=== PATIENT | female | born 1950 | race Caucasian/White ===

== ENCOUNTER 2016-08-31 09:00 | Outpatient (CLI) | payer MEDICARE, OTHER | END 2016-08-31 09:35 | disposition home or self-care (01) | LOC: SLEEP 09:00 | PROVIDERS: ATTEND Internal Medicine Critical Care Medicine | DX: G47.10 Hypersomnia, unspecified (principal); I10 Essential (primary) hypertension; J68.4 Chronic respiratory conditions due to chemicals, gases, fumes and vapors; J30.2 Other seasonal allergic rhinitis; J32.9 Chronic sinusitis, unspecified; K21.9 Gastro-esophageal reflux disease without esophagitis; R05 Cough ==

== ENCOUNTER 2016-12-21 20:06 | Outpatient (CLI) | payer MEDICARE, OTHER | END 2016-12-22 06:05 | disposition home or self-care (01) | DX: G47.50 Parasomnia, unspecified (principal); J68.4 Chronic respiratory conditions due to chemicals, gases, fumes and vapors; G47.10 Hypersomnia, unspecified; G47.34 Idiopathic sleep related nonobstructive alveolar hypoventilation ==

== ENCOUNTER → 2017-07-27 | Outpatient (CLI) | payer MEDICARE, OTHER ==
--- NOTE | 2017-07-27 15:38 | Diagnostic Imaging Report ---
INDICATION: Neck mass. Patient had lipoma removal in June, now with a recurrent mass in the same area. FINDINGS: Interrogation of the lump was performed. There is mixed echogenicity but primarily hyperechoic mass measuring 2.6 x 1.1 x 3.3 cm, indeterminate. No definite internal vascularity is present. The right lobe of the thyroid measures 5.2 x 1.8 x 1.8 cm and the left lobe measures 4.2 x 2.5 x 2.0 cm. There is a hyperechoic mass in the upper pole of left lobe measuring 1.8 x 1.4 x 1.5 cm. There is a hypoechoic nodule in the inferior right lobe measuring approximately 0.8 x 0.8 x 1.4 cm. IMPRESSION: 1. Bilateral thyroid masses, largest upper pole left lobe. Followup in 6 months could be performed to confirm stability. 2. Nonspecific mass midline of the neck at the area of palpable abnormality. Dictated by: Dictated on workstation # [id number]
== END ==
LOC: RAD 14:25
PROVIDERS: ATTEND Surgery
DX: R22.1 Localized swelling, mass and lump, neck (principal); Z86.018 Personal history of other benign neoplasm
CPT/HCPCS: 76536

== ENCOUNTER → 2017-08-09 | Outpatient (CLI) | payer MEDICARE, OTHER ==
--- NOTE | 2017-08-09 13:27 | Diagnostic Imaging Report ---
DATE OF STUDY: 08/09/2017 1:13 PM STUDY PERFORMED: Dual energy radiographic absorptiometry (DXA) INDICATION: 66 years-old Female in need of bone mineral density screening. PREVIOUS STUDIES: None. PROCEDURE: Bone mineral analysis was performed by dual energy radiographic absorptiometry of the lumbar spine and bilateral hips. FINDINGS: Examination of transmission images of the lumbar spine and hips demonstrates degenerative changes. REGION L2-L4 PA total: Bone mineral density g/cm2 1.261 SD from young normal (T) 0.5 SD from age-matched control (Z) 1.4 Right femoral neck: Bone mineral density g/cm2 0.849 SD from young normal (T) -1.4 SD from age-matched control (Z) -0.3 Right hip total: Bone mineral density g/cm2 0.889 SD from young normal (T) -0.9 SD from age-matched control (Z) -0.1 Left femoral neck: Bone mineral density g/cm2 0.837 SD from young normal (T) -1.4 SD from age-matched control (Z) -0.4 Left hip total: Bone mineral density g/cm2 0.970 SD from young normal (T) -0.3 SD from age-matched control (Z) 0.5 (Please use "T" values from the results) According to the FRAX WHO fracture risk assessment tool, for an untreated patient, there is a 8.5 percent 10-year risk of major osteoporotic fracture and a 0.9 percent 10-year risk of hip fracture. However, not all demographic information is available. IMPRESSION: 1. Osteopenia, based on a T score of -1.4 in the right femoral neck. Reductions in bone density to 2.5 or more standard deviations below those of young normal subjects is considered to represent osteoporosis in the absence of other causes of bone loss. Reduction in bone density to 1-2.5 standard deviations below those of young normal subjects fulfills the definition of osteopenia. (WHO Tech Rep Ser 1994; No. 843.6; J Bone Stokes Res 1994; 9:1137). Dictated by: Dictated on workstation # [id number]
== END ==
LOC: RAD 08:19
PROVIDERS: ATTEND Nurse Practitioner Family
DX: Z13.820 Encounter for screening for osteoporosis (principal); M85.88 Other specified disorders of bone density and structure, other site; M81.0 Age-related osteoporosis without current pathological fracture
CPT/HCPCS: 77080

== ENCOUNTER 2017-08-15 05:37 | Outpatient (CLI) | payer MEDICARE, OTHER ==
[~2017-08-15] VITALS: Ht 157.5 cm; Wt 83.0 kg
[2017-08-15] MEDS ORDERED: METR45CR TP (15:39)
[2017-08-15] MEDS ORDERED: VITA-189 PO (16:07)
[2017-08-15] MEDS ORDERED: FLUT16SP22 NSEACH (16:07)
[2017-08-15] MEDS ORDERED: MULT-77 PO (16:07)
[2017-08-15] MEDS ORDERED: ATEN25TA PO (16:07)
[2017-08-15] MEDS ORDERED: MONT10TA24 PO (16:07)
[2017-08-15] MEDS ORDERED: RT-ALBUINH IH (16:07)
[2017-08-15] MEDS ORDERED: OMEP20TA7 PO (16:07)
[2017-08-15] MEDS ORDERED: SOY1TABL2 PO (16:07)
[2017-08-15] MEDS ORDERED: CALC-823 PO (16:07)
[2017-08-15] MEDS ORDERED: LORA10TA7 PO (16:07)
[2017-08-15] MEDS ORDERED: FLUT200B IH (16:07)
[2017-08-15] MEDS ORDERED: MINO100T10 PO (16:07)
[2017-08-15] MEDS ORDERED: BRIMON0.2 OU (16:07)
== END 2017-08-15 16:12 ==
LOC: PREOP 05:37
PROVIDERS: ATTEND Surgery
DX: Z01.818 Encounter for other preprocedural examination (principal); R22.2 Localized swelling, mass and lump, trunk

== ENCOUNTER 2017-08-23 06:01 | Day surgery (SDC) | payer MEDICARE, OTHER ==
[~2017-08-23] VITALS: Ht 157.5 cm; Wt 83.0 kg
[~2017-08-23 06:01] MED LIST: ATEN25TA PO; BRIMON0.2 OU; CALC-823 PO; FLUT16SP22 NSEACH; FLUT200B IH; LORA10TA7 PO; METR45CR TP; MINO100T10 PO; MONT10TA24 PO; MULT-77 PO; OMEP20TA7 PO; RT-ALBUINH IH; SOY1TABL2 PO; VITA-189 PO
--- OUTSIDE RECORDS SUMMARY | 2017-08-23 06:03 | XMS REPORT | CCD ---
Author Author JS PRITCHETT Organization Unknown Address [address] [facility] [address] [place], [place] [id number] Care Team Providers Care Lead Furnace Operator Name Role Phone [facility] ER, RIAN DIAZ Attphys [facility] ER, ALPHONSO OLIVA Prisurg Vital Signs Unknown or Not Available. Allergies Allergy Code Allergy Type Reaction Status CIPRO 975325 Drug allergy Active SULFONAMIDE 0 Drug allergy Active BACTRIM 221531 Drug allergy Active Procedures Procedure Code Procedure Type Date BAN AERO ECLIPSE TREATMENT 94364890 SNOMED CT 02/13/2015 CBC W/ AUTO DIFF (RFLX MAN DIFF IF IND) 5367733 SNOMED CT 02/13/2015 COMPREHENSIVE METABOLIC PANEL 359931461 SNOMED CT 2014 TROPONIN-I ADV 478806575 SNOMED CT 02/13/[address] 02/13/2015 ^CBC W/AUTO DIFF 1412300 SNOMED CT 02/13/2015 CX CHEST [address] 02/13/2015 History of Immunizations Unknown or Not Available. Problems Unknown or Not Available. Results COMPREHENSIVE METABOLIC PANEL - Collect Date/Time: 02/13/2015 19:55 Test Name Code Test Result Test Units Test Ref Range GLUCOSE 2345-7 103 MG/DL L=70 H=100 SODIUM 2951-2 143 MEQ/L L=135 H=148 POTASSIUM 2823-3 3.8 MEQ/L L=3.5 H=5.3 CHLORIDE 2075-0 108 MEQ/L L=96 H=110 CO2 2028-9 24 MEQ/L L=22 H=29 BUN 3094-0 20 MG/DL L=8 H=22 CREATININE 2160-0 0.8 MG/DL L=0.6 H=1.6 SGOT/AST 1920-8 22 IU/L L=10 H=40 SGPT/ALT 1742-6 22 IU/L L=8 H=54 ALK PHOS 6768-6 66 IU/L L=35 H=115 TOTAL PROTEIN 2885-2 6.8 G/DL L=5.5 H=8.5 ALBUMIN 1751-7 4.0 G/DL L=3.1 H=5.4 TOTAL BILI 1975-2 0.3 MG/DL L=0.0 H=1.5 CALCIUM 88198-2 9.4 MG/DL L=8.2 H=10.6 AGE 64 yrs GFR NonAA 72 GFR AA 87 eGFR >60 N/A eGFR AA* >60 N/A CBC W/ AUTO DIFF (RFLX MAN DIFF IF IND) - Collect Date/Time: 02/13/2015 19:55 Test Name Code Test Result Test Units Test Ref Range WBC 74239-2 6.4 TH/CMM L=4.5 H=10.8 RBC 789-8 4.57 ML/CMM L=4.20 H=5.40 HGB 718-7 13.9 G/DL L=12.0 H=16.0 HCT 4544-3 42.2 % L=37.0 H=47.0 MCV 92 FL L=81 H=99 MCH 30.4 PG L=27.0 H=33.0 MCHC 32.9 G/DL L=31.0 H=36.0 RDW SD 44 FL L=36 H=50 RDW CV 13.0 % L=0.0 H=14.8 MPV 9.4 FL L=9.3 H=12.5 PLT 777-3 256 TH/CMM L=130 H=440 NRBC# 0.00 TH/CMM L=0.00 H=0.00 NRBC% 0.0 /100WBC L=0.0 H=2.0 %NEUT 56.9 % %LYMP 31.5 % %MONO 7.8 % %EOS 3.3 % %BASO 0.5 % #NEUT 3.66 TH/CMM L=2.10 H=8.20 #LYMP 2.02 TH/CMM L=0.90 H=5.20 #MONO 0.50 TH/CMM L=0.16 H=1.00 #EOS 0.21 TH/CMM L=0.00 H=0.80 #BASO 0.03 TH/CMM L=0.00 H=0.20 MANUAL DIFF NOT IND N/A BNP - Collect Date/Time: 02/13/2015 19:55 Test Name Code Test Result Test Units Test Ref Range BNP 25020-2 45 PG/ML L=0 H=100 TROPONIN-I ADV - Collect Date/Time: 02/13/2015 19:55 Test Name Code Test Result Test Units [place] [address]-2 <0.04 ng/mL L=0.04 H= 0.40 Active Medications Unknown or Not Available. Medications Administered During Visit Unknown or Not Available. Encounters Encounter Diagnosis Diagnosis Code Start Date ACUTE BRONCHITIS 4660 02/13/2015 Social History Smoking Status Code Start Date End Date Never smoker 957867122 Patient Decision Aids Unknown or Not Available. Discharge Instructions You were admitted to [facility] on 02/13/2015 with a principal diagnosis of ACUTE BRONCHITIS. You were discharged from [facility] on 02/13/2015. Should you have any questions prior to discharge, please contact a member of your healthcare team. If you have left the hospital and have any questions, please contact your primary care physician. Chief Complaint and Reason For Visit Chief Complaint Date of Onset DIFFICULTY BREATHING Function Status Unknown or Not Available. Plan of Care Unknown or Not Available. Referral/Transition of Care Unknown or Not Available.
--- OUTSIDE RECORDS SUMMARY | 2017-08-23 06:04 | XMS REPORT | Continuity of Care Document ---
Author Author [facility] Address Unknown Phone Unavailable Allergies Active Description Code Type Severity Reaction Onset Reported/Identified Relationship to Patient Clinical Status Yes Sulfa (Sulfonamide Antibiotics) 491 Drug Allergy N/A N/A Confirmed or Verified Yes Cipro Drug Allergy N/A Hives 07/29/2013 Yes Sulfa Drug Allergy N/A Hives 07/29/2013 Medications There is no data. 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 08/27/2015 ERIC MCKAY MD Ot Z12.31 08/30/2015 ERIC MCKAY MD Ot Z12.31 09/21/2015 DAVID SUAREZ DO Ot I10 09/21/2015 DAVID SUAREZ DO, Ot J32.9 09/21/2015 DAVID SUAREZ DO Ot K21.9 09/21/2015 DAVID SUAREZ DO Ot R05 09/23/2015 DAVID SUAREZ DO Ot I10 09/23/2015 DAVID SUAREZ DO, Ot J32.9 09/23/2015 DAVID SUAREZ DO, Ot K21.9 09/23/2015 DAVID SUAREZ DO Ot R05 09/29/2015 DAVID SUAREZ DO Ot I10 09/29/2015 DANIELA OLIVA DAVID Davila Ot J32.9 09/29/2015 DANIELA OLIVA DAVID Davila Ot K21.9 09/29/2015 DAVID SUAREZ DO Ot R05 10/12/2015 DAVID SUAREZ DO Ot I10 10/12/2015 DANIELA OLIVA DAVID Davila Ot J32.9 10/12/2015 DANIELA OLIVA DAVID Davila Ot K21.9 10/12/2015 DANIELA OLIVA DAVID Davila Ot R05 10/20/2015 DANIELA OLIVA DAVID Davila Ot I10 ESSENTIAL (PRIMARY) HYPERTENSION 10/20/2015 DANIELA OLIVA DAVID M Ot J32.9 CHRONIC SINUSITIS, UNSPECIFIED 10/20/2015 DANIELA DAVID Lola Ot K21.9 GASTRO-ESOPHAGEAL REFLUX DISEASE WITHOUT 10/20/2015 DANIELA OLIVA DAVID M Ot R05 COUGH 02/11/2016 BLANCA BURNETT POLICE RESERVES COMMANDER Ot M25.532 PAIN IN LEFT WRIST 02/11/2016 BLANCA BURNETT POLICE RESERVES COMMANDER Ot M25.532 PAIN IN LEFT WRIST 03/03/2016 BLANCA BURNETT POLICE RESERVES COMMANDER Ot M25.532 PAIN IN LEFT WRIST 03/09/2016 BLANCA BURNETT POLICE RESERVES COMMANDER Ot M25.532 PAIN IN LEFT WRIST 03/13/2016 CORINNA LOGAN APRN Ot S52.612D DISP FX OF L ULNA STYLOID PRO, SUBS FOR 03/13/2016 CORINNA LOGAN APRN Ot S59.202D UNSP PHYSL FX LOW END RAD, L ARM, SUBS F 03/13/2016 CORINNA LOGAN APRN Ot W17.89XD OTHER FALL FROM ONE LEVEL TO ANOTHER, ELI 03/13/2016 CORINNA LOGAN APRN Ot S52.612D DISP FX OF L ULNA STYLOID PRO, SUBS FOR 03/13/2016 CORINNA LOGAN APRN Ot S59.202D UNSP PHYSL FX LOW END RAD, L ARM, SUBS F 03/13/2016 CORINNA LOGAN APRN Ot W17.89XD OTHER FALL FROM ONE LEVEL TO ANOTHER, ELI 04/03/2016 CORINNA LOGAN APRN Ot S52.612D DISP FX OF L ULNA STYLOID PRO, SUBS FOR 04/03/2016 CORINNA LOGAN APRN Ot S59.202D UNSP PHYSL FX LOW END RAD, L ARM, SUBS F 04/03/2016 CORINNA LOGAN APRN Ot W17.89XD OTHER FALL FROM ONE LEVEL TO ANOTHER, ELI 04/03/2016 WOODY DIAZ, ERIC Ramesh Ot Z12.31 ENCNTR SCREEN MAMMOGRAM FOR MALIGNANT NE 04/03/2016 DAVID SUAREZ DO Ot I10 ESSENTIAL (PRIMARY) HYPERTENSION 04/03/2016 DAVID SUAREZ DO Ot J32.9 CHRONIC SINUSITIS, UNSPECIFIED 04/03/2016 DAVID SUAREZ DO Ot K21.9 GASTRO-ESOPHAGEAL REFLUX DISEASE WITHOUT 04/03/2016 DAVID SUAREZ DO Ot R05 COUGH 04/03/2016 DAVID SUAREZ DO Ot I10 ESSENTIAL (PRIMARY) HYPERTENSION 04/03/2016 DAVID SUAREZ DO Ot J32.9 CHRONIC SINUSITIS, UNSPECIFIED 04/03/2016 DAVID SUAREZ DO Ot K21.9 GASTRO-ESOPHAGEAL REFLUX DISEASE WITHOUT 04/03/2016 DAVID SUAREZ DO Ot R05 COUGH 04/03/2016 BLANCA BURNETT Ot M25.532 PAIN IN LEFT WRIST 04/03/2016 CORINNA LOGAN APRN Ot S52.612D DISP FX OF L ULNA STYLOID PRO, SUBS FOR 04/03/2016 CORINNA LOGAN APRN Ot S59.202D UNSP PHYSL FX LOW END RAD, L ARM, SUBS F 04/03/2016 CORINNA LOGAN APRN Ot W17.89XD OTHER FALL FROM ONE LEVEL TO ANOTHER, ELI 04/05/2016 CORINNA LOGAN APRN Ot S52.612D DISP FX OF L ULNA STYLOID PRO, SUBS FOR 04/05/2016 CORINNA LOGAN APRN Ot S59.202D UNSP PHYSL FX LOW END RAD, L ARM, SUBS F 04/05/2016 CORINNA LOGAN APRN Ot W17.89XD OTHER FALL FROM ONE LEVEL TO ANOTHER, ELI 08/31/2016 WOODY DIAZ, ERIC Ramesh Ot Z12.31 ENCNTR SCREEN MAMMOGRAM FOR MALIGNANT NE 08/31/2016 DAVID SUAREZ DO Ot I10 ESSENTIAL (PRIMARY) HYPERTENSION 08/31/2016 DAVID SUAREZ DO Ot J32.9 CHRONIC SINUSITIS, UNSPECIFIED 08/31/2016 DAVID SUAREZ DO Ot K21.9 GASTRO-ESOPHAGEAL REFLUX DISEASE WITHOUT 08/31/2016 DAVID SUAREZ DO Ot R05 COUGH 08/31/2016 DAVID SUAREZ DO Ot I10 ESSENTIAL (PRIMARY) HYPERTENSION 08/31/2016 DAVID SUAREZ DO, Ot J32.9 CHRONIC SINUSITIS, UNSPECIFIED 08/31/2016 DAVID SUAREZ DO Ot K21.9 GASTRO-ESOPHAGEAL REFLUX DISEASE WITHOUT 08/31/2016 DAVID SUAREZ DO Ot R05 COUGH 08/31/2016 BLANCA BURNETT Ot M25.532 PAIN IN LEFT WRIST 08/31/2016 CORINNA LOGAN APRN Ot S52.612D DISP FX OF L ULNA STYLOID PRO, SUBS FOR 08/31/2016 CORINNA LOGAN APRN Ot S59.202D UNSP PHYSL FX LOW END RAD, L ARM, SUBS F 08/31/2016 CORINNA LOGAN APRN Ot W17.89XD OTHER FALL FROM ONE LEVEL TO ANOTHER, ELI 08/31/2016 DAVID SUAREZ DO Ot I10 ESSENTIAL (PRIMARY) HYPERTENSION 08/31/2016 DAVID SUAREZ DO Ot G47.10 HYPERSOMNIA, UNSPECIFIED 08/31/2016 DAVID SUAREZ DO Ot I10 ESSENTIAL (PRIMARY) HYPERTENSION 08/31/2016 DAVID SUAREZ DO Ot J30.2 OTHER SEASONAL ALLERGIC RHINITIS 08/31/2016 DAVID SUAREZ DO Ot J32.9 CHRONIC SINUSITIS, UNSPECIFIED 08/31/2016 DAVID SUAREZ DO Ot 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, GASE 08/31/2016 DAVID SUAREZ DO Ot K21.9 GASTRO-ESOPHAGEAL REFLUX DISEASE WITHOUT 08/31/2016 DAVID SUAREZ DO Ot R05 COUGH 09/09/2016 DAVID SUAREZ DO Ot I10 ESSENTIAL (PRIMARY) HYPERTENSION 09/09/2016 DAVID SUAREZ DO Ot J30.2 OTHER SEASONAL ALLERGIC RHINITIS 09/09/2016 DAVID SUAREZ DO Ot J32.9 CHRONIC SINUSITIS, UNSPECIFIED 09/09/2016 DAVID SUAREZ DO Ot 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, GASE 09/09/2016 DAVID SUAREZ DO Ot K21.9 GASTRO-ESOPHAGEAL REFLUX DISEASE WITHOUT 09/09/2016 DAVID SUAREZ DO Ot R05 COUGH 10/16/2016 DAVID SUAREZ DO Ot G47.10 HYPERSOMNIA, UNSPECIFIED 10/16/2016 DAVID SUAREZ DO Ot I10 ESSENTIAL (PRIMARY) HYPERTENSION 10/16/2016 DAVID SUAREZ DO Ot J30.2 OTHER SEASONAL ALLERGIC RHINITIS 10/16/2016 DAVID SUAREZ DO Ot J32.9 CHRONIC SINUSITIS, UNSPECIFIED 10/16/2016 DAVID SUAREZ DO Ot 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, GASE 10/16/2016 DAVID SUAREZ DO Ot K21.9 GASTRO-ESOPHAGEAL REFLUX DISEASE WITHOUT 10/16/2016 DAVID SUAREZ DO Ot R05 COUGH 12/22/2016 DAVID SUAREZ DO Ot G47.10 HYPERSOMNIA, UNSPECIFIED 12/22/2016 DAVID SUAREZ DO Ot G47.34 IDIO SLEEP RELATED NONOBSTRUCTIVE ALVEOL 12/22/2016 DAVID SUAREZ DO Ot G47.50 PARASOMNIA, UNSPECIFIED 12/22/2016 DAVID SUAREZ DO Ot 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, GASE 12/22/2016 DAVID SUAREZ DO Ot G47.10 HYPERSOMNIA, UNSPECIFIED 12/22/2016 DAVID SUAREZ DO Ot G47.34 IDIO SLEEP RELATED NONOBSTRUCTIVE ALVEOL 12/22/2016 DAVID SUAREZ DO Ot G47.50 PARASOMNIA, UNSPECIFIED 12/22/2016 DAVID SUAREZ DO Ot 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, GASE 12/28/2016 DAVID SUAREZ DO Ot G47.10 HYPERSOMNIA, UNSPECIFIED 12/28/2016 DAVID SUAREZ DO Ot G47.34 IDIO SLEEP RELATED NONOBSTRUCTIVE ALVEOL 12/28/2016 DAVID SUAREZ DO Ot G47.50 PARASOMNIA, UNSPECIFIED 12/28/2016 DAVID SUAREZ DO Ot 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, GASE 07/26/2017 WOODY DIAZ, ERIC Ramesh Ot Z12.31 ENCNTR SCREEN MAMMOGRAM FOR MALIGNANT NE 07/26/2017 DAVID SUAREZ DO Ot I10 ESSENTIAL (PRIMARY) HYPERTENSION 07/26/2017 DAVID SUAREZ DO Ot J32.9 CHRONIC SINUSITIS, UNSPECIFIED 07/26/2017 DAVID SUAREZ DO Ot K21.9 GASTRO-ESOPHAGEAL REFLUX DISEASE WITHOUT 07/26/2017 DAVID SUAREZ DO Ot R05 COUGH 07/26/2017 DAVID SUAREZ DO Ot I10 ESSENTIAL (PRIMARY) HYPERTENSION 07/26/2017 DAVID SUAREZ DO Ot J32.9 CHRONIC SINUSITIS, UNSPECIFIED 07/26/2017 DAVID SUAREZ DO Ot K21.9 GASTRO-ESOPHAGEAL REFLUX DISEASE WITHOUT 07/26/2017 DAVID SUAREZ DO Ot R05 COUGH 07/26/2017 BLANCA BURNETT Ot M25.532 PAIN IN LEFT WRIST 07/26/2017 CORINNA LOGAN APRN Ot S52.612D DISP FX OF L ULNA STYLOID PRO, SUBS FOR 07/26/2017 CORINNA LOGAN APRN Ot S59.202D UNSP PHYSL FX LOW END RAD, L ARM, SUBS F 07/26/2017 CORINNA LOGAN APRN Ot W17.89XD OTHER FALL FROM ONE LEVEL TO ANOTHER, ELI 07/31/2017 ROWAN MARTINEZ DO Ot R22.1 LOCALIZED SWELLING, MASS AND LUMP, NECK 07/31/2017 ROWAN MARTINEZ DO Ot Z86.018 PERSONAL HISTORY OF OTHER BENIGN NEOPLAS 08/08/2017 CORINNA LOGAN APRN Ot M81.0 AGE-RELATED OSTEOPOROSIS W/O CURRENT PAT 08/09/2017 CORINNA LOGAN APRN Ot M81.0 AGE-RELATED OSTEOPOROSIS W/O CURRENT PAT 08/10/2017 CORINNA LOGAN APRN Ot M81.0 AGE-RELATED OSTEOPOROSIS W/O CURRENT PAT 08/10/2017 CORINNA LOGAN APRN Ot M85.88 OT DISRD OF BONE DENSITY AND STRUCTURE, 08/10/2017 CORINNA LOGAN APRN Ot Z13.820 ENCOUNTER FOR SCREENING FOR OSTEOPOROSIS Procedures Code [place] [address] ROUTINE VENIPUNCTURE ROCK DIAZ, DALILA Diego 07/27/2013 66298 CHEST X-RAY ROCK DIAZ, DALILA Diego 07/27/2013 09794 COMPREHEN METABOLIC PANEL ROCK DIAZ, [facility] 07/27/2013 51636 COMPLETE CBC W/AUTO DIFF WBC ROCK DIAZ, DALILA B 07/27/2013 98460 MYCOPLASMA ANTIBODY ROCK DIAZ, DALILA B 07/27/2013 57919 INFLUENZA ASSAY W/OPTIC ROCK DIAZ, [facility] 07/27/2013 52487 THER/PROPH/DIAG INJ, SC/IM [place]OCK DIAZ, DALILA B 07/27/2013 95595 EMERGENCY DEPT VISIT ROCK DIAZ, DALILA B 07/27/2013 J0696 CEFTRIAXONE SODIUM INJECTION ROCK DIAZ, [facility] 07/27/2013 05656 EMERGENCY DEPT VISIT ROCK DIAZ, DALILA B 07/27/2013 48938 EMERGENCY DEPT VISIT ADRI DIAZ, ISSAC Patterson 07/28/2013 Results Test Result Range COMPLETE BLOOD COUNT - 07/27/13 08:05 Platelet 277 10^3u 142-424 MPV 8.8 FL 9.4-12.4 [place] # 0.63 10^3u 0.0-1.0 RBC 4.66 10^6u 4.04-6.13 [place] % 10.7 % 0-12 RDW 12.5 % 11.6-14.8 Neut # 3.62 10^3u 2.0-6.9 Neut % 61.3 % 37-80 WBC 5.90 10^3u 4.60-10.20 MCV 89.1 FL 80.0-97.0 Baso # 0.04 10^3u 0.0-0.1 Baso % 0.7 % 0-2 Eos # 0.35 10^3u 0-0.7 Eos % 5.9 % 0-7 Lymph % 21.4 % 10-50 MCHC 34.2 G/DL 31.8-35.4 MCH 30.5 PG 27.0-31.2 Lymph # 1.26 10^3u 0.6-3.4 HGB 14.2 G/DL 12.2-18.1 HCT 41.5 % 37.7-53.7 CMP - 07/27/13 08:05 Osmo Calculated 276 MOSM 261-280 Sodium 143 MMOLL 137-145 T. Protein 8.0 G/DL 6.3-8.2 Potassium 4.0 MMOLL 3.6-5.0 T Bili 0.5 MG/DL 0.2-1.3 Calcium 9.3 MG/DL 8.4-10.2 BUN 12 MG/DL 7-21 Chloride 103 MMOLL 98-107 AST 33 U/L 15-46 ALT 37 U/L 7-56 Albumin 4.4 G/DL 3.5-5.0 A/G Ratio 1.2 RATIO 1.2-2.2 Bun/Creat 16.5 RATIO 7-25 Alk Phos 104 U/L 38-126 CO2 28 MMOLL 22-30 Glucose 106 MG/DL 65-110 Globulin 3.6 2.4-3.5 Creatinine 0.7 MG/DL 0.7-1.5 Mycoplasma Antibody - 07/27/13 08:05 Mycoplasma Antibody NEG Negative Influenza A B - 07/27/13 08:05 Influenza A NEG Negative Influenza B NEG Negative COMPLETE BLOOD COUNT - 07/29/13 13:30 Platelet 326 10^3u 142-424 MPV 9.0 FL 9.4-12.4 [place] # 0.52 10^3u 0.0-1.0 [place] 9.0 RBC 4.61 10^6u 4.04-6.13 [place] % 7.1 % 0-12 RDW 12.5 % 11.6-14.8 Seg 60.0 Neut # 4.52 10^3u 2.0-6.9 Neut % 61.4 % 37-80 WBC 7.36 10^3u 4.60-10.20 Bands 1.0 MCV 89.2 FL 80.0-97.0 Lymph Atypical 1.0 Baso # 0.03 10^3u 0.0-0.1 Baso % 0.4 % 0-2 Eos 3.0 Eos # 0.34 10^3u 0-0.7 Eos % 4.6 % 0-7 Lymph % 26.5 % 10-50 MCHC 34.3 G/DL 31.8-35.4 MCH 30.6 PG 27.0-31.2 Lymph # 1.95 10^3u 0.6-3.4 Lymph 26.0 HGB 14.1 G/DL 12.2-18.1 HCT 41.1 % 37.7-53.7 Mycoplasma Antibody - 07/29/13 13:40 Mycoplasma Antibody NEG Negative [facility] - 07/29/13 13:40 Osmo Calculated 274 MOSM 261-280 Sodium 142 MMOLL 137-145 T. Protein 8.1 G/DL 6.3-8.2 Potassium 4.2 MMOLL 3.6-5.0 T Bili 0.5 MG/DL 0.2-1.3 Calcium 9.4 MG/DL 8.4-10.2 BUN 14 MG/DL 7- Chloride 103 MMOLL 98-107 AST 36 U/L 15-46 ALT 31 U/L Albumin 4.4 G/DL 3.5-5.0 A/G Ratio 1.2 RATIO 1.2-2.2 Bun/Creat 19.1 RATIO 7 Alk Phos 104 U/L 38-126 CO2 27 MMOLL 22-30 Glucose 84 MG/DL 65-110 Globulin 3.7 2.4-3.5 Creatinine 0.7 MG/DL 0.7-1.5 Arterial Blood Gas - 07/29/13 14:00 O2/L ROOMAIR L pCO2 38 mmHg 35-45 HCO3 25 MMOLL 22-26 pH 7.42 Units 7.35-7.45 Total CO2 26 MMOLL 23-27 pO2 78 mmHg 75-90 Base Excess 1 MMOLL -2-+2 O2 Sat 96 % 96-97 [facility] - 07/30/13 05:45 Osmo Calculated 274 MOSM 261-280 Sodium 142 MMOLL 137-145 T. Protein 7.0 G/DL 6.3-8.2 Potassium 3.9 MMOLL 3.6-5.0 T Bili 0.3 MG/DL 0.2-1.3 Calcium 8.9 MG/DL 8.4-10.2 BUN 14 MG/DL 7- Chloride 105 MMOLL 98-107 AST 28 U/L 15-46 ALT 34 U/L Albumin 3.8 G/DL 3.5-5.0 A/G Ratio 1.2 RATIO 1.2-2.2 Bun/Creat 18.1 RATIO 7 Alk Phos 86 U/L 38-126 CO2 28 MMOLL 22-30 Glucose 99 MG/DL 65-110 Globulin 3.3 2.4-3.5 Creatinine 0.8 MG/DL 0.7-1.5 COMPLETE BLOOD COUNT - 07/30/13 05:45 Platelet 283 10^3u 142-424 MPV 9.0 FL 9.4-12.4 [place] 10.0 RBC 4.28 10^6u 4.04-6.13 RDW 12.3 % 11.6-14.8 Seg 56.0 WBC 6.16 10^3u 4.60-10.20 Bands 1.0 MCV 89.5 FL 80.0-97.0 Eos 6.0 MCHC 33.4 G/DL 31.8-35.4 MCH 29.9 PG 27.0-31.2 Lymph 27.0 HGB 12.8 G/DL 12.2-18.1 HCT 38.3 % 37.7-53.7 COMPLETE BLOOD COUNT - 07/31/13 06:10 Platelet 233 10^3u 142-424 MPV 8.7 FL 9.4-12.4 [place] # 0.61 10^3u 0.0-1.0 RBC 4.40 10^6u 4.04-6.13 [place] % 10.0 % 0-12 RDW 12.4 % 11.6-14.8 Neut # 3.25 10^3u 2.0-6.9 Neut % 53.3 % 37-80 WBC 6.09 10^3u 4.60-10.20 MCV 90.0 FL 80.0-97.0 Baso # 0.03 10^3u 0.0-0.1 Baso % 0.5 % 0-2 Eos # 0.40 10^3u 0-0.7 Eos % 6.6 % 0-7 Lymph % 29.6 % 10-50 MCHC 33.6 G/DL 31.8-35.4 MCH 30.2 PG 27.0-31.2 Lymph # 1.80 10^3u 0.6-3.4 HGB 13.3 G/DL 12.2-18.1 HCT 39.6 % 37.7-53.7 CMP - 07/31/13 06:10 Osmo Calculated 273 MOSM 261-280 Sodium 142 MMOLL 137-145 T. Protein 7.0 G/DL 6.3-8.2 Potassium 4.5 MMOLL 3.6-5.0 T Bili 0.3 MG/DL 0.2-1.3 Calcium 8.5 MG/DL 8.4-10.2 BUN 11 MG/DL 7-21 Chloride 107 MMOLL 98-107 AST 32 U/L 15-46 ALT 29 U/L 7-56 Albumin 3.7 G/DL 3.5-5.0 A/G Ratio 1.1 RATIO 1.2-2.2 Bun/Creat 16.0 RATIO 7-25 Alk Phos 81 U/L 38-126 CO2 25 MMOLL 22-30 Glucose 97 MG/DL 65-110 Globulin 3.3 2.4-3.5 Creatinine 0.7 MG/DL 0.7-1.5 Encounters ACCT No. Visit Date/Time Discharge Status Pt. Type Provider Facility Loc./Unit Complaint [id number] 07/29/2013 12:45:00 07/31/2013 13:15:00 DIS Inpatient ROCK DIAZ, [facility] NS1 [id number] 07/28/2013 22:30:00 07/28/2013 23:15:00 DIS Emergency ADRI DIAZ, [facility] ER [id number] 07/28/2013 22:40:00 07/28/2013 22:40:00 DIS Outpatient ADRI DIAZ, [facility] OTHER [id number] 07/27/2013 07:50:00 07/27/2013 09:20:00 DIS Emergency ROCK DIAZ, [facility] ER [id number] 07/27/2013 08:35:00 07/27/2013 08:35:00 DIS Outpatient ROCK DIAZ, [facility] OTHER [id number] 07/02/2014 17:23:00 07/02/2014 19:02:00 DIS Emergency SUNSHINE KINGSTON [facility] EMR [id number] 07/02/2014 17:25:00 07/02/2014 17:25:00 DIS Outpatient SUNSHINE KINGSTON [facility] EMR [id number] 08/09/2017 08:19:00 08/09/2017 23:59:59 CLS Outpatient CORINNA LOGAN APRN [facility] RAD SCREENING [id number] 07/27/2017 14:34:00 07/27/2017 23:59:59 CLS Preadmit CORINNA LOGAN APRN [facility] RAD SCREENING [id number] 07/27/2017 14:25:00 07/27/2017 23:59:59 CLS Outpatient ROWAN MARTINEZ DO [facility] RAD R22.1 NECK MASS [id number] 02/01/2017 12:10:00 02/01/2017 23:59:59 CLS Preadmit ERIC MCKAY MD [facility] RAD SCREENING [id number] 02/01/2017 12:10:00 02/01/2017 23:59:59 CLS Preadmit ERIC MKCAY MD [facility] RAD OSTEOPOROSIS [id number] 12/21/2016 20:06:00 12/22/2016 06:05:00 DIS Outpatient DAVID SUAREZ DO [facility] SLEEP J68.4 COPD [id number] 08/31/2016 09:00:00 08/31/2016 09:35:00 DIS Outpatient DAVID SUAREZ DO [facility] SLEEP EDS, SNORING, SLEEP DISTURBANCE [id number] 03/10/2016 10:42:00 03/10/2016 23:59:59 CLS Outpatient CORINNA LOGAN APRN [facility] RAD L WRIST FRACTURE FOLLOW UP [id number] 02/10/2016 14:09:00 02/10/2016 23:59:59 CLS Outpatient BLANCA BURNETT [facility] RAD L WRIST PAIN [id number] 09/22/2015 16:26:00 09/22/2015 23:59:59 CLS Outpatient DAVID SUAREZ DO [facility] RT COUGH, ESPHOGEAL REFLUX, HTN [id number] 08/30/2015 13:36:00 08/30/2015 23:59:59 CLS Outpatient DAVID SUAREZ DO [facility] RAD COUGH, ESPHOGEAL REFLUX, HTN [id number] 08/03/2015 10:20:00 08/03/2015 23:59:59 CLS Outpatient WOODY DIAZ, ERIC Ramesh [facility] RAD SCREENING [id number] 08/23/2017 08:00:00 PEN Preadmit ROWAN MARTINEZ DO [facility] SDC CHEST MASS
[2017-08-23 06:20] VITALS: BP 174/99
[2017-08-23] MEDS: LACTATED RINGERS 1,000 ML IV PRN ×2 (06:20→08:35)
[2017-08-23] MEDS ORDERED: CATHETER FLUSH 10 ML SYR IV PRN (06:30)
[2017-08-23] MEDS ORDERED: ceFAZolin 2 GM/50 ML PRE-MIX IVPB IV ONE (06:30)
[2017-08-23] MEDS ORDERED: proPOfol 200 MG/20 ML (DIPRIVAN) VIAL IV ONE (06:42)
[2017-08-23] MEDS ORDERED: LIDOCAINE PF 2% 5 ML (XYLOCAINE) VIAL ONE (06:42)
[2017-08-23] MEDS ORDERED: ONDANSETRON 4 MG/2 ML (SDV) Z0FRAN ONE (06:42)
[2017-08-23] MEDS ORDERED: DEXAMETHASONE 10 MG/ML (DECADRON) 1 ML VIAL ONE (06:42)
[2017-08-23] MEDS ORDERED: SEVOFLURANE (ULTANE) 15 ML INHAL SOLN ONE ×3 (06:42→06:47)
[2017-08-23] MEDS ORDERED: MIDAZOLAM 2 MG/2 ML (VERSED) VIAL ONE (06:43)
[2017-08-23] MEDS ORDERED: fentaNYL INJECTION 100 MCG/2 ML AMP ONE (06:43)
[2017-08-23] MEDS ORDERED: ceFAZolin 2 GM IV Premixed 50 ML IV ONE (07:00)
[2017-08-23] MEDS ORDERED: BUPIVACAINE 0.5% 30 ML (SENSORCAINE) VIAL ONE (07:16)
[2017-08-23] MEDS ORDERED: LIDOCAINE 1% INJ 20 ML (XYLOCAINE) VIAL ONE (07:16)
--- NOTE | 2017-08-23 08:00 | Progress Note-Pre Operative ---
Pre-Operative Progress Note H&P Reviewed The H&P was reviewed, patient examined and no changes noted. Date Seen by Provider: Aug 23, 2017 Time Seen by Provider: 07:50 Date H&P Reviewed: Aug 23, 2017 Time H&P Reviewed: 07:50 Pre-Operative Diagnosis: chest wall mass ROWAN MARTINEZ DO Aug 23, 2017 08:00
--- NOTE | 2017-08-23 08:57 | Anesthesia-General Post-Op ---
General Patient Condition Mental Status/LOC: Same as Preop Cardiovascular: Satisfactory Nausea/Vomiting: Absent Respiratory: Satisfactory Pain: Controlled Complications: Absent Post Op Complications Complications None Follow Up Care/Instructions Patient Instructions None needed. Anesthesia/Patient Condition Patient Condition Patient is doing well, no complaints, stable vital signs, no apparent adverse anesthesia problems. No complications reported per nursing. [place] [facility] [place] No GALINA THORPE CRNA Aug 23, 2017 08:57
--- NOTE | 2017-08-23 08:57 | Progress Note-Post Operative ---
Post-Operative Progess Note Surgeon (s)/Floating Derrick Operator (s) Surgeon ROWAN MARTINEZ DO Floating Derrick Operator: na Pre-Operative Diagnosis chest wall mass Post-Operative Diagnosis same Procedure & Operative Findings Date of Procedure 08/23/17 Procedure Performed/Findings excision of recurrent chest wall mass 2.5 x 1 cm Anesthesia Type gen Estimated Blood Loss Estimated blood loss (mL): min Specimens/Packing Specimens Removed mass ROWAN MARTINEZ DO Aug 23, 2017 08:57
[2017-08-23] MEDS ORDERED: ONDANSETRON 4 MG/2 ML (SDV) Z0FRAN IVP PRN (09:00)
--- NOTE | 2017-08-23 09:00 | Discharge Inst-Simple/Standard ---
Discharge Inst-Standard Discharge Medications New, Converted or Re-Newed RX: RX on Chart Patient Instructions/Follow Up Plan of Care/Instructions/FU: 2 weeks Berrios Activity as Tolerated: No Discharge Diet: Regular Diet Other Inst to Patient Follow up Appt: Make appointment for 2 week. Instructions: No lifting greater than 10 pounds. No strenuous activity. May shower in 24 hours, no tub bath or soaking. Use incentive spirometer at home as directed. No Smoking Skin/Wound Care: You have special glue over incisions it will fall off on its own. Symptoms to Report: Appetite Changes, Extremity Discoloration, Numbness/Tingling, Swelling Increased , Bleeding Excessive, Eyesight Changes, Pain Increased, Urine Color Change, Constipation(Persistent), Fever over 101 degree F, Pain/Pressure in chest, Urinating Difficulty, Cough Up/Vomit Blood, Heart Beat Irreg/Pounding, Pain/ Pressure in jaw, Vaginal Bleeding Increase, Cramps in feet or legs, Lightheadedness, Pain/Pressure in shoulder, Diarrhea(Persistent), Memory Changes Suddenly, Questions/Concerns, Weight gain consecutive days, Dizziness/ Fainting, Nausea/Vomiting, Shortness of Breath, Weight gain over 2 pounds If questions or concerns contact your physician Or seek help at emergency department. ROWAN BERRIOS DO Aug 23, 2017 09:00
[2017-08-23] MEDS ORDERED: ACHD5005 PO (09:01)
[2017-08-23] MEDS: morphine INJ 10 MG/ML 1ML (SYR OR VIAL) IVP PRN ×2 (09:15→09:20)
[2017-08-23 09:40] VITALS: BP 150/89
[2017-08-23 10:10] VITALS: BP 150/84
--- NOTE | 2017-08-23 11:57 | OPERATIVE REPORT ---
DATE OF SERVICE: 08/23/2017 PREOPERATIVE DIAGNOSIS: Recurrent chest wall mass. POSTOPERATIVE DIAGNOSIS: Recurrent chest wall mass. PROCEDURE: Excision of recurrent chest wall mass 2.5 x 1 cm. SURGEON: Rowan Berrios DO. ANESTHESIA: General. ESTIMATED BLOOD LOSS: Minimal. COMPLICATIONS: None. INDICATIONS: The patient is a 66-year-old female who had a chest wall mass previously removed. recurred almost a week or so later. She was explained risks and benefits of procedure and wished to proceed with procedure. Consent was signed on the chart. PROCEDURE: The patient was taken to the operating suite. She was prepped and draped in sterile fashion. Surgical pause was performed. An incision was made around the previous scar and on the inferior aspect of the mass. Cautery was used to get dual plane of no scar tissue. The massively palpated and both cautery and blunt dissection was used to excise the mass. The area was then closed with 4-0 Vicryl in a running subcuticular fashion. A total of 10 mL of 0.5% Marcaine and 1% lidocaine 50:50 ratio was used to anesthetize the area. Skin Affix was placed over the incision right after. The patient tolerated procedure well without any complications. She was taken to recovery room in stable condition. Job ID: [id number] DocumentID: [id number] Dictated Date: 08/23/2017 09:04:58 Blocker Polishing Date: 08/23/2017 11:56:29 Dictated By: ROWAN BERRIOS DO
--- NOTE | 2017-08-23 14:32 | Anesthesia-General Post-Op ---
General Patient Condition Mental Status/LOC: Same as Preop Cardiovascular: Satisfactory Nausea/Vomiting: Absent Respiratory: Satisfactory Pain: Controlled Complications: Absent Post Op Complications Complications None Follow Up Care/Instructions Patient Instructions None needed. Anesthesia/Patient Condition Patient Condition Patient is doing well, no complaints, stable vital signs, no apparent adverse anesthesia problems. No complications reported per nursing. [place] [facility] [place]: YANA Danielle CRNA Aug 23, 2017 14:32
== END 2017-08-23 10:30 | disposition home or self-care (01) ==
LOC: SDC 06:01
PROVIDERS: ATTEND Surgery
DX: L90.5 Scar conditions and fibrosis of skin (principal); J44.9 Chronic obstructive pulmonary disease, unspecified; J45.909 Unspecified asthma, uncomplicated; I10 Essential (primary) hypertension; E66.9 Obesity, unspecified; Z68.33 Body mass index [BMI] 33.0-33.9, adult; Z79.899 Other long term (current) drug therapy
CPT/HCPCS: 82962; 87081

== ENCOUNTER 2017-10-03 09:35 | Outpatient (CLI) | payer MEDICARE, OTHER ==
[~2017-10-03] VITALS: Ht 157.5 cm; Wt 86.2 kg
[~2017-10-03 09:35] MED LIST changes: +ACHD5005 PO
== END 2017-10-03 09:45 ==
LOC: PREOP 09:35
PROVIDERS: ATTEND Surgery
DX: Z01.818 Encounter for other preprocedural examination (principal); Z12.11 Encounter for screening for malignant neoplasm of colon

== ENCOUNTER → 2018-09-05 | Outpatient (CLI) | payer MEDICARE, OTHER ==
--- NOTE | 2018-09-05 16:47 | Diagnostic Imaging Report ---
INDICATION: Right hip pain. Hip has given out twice in the past month. TECHNIQUE: Two views of the right hip. CORRELATION STUDY: None. FINDINGS: Femoral head and acetabular relationship is maintained. There is slight joint space narrowing. Mildly prominent osteophytes about the superolateral aspect of the acetabular head and superolateral femoral neck. The underlying bony trabecular pattern is maintained. Mild enthesopathy about the iliac crest. Visualized right SI joint unremarkable. IMPRESSION: 1. Negative for acute bony abnormality of the right hip. Moderately advanced degenerative changes are present. Dictated by: Dictated on workstation # [id number]
--- NOTE | 2018-09-05 20:07 | Diagnostic Imaging Report ---
INDICATION: Routine screening. Comparison is made with prior mammograms from 08/09/2017 and 08/03/2015. 2-D and 3-D bilateral screening mammography was performed with Computer Aided Detection (CAD) system. FINDINGS: Scattered fibroglandular densities are identified bilaterally. There are benign parenchymal and vascular calcifications bilaterally. Nodular densities in the right breast appear stable and likely benign. No new mass or malignant-appearing microcalcifications are seen. The axillae are unremarkable. IMPRESSION: No mammographic features suspicious for malignancy are identified. ACR BI-RADS Category 2: Benign findings. Result letter will be mailed to the patient. Note: At least 10% of breast cancer is not imaged by mammography. Dictated by: Dictated on workstation # [id number]
== END ==
LOC: RAD 10:24
PROVIDERS: ATTEND Family Medicine
DX: Z12.31 Encounter for screening mammogram for malignant neoplasm of breast (principal); M16.11 Unilateral primary osteoarthritis, right hip
CPT/HCPCS: 73502; 77067

== ENCOUNTER → 2019-02-25 | Outpatient (CLI) | payer MEDICARE, OTHER ==
--- NOTE | 2019-02-25 16:01 | Diagnostic Imaging Report ---
PROCEDURE: US left lower extremity venous. TECHNIQUE: Multiple real-time grayscale images were obtained over the left lower extremity in various projections. Additional duplex Doppler and color Doppler images were also obtained. INDICATION: Leg and foot swelling. FINDINGS: Femoropopliteal deep venous system is widely patent. No deep or superficial thrombus. No mass or fluid collection documented. IMPRESSION: Normal negative unilateral left lower extremity venous Doppler and ultrasound exam. Dictated by: Dictated on workstation # [id number]
== END ==
LOC: RAD 15:20
PROVIDERS: ATTEND Nurse Practitioner Family
DX: M79.89 Other specified soft tissue disorders (principal)

== ENCOUNTER → 2019-03-06 | Outpatient (CLI) | payer MEDICARE, OTHER ==
--- NOTE | 2019-03-06 10:48 | Diagnostic Imaging Report ---
INDICATION: Left foot swelling. AP, oblique, and lateral views of left foot are obtained. FINDINGS: No fracture or acute bony abnormality is seen. There is mild calcaneal spurring. There is mild degenerative change of first MTP joint. There is no erosive bony lesion. IMPRESSION: Degenerative findings with no acute abnormality. Dictated by: Dictated on workstation # [id number]
== END ==
LOC: RAD 10:11
PROVIDERS: ATTEND Nurse Practitioner Family
DX: M25.475 Effusion, left foot (principal); M19.072 Primary osteoarthritis, left ankle and foot
CPT/HCPCS: 73630

== ENCOUNTER 2019-07-03 13:01 | Emergency (ER) | payer MEDICARE, OTHER ==
[~2019-07-03] VITALS: Ht 157.4 cm; Wt 91.8 kg
[2019-07-03] MEDS ORDERED: ASPIRIN E.C. 325 MG (ECOTRIN) TABLET PO ONE (13:30)
--- NOTE | 2019-07-03 13:52 | ED Lower Extremity ---
General Chief Complaint: Lower Extremity Stated Complaint: L LEG PAIN Nursing Triage Note: TO ED REPORTS HAD A L NACHO FX ON JUN 16 HAS HAD INCREASED PAIN IN L LEG. CONCER OF BLOOD CLOT Nursing Sepsis Screen: No Definite Risk History of Present Illness Date Seen by Provider: Jul 03, 2019 Time Seen by Provider: 13:10 Initial Comments 68-year-old female seen for swelling and pain in her left lower extremity. She has a proximal left fibula fracture that was diagnosed on June 16. She is on partial weightbearing, ambulating with crutches. She is being followed by Dr. Sky. She is on no anticoagulants or aspirin. No history of DVTs or PEs. She reports over the last week she has been more active and having more swelling in her left lower extremity. Over the last 2 days she's been trying to keep it elevated. She began having increasing anterior tibia pain on the left and was referred here for an ultrasound for possible blood clot. She reports only minimal pain in the left calf. Her last pain medicine was tramadol prior to bedtime last night. Pain/Injury Location: left leg (Ant tibia), left foot, left ankle Allergies and Home Medications Allergies Coded Allergies: Sulfa (Sulfonamide Antibiotics) (Verified Allergy, Unknown, HIVES, 10/03/17) ciprofloxacin (Verified Allergy, Unknown, HIVES, 10/03/17) latex (Verified Allergy, Unknown, HIVES, 10/03/17) sulfamethoxazole (Verified Allergy, Unknown, HIVES, 10/03/17) trimethoprim (Verified Allergy, Unknown, HIVES, 10/03/17) Home Medications Albuterol Sulfate 1 Puff Puff, 2 PUFF IH QID PRN for WHEEZING, (Reported) 1 PUFF = 90 MCG Atenolol 25 Mg Tablet, 25 MG PO BID, (Reported) Brimonidine Tartrate 5 Ml Btl, 1 DROP OU BID, (Reported) Calcium Carbonate 500 Mg Tablet, 500 MG PO BID, (Reported) Fluticasone Furoate 200 Mcg Blst.w.dev, 200 MCG IH DAILY, (Reported) Fluticasone Propionate 16 Gm Dittmer.susp, 2 SPRAY NSEACH DAILY, (Reported) Loratadine 10 Mg Tablet, 10 MG PO DAILY, (Reported) Metronidazole 45 Gm Cream..g., 3 GM TP DAILY, (Reported) Montelukast Sodium 10 Mg Tablet, 10 MG PO HS, (Reported) Multivitamin W/Iron, Minerals 1 Each Tablet, 1 TAB PO DAILY, (Reported) Omeprazole 20 Mg Tablet.dr, 20 MG PO PRN, (Reported) Soy Isofl/Blk Coh/Gr Tea/Yerba 1 Each Tablet, 1 TAB PO DAILY, (Reported) Vitamin B Complex 1 Each Tablet, 1 TAB PO DAILY, (Reported) Patient Home Medication List Home Medication List Reviewed: Yes Review of Systems Constitutional: no symptoms reported, see HPI Respiratory: see HPI; No dyspnea on exertion Cardiovascular: no symptoms reported; No chest pain Musculoskeletal: see HPI, joint swelling (left ankle and foot), muscle pain (left lower extremity) Past Bwjgtzy-Wvzjva-Kxrtmn Hx Past Med/Social Hx: Reviewed Nursing Past Med/Soc Hx Patient Social History Alcohol Use: Denies Use Recreational Drug Use: No Smoking Status: Never a Smoker Recent Foreign Travel: No Contact w/Someone Who Travel: No Recent Infectious Disease Expo: No Recent Hopitalizations: No Immunizations Up To Date Date of Pneumonia Vaccine: Aug 15, 2015 Date of Influenza Vaccine: Jul 25, 2017 Seasonal Allergies Seasonal Allergies: Yes Past Medical History Surgeries: Yes (THROAT SKIN LESION) Appendectomy, Hysterectomy, Tonsillectomy 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) Asthma, COPD Cardiac: Yes Hypertension Neurological: No 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 0.0oz. 86.765281vs; 37.00 BMI Method: General Appearance: WD/WN, no apparent distress Cardiovascular: normal peripheral pulses (pedal pulses 2+ and symmetric), regular rate, rhythm, no murmur Respiratory: chest non-tender, lungs clear, normal breath sounds, no respiratory distress Gastrointestinal: normal bowel sounds, non tender, soft Legs: left leg bone tenderness (proximal left fibula, anterior tibia), left leg ecchymosis (anterior tibia), left leg soft tissue tenderness; bilateral leg other (negative Homans sign bilaterally) Ankles: left ankle limited range of motion (secondary to pain), left ankle soft tissue tenderness, left ankle swelling (trace) Feet: left foot normal range of motion, left foot bone tenderness (generalized), left foot soft tissue tenderness, left foot swelling; bilateral foot other (and brisk capillary refill) Neurologic/Tendon: normal sensation, normal motor functions, normal tendon functions Neurologic/Psychiatric: no motor/sensory deficits, alert, normal mood/affect, oriented x 3 Progress/Results/Core Measures Results/Orders My Orders Orders - JAVIER NINA Tramadol Tablet (Ultram Tablet) (07/03/19 13:30) Aspirin Enteric Coated Tablet (Ecotrin T (07/03/19 13:30) Us Venous Lower Ext Lt (07/03/19 13:30) Medications Given in ED Current Medications Medications Dose Ordered Sig/Lizet Route Start Time Stop Time Status Last Admin Dose Admin Aspirin 325 mg ONCE ONCE PO 07/03/19 13:30 07/03/19 13:32 DC 07/03/19 14:19 325 MG Tramadol HCl 50 mg ONCE ONCE PO 07/03/19 13:30 07/03/19 13:32 DC 07/03/19 13:47 50 MG Vital Signs/I&O 07/03/19 07/03/19 13:06 14:25 Temp 36.6 Pulse 77 74 Resp 18 18 B/P (MAP) 173/103 (126) 165/92 (126) Pulse Ox 98 98 O2 Delivery Room Air Room Air Blood Pressure Mean: 126 Progress Progress Note : Time: 13:10 Progress Note Patient seen and evaluated, recommended aspirin 325 mg now and tramadol 50 mg. Discussed with patient that her risk of a DVT are slim, based on her exam and history. Will obtain ultrasound of the left lower extremity. 1400 ultrasound negative for DVT. 1415 results of ultrasound reviewed with the patient. Discharge instructions and return precautions reviewed with the patient and her . All questions answered. Diagnostic Imaging Diagonstic Imaging: Ultrasound Plain Films/CT/US/NM/MRI: leg Comments NAME: [facility] REC#: [id number] PT STATUS: DEP ER : 1950 PHYSICIAN: JAVIER NINA ADMIT DATE: 07/03/19/ER Signed Date of Exam:07/03/19 US VENOUS LOWER EXT LT PROCEDURE: US left lower extremity venous. TECHNIQUE: Multiple real-time grayscale images were obtained over the left lower extremity in various projections. Additional duplex Doppler and color Doppler images were also obtained. INDICATION: Left calf pain and swelling. FINDINGS: There is no evidence of a left lower extremity DVT. Left lower extremity deep venous system shows normal compressibility with normal response to augmentation and Valsalva. No fluid collection or mass is detected. IMPRESSION: No evidence of left lower extremity DVT. Dictated by: Dictated on workstation # [id number] Dict: 07/03/19 1455 Trans: 07/03/19 1542 [id number] Interpreted by: JEAN PIERRE DALAL MD Electronically signed by: JEAN PIERRE ADLAL MD 07/03/19 1542 Reviewed: Reviewed/Discussed Departure Impression Primary Impression: Closed left fibular fracture Qualified Codes: S82.832D - Other fracture of upper and lower end of left fibula, subsequent encounter for closed fracture with routine healing Disposition: 01 HOME, SELF-CARE Condition: Improved Departure-Patient Inst. Decision time for Depature: 14:15 Referrals: ERIC MCKAY MD (PCP/Family) Primary Care Physician Patient Instructions: Fibula Fracture (DC) Add. Discharge Instructions: Continue to use tramadol every 6-8 hours as needed for pain. You may take Tylenol 650 mg every 6-8 hours as needed for additional pain relief. Ice and elevate left lower extremity to prevent swelling, make sure to move your ankle and toes frequently. Continue crutches are show weightbearing as tolerated on the left lower extremity. Follow-up with Dr. Sky, keep your scheduled appointment and see him sooner if symptoms are not improving or worsen. Take aspirin, 325 mg tablet 1 daily. Wear the Knee High Support hose that you have, to assist with swelling and pain. Return to the emergency department for new, urgent health care needs. All discharge instructions reviewed with patient and/or family. Voiced understanding. Copy Copies To 1: CHRISTIAN SKY MD, AMY ARNP Jul 03, 2019 13:51
[2019-07-03 14:25] VITALS: BP 165/92
--- NOTE | 2019-07-03 14:58 | Diagnostic Imaging Report ---
PROCEDURE: US left lower extremity venous. TECHNIQUE: Multiple real-time grayscale images were obtained over the left lower extremity in various projections. Additional duplex Doppler and color Doppler images were also obtained. INDICATION: Left calf pain and swelling. FINDINGS: There is no evidence of a left lower extremity DVT. Left lower extremity deep venous system shows normal compressibility with normal response to augmentation and Valsalva. No fluid collection or mass is detected. IMPRESSION: No evidence of left lower extremity DVT. Dictated by: Dictated on workstation # [id number]
== END 2019-07-03 14:26 | disposition home or self-care (01) ==
LOC: EDUNIT# 13:01 → ER 13:02
DX: S82.832D Other fracture of upper and lower end of left fibula, subsequent encounter for closed fracture with routine healing (principal); J44.9 Chronic obstructive pulmonary disease, unspecified; I10 Essential (primary) hypertension; K21.9 Gastro-esophageal reflux disease without esophagitis; Z88.2 Allergy status to sulfonamides; Z88.1 Allergy status to other antibiotic agents; Z91.040 Latex allergy status; Z79.51 Long term (current) use of inhaled steroids; Z90.49 Acquired absence of other specified parts of digestive tract; Z90.710 Acquired absence of both cervix and uterus; Z90.89 Acquired absence of other organs; X58.XXXD Exposure to other specified factors, subsequent encounter

== ENCOUNTER 2019-11-22 22:06 | Emergency (ER) | payer MEDICARE, OTHER ==
[~2019-11-22] VITALS: Ht 157.4 cm; Wt 92.0 kg
[~2019-11-22 22:06] MED LIST changes: -MONT10TA24 PO; +MONT10TA26 PO
--- OUTSIDE RECORDS SUMMARY | 2019-11-22 22:12 | XMS REPORT | Encounter Summary ---
Demographics Preferred Language Unknown Marital Status Uatsdin Affiliation Unknown Race Unknown Ethnic Group Unknown Author Author [facility] Organization 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 documented as of this encounter Plan of Treatment Not on filedocumented as of this encounter Visit Diagnoses Not on filedocumented in this encounter
--- OUTSIDE RECORDS SUMMARY | 2019-11-22 22:12 | XMS REPORT | Clinical Summary ---
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 Last Filed Vital Signs Not on file Plan of Treatment Not on file Results Not on filefrom Last 3 Months
--- OUTSIDE RECORDS SUMMARY | 2019-11-22 22:15 | XMS REPORT ---
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 Address [address] [address] Care Team Providers Care Service Girl Name Role Phone ERIC TAVAREZ Unavailable RIAN TOURE MD Unavailable ALPHONOS CORBIN DO Unavailable ERIC TAVAREZ Unavailable DAVID SUAREZ DO Unavailable Unavailable ERIC TAVAREZ MD Unavailable Unavailable LASHAWN BURNETT Unavailable Unavailable CORINNA LOGAN APRN Unavailable Unavailable Ander Hall Unavailable Eric Tavarez MD, [facility] PP Unavailable Eric Tavarez MD, [facility] CCM Unavailable Unavailable Unavailable LASHAWN BURNETT Unavailable Unavailable DAVID SUAREZ DO Unavailable Unavailable ROWAN MARTINEZ DO Unavailable Unavailable CORINNA LOGAN APRN Unavailable Unavailable ERIC TAVAREZ MD Unavailable Unavailable MAICO DONNELL, JAVIER L Unavailable Unavailable MARANDA DIAZ, MING Chavez Unavailable Unavailable THAIS, CHRISTIAN T Unavailable Unavailable THAIS, CHRISTIAN T Unavailable Unavailable THAIS, CHRISTIAN T Unavailable Unavailable Unavailable Unavailable Unavailable Unavailable Unavailable Unavailable Unavailable Unavailable Unavailable Unavailable Unavailable Unavailable Unavailable Unavailable Unavailable Unavailable Unavailable Unavailable Allergies The data below is from unstructured sourcesNo allergy information available.No allergy information available.No allergy information available. Medications The data below is from unstructured sourcesNo medication information available.Unknown or Not Available.No medication information available.No medication information available.Not available.Not available .Unknown or Not Available. Problems Active Problems Problem Normalized Date Last Normalized Normalized Provider Fa cility Classification Problem(s) Recorded Problem Problem Sta tus Duration Residual Acquired Episodic Active JAVIER MAICO , [facility] Via codes; absence of [facility] [place] unclassified both cervix Hospital - (3 sources.) and uterus [place] ([address]41) Residual Acquired Episodic Active JAVIER MAICO , [facility] Via codes; absence of [facility] [place] unclassified other organs Hospital - (3 sources.) [place] (44962) Residual Acquired Episodic Active JAVIER MAICO , [facility] Via codes; absence of [facility] [place] unclassified other Hospital - (3 sources.) specified [place] parts of (03089) digestive tract Other and Benign Episodic Active ROWAN MARTINEZ , Not Avai lable unspecified neoplasm of DO (82972) benign cecum neoplasm (6 sources.) Unclassified Body mass Chronic Active DAVID SUAREZ , Not Available (11 sources.) index (BMI) DO (48224) 33.0-33.9, adult Translations: [ PARASOMNIA, UNSPECIFIED, HYPERSOMNIA, UNSPECIFIED, IDIO SLEEP RELATED NONOBSTRUCTIVE ALVEOL] Chronic Chronic Chronic Active ROWAN MARTINEZ , [facility] Via obstructive obstructive DO [facility] pulmonary pulmonary [facility] - disease and disease, [place] bronchiectasis unspecified (47592) (14 sources.) Lung disease Chronic Chronic Active DAVID SUAREZ , Not A vailable due to respiratory DO (00511) external conditions due agents (19 to chemicals, sources.) gases, fumes and vapors Other upper Chronic Chronic Active DAVID SUAREZ , Not Av ailable respiratory sinusitis, DO (83968) infections (14 unspecified sources.) Essential Essential 11-10-2019 - Chronic Active DAVID SUAREZ , Not Available hypertension (primary) DO (67384) (23 sources.) hypertension Translations: [ Essential hypertension; unspecified, Essential (primary) hypertension, Essential (primary) hypertension, Essential (primary) hypertension, Essential (primary) hypertension, ESSENTIAL HYPERTENSION, ESSENTIAL HYPERTENSION, Hypertension, Essential (primary) hypertension] External cause Exposure to Episodic Active JAVIER MAICO , [facility] Via codes: other [facility] [place] Natural/enviro specified Hospital - nment (3 factors, [place] sources.) subsequent (03168) encounter Headache; Headache Episodic Active Ander chan including [facility] migraine (1 Group (89403) source.) ( ) Residual Idiopathic Chronic Active DAVID SUAREZ , Not Av ailable codes; 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 (46253) unclassified nonobstructive (7 sources.) alveolar hypoventilatio n Residual Localized Episodic Active Eric farmer codes; edema 20387 , [facility] unclassified Translations: (76414) (Work (18 sources.) [ Localized Phone: edema, Localized ) edema, Localized edema, Localized edema] Other skin Localized Episodic Active ROWANALEENA MARTINEZ , [facility] Vi a disorders (5 swelling, mass DO [place] sources.) and lump, neck [facility] (18042) Other skin Localized Episodic Active ROWANALEENA MARTINEZ , [facility] Vi a disorders (4 swelling, mass DO [place] sources.) and lump, Hospital - trunk [place] (08792) 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 JAVIER NINA [facility] Via aftercare (3 (current) use [facility] [place] sources.) of inhaled Hospital - steroids [place] (26017) Other Obesity, Chronic Active ROWAN MARTINEZ , [facility] Via nutritional; unspecified DO [place] endocrine; and Hospital - metabolic [place] disorders (4 (45512) sources.) Other upper Other allergic Chronic Active Eric Tavarez respiratory rhinitis 31196 GILLIAN DIAZ disease (20 Translations: (39518) (Work sources.) [ Other Phone: allergic rhinitis, ) Other allergic rhinitis, Other allergic rhinitis] Other upper Other disease Episodic Active Ander RAREFORM [facility] respiratory of nasal [facility] disease (1 cavity and Group (07801) source.) sinuses ( ) Fracture of Other fracture Episodic Active JAVIER NINA [facility] Via lower limb (3 of upper and [facility] [place] sources.) lower end of Hospital - left fibula, [place] subsequent (88940) encounter for closed fracture with routine healing Anxiety Other general Episodic Active Ander [facility] disorders (1 symptoms [facility] source.) Group (38346) ( ) Other Other long Episodic Active ROWANALEENA MARTINEZ , [facility] Vi a aftercare (11 term (current) DO [place] sources.) drug therapy [facility] (54337) Other upper Other seasonal Chronic Active DAVID SUAREZ , Not Available respiratory allergic DO (36142) disease (8 rhinitis sources.) Other bone Other Episodic Active CORINNA LOGAN [facility] Via disease and specified [place] musculoskeleta disorders of Hospital - l deformities bone density [place] (5 sources.) and structure, (58179) other site Other Pain in left Episodic Active LASHAWN [facility] Via connective leg HORTENCIA [facility] tissue disease Hospital - (4 sources.) [place] (72742) Other Pain in left Episodic Active Eric Pérez connective lower leg 23194 GILLIAN DIAZ tissue disease Translations: (39722) (Work (18 sources.) [ Pain in left Phone: lower leg, Pain in left ) lower leg, Pain in left lower leg] Other Pain in left Episodic Active LASHAWN Not Avail able non-traumatic wrist [place] (84518) joint disorders (3 sources.) Other Pain in right Episodic Active Eric Tavarez non-traumatic hip 51853 GILLIAN DIAZ joint Translations: (10457) (Work disorders (9 [ Pain in Phone: sources.) right hip, Pain in right ) hip, Pain in right hip] Residual Parasomnia, Chronic Active DAVID SUAREZ , Not A vailable codes; unspecified DO (51506) unclassified (4 sources.) Cancer; other Personal Episodic Active ROWAN MARTINEZ , [facility] Via and history of DO [facility] unspecified other benign Hospital - primary (5 neoplasm [place] sources.) (50000) Osteoarthritis Unilateral Chronic Active ERIC TAVAREZ [facility] Via (6 sources.) primary , [facility] osteoarthritis [facility] - , right hip [place] Translations: (11295) [ PRIMARY OSTEOARTHRITIS , LEFT ANKLE AND F] Glaucoma (1 Unspecified Chronic Active [facility] source.) glaucoma [facility] (06517) ( ) Other nervous Unsteadiness Episodic Active Eric Tavarez system on feet 98151 GILLIAN DIAZ disorders (9 Translations: (84790) (Work sources.) [ Unsteadiness Phone: on feet, Unsteadiness ) on feet, Unsteadiness on feet] Past or Other Problems Problem Normalized Date Last Normalized Normalized Provider Fa cility Classification Problem(s) Recorded Problem Problem Sta tus Duration Other Effusion, left Episodic Completed LASHAWN [facility] Via non-traumatic foot BURNETT [facility] joint Translations: Hospital - disorders (11 [ Effusion, [place] sources.) left foot, (19445) Effusion, left foot, Effusion, left foot, Effusion, left foot, EFFUSION, LEFT FOOT] Unclassified Encounter for Episodic Completed ERIC TAVAREZ Not Available (20 sources.) screening for , (25421) malignant neoplasm of colon Translations: [ ENCNTR SCREEN MAMMOGRAM FOR MALIGNANT NE, ENCOUNTER FOR SCREENING FOR OSTEOPOROSIS, Encounter for screening mammogram for malignant neoplasm of breast, Encounter for screening mammogram for malignant neoplasm of breast, Encounter for screening mammogram for malignant neoplasm of breast] Unclassified Hypersomnia, no information no information DAVID PADILLA , Not Available (13 sources.) unspecified DO (38804) External Other fall no information no information CORINNA LOGAN Not Available Injury - Fall from one level (99541) (3 sources.) to another, subsequent encounter Other Other Episodic Completed LASHAWN [facility] Via connective specified soft BURNETT [facility] tissue disease [facility] - (5 sources.) disorders [place] (66282) Other and Polyp of colon Episodic Completed no name no info rmation unspecified benign neoplasm (1 source.) Other skin Scar Episodic Completed ROWAN MARTINEZ [facility] Via disorders (4 conditions and DO [facility] sources.) fibrosis of Hospital - skin [place] (97238) Procedures Procedure Normalized Procedure Procedure Result Performer Facility Date 06-01-2018 Iaad ia influenza a/b no information no name [facility] each [facility] ([id number]) ( ) 06-01-2018 Methylprednisolone no information no name [facility] injection [facility] (34909) ( ) 06-02-2018 Therapeutic no information no name [facility] prophylactic/dx [facility] injection subq/im (07533) ( ) Immunizations The data below is from unstructured sourcesNo immunization records.No immunizations recorded for this patient visitNo immunizations recorded for this patient visitNo immunizations recorded for this patient visitNo immunizations recorded for this patient visitNo immunizations recorded for this patient visitNo immunizations recorded for this patient visitNo immun izations recorded for this patient visitNo immunizations recorded for this patie nt visitUnknown or Not Available.Not available.Not available.No Immunization kenroy aNo Immunization dataNo Immunization dataNo Immunization dataNo Immunization kenroy aNo Immunization dataNo Immunization dataNo Immunization dataNo Immunization kenroy aNo Immunization dataNo Immunization dataNo Immunization dataNo Immunization kenroy aNo Immunization dataNo Immunization dataNo Immunization data Results Test Name Value Interpretation Reference Range Date Time Fa cility (Normalized) (Normalized) (Medline Reference) tsh on 2019-02-26 TSH Qn 3.28 uIU/mL (N) 02-26-2019 Eric Tavarez 02:00-0400 GILLIAN DIAZ (02882) (Work Phone: ) d-dimer assay on 2019-02-26 D-DIMER 0.60 ug/mLFEU (N) 02-26-2019 Eric Corbin on 02: GILLIAN DIAZ (72873) (Work Phone: ) comp metabolic on 2019-02-25 Albumin 3.9 g/dL (N) 3.4 - 5.4 g/dL 02-25-2019 Eric farmer [Mass/Vol] 02: GILLIAN DIAZ (23149) (Work Phone: ) Albumin/Globulin 1.7 {ratio} (N) 1 - 2.5 {ratio} 9 Eric Tavarez [Mass ratio] 02:00 GILLIAN DIAZ (89051) (Work Phone: ) ALK PHOS 65 U/L (N) 02-25-2019 Eric Tavarez 02:00 GILLIAN DIAZ (00291) (Work Phone: ) ALT [Catalytic 24 U/L (N) 4 - 40 U/L 02-25-2019 Eric Tavarez activity/Vol] 02:00 GILLIAN DIAZ (94468) (Work Phone: ) Anion gap 10 mmol/L (N) 3 - 11 mmol/L 02-25-2019 Eric hicks [Moles/Vol] 02:00 GILLIAN DIAZ (48853) (Work Phone: ) AST [Catalytic 20 U/L (N) 10 - 34 U/L 02-25-2019 Eric Tavarez activity/Vol] 02:00 GILLIAN DIAZ (63465) (Work Phone: ) B/C Ratio 16.3 Ratio (N) 02-25-2019 Eric Tavarez 02:00-0400 GILLIAN DIAZ (69755) (Work Phone: ) BILI T 0.4 mg/dL (N) 02-25-2019 Eric Tavarez 02:00-0400 GILLIAN DIAZ (06184) (Work Phone: ) Calcium 9.6 mg/dL (N) 8.5 - 10.2 mg/dL 02-25-2019 Eric Tavarez [Mass/Vol] 02:00-0400 GILLIAN DIAZ (64071) (Work Phone: ) Chloride 103 mmol/L (N) 95 - 106 mmol/L 02-25-2019 Eric Tavarez [Moles/Vol] 02:000 GILLIAN DIAZ (68373) (Work Phone: ) CO2 [Moles/Vol] 31.0 mmol/L (N) 23 - 29 mmol/L 02-25-2019 Eric Tavarez 02:00-0400 GILLIAN DIAZ (91480) (Work Phone: ) Creatinine 0.9 mg/dL (N) 02-25-2019 Eric Tavarez [Mass/Vol] 02:00-0400 GILLIAN DIAZ (35775) (Work Phone: ) GFR/1.73 sq M 70 (N) 90 - 120 02-25-2019 Eric hicks predicted among mL/min/{1.73_m2} mL/min/{1.73_m2} 02:00 GILLIAN DIAZ (65473) non-blacks MDRD (Work Phone: (S/P/Bld) [Vol ) rate/Area] Globulin (S) 2.4 g/dL (N) 2 - 3.5 g/dL 02-25-2019 Eric Tavarez [Mass/Vol] 02:000 GILLIAN DIAZ (73053) (Work Phone: ) Glucose 88 mg/dL (N) 60 - 125 mg/dL 02-25-2019 Eric farmer [Mass/Vol] 02:00-399 GILLIAN DIAZ (59144) (Work Phone: ) Osmolality 279 mOsmo (N) 02-25-2019 Eric Tavarez [Osmolality] 02:00 GILLIAN DIAZ (50483) (Work Phone: ) Potassium 4.1 mmol/L (N) 3.7 - 5.2 mmol/L 02-25-2019 Tea Tavarez [Moles/Vol] 02:00 GILLIAN DIAZ (69280) (Work Phone: ) Sodium 140 mmol/L (N) 135 - 145 mmol/L 02-25-2019 Tea Tavarez [Moles/Vol] 02:00 GILLIAN DIAZ (11495) (Work Phone: ) TPRO 6.3 g/dL (N) 02-25-2019 Eric Tavarez 02:00 GILLIAN DIAZ (87179) (Work Phone: ) Urea nitrogen 14 mg/dL (N) 7 - 20 mg/dL 02-25-2019 Eric Tavarez [Mass/Vol] 02:00 GILLIAN DIAZ (06972) (Work Phone: ) cbc with differential on 2019-02-25 Baso ABS# 0.0 K/ul (N) 02-25-2019 Eric Tavarez 02:00 GILLIAN DIAZ (06673) (Work Phone: ) Basophils/100 0.3 % (N) 0.5 - 1 % 02-25-2019 Eric hicks WBC (Bld) 02:00 GILLIAN DIAZ (43930) (Work Phone: ) Eos ABS# 0.2 K/ul (N) 02-25-2019 Eric Tavarez 02:00 GILLIAN DIAZ (10928) (Work Phone: ) Eosinophils/100 2.7 % (N) 1 - 4 % 02-25-2019 Eric Tavarez WBC (Bld) 02:00 GILLIAN DIAZ (47002) (Work Phone: ) Erythrocyte 13.2 % (N) 11.6 - 14.6 % 02-25-2019 Eric Tavarez distribution 02:00 GILLIAN DIAZ (40256) width (RBC) (Work Phone: [Ratio] ) Hematocrit (Bld) 42.0 % (N) 36.1 - 50.3 % 02-25-2019 H carroll Corby [Volume 02:00 GILLIAN DIAZ (00972) fraction] (Work Phone: ) Hemoglobin (Bld) 13.6 g/dL (N) 12.1 - 17.2 g/dL 02-25-2019 Eric Tavarez [Mass/Vol] 02:00-399 GILLIAN DIAZ (11289) (Work Phone: ) Lymphocytes 1.92 10*3/uL (N) 0.9 - 2.9 02-25-2019 Eric farmer (Bld) [#/Vol] 10*3/uL 02:00-399 GILLIAN DIAZ (31874 ) (Work Phone: ) Lymphocytes/100 25.9 % (N) 20 - 40 % 02-25-2019 Eric Tavarez WBC (Bld) 02:00 GILLIAN DIAZ (55175) (Work Phone: ) MCH (RBC) 30.8 pg (N) 27 - 31 pg 02-25-2019 Eric miller [Entitic mass] 02:00-399 GILLIAN DIAZ (01335) (Work Phone: ) MCHC 32.4 pg (N) 02-25-2019 Eric Tavarez 02:00-399 GILLIAN DIAZ (54843) (Work Phone: ) MCV (RBC) 95.2 fL (N) 80 - 100 fL 02-25-2019 Eric terrazas [Entitic vol] 02:00 GILLIAN DIAZ (06463) (Work Phone: ) [place] ABS# 0.6 K/ul (N) 08-27-2019 Eric Tavarez 02:00-0400 GILLIAN DIAZ (46222) (Work Phone: ) Monocytes/100 7.5 % (N) 2 - 8 % 02-25-2019 Eric hicks WBC (Bld) 02:00 GILLIAN DIAZ (19769) (Work Phone: ) Neut ABS# 4.72 K/ul (N) 02-25-2019 Eric Tavarez 02:00-399 GILLIAN DIAZ (92964) (Work Phone: ) Neutrophils/100 63.6 % (N) 40 - 60 % 02-25-2019 Eric Tavarez WBC (Bld) 02:00 GILLIAN DIAZ (43990) (Work Phone: ) Platelets (Bld) 346 10*3/uL (N) 150 - 450 02-25-2019 Tea Tavarez [#/Vol] 10*3/uL 02:00-399 GILLIAN DIAZ (37276) (Work Phone: ) RBC (Bld) 4.41 10*6/uL (N) 4.2 - 6.1 02-25-2019 Eric saenz [#/Vol] 10*6/uL 02:00-399 GILLIAN DIAZ (15111) (Work Phone: ) WBC (Bld) 7.42 10*3/uL (N) 3.5 - 10.5 02-25-2019 Eric hicks [#/Vol] 10*3/uL 02:00-399 GILLIAN DIAZ (44032) (Work Phone: ) other on 2018-06-01 FLUAV RNA Negative (no code) 06-01-2018 [facility] FRANK+probe Ql 14:53-0500 [facility] (Unsp spec) (30794) ( ) FLUBV RNA Negative (no code) 06-01-2018 [place] [facility] FRANK+probe Ql 14:53-0500 [facility] (Unsp spec) (10811) ( ) lipid on 2015-03-11 C/HDL 3.9 Ratio (N) 03-11-2015 Eric Tavarez 02:00-0400 GILLIAN DIAZ (13020) (Work Phone: ) comp metabolic on 2015-03-11 TPRO 6.5 g/dL (N) 03-11-2015 Eric Tavarez 02:00-0400 GILLIAN DIAZ (64472) (Work Phone: ) cbc with differential on 2015-03-11 Lymphocytes/100 29.6 % (N) 20 - 40 % 03-11-2015 Eric Tavarez WBC (Bld) 02:00-0400 GILLIAN DIAZ (10545) (Work Phone: ) Vital Signs Vital Sign Value Interpretation Reference Date Time Care [facility] Facility (Normalized) (Normalized) Range BMI (Body Mass 38 kg/m2 (no code) 15 - 25 kg/m2 03-06-2019 Eric Tavarez Index) 02:00-0400 [id number] Lara MD ([id number]) (Work Phone: ) BMI (Body Mass 38.2 kg/m2 (no code) 15 - 25 kg/m2 02-25-2019 Kike Tavarez Index) 02:00-0400 GILLIAN Bernardo MD (62531) (Work Phone: ) BMI (Body Mass 34.8 kg/m2 (no code) 15 - 25 kg/m2 09-06-2018 Kike Tavarez Index) 13:00-0500 GILLIAN Bernardo MD (11768) (Work Phone: ) BMI (Body Mass 38.04 kg/m2 (no code) 15 - 25 kg/m2 06-01-2018 Danielle Hall [facility] Index) 14:49-0500 [facility] ([id number]) ( ) Body 98.9 [degF] (no code) 97.8 - 99.0 06-01-2018 Ander Solitario in [facility] Temperature [degF] 14:49-0500 [facility] (11311) ( ) Body weight 94 kg (N) kg 03-06-2019 Eric Tavarez 02:00Ervin [facility] (41938) (Work Phone: ) Body weight 95 kg (N) kg 02-25-2019 Eric Tavarez 02:00040 [facility] (17126) (Work Phone: ) Body weight 86 kg (N) kg 09-06-2018 Eric Tavarez 13:00050 [facility] (17168) (Work Phone: ) Blood Pressure 116/ (N,N) Systolic: 90 - 03-06-2019 Eric Tavarez 74mm[Hg] 120 mm[Hg] 02:00 [facility] (92239) (Work Diastolic: 60 Phone: - 80 mm[Hg] ) Blood Pressure 144/ (N,N) Systolic: 90 - 02-25-2019 Eric Tavarez 82mm[Hg] 120 mm[Hg] 02:00040 [facility] (30803) (Work Diastolic: 60 Phone: - 80 mm[Hg] ) Blood Pressure 128/ (N,N) Systolic: 90 - 09-06-2018 Eric Tavarez 70mm[Hg] 120 mm[Hg] 13:00050 [facility] (29678) (Work Diastolic: 60 Phone: - 80 mm[Hg] ) Blood Pressure 163/ (no code) Systolic: 90 - 06-01-2018 Olimpia Hall [facility] 80mm[Hg] 120 mm[Hg] 14:49-0500 [facility] ([id number]) Diastolic: 60 (Work Phone: - 80 mm[Hg] ) BSA (Body 2.03 m2 (no code) m2 06-01-2018 Ander [facility] Area) 14:490500 [facility] (96565) ( ) Height 157 cm (N) cm 03-06-2019 Eric Tavarez 02:00-04085602 GILLIAN DIAZ (81997) (Work Phone: ) Height 157 cm (N) cm 02-25-2019 Eric Tavarez 02:00-0400 27904 GILLIAN DIAZ (76809) (Work Phone: ) Height 157 cm (N) cm 09-06-2018 Eric Tavarez 13:00-05084370 GILLIAN DIAZ (69201) (Work Phone: ) Height 157.48 cm (no code) cm 06-01-2018 [facility] 14:490500 [facility] (05906) ( ) Pulse (Heart 81 /min (N) 60 - 100 /min 03-06-2019 Eric Tavarez Rate) 02:00-0400 95291 GILLIAN DIAZ (75666) (Work Phone: ) Pulse (Heart 72 /min (N) 60 - 100 /min 02-25-2019 Eric Tavarez Rate) 02:00-0400 55133 GILLIAN DIAZ (77261) (Work Phone: ) Pulse (Heart 82 /min (N) 60 - 100 /min 09-06-2018 Eric Tavarez Rate) 13:00-0500 63327 GILLIAN DIAZ (04395) (Work Phone: ) Pulse (Heart 89 /min (no code) 60 - 100 /min 06-01-2018 [facility] Rate) 14:490500 [facility] (12284) ( ) Pulse Oximetry 93 % (N) 95 - 100 % 03-06-2019 Eric Tavarez 02:00-0400 63585GILLIAN Lara MD ([id number]) (Work Phone: ) Pulse Oximetry 97 % (N) 95 - 100 % 02-25-2019 Eric Tavarez 02:00-0400 GILLIAN Bernardo MD (36070) (Work Phone: ) Pulse Oximetry 96 % (N) 95 - 100 % 09-06-2018 Eric Tavarez 13:00-0500 Az DIAZ [facility] (61852) (Work Phone: ) Pulse Oximetry 96 % (no code) 95 - 100 % [facility]-01-[facility] 14:49-0500 [facility] (46052) ( ) Respiratory 17 /min (no code) 12 - 20 /min 06-01-2018 Ander [facility] Rate 14:49-0500 [facility] (84007) ( ) Weight 94.35 kg (no code) kg 06-01-2018 [facility] 14:49-0500 [facility] (50229) ( ) Interventions No Information Plan of Treatment Normalized Care Care Detail Care Activity Date Care Provider F acility Activity C WOUN RTS Goal: C WOUN RTS no information Eric Tavarez 6676 2 Eric Tavarez MD, Notes: from left [facility] (95256) (Work foot Phone: ) D-Dimer Goal: D-Dimer Notes: no information Eric Tavarez 31044 Eric Tavarez MD, [facility] (01877) (Work Phone: ) Development of care URI - Pt advised to 09-06-2018 Eric miller 89253 Eric Tavarez MD, plan increase fluids, [facility] (35643) (Work vitamin C. Discussed Phone: natural and expected ) course of this diagnosis and need to alert me if symptoms do not follow expected course, or if any worse. RX sent to patient's pharmacy.Allergies - chronic - recommended pt to use allergy medication as prescribed. Pt has been counseled as to the appropriate use of the medication. Pt to call if allergy symptoms are not controlled with the medication.If using nasal spray, instructions as follows: Nasal spray- use twice daily, one spray per nostril twice daily, after 30 minutes, rinse out nose with saline spray.. Use opposite hand per nostril to spray in the nasal steroid allergy spray. Development of care Edema - pt has been 02-25-2019 [place] [address] Eric Tavarez MD, plan advised to elevate LLC (35681) (Work legs to prevent Phone: dependent edema, ) compression has been recommended to help to naturally decrease peripheral edema. Diuretic use has been discussed and pt has been instructed in appropriate use of such medication as necessary to further attempt to reduce peripheral edema.Left calf pain -swelling -venous doppler to r/o DVT Development of care Left foot swelling 03-06-2019 [place] [address] Eric Tavarez MD, plan -xray left foot to [facility] ([id number]) (Work r/o stress fracture- Phone: continue with ) compression, anti inflammatories and elevate foot. OA right hip -gait instability -refer for PT to evaluate and treat Rash -left foot -culture for bacteria Goals No Information Social History Normalized Code Original Code Date Value no information no information Former smoker Functional Status The data below is from unstructured sources Functional Status Finding Observation Time Abdomen Appearance round 20-05-224369:40 Abdomen soft 07-02-2014 17:40 Urination normal 90712:40 Quality sym/unlabored 17:40 Breath Sounds RUL clear 62-06-290898:40 Breath Sounds RML clear 04-66-960317:40 Breath Sounds RLL clear 63-61-791514:40 Breath Sounds TIM clear 62-55-230407:40 Breath Sounds LLL clear 06-73-533895:40 Oxygen no 23-80-635081: 00 Temp >100.4 no 517:40 Temp <96.8 no 07-02-2014 17:40 Chills with rigors no 17:40 HR > 90bpm no 07-02-2014 17:40 Respirations > 20 no 17:40 Systolic <90 no 07-02-19 1517:40 headache stiff neck no 0 07-02-201417:40 Rapid Resp no 07-02-2014 17:40 Nursing Note Vs obtained. Pt stable to ambulate off solomon with her family. [id number]:00 No Functional Status data Mental Status No Information Encounters Encounter Normalized Encounter Encounter Diagnosis Care Provi rock Organization Date Type 07-03-2019 Emergency department no information JAVIER DUNNP (no [facility] [place] - patient visit phone) [facility] 07-03-2019 (no phone) 06-01-2018 Office outpatient new no information Andre Li [facility] [place] [facility] (no phone) 02-25-2019 Office outpatient Localized edema Lashawn Burnett (no [facility] visit 15 minutes phone) (no phone) 09-06-2018 Office outpatient Acute Corinna Bry (no Mattie [facility] visit 15 minutes laryngopharyngitis phone) (no phone ) 03-06-2019 Office outpatient Effusion, left foot Lashawn mendoza (no [facility] visit 25 minutes phone) (no phone) 10-09-2017 Patient encounter no information no name no or ganization name - 10-09-2017 10-02-2017 Patient encounter no information no name no or ganization name 08-23-2017 Patient encounter no information no name no or ganization name - 08-23-2017 03-10-2016 Patient encounter no information no name no or ganization name 02-10-2016 Patient encounter no information no name no or ganization name 09-22-2015 Patient encounter no information no name no or ganization name 08-30-2015 Patient encounter no information no name no or ganization name 08-03-2015 Patient encounter no information no name no or ganization name 11-20-2019 Patient encounter no information [facility] (no [facility] phone) [place] (no phone) 07-03-2019 Patient encounter no information no name no or ganization name procedure 06-17-2019 Patient encounter no information no name no or ganization name procedure 03-06-2019 Patient encounter no information no name no or ganization name procedure 03-06-2019 Patient encounter no information no name no or ganization name procedure 02-25-2019 Patient encounter no information no name no or ganization name procedure 09-09-2018 Patient encounter no information no name no or ganization name procedure 09-05-2018 Patient encounter no information no name no or ganization name procedure 09-05-2018 Patient encounter no information no name no or ganization name procedure 10-03-2017 Patient encounter no information no name no or ganization name - procedure 10-03-2017 08-23-2017 Patient encounter no information no name no or ganization name - procedure 08-23-2017 08-15-2017 Patient encounter no information no name no or ganization name - procedure 08-15-2017 08-09-2017 Patient encounter no information no name no or ganization name procedure 07-27-2017 Patient encounter no information no name no or ganization name procedure Patient encounter no information (no phone) [facility] procedure (no phone) no information Encounter for other no name no organiz ation name preprocedural examination Medical Equipment No Information Payers Normalized Payer Value [facility] [id number] Medicare [id number] ([id number]) Discharge Instructions Dismissal Condition good Disposition on DC home DC Inst/Educ Give yes Med/Side Effects Rev yes You were admitted to [facility] on 02/13/2015 with a principal diagnosis of ACUTE BRONCHITIS. You were discharged from [facility] on 02/13/2015. Should you have any questions prior to discharge, please contact a member of your healthcare team. If you have left the hospital and have any questions, please contact your primary care physician. Summary Purpose TRANSITION OF CARE AUTO GENERATIONTRANSITION OF CARE AUTO GENERATIONTRANSITION OF CARE AUTO GENERATIONTRANSITION OF CARE AUTO GENERATIONInterface ExchangeInterface ExchangeInterface ExchangeInterface ExchangeInterface ExchangeInterface ExchangeInterface ExchangeInterface Exchange Advance Directives No Advance Directive data Directive Response Recor ded Date/Time Advance Directives No 3:39pm Resuscitation Status Full Code 08/15/17 3:39pm Directive Response Recor ded Date/Time Advance Directives No 6:20am Resuscitation Status Full Code 08/23/17 6:20am Directive Response Recor ded Date/Time Advance Directives No 9:35am Health Care Power of Museum Director No 10/03/17 9:35am Resuscitation Status Full Code 10/03/17 9:35am Family History Family History data not foundFamily History data not foundFamily History data not foundFamily History data not foundFamily History data not foundFamily History data not foundFamily History data not foundFamily History data not found Assessments Condition Codes Effectiv e Dates Encounter for screening mammogram for ma lignant neoplasm of breast ICD-10: Z12.31 ICD-9: V76.12 09/06/2018 Essential (primary) hypertension ICD -10: I10 ICD-9: 401.1 08/23/2017 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, left thigh ICD-10: M85.852 ICD-9: 733.90 08/23/2017 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, right thigh ICD-10: M85.851 ICD-9: 733.90 08/23/2017 Rash and other nonspecific skin eruption ICD-10: R21 ICD-9: 782.1 02/09/2017 Moderate persistent asthma, uncomplicated ICD-10: J45.40 ICD-9: 493.90 02/01/2017 Age-related osteoporosis without current pathological fracture ICD-10: M81.0 ICD-9: 733.00 02/01/2017 Encounter for general adult medical exam ination without abnormal findings ICD-10: Z00.00 ICD-9: V70.0 08/03/2016 Other acute sinusitis ICD-10: J01.80 ICD-9: 461.8 04/24/2016 Acute bronchitis due to other specified organisms ICD-10: J20.8 ICD-9: 466.0 03/28/2016 Nondisplaced fracture of left radial sty loid process, subsequent encounter for closed fracture with delayed healing ICD-10: S52.515G ICD-9: V54.12 03/10/2016 Nondisplaced fracture of left radial sty loid process, initial encounter for closed fracture ICD-10: S52.515A ICD-9: 813.42 02/10/2016 Gastro-esophageal reflux disease without esophagitis ICD-10: K21.9 ICD-9: 530.81 01/11/2016 Other specified dermatitis ICD-10: L 30.8 ICD-9: 692.9 01/11/2016 Sacroiliitis, not elsewhere classified ICD-10: M46.1 ICD-9: 720.2 12/16/2015 Low back pain ICD-10: M54.5 ICD-9: 724.2 12/16/2015 Other acute nonsuppurative otitis media, left ear ICD-10: H65.192 ICD-9: 381.00 09/30/2015 Acute recurrent maxillary sinusitis ICD-10: J01.01 ICD-9: 461.0 09/30/2015 Body mass index (BMI) 34.0-34.9, adult ICD-10: Z68.34 ICD-9: V85.34 09/30/2015 Cough ICD-10: R05 ICD-9: 786.2 08/05/2015 Essential (primary) hypertension ICD -10: I10 ICD-9: 401.9 07/13/2015 Nasal congestion ICD-10: R09.81 ICD-9: 478.19 06/10/2015 ESOPHAGEAL REFLUX ICD-9: 530.81 03/10/2015 ESSENTIAL HYPERTENSION ICD-9: 401.9 03/10/2015 Condition Codes Effectiv e Dates Encounter for screening mammogram for ma lignant neoplasm of breast ICD-10: Z12.31 ICD-9: V76.12 09/06/2018 Acute laryngopharyngitis ICD-10: J06 .0 ICD-9: 465.0 09/06/2018 Other allergic rhinitis ICD-10: J30. 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, left thigh ICD-10: M85.852 ICD-9: 733.90 08/23/2017 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, right thigh ICD-10: M85.851 ICD-9: 733.90 08/23/2017 Rash and other nonspecific skin eruption ICD-10: R21 ICD-9: 782.1 02/09/2017 Moderate persistent asthma, uncomplicated ICD-10: J45.40 ICD-9: 493.90 02/01/2017 Age-related osteoporosis without current pathological fracture ICD-10: M81.0 ICD-9: 733.00 02/01/2017 Encounter for general adult medical exam ination without abnormal findings ICD-10: Z00.00 ICD-9: V70.0 08/03/2016 Other acute sinusitis ICD-10: J01.80 ICD-9: 461.8 04/24/2016 Acute bronchitis due to other specified organisms ICD-10: J20.8 ICD-9: 466.0 03/28/2016 Nondisplaced fracture of left radial sty loid process, subsequent encounter for closed fracture with delayed healing ICD-10: S52.515G ICD-9: V54.12 03/10/2016 Nondisplaced fracture of left radial sty loid process, initial encounter for closed fracture ICD-10: S52.515A ICD-9: 813.42 02/10/2016 Gastro-esophageal reflux disease without esophagitis ICD-10: K21.9 ICD-9: 530.81 01/11/2016 Other specified dermatitis ICD-10: L 30.8 ICD-9: 692.9 01/11/2016 Sacroiliitis, not elsewhere classified ICD-10: M46.1 ICD-9: 720.2 12/16/2015 Low back pain ICD-10: M54.5 ICD-9: 724.2 12/16/2015 Other acute nonsuppurative otitis media, left ear ICD-10: H65.192 ICD-9: 381.00 09/30/2015 Acute recurrent maxillary sinusitis ICD-10: J01.01 ICD-9: 461.0 09/30/2015 Body mass index (BMI) 34.0-34.9, adult ICD-10: Z68.34 ICD-9: V85.34 09/30/2015 Essential (primary) hypertension ICD -10: I10 ICD-9: 401.9 07/13/2015 Nasal congestion ICD-10: R09.81 ICD-9: 478.19 06/10/2015 ESOPHAGEAL REFLUX ICD-9: 530.81 03/10/2015 ESSENTIAL HYPERTENSION ICD-9: 401.9 03/10/2015 Condition Codes Effectiv e Dates Pain in left lower leg ICD-10: M79.6 62 ICD-9: 729.5 02/25/2019 Localized edema ICD-10: R60.0 ICD-9: 782.3 02/25/2019 Encounter for screening mammogram for ma lignant neoplasm of breast ICD-10: Z12.31 ICD-9: V76.12 09/06/2018 Acute laryngopharyngitis ICD-10: J06 .0 ICD-9: 465.0 09/06/2018 Other allergic rhinitis ICD-10: J30. 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, left thigh ICD-10: M85.852 ICD-9: 733.90 08/23/2017 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, right thigh ICD-10: M85.851 ICD-9: 733.90 08/23/2017 Rash and other nonspecific skin eruption ICD-10: R21 ICD-9: 782.1 02/09/2017 Moderate persistent asthma, uncomplicated ICD-10: J45.40 ICD-9: 493.90 02/01/2017 Age-related osteoporosis without current pathological fracture ICD-10: M81.0 ICD-9: 733.00 02/01/2017 Encounter for general adult medical exam ination without abnormal findings ICD-10: Z00.00 ICD-9: V70.0 08/03/2016 Other acute sinusitis ICD-10: J01.80 ICD-9: 461.8 04/24/2016 Acute bronchitis due to other specified organisms ICD-10: J20.8 ICD-9: 466.0 03/28/2016 Nondisplaced fracture of left radial sty loid process, subsequent encounter for closed fracture with delayed healing ICD-10: S52.515G ICD-9: V54.12 03/10/2016 Nondisplaced fracture of left radial sty loid process, initial encounter for closed fracture ICD-10: S52.515A ICD-9: 813.42 02/10/2016 Gastro-esophageal reflux disease without esophagitis ICD-10: K21.9 ICD-9: 530.81 01/11/2016 Other specified dermatitis ICD-10: L 30.8 ICD-9: 692.9 01/11/2016 Sacroiliitis, not elsewhere classified ICD-10: M46.1 ICD-9: 720.2 12/16/2015 Low back pain ICD-10: M54.5 ICD-9: 724.2 12/16/2015 Other acute nonsuppurative otitis media, left ear ICD-10: H65.192 ICD-9: 381.00 09/30/2015 Acute recurrent maxillary sinusitis ICD-10: J01.01 ICD-9: 461.0 09/30/2015 Body mass index (BMI) 34.0-34.9, adult ICD-10: Z68.34 ICD-9: V85.34 09/30/2015 Essential (primary) hypertension ICD -10: I10 ICD-9: 401.9 07/13/2015 Nasal congestion ICD-10: R09.81 ICD-9: 478.19 06/10/2015 ESOPHAGEAL REFLUX ICD-9: 530.81 03/10/2015 ESSENTIAL HYPERTENSION ICD-9: 401.9 03/10/2015 Condition Codes Effectiv e Dates Essential (primary) hypertension ICD -10: I10 ICD-9: 401.9 02/26/2019 Pain in left lower leg ICD-10: M79.6 62 ICD-9: 729.5 02/25/2019 Localized edema ICD-10: R60.0 ICD-9: 782.3 02/25/2019 Encounter for screening mammogram for ma lignant neoplasm of breast ICD-10: Z12.31 ICD-9: V76.12 09/06/2018 Acute laryngopharyngitis ICD-10: J06 .0 ICD-9: 465.0 09/06/2018 Other allergic rhinitis ICD-10: J30. 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, left thigh ICD-10: M85.852 ICD-9: 733.90 08/23/2017 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, right thigh ICD-10: M85.851 ICD-9: 733.90 08/23/2017 Rash and other nonspecific skin eruption ICD-10: R21 ICD-9: 782.1 02/09/2017 Moderate persistent asthma, uncomplicated ICD-10: J45.40 ICD-9: 493.90 02/01/2017 Age-related osteoporosis without current pathological fracture ICD-10: M81.0 ICD-9: 733.00 02/01/2017 Encounter for general adult medical exam ination without abnormal findings ICD-10: Z00.00 ICD-9: V70.0 08/03/2016 Other acute sinusitis ICD-10: J01.80 ICD-9: 461.8 04/24/2016 Acute bronchitis due to other specified organisms ICD-10: J20.8 ICD-9: 466.0 03/28/2016 Nondisplaced fracture of left radial sty loid process, subsequent encounter for closed fracture with delayed healing ICD-10: S52.515G ICD-9: V54.12 03/10/2016 Nondisplaced fracture of left radial sty loid process, initial encounter for closed fracture ICD-10: S52.515A ICD-9: 813.42 02/10/2016 Gastro-esophageal reflux disease without esophagitis ICD-10: K21.9 ICD-9: 530.81 01/11/2016 Other specified dermatitis ICD-10: L 30.8 ICD-9: 692.9 01/11/2016 Sacroiliitis, not elsewhere classified ICD-10: M46.1 ICD-9: 720.2 12/16/2015 Low back pain ICD-10: M54.5 ICD-9: 724.2 12/16/2015 Other acute nonsuppurative otitis media, left ear ICD-10: H65.192 ICD-9: 381.00 09/30/2015 Acute recurrent maxillary sinusitis ICD-10: J01.01 ICD-9: 461.0 09/30/2015 Body mass index (BMI) 34.0-34.9, adult ICD-10: Z68.34 ICD-9: V85.34 09/30/2015 Nasal congestion ICD-10: R09.81 ICD-9: 478.19 06/10/2015 ESOPHAGEAL REFLUX ICD-9: 530.81 03/10/2015 ESSENTIAL HYPERTENSION ICD-9: 401.9 03/10/2015 Condition Codes Effectiv e Dates Effusion, left foot ICD-10: M25.475 ICD-9: 719.07 03/06/2019 Rash and other nonspecific skin eruption ICD-10: R21 ICD-9: 782.1 03/06/2019 Unsteadiness on feet ICD-10: R26.81 ICD-9: 781.2 03/06/2019 Pain in right hip ICD-10: M25.551 ICD-9: 719.45 03/06/2019 Essential (primary) hypertension ICD -10: I10 ICD-9: 401.9 02/26/2019 Pain in left lower leg ICD-10: M79.6 62 ICD-9: 729.5 02/25/2019 Localized edema ICD-10: R60.0 ICD-9: 782.3 02/25/2019 Encounter for screening mammogram for ma lignant neoplasm of breast ICD-10: Z12.31 ICD-9: V76.12 09/06/2018 Acute laryngopharyngitis ICD-10: J06 .0 ICD-9: 465.0 09/06/2018 Other allergic rhinitis ICD-10: J30. 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, left thigh ICD-10: M85.852 ICD-9: 733.90 08/23/2017 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, right thigh ICD-10: M85.851 ICD-9: 733.90 08/23/2017 Moderate persistent asthma, uncomplicated ICD-10: J45.40 ICD-9: 493.90 02/01/2017 Age-related osteoporosis without current pathological fracture ICD-10: M81.0 ICD-9: 733.00 02/01/2017 Encounter for general adult medical exam ination without abnormal findings ICD-10: Z00.00 ICD-9: V70.0 08/03/2016 Other acute sinusitis ICD-10: J01.80 ICD-9: 461.8 04/24/2016 Acute bronchitis due to other specified organisms ICD-10: J20.8 ICD-9: 466.0 03/28/2016 Nondisplaced fracture of left radial sty loid process, subsequent encounter for closed fracture with delayed healing ICD-10: S52.515G ICD-9: V54.12 03/10/2016 Nondisplaced fracture of left radial sty loid process, initial encounter for closed fracture ICD-10: S52.515A ICD-9: 813.42 02/10/2016 Gastro-esophageal reflux disease without esophagitis ICD-10: K21.9 ICD-9: 530.81 01/11/2016 Other specified dermatitis ICD-10: L 30.8 ICD-9: 692.9 01/11/2016 Sacroiliitis, not elsewhere classified ICD-10: M46.1 ICD-9: 720.2 12/16/2015 Low back pain ICD-10: M54.5 ICD-9: 724.2 12/16/2015 Other acute nonsuppurative otitis media, left ear ICD-10: H65.192 ICD-9: 381.00 09/30/2015 Acute recurrent maxillary sinusitis ICD-10: J01.01 ICD-9: 461.0 09/30/2015 Body mass index (BMI) 34.0-34.9, adult ICD-10: Z68.34 ICD-9: V85.34 09/30/2015 Nasal congestion ICD-10: R09.81 ICD-9: 478.19 06/10/2015 ESOPHAGEAL REFLUX ICD-9: 530.81 03/10/2015 ESSENTIAL HYPERTENSION ICD-9: 401.9 03/10/2015 Chief Complaint Reason For Visit Effective Dates Notes hypertension 08/23/2017 rash 02/09/2017 hypertension 02/01/2017 well woman exam (65+ years) 08/03/2016 cough 04/24/2016 cough 03/28/2016 bone fracture 03/10/2016 bone fracture 02/10/2016 rash 01/11/2016 back pain 12/16/2015 cough 09/30/2015 nasal discharge 08/05/2015 Annual Medicare Wellness Exam 08/03/2015 cough 07/13/2015 well woman exam (65+ years) 06/10/2015 cough 03/10/2015 Reason For Visit Effective Dates Notes cough 09/06/2018 hypertension 08/23/2017 rash 02/09/2017 hypertension 02/01/2017 well woman exam (65+ years) 08/03/2016 cough 04/24/2016 cough 03/28/2016 bone fracture 03/10/2016 bone fracture 02/10/2016 rash 01/11/2016 back pain 12/16/2015 cough 09/30/2015 nasal discharge 08/05/2015 Annual Medicare Wellness Exam 08/03/2015 cough 07/13/2015 well woman exam (65+ years) 06/10/2015 cough 03/10/2015 Reason For Visit Effective Dates Notes edema 02/25/2019 cough 09/06/2018 hypertension 08/23/2017 rash 02/09/2017 hypertension 02/01/2017 well woman exam (65+ years) 08/03/2016 cough 04/24/2016 cough 03/28/2016 bone fracture 03/10/2016 bone fracture 02/10/2016 rash 01/11/2016 back pain 12/16/2015 cough 09/30/2015 nasal discharge 08/05/2015 Annual Medicare Wellness Exam 08/03/2015 cough 07/13/2015 well woman exam (65+ years) 06/10/2015 cough 03/10/2015 Reason For Visit Effective Dates Notes edema 03/06/2019 edema 02/25/2019 cough 09/06/2018 hypertension 08/23/2017 rash 02/09/2017 hypertension 02/01/2017 well woman exam (65+ years) 08/03/2016 cough 04/24/2016 cough 03/28/2016 bone fracture 03/10/2016 bone fracture 02/10/2016 rash 01/11/2016 back pain 12/16/2015 cough 09/30/2015 nasal discharge 08/05/2015 Annual Medicare Wellness Exam 08/03/2015 cough 07/13/2015 well woman exam (65+ years) 06/10/2015 cough 03/10/2015 Review of System System Result Effective Dates Constitutional No recent illness 08/23/2017 Constitutional No chills 08/23/2017 Constitutional No fatigue 08/23/2017 Constitutional No fever 08/23/2017 Constitutional No insomnia 08/23/2017 Constitutional No malaise 08/23/2017 Eyes No blindness 2017 Eyes No vision change Ears/Nose/Throat/Neck No dental pain 08/23/2017 Ears/Nose/Throat/Neck No dizziness 08/23/2017 Ears/Nose/Throat/Neck No dysphagia 08/23/2017 Ears/Nose/Throat/Neck No headache 08/23/2017 Ears/Nose/Throat/Neck No hearing loss 08/23/2017 Ears/Nose/Throat/Neck nasal allergies 08/23/2017 Ears/Nose/Throat/Neck No sore throat 08/23/2017 Ears/Nose/Throat/Neck No postnasal drip 08/23/2017 Ears/Nose/Throat/Neck sinus congestion 08/23/2017 Cardiovascular No chest pain/pressure 08/23/2017 Cardiovascular No dyspnea 08/23/2017 Cardiovascular No edema 08/23/2017 Cardiovascular No exercise intolerance 08/23/2017 Cardiovascular No fatigue 08/23/2017 Cardiovascular No near-syncope/dizziness 08/23/2017 Respiratory No chest tightness 08/23/2017 Respiratory No cough Respiratory No dyspnea 0 08/23/2017 Respiratory No pedal edema 08/23/2017 Gastrointestinal No abdominal pain 08/23/2017 Gastrointestinal No constipation 08/23/2017 Gastrointestinal No diarrhea 08/23/2017 Gastrointestinal No gastroesophageal reflu x 08/23/2017 Gastrointestinal No nausea 08/23/2017 Gastrointestinal No vomiting 08/23/2017 Genitourinary/Nephrology No dysuria 08/23/2017 Genitourinary/Nephrology No nocturia 08/23/2017 Genitourinary/Nephrology No urinary incontinence 08/23/2017 Musculoskeletal No stiffness 08/23/2017 Musculoskeletal No swelling 08/23/2017 Musculoskeletal No muscle weakness 08/23/2017 Musculoskeletal No myalgias 08/23/2017 Dermatologic No rash Dermatologic No sores Dermatologic No scar Neurologic No dizziness 08/23/2017 Neurologic No headache 0 08/23/2017 Neurologic No neck pain 08/23/2017 Neurologic No syncope Psychiatric No anxiety 0 08/23/2017 Psychiatric No depression 08/23/2017 Constitutional No recent illness 02/09/2017 Constitutional No chills 02/09/2017 Constitutional No diaphoresis 02/09/2017 Constitutional No fever 02/09/2017 Eyes No eye erythema 05/2017 Ears/Nose/Throat/Neck No nasal allergies 02/09/2017 Ears/Nose/Throat/Neck No nasal discharge 02/09/2017 Cardiovascular No chest pain/pressure 02/09/2017 Cardiovascular No dyspnea 02/09/2017 Respiratory No cough 05/2017 Respiratory No dyspnea 0 02/09/2017 Dermatologic rash 2016 Neurologic No alteration of consciousness 02/09/2017 Neurologic No mental status change 02/09/2017 Constitutional No recent illness 02/01/2017 Constitutional No chills 02/01/2017 Constitutional No fatigue 02/01/2017 Constitutional No fever 02/01/2017 Constitutional No insomnia 02/01/2017 Constitutional No malaise 02/01/2017 Eyes No blindness 2016 Eyes No vision change Ears/Nose/Throat/Neck No dental pain 02/01/2017 Ears/Nose/Throat/Neck No dizziness 02/01/2017 Ears/Nose/Throat/Neck No dysphagia 02/01/2017 Ears/Nose/Throat/Neck No headache 02/01/2017 Ears/Nose/Throat/Neck No hearing loss 02/01/2017 Ears/Nose/Throat/Neck nasal allergies 02/01/2017 Ears/Nose/Throat/Neck No sore throat 02/01/2017 Ears/Nose/Throat/Neck No postnasal drip 02/01/2017 Ears/Nose/Throat/Neck sinus congestion 02/01/2017 Cardiovascular No chest pain/pressure 02/01/2017 Cardiovascular No dyspnea 02/01/2017 Cardiovascular No edema 02/01/2017 Cardiovascular No exercise intolerance 02/01/2017 Cardiovascular No fatigue 02/01/2017 Cardiovascular No near-syncope/dizziness 02/01/2017 Respiratory No chest tightness 02/01/2017 Respiratory No cough 08/2016 Respiratory No dyspnea 0 02/01/2017 Respiratory No pedal edema 02/01/2017 Gastrointestinal No abdominal pain 02/01/2017 Gastrointestinal No constipation 02/01/2017 Gastrointestinal No diarrhea 02/01/2017 Gastrointestinal No gastroesophageal reflu x 02/01/2017 Gastrointestinal No nausea 02/01/2017 Gastrointestinal No vomiting 02/01/2017 Genitourinary/Nephrology No dysuria 02/01/2017 Genitourinary/Nephrology No nocturia 02/01/2017 Genitourinary/Nephrology No urinary incontinence 02/01/2017 Musculoskeletal No stiffness 02/01/2017 Musculoskeletal No swelling 02/01/2017 Musculoskeletal No muscle weakness 02/01/2017 Musculoskeletal No myalgias 02/01/2017 Dermatologic No rash 08/2016 Dermatologic No sores Dermatologic No scar 08/2016 Neurologic No dizziness 02/01/2017 Neurologic No headache 0 02/01/2017 Neurologic No neck pain 02/01/2017 Neurologic No syncope Psychiatric No anxiety 0 02/01/2017 Psychiatric No depression 02/01/2017 Constitutional No recent illness 08/03/2016 Constitutional No chills 08/03/2016 Constitutional No fatigue 08/03/2016 Constitutional No fever 08/03/2016 Constitutional No insomnia 08/03/2016 Constitutional No malaise 08/03/2016 Eyes No blindness 2016 Eyes No vision change Ears/Nose/Throat/Neck No dental pain 08/03/2016 Ears/Nose/Throat/Neck No dizziness 08/03/2016 Ears/Nose/Throat/Neck No dysphagia 08/03/2016 Ears/Nose/Throat/Neck No headache 08/03/2016 Ears/Nose/Throat/Neck No hearing loss 08/03/2016 Ears/Nose/Throat/Neck nasal allergies 08/03/2016 Ears/Nose/Throat/Neck No sore throat 08/03/2016 Ears/Nose/Throat/Neck No postnasal drip 08/03/2016 Ears/Nose/Throat/Neck sinus congestion 08/03/2016 Cardiovascular No chest pain/pressure 08/03/2016 Cardiovascular No dyspnea 08/03/2016 Cardiovascular No edema 08/03/2016 Cardiovascular No exercise intolerance 08/03/2016 Cardiovascular No fatigue 08/03/2016 Cardiovascular No near-syncope/dizziness 08/03/2016 Respiratory No chest tightness 08/03/2016 Respiratory No cough 08/2016 Respiratory No dyspnea 0 08/03/2016 Respiratory No pedal edema 08/03/2016 Gastrointestinal No abdominal pain 08/03/2016 Gastrointestinal No constipation 08/03/2016 Gastrointestinal No diarrhea 08/03/2016 Gastrointestinal No gastroesophageal reflu x 08/03/2016 Gastrointestinal No nausea 08/03/2016 Gastrointestinal No vomiting 08/03/2016 Genitourinary/Nephrology No dysuria 08/03/2016 Genitourinary/Nephrology No nocturia 08/03/2016 Genitourinary/Nephrology No urinary incontinence 08/03/2016 Musculoskeletal No stiffness 08/03/2016 Musculoskeletal No swelling 08/03/2016 Musculoskeletal No muscle weakness 08/03/2016 Musculoskeletal No myalgias 08/03/2016 Dermatologic No rash 08/2016 Dermatologic No sores Dermatologic No scar 08/2016 Neurologic No dizziness 08/03/2016 Neurologic No headache 0 08/03/2016 Neurologic No neck pain 08/03/2016 Neurologic No syncope Psychiatric No anxiety 0 08/03/2016 Psychiatric No depression 08/03/2016 Constitutional recent illness 04/24/2016 Eyes No eye erythema Ears/Nose/Throat/Neck nasal allergies 04/24/2016 Ears/Nose/Throat/Neck nasal discharge 04/24/2016 Ears/Nose/Throat/Neck postnasal drip 04/24/2016 Ears/Nose/Throat/Neck sinus congestion 04/24/2016 Cardiovascular No chest pain/pressure 04/24/2016 Cardiovascular No dyspnea 04/24/2016 Respiratory cough 2015 Respiratory No dyspnea 1 Gastrointestinal No nausea 04/24/2016 Gastrointestinal No vomiting 04/24/2016 Musculoskeletal No joint complaint 04/24/2016 Dermatologic No rash Neurologic No alteration of consciousness 04/24/2016 Neurologic No mental status change 04/24/2016 Respiratory No chest congestion 04/24/2016 Ears/Nose/Throat/Neck nasal allergies 03/28/2016 Ears/Nose/Throat/Neck nasal discharge 03/28/2016 Ears/Nose/Throat/Neck postnasal drip 03/28/2016 Ears/Nose/Throat/Neck sinus congestion 03/28/2016 Cardiovascular No chest pain/pressure 03/28/2016 Respiratory cough 2015 Respiratory dyspnea on exertion 03/28/2016 Respiratory No dyspnea 0 03/28/2016 Gastrointestinal No nausea 03/28/2016 Gastrointestinal No vomiting 03/28/2016 Musculoskeletal No joint complaint 03/28/2016 Dermatologic No rash Neurologic No alteration of consciousness 03/28/2016 Constitutional recent illness 03/28/2016 Eyes No eye erythema Cardiovascular No dyspnea 03/28/2016 Neurologic No mental status change 03/28/2016 Constitutional No recent illness 03/10/2016 Constitutional No fever 03/10/2016 Eyes No eye erythema 03/2016 Eyes No vision change Cardiovascular No chest pain/pressure 03/10/2016 Cardiovascular No dyspnea 03/10/2016 Respiratory No dyspnea 0 03/10/2016 Musculoskeletal joint complaint 03/10/2016 Dermatologic No rash 03/2016 Dermatologic No scar 03/2016 Neurologic No alteration of consciousness 03/10/2016 Neurologic No mental status change 03/10/2016 Gastrointestinal No abdominal pain 03/10/2016 Constitutional No recent illness 02/10/2016 Constitutional No fever 02/10/2016 Eyes No eye erythema 05/2016 Eyes No vision change Cardiovascular No chest pain/pressure 02/10/2016 Cardiovascular No dyspnea 02/10/2016 Respiratory No dyspnea 0 02/10/2016 Dermatologic No scar 05/2016 Musculoskeletal joint complaint 02/10/2016 Dermatologic No rash 05/2016 Neurologic No alteration of consciousness 02/10/2016 Neurologic No mental status change 02/10/2016 Constitutional No recent illness 01/11/2016 Constitutional No chills 01/11/2016 Constitutional No fatigue 01/11/2016 Constitutional No fever 01/11/2016 Constitutional No insomnia 01/11/2016 Constitutional No malaise 01/11/2016 Eyes No blindness 2015 Eyes No vision change Ears/Nose/Throat/Neck No dental pain 01/11/2016 Ears/Nose/Throat/Neck No dizziness 01/11/2016 Ears/Nose/Throat/Neck No dysphagia 01/11/2016 Ears/Nose/Throat/Neck No headache 01/11/2016 Ears/Nose/Throat/Neck No hearing loss 01/11/2016 Ears/Nose/Throat/Neck nasal allergies 01/11/2016 Ears/Nose/Throat/Neck No sore throat 01/11/2016 Ears/Nose/Throat/Neck No postnasal drip 01/11/2016 Ears/Nose/Throat/Neck sinus congestion 01/11/2016 Cardiovascular No chest pain/pressure 01/11/2016 Cardiovascular No dyspnea 01/11/2016 Cardiovascular No edema 01/11/2016 Cardiovascular No exercise intolerance 01/11/2016 Cardiovascular No fatigue 01/11/2016 Cardiovascular No near-syncope/dizziness 01/11/2016 Respiratory No chest tightness 01/11/2016 Respiratory No cough 06/2016 Respiratory No dyspnea 0 01/11/2016 Respiratory No pedal edema 01/11/2016 Gastrointestinal No abdominal pain 01/11/2016 Gastrointestinal No constipation 01/11/2016 Gastrointestinal No diarrhea 01/11/2016 Gastrointestinal No gastroesophageal reflu x 01/11/2016 Gastrointestinal No nausea 01/11/2016 Gastrointestinal No vomiting 01/11/2016 Genitourinary/Nephrology No dysuria 01/11/2016 Genitourinary/Nephrology No nocturia 01/11/2016 Genitourinary/Nephrology No urinary incontinence 01/11/2016 Musculoskeletal No stiffness 01/11/2016 Musculoskeletal No swelling 01/11/2016 Musculoskeletal No muscle weakness 01/11/2016 Musculoskeletal No myalgias 01/11/2016 Dermatologic rash 2015 Dermatologic No sores Dermatologic No scar 06/2016 Neurologic No dizziness 01/11/2016 Neurologic No headache 0 01/11/2016 Neurologic No neck pain 01/11/2016 Neurologic No syncope Psychiatric No anxiety 0 01/11/2016 Psychiatric No depression 01/11/2016 Constitutional No fever 12/16/2015 Eyes No vision change Cardiovascular No chest pain/pressure 12/16/2015 Respiratory No dyspnea 0 12/16/2015 Dermatologic No rash Dermatologic No sores Neurologic No alteration of consciousness 12/16/2015 Psychiatric No anxiety 0 12/16/2015 Psychiatric No depression 12/16/2015 Constitutional No recent illness 12/16/2015 Eyes No eye erythema Ears/Nose/Throat/Neck No nasal discharge 12/16/2015 Ears/Nose/Throat/Neck No nasal allergies 12/16/2015 Cardiovascular No dyspnea 12/16/2015 Respiratory No cough Gastrointestinal No abdominal pain 12/16/2015 Musculoskeletal back pain 12/16/2015 Neurologic No mental status change 12/16/2015 Constitutional No chills 09/30/2015 Constitutional No diaphoresis 09/30/2015 Constitutional No fatigue 09/30/2015 Constitutional No fever 09/30/2015 Constitutional No insomnia 09/30/2015 Constitutional No malaise 09/30/2015 Eyes No vision change Ears/Nose/Throat/Neck nasal allergies 09/30/2015 Ears/Nose/Throat/Neck nasal discharge 09/30/2015 Ears/Nose/Throat/Neck otalgia 09/30/2015 Ears/Nose/Throat/Neck postnasal drip 09/30/2015 Ears/Nose/Throat/Neck sinus congestion 09/30/2015 Ears/Nose/Throat/Neck sore throat 09/30/2015 Cardiovascular No chest pain/pressure 09/30/2015 Respiratory productive sputum 09/30/2015 Respiratory chest congestion 09/30/2015 Respiratory cough 2015 Respiratory dyspnea on exertion 09/30/2015 Gastrointestinal No abdominal pain 09/30/2015 Gastrointestinal No constipation 09/30/2015 Gastrointestinal No diarrhea 09/30/2015 Gastrointestinal No nausea 09/30/2015 Genitourinary/Nephrology No dysuria 09/30/2015 Musculoskeletal No joint complaint 09/30/2015 Dermatologic No rash Dermatologic No sores Psychiatric No anxiety 0 09/30/2015 Psychiatric No depression 09/30/2015 Ears/Nose/Throat/Neck otitis media 09/30/2015 Respiratory No dyspnea 0 09/30/2015 Gastrointestinal No vomiting 09/30/2015 Neurologic No alteration of consciousness 09/30/2015 Constitutional No recent illness 08/05/2015 Constitutional No anorexia 08/05/2015 Constitutional No night sweats 08/05/2015 Constitutional No chills 08/05/2015 Constitutional No diaphoresis 08/05/2015 Constitutional No fatigue 08/05/2015 Constitutional No fever 08/05/2015 Constitutional No insomnia 08/05/2015 Constitutional No malaise 08/05/2015 Constitutional No weight loss 08/05/2015 Constitutional No weight gain 08/05/2015 Constitutional No obesity 08/05/2015 Respiratory cough 2015 Respiratory nocturnal cough 08/05/2015 Respiratory dyspnea 02/0 10/2015 Respiratory No dyspnea on exertion 08/05/2015 Respiratory No cigarette smoking 08/05/2015 Respiratory No chest tightness 08/05/2015 Respiratory chest congestion 08/05/2015 Respiratory productive sputum 08/05/2015 Gastrointestinal No nausea 08/05/2015 Gastrointestinal No abdominal pain 08/05/2015 Gastrointestinal vomiting 08/05/2015 Gastrointestinal No diarrhea 08/05/2015 Gastrointestinal No constipation 08/05/2015 Ears/Nose/Throat/Neck nasal discharge 08/05/2015 Ears/Nose/Throat/Neck nasal allergies 08/05/2015 Ears/Nose/Throat/Neck otitis media 08/05/2015 Ears/Nose/Throat/Neck No otalgia 08/05/2015 Ears/Nose/Throat/Neck postnasal drip 08/05/2015 Ears/Nose/Throat/Neck sinus congestion 08/05/2015 Ears/Nose/Throat/Neck No sore throat 08/05/2015 Ears/Nose/Throat/Neck No headache 08/05/2015 Cardiovascular No chest pain/pressure 08/05/2015 Eyes No vision change Dermatologic No sores Dermatologic No rash 10/2015 Genitourinary/Nephrology No dysuria 08/05/2015 Musculoskeletal myalgias 08/05/2015 Musculoskeletal No muscle weakness 08/05/2015 Musculoskeletal No joint complaint 08/05/2015 Psychiatric No anxiety 0 08/05/2015 Psychiatric No depression 08/05/2015 Constitutional No recent illness 08/03/2015 Constitutional No anorexia 08/03/2015 Constitutional No night sweats 08/03/2015 Constitutional No chills 08/03/2015 Constitutional No diaphoresis 08/03/2015 Constitutional No fatigue 08/03/2015 Constitutional No insomnia 08/03/2015 Constitutional No fever 08/03/2015 Constitutional No malaise 08/03/2015 Constitutional weight loss 08/03/2015 Constitutional No weight gain 08/03/2015 Eyes No eye discharge Eyes No eye erythema 08/2015 Eyes No vision change Eyes glaucoma 08/03/2015 Ears/Nose/Throat/Neck No dizziness 08/03/2015 Ears/Nose/Throat/Neck No dysphagia 08/03/2015 Ears/Nose/Throat/Neck No facial pain 08/03/2015 Ears/Nose/Throat/Neck No headache 08/03/2015 Ears/Nose/Throat/Neck No hearing loss 08/03/2015 Ears/Nose/Throat/Neck No hoarseness 08/03/2015 Ears/Nose/Throat/Neck No nasal allergies 08/03/2015 Ears/Nose/Throat/Neck No nasal discharge 08/03/2015 Ears/Nose/Throat/Neck No oral pain 08/03/2015 Ears/Nose/Throat/Neck No otalgia 08/03/2015 Ears/Nose/Throat/Neck No otitis media 08/03/2015 Ears/Nose/Throat/Neck postnasal drip 08/03/2015 Ears/Nose/Throat/Neck No sinus congestion 08/03/2015 Ears/Nose/Throat/Neck snoring 08/03/2015 Ears/Nose/Throat/Neck No sore throat 08/03/2015 Ears/Nose/Throat/Neck No taste change 08/03/2015 Cardiovascular No chest pain/pressure 08/03/2015 Cardiovascular No dyspnea 08/03/2015 Cardiovascular No claudication 08/03/2015 Cardiovascular No arrhythmia 08/03/2015 Cardiovascular No edema 08/03/2015 Cardiovascular No exercise intolerance 08/03/2015 Cardiovascular No fatigue 08/03/2015 Cardiovascular No near-syncope/dizziness 08/03/2015 Cardiovascular No palpitations 08/03/2015 Respiratory No cough 08/2015 Respiratory No chest congestion 08/03/2015 Respiratory productive sputum 08/03/2015 Respiratory asthma 08/03 Respiratory No dyspnea on exertion 08/03/2015 Respiratory No cigarette smoking 08/03/2015 Respiratory snoring 08/2015 Respiratory No wheezing 08/03/2015 Respiratory dyspnea 08/2015 Gastrointestinal No abdominal pain 08/03/2015 Gastrointestinal No constipation 08/03/2015 Gastrointestinal No diarrhea 08/03/2015 Gastrointestinal No anorexia 08/03/2015 Gastrointestinal No dyspepsia 08/03/2015 Gastrointestinal No dysphagia 08/03/2015 Gastrointestinal No gastroesophageal reflu x 08/03/2015 Gastrointestinal No gas and bloating 08/03/2015 Gastrointestinal No melena 08/03/2015 Gastrointestinal No nausea 08/03/2015 Gastrointestinal No vomiting 08/03/2015 Genitourinary/Nephrology No dysuria 08/03/2015 Genitourinary/Nephrology No flank pain 08/03/2015 Genitourinary/Nephrology No hematuria 08/03/2015 Genitourinary/Nephrology No nocturia 08/03/2015 Genitourinary/Nephrology No pelvic pain 08/03/2015 Genitourinary/Nephrology No urinary frequency 08/03/2015 Genitourinary/Nephrology No urinary urgenc y 08/03/2015 Genitourinary/Nephrology No urinary incontinence 08/03/2015 Musculoskeletal No stiffness 08/03/2015 Musculoskeletal No swelling 08/03/2015 Musculoskeletal arthralgia(s) 08/03/2015 Musculoskeletal No back pain 08/03/2015 Musculoskeletal No carpal tunnel syndrome 08/03/2015 Musculoskeletal No muscle weakness 08/03/2015 Musculoskeletal No joint complaint 08/03/2015 Musculoskeletal No myalgias 08/03/2015 Musculoskeletal No osteoporosis 08/03/2015 Musculoskeletal No sciatica 08/03/2015 Musculoskeletal No shoulder pain 08/03/2015 Dermatologic No rash 08/2015 Dermatologic No sores Neurologic No hearing loss 08/03/2015 Neurologic No memory loss 08/03/2015 Neurologic No headache 0 08/03/2015 Neurologic No gait abnormality 08/03/2015 Neurologic No dyskinesia or tremor 08/03/2015 Neurologic No dizziness 08/03/2015 Neurologic No aphasia Neurologic No alteration of consciousness 08/03/2015 Neurologic No mental status change 08/03/2015 Neurologic No paresthesia 08/03/2015 Neurologic No seizure Neurologic No syncope Neurologic No tinnitus 0 08/03/2015 Neurologic No vertigo Neurologic No weakness 0 08/03/2015 Psychiatric No anxiety 0 08/03/2015 Psychiatric No depression 08/03/2015 Endocrine No cold sensitivity 08/03/2015 Endocrine No dry or coarse skin 08/03/2015 Endocrine No hair loss 0 08/03/2015 Endocrine No diabetes mellitus type 1 08/03/2015 Endocrine No diabetes mellitus type 2 08/03/2015 Hematologic/Lymphatic No abnormal bl eeding and bruising 08/03/2015 Constitutional No recent illness 07/13/2015 Constitutional No chills 07/13/2015 Constitutional No fatigue 07/13/2015 Constitutional No fever 07/13/2015 Constitutional No insomnia 07/13/2015 Constitutional No malaise 07/13/2015 Eyes No blindness 2015 Eyes No vision change Ears/Nose/Throat/Neck No dental pain 07/13/2015 Ears/Nose/Throat/Neck No dizziness 07/13/2015 Ears/Nose/Throat/Neck No dysphagia 07/13/2015 Ears/Nose/Throat/Neck No headache 07/13/2015 Ears/Nose/Throat/Neck No hearing loss 07/13/2015 Ears/Nose/Throat/Neck nasal allergies 07/13/2015 Ears/Nose/Throat/Neck No sore throat 07/13/2015 Ears/Nose/Throat/Neck No postnasal drip 07/13/2015 Ears/Nose/Throat/Neck sinus congestion 07/13/2015 Cardiovascular No chest pain/pressure 07/13/2015 Cardiovascular No dyspnea 07/13/2015 Cardiovascular No edema 07/13/2015 Cardiovascular No exercise intolerance 07/13/2015 Cardiovascular No fatigue 07/13/2015 Cardiovascular No near-syncope/dizziness 07/13/2015 Respiratory No chest tightness 07/13/2015 Respiratory No cough 06/2016 Respiratory No dyspnea 0 07/13/2015 Respiratory No pedal edema 07/13/2015 Gastrointestinal No abdominal pain 07/13/2015 Gastrointestinal No constipation 07/13/2015 Gastrointestinal No diarrhea 07/13/2015 Gastrointestinal No gastroesophageal reflu x 07/13/2015 Gastrointestinal No nausea 07/13/2015 Gastrointestinal No vomiting 07/13/2015 Genitourinary/Nephrology No dysuria 07/13/2015 Genitourinary/Nephrology No nocturia 07/13/2015 Genitourinary/Nephrology No urinary incontinence 07/13/2015 Musculoskeletal No stiffness 07/13/2015 Musculoskeletal No swelling 07/13/2015 Musculoskeletal No muscle weakness 07/13/2015 Musculoskeletal No myalgias 07/13/2015 Dermatologic rash 2015 Dermatologic No sores Dermatologic No scar 06/2016 Neurologic No dizziness 07/13/2015 Neurologic No headache 0 07/13/2015 Neurologic No neck pain 07/13/2015 Neurologic No syncope Psychiatric No anxiety 0 07/13/2015 Psychiatric No depression 07/13/2015 Constitutional No recent illness 06/10/2015 Constitutional No chills 06/10/2015 Constitutional No fatigue 06/10/2015 Constitutional No fever 06/10/2015 Constitutional No insomnia 06/10/2015 Constitutional No malaise 06/10/2015 Eyes No blindness 2014 Eyes No vision change Ears/Nose/Throat/Neck No dental pain 06/10/2015 Ears/Nose/Throat/Neck No dizziness 06/10/2015 Ears/Nose/Throat/Neck No dysphagia 06/10/2015 Ears/Nose/Throat/Neck No headache 06/10/2015 Ears/Nose/Throat/Neck No hearing loss 06/10/2015 Ears/Nose/Throat/Neck nasal allergies 06/10/2015 Ears/Nose/Throat/Neck No sore throat 06/10/2015 Ears/Nose/Throat/Neck No postnasal drip 06/10/2015 Ears/Nose/Throat/Neck sinus congestion 06/10/2015 Cardiovascular No chest pain/pressure 06/10/2015 Cardiovascular No dyspnea 06/10/2015 Cardiovascular No edema 06/10/2015 Cardiovascular No exercise intolerance 06/10/2015 Cardiovascular No fatigue 06/10/2015 Cardiovascular No near-syncope/dizziness 06/10/2015 Respiratory No chest tightness 06/10/2015 Respiratory No cough 04/2015 Respiratory No dyspnea 1 08/11/2014 Respiratory No pedal edema 06/10/2015 Gastrointestinal No abdominal pain 06/10/2015 Gastrointestinal No constipation 06/10/2015 Gastrointestinal No diarrhea 06/10/2015 Gastrointestinal No gastroesophageal reflu x 06/10/2015 Gastrointestinal No nausea 06/10/2015 Gastrointestinal No vomiting 06/10/2015 Genitourinary/Nephrology No dysuria 06/10/2015 Genitourinary/Nephrology No nocturia 06/10/2015 Genitourinary/Nephrology No urinary incontinence 06/10/2015 Musculoskeletal No stiffness 06/10/2015 Musculoskeletal No swelling 06/10/2015 Musculoskeletal No muscle weakness 06/10/2015 Musculoskeletal No myalgias 06/10/2015 Dermatologic No rash 04/2015 Dermatologic No sores Dermatologic No scar 04/2015 Neurologic No dizziness 06/10/2015 Neurologic No headache 1 08/11/2014 Neurologic No neck pain 06/10/2015 Neurologic No syncope Psychiatric No anxiety 1 08/11/2014 Psychiatric No depression 06/10/2015 Constitutional No recent illness 03/10/2015 Constitutional No chills 03/10/2015 Constitutional No fatigue 03/10/2015 Constitutional No fever 03/10/2015 Constitutional No insomnia 03/10/2015 Constitutional No malaise 03/10/2015 Eyes No blindness 2014 Eyes No vision change Ears/Nose/Throat/Neck No dental pain 03/10/2015 Ears/Nose/Throat/Neck No dizziness 03/10/2015 Ears/Nose/Throat/Neck No dysphagia 03/10/2015 Ears/Nose/Throat/Neck No headache 03/10/2015 Ears/Nose/Throat/Neck No hearing loss 03/10/2015 Ears/Nose/Throat/Neck nasal allergies 03/10/2015 Ears/Nose/Throat/Neck No sore throat 03/10/2015 Ears/Nose/Throat/Neck No postnasal drip 03/10/2015 Ears/Nose/Throat/Neck sinus congestion 03/10/2015 Cardiovascular No chest pain/pressure 03/10/2015 Cardiovascular No dyspnea 03/10/2015 Cardiovascular No edema 03/10/2015 Cardiovascular No exercise intolerance 03/10/2015 Cardiovascular No fatigue 03/10/2015 Cardiovascular No near-syncope/dizziness 03/10/2015 Respiratory No chest tightness 03/10/2015 Respiratory No cough 03/2015 Respiratory No dyspnea 0 03/10/2015 Respiratory No pedal edema 03/10/2015 Gastrointestinal No abdominal pain 03/10/2015 Gastrointestinal No constipation 03/10/2015 Gastrointestinal No diarrhea 03/10/2015 Gastrointestinal No gastroesophageal reflu x 03/10/2015 Gastrointestinal No nausea 03/10/2015 Gastrointestinal No vomiting 03/10/2015 Genitourinary/Nephrology No dysuria 03/10/2015 Genitourinary/Nephrology No nocturia 03/10/2015 Genitourinary/Nephrology No urinary incontinence 03/10/2015 Musculoskeletal No stiffness 03/10/2015 Musculoskeletal No swelling 03/10/2015 Musculoskeletal No muscle weakness 03/10/2015 Musculoskeletal No myalgias 03/10/2015 Dermatologic No rash 03/2015 Dermatologic No sores Dermatologic No scar 03/2015 Neurologic No dizziness 03/10/2015 Neurologic No headache 0 03/10/2015 Neurologic No neck pain 03/10/2015 Neurologic No syncope Psychiatric No anxiety 0 03/10/2015 Psychiatric No depression 03/10/2015 System Result Effective Dates Constitutional recent illness 09/06/2018 Constitutional chills Constitutional No diaphoresis 09/06/2018 Constitutional fever 01/2019 Eyes No eye erythema 01/2019 Ears/Nose/Throat/Neck nasal allergies 09/06/2018 Ears/Nose/Throat/Neck nasal discharge 09/06/2018 Ears/Nose/Throat/Neck postnasal drip 09/06/2018 Ears/Nose/Throat/Neck sinus congestion 09/06/2018 Ears/Nose/Throat/Neck sore throat 09/06/2018 Cardiovascular No chest pain/pressure 09/06/2018 Cardiovascular No dyspnea 09/06/2018 Respiratory No chest congestion 09/06/2018 Respiratory cough 2018 Respiratory No dyspnea 0 09/06/2018 Gastrointestinal No constipation 09/06/2018 Gastrointestinal No diarrhea 09/06/2018 Gastrointestinal No nausea 09/06/2018 Gastrointestinal No vomiting 09/06/2018 Dermatologic No rash 01/2019 Neurologic No alteration of consciousness 09/06/2018 Neurologic No mental status change 09/06/2018 Constitutional No recent illness 08/23/2017 Constitutional No chills 08/23/2017 Constitutional No fatigue 08/23/2017 Constitutional No fever 08/23/2017 Constitutional No insomnia 08/23/2017 Constitutional No malaise 08/23/2017 Eyes No blindness 2017 Eyes No vision change Ears/Nose/Throat/Neck No dental pain 08/23/2017 Ears/Nose/Throat/Neck No dizziness 08/23/2017 Ears/Nose/Throat/Neck No dysphagia 08/23/2017 Ears/Nose/Throat/Neck No headache 08/23/2017 Ears/Nose/Throat/Neck No hearing loss 08/23/2017 Ears/Nose/Throat/Neck nasal allergies 08/23/2017 Ears/Nose/Throat/Neck No sore throat 08/23/2017 Ears/Nose/Throat/Neck No postnasal drip 08/23/2017 Ears/Nose/Throat/Neck sinus congestion 08/23/2017 Cardiovascular No chest pain/pressure 08/23/2017 Cardiovascular No dyspnea 08/23/2017 Cardiovascular No edema 08/23/2017 Cardiovascular No exercise intolerance 08/23/2017 Cardiovascular No fatigue 08/23/2017 Cardiovascular No near-syncope/dizziness 08/23/2017 Respiratory No chest tightness 08/23/2017 Respiratory No cough Respiratory No dyspnea 0 08/23/2017 Respiratory No pedal edema 08/23/2017 Gastrointestinal No abdominal pain 08/23/2017 Gastrointestinal No constipation 08/23/2017 Gastrointestinal No diarrhea 08/23/2017 Gastrointestinal No gastroesophageal reflu x 08/23/2017 Gastrointestinal No nausea 08/23/2017 Gastrointestinal No vomiting 08/23/2017 Genitourinary/Nephrology No dysuria 08/23/2017 Genitourinary/Nephrology No nocturia 08/23/2017 Genitourinary/Nephrology No urinary incontinence 08/23/2017 Musculoskeletal No stiffness 08/23/2017 Musculoskeletal No swelling 08/23/2017 Musculoskeletal No muscle weakness 08/23/2017 Musculoskeletal No myalgias 08/23/2017 Dermatologic No rash Dermatologic No sores Dermatologic No scar Neurologic No dizziness 08/23/2017 Neurologic No headache 0 08/23/2017 Neurologic No neck pain 08/23/2017 Neurologic No syncope Psychiatric No anxiety 0 08/23/2017 Psychiatric No depression 08/23/2017 Constitutional No recent illness 02/09/2017 Constitutional No chills 02/09/2017 Constitutional No diaphoresis 02/09/2017 Constitutional No fever 02/09/2017 Eyes No eye erythema 05/2017 Ears/Nose/Throat/Neck No nasal allergies 02/09/2017 Ears/Nose/Throat/Neck No nasal discharge 02/09/2017 Cardiovascular No chest pain/pressure 02/09/2017 Cardiovascular No dyspnea 02/09/2017 Respiratory No cough 05/2017 Respiratory No dyspnea 0 02/09/2017 Dermatologic rash 2016 Neurologic No alteration of consciousness 02/09/2017 Neurologic No mental status change 02/09/2017 Constitutional No recent illness 02/01/2017 Constitutional No chills 02/01/2017 Constitutional No fatigue 02/01/2017 Constitutional No fever 02/01/2017 Constitutional No insomnia 02/01/2017 Constitutional No malaise 02/01/2017 Eyes No blindness 2016 Eyes No vision change Ears/Nose/Throat/Neck No dental pain 02/01/2017 Ears/Nose/Throat/Neck No dizziness 02/01/2017 Ears/Nose/Throat/Neck No dysphagia 02/01/2017 Ears/Nose/Throat/Neck No headache 02/01/2017 Ears/Nose/Throat/Neck No hearing loss 02/01/2017 Ears/Nose/Throat/Neck nasal allergies 02/01/2017 Ears/Nose/Throat/Neck No sore throat 02/01/2017 Ears/Nose/Throat/Neck No postnasal drip 02/01/2017 Ears/Nose/Throat/Neck sinus congestion 02/01/2017 Cardiovascular No chest pain/pressure 02/01/2017 Cardiovascular No dyspnea 02/01/2017 Cardiovascular No edema 02/01/2017 Cardiovascular No exercise intolerance 02/01/2017 Cardiovascular No fatigue 02/01/2017 Cardiovascular No near-syncope/dizziness 02/01/2017 Respiratory No chest tightness 02/01/2017 Respiratory No cough 08/2016 Respiratory No dyspnea 0 02/01/2017 Respiratory No pedal edema 02/01/2017 Gastrointestinal No abdominal pain 02/01/2017 Gastrointestinal No constipation 02/01/2017 Gastrointestinal No diarrhea 02/01/2017 Gastrointestinal No gastroesophageal reflu x 02/01/2017 Gastrointestinal No nausea 02/01/2017 Gastrointestinal No vomiting 02/01/2017 Genitourinary/Nephrology No dysuria 02/01/2017 Genitourinary/Nephrology No nocturia 02/01/2017 Genitourinary/Nephrology No urinary incontinence 02/01/2017 Musculoskeletal No stiffness 02/01/2017 Musculoskeletal No swelling 02/01/2017 Musculoskeletal No muscle weakness 02/01/2017 Musculoskeletal No myalgias 02/01/2017 Dermatologic No rash 08/2016 Dermatologic No sores Dermatologic No scar 08/2016 Neurologic No dizziness 02/01/2017 Neurologic No headache 0 02/01/2017 Neurologic No neck pain 02/01/2017 Neurologic No syncope Psychiatric No anxiety 0 02/01/2017 Psychiatric No depression 02/01/2017 Constitutional No recent illness 08/03/2016 Constitutional No chills 08/03/2016 Constitutional No fatigue 08/03/2016 Constitutional No fever 08/03/2016 Constitutional No insomnia 08/03/2016 Constitutional No malaise 08/03/2016 Eyes No blindness 2016 Eyes No vision change Ears/Nose/Throat/Neck No dental pain 08/03/2016 Ears/Nose/Throat/Neck No dizziness 08/03/2016 Ears/Nose/Throat/Neck No dysphagia 08/03/2016 Ears/Nose/Throat/Neck No headache 08/03/2016 Ears/Nose/Throat/Neck No hearing loss 08/03/2016 Ears/Nose/Throat/Neck nasal allergies 08/03/2016 Ears/Nose/Throat/Neck No sore throat 08/03/2016 Ears/Nose/Throat/Neck No postnasal drip 08/03/2016 Ears/Nose/Throat/Neck sinus congestion 08/03/2016 Cardiovascular No chest pain/pressure 08/03/2016 Cardiovascular No dyspnea 08/03/2016 Cardiovascular No edema 08/03/2016 Cardiovascular No exercise intolerance 08/03/2016 Cardiovascular No fatigue 08/03/2016 Cardiovascular No near-syncope/dizziness 08/03/2016 Respiratory No chest tightness 08/03/2016 Respiratory No cough 08/2016 Respiratory No dyspnea 0 08/03/2016 Respiratory No pedal edema 08/03/2016 Gastrointestinal No abdominal pain 08/03/2016 Gastrointestinal No constipation 08/03/2016 Gastrointestinal No diarrhea 08/03/2016 Gastrointestinal No gastroesophageal reflu x 08/03/2016 Gastrointestinal No nausea 08/03/2016 Gastrointestinal No vomiting 08/03/2016 Genitourinary/Nephrology No dysuria 08/03/2016 Genitourinary/Nephrology No nocturia 08/03/2016 Genitourinary/Nephrology No urinary incontinence 08/03/2016 Musculoskeletal No stiffness 08/03/2016 Musculoskeletal No swelling 08/03/2016 Musculoskeletal No muscle weakness 08/03/2016 Musculoskeletal No myalgias 08/03/2016 Dermatologic No rash 08/2016 Dermatologic No sores Dermatologic No scar 08/2016 Neurologic No dizziness 08/03/2016 Neurologic No headache 0 08/03/2016 Neurologic No neck pain 08/03/2016 Neurologic No syncope Psychiatric No anxiety 0 08/03/2016 Psychiatric No depression 08/03/2016 Constitutional recent illness 04/24/2016 Eyes No eye erythema Ears/Nose/Throat/Neck nasal allergies 04/24/2016 Ears/Nose/Throat/Neck nasal discharge 04/24/2016 Ears/Nose/Throat/Neck postnasal drip 04/24/2016 Ears/Nose/Throat/Neck sinus congestion 04/24/2016 Cardiovascular No chest pain/pressure 04/24/2016 Cardiovascular No dyspnea 04/24/2016 Respiratory cough 2015 Respiratory No dyspnea 1 Gastrointestinal No nausea 04/24/2016 Gastrointestinal No vomiting 04/24/2016 Musculoskeletal No joint complaint 04/24/2016 Dermatologic No rash Neurologic No alteration of consciousness 04/24/2016 Neurologic No mental status change 04/24/2016 Respiratory No chest congestion 04/24/2016 Ears/Nose/Throat/Neck nasal allergies 03/28/2016 Ears/Nose/Throat/Neck nasal discharge 03/28/2016 Ears/Nose/Throat/Neck postnasal drip 03/28/2016 Ears/Nose/Throat/Neck sinus congestion 03/28/2016 Cardiovascular No chest pain/pressure 03/28/2016 Respiratory cough 2015 Respiratory dyspnea on exertion 03/28/2016 Respiratory No dyspnea 0 03/28/2016 Gastrointestinal No nausea 03/28/2016 Gastrointestinal No vomiting 03/28/2016 Musculoskeletal No joint complaint 03/28/2016 Dermatologic No rash Neurologic No alteration of consciousness 03/28/2016 Constitutional recent illness 03/28/2016 Eyes No eye erythema Cardiovascular No dyspnea 03/28/2016 Neurologic No mental status change 03/28/2016 Constitutional No recent illness 03/10/2016 Constitutional No fever 03/10/2016 Eyes No eye erythema 03/2016 Eyes No vision change Cardiovascular No chest pain/pressure 03/10/2016 Cardiovascular No dyspnea 03/10/2016 Respiratory No dyspnea 0 03/10/2016 Musculoskeletal joint complaint 03/10/2016 Dermatologic No rash 03/2016 Dermatologic No scar 03/2016 Neurologic No alteration of consciousness 03/10/2016 Neurologic No mental status change 03/10/2016 Gastrointestinal No abdominal pain 03/10/2016 Constitutional No recent illness 02/10/2016 Constitutional No fever 02/10/2016 Eyes No eye erythema 05/2016 Eyes No vision change Cardiovascular No chest pain/pressure 02/10/2016 Cardiovascular No dyspnea 02/10/2016 Respiratory No dyspnea 0 02/10/2016 Dermatologic No scar 05/2016 Musculoskeletal joint complaint 02/10/2016 Dermatologic No rash 05/2016 Neurologic No alteration of consciousness 02/10/2016 Neurologic No mental status change 02/10/2016 Constitutional No recent illness 01/11/2016 Constitutional No chills 01/11/2016 Constitutional No fatigue 01/11/2016 Constitutional No fever 01/11/2016 Constitutional No insomnia 01/11/2016 Constitutional No malaise 01/11/2016 Eyes No blindness 2015 Eyes No vision change Ears/Nose/Throat/Neck No dental pain 01/11/2016 Ears/Nose/Throat/Neck No dizziness 01/11/2016 Ears/Nose/Throat/Neck No dysphagia 01/11/2016 Ears/Nose/Throat/Neck No headache 01/11/2016 Ears/Nose/Throat/Neck No hearing loss 01/11/2016 Ears/Nose/Throat/Neck nasal allergies 01/11/2016 Ears/Nose/Throat/Neck No sore throat 01/11/2016 Ears/Nose/Throat/Neck No postnasal drip 01/11/2016 Ears/Nose/Throat/Neck sinus congestion 01/11/2016 Cardiovascular No chest pain/pressure 01/11/2016 Cardiovascular No dyspnea 01/11/2016 Cardiovascular No edema 01/11/2016 Cardiovascular No exercise intolerance 01/11/2016 Cardiovascular No fatigue 01/11/2016 Cardiovascular No near-syncope/dizziness 01/11/2016 Respiratory No chest tightness 01/11/2016 Respiratory No cough 06/2016 Respiratory No dyspnea 0 01/11/2016 Respiratory No pedal edema 01/11/2016 Gastrointestinal No abdominal pain 01/11/2016 Gastrointestinal No constipation 01/11/2016 Gastrointestinal No diarrhea 01/11/2016 Gastrointestinal No gastroesophageal reflu x 01/11/2016 Gastrointestinal No nausea 01/11/2016 Gastrointestinal No vomiting 01/11/2016 Genitourinary/Nephrology No dysuria 01/11/2016 Genitourinary/Nephrology No nocturia 01/11/2016 Genitourinary/Nephrology No urinary incontinence 01/11/2016 Musculoskeletal No stiffness 01/11/2016 Musculoskeletal No swelling 01/11/2016 Musculoskeletal No muscle weakness 01/11/2016 Musculoskeletal No myalgias 01/11/2016 Dermatologic rash 2015 Dermatologic No sores Dermatologic No scar 06/2016 Neurologic No dizziness 01/11/2016 Neurologic No headache 0 01/11/2016 Neurologic No neck pain 01/11/2016 Neurologic No syncope Psychiatric No anxiety 0 01/11/2016 Psychiatric No depression 01/11/2016 Constitutional No fever 12/16/2015 Eyes No vision change Cardiovascular No chest pain/pressure 12/16/2015 Respiratory No dyspnea 0 12/16/2015 Dermatologic No rash Dermatologic No sores Neurologic No alteration of consciousness 12/16/2015 Psychiatric No anxiety 0 12/16/2015 Psychiatric No depression 12/16/2015 Constitutional No recent illness 12/16/2015 Eyes No eye erythema Ears/Nose/Throat/Neck No nasal discharge 12/16/2015 Ears/Nose/Throat/Neck No nasal allergies 12/16/2015 Cardiovascular No dyspnea 12/16/2015 Respiratory No cough Gastrointestinal No abdominal pain 12/16/2015 Musculoskeletal back pain 12/16/2015 Neurologic No mental status change 12/16/2015 Constitutional No chills 09/30/2015 Constitutional No diaphoresis 09/30/2015 Constitutional No fatigue 09/30/2015 Constitutional No fever 09/30/2015 Constitutional No insomnia 09/30/2015 Constitutional No malaise 09/30/2015 Eyes No vision change Ears/Nose/Throat/Neck nasal allergies 09/30/2015 Ears/Nose/Throat/Neck nasal discharge 09/30/2015 Ears/Nose/Throat/Neck otalgia 09/30/2015 Ears/Nose/Throat/Neck postnasal drip 09/30/2015 Ears/Nose/Throat/Neck sinus congestion 09/30/2015 Ears/Nose/Throat/Neck sore throat 09/30/2015 Cardiovascular No chest pain/pressure 09/30/2015 Respiratory productive sputum 09/30/2015 Respiratory chest congestion 09/30/2015 Respiratory cough 2015 Respiratory dyspnea on exertion 09/30/2015 Gastrointestinal No abdominal pain 09/30/2015 Gastrointestinal No constipation 09/30/2015 Gastrointestinal No diarrhea 09/30/2015 Gastrointestinal No nausea 09/30/2015 Genitourinary/Nephrology No dysuria 09/30/2015 Musculoskeletal No joint complaint 09/30/2015 Dermatologic No rash Dermatologic No sores Psychiatric No anxiety 0 09/30/2015 Psychiatric No depression 09/30/2015 Ears/Nose/Throat/Neck otitis media 09/30/2015 Respiratory No dyspnea 0 09/30/2015 Gastrointestinal No vomiting 09/30/2015 Neurologic No alteration of consciousness 09/30/2015 Constitutional No recent illness 08/05/2015 Constitutional No anorexia 08/05/2015 Constitutional No night sweats 08/05/2015 Constitutional No chills 08/05/2015 Constitutional No diaphoresis 08/05/2015 Constitutional No fatigue 08/05/2015 Constitutional No fever 08/05/2015 Constitutional No insomnia 08/05/2015 Constitutional No malaise 08/05/2015 Constitutional No weight loss 08/05/2015 Constitutional No weight gain 08/05/2015 Constitutional No obesity 08/05/2015 Respiratory cough 2015 Respiratory nocturnal cough 08/05/2015 Respiratory dyspnea 02/0 10/2015 Respiratory No dyspnea on exertion 08/05/2015 Respiratory No cigarette smoking 08/05/2015 Respiratory No chest tightness 08/05/2015 Respiratory chest congestion 08/05/2015 Respiratory productive sputum 08/05/2015 Gastrointestinal No nausea 08/05/2015 Gastrointestinal No abdominal pain 08/05/2015 Gastrointestinal vomiting 08/05/2015 Gastrointestinal No diarrhea 08/05/2015 Gastrointestinal No constipation 08/05/2015 Ears/Nose/Throat/Neck nasal discharge 08/05/2015 Ears/Nose/Throat/Neck nasal allergies 08/05/2015 Ears/Nose/Throat/Neck otitis media 08/05/2015 Ears/Nose/Throat/Neck No otalgia 08/05/2015 Ears/Nose/Throat/Neck postnasal drip 08/05/2015 Ears/Nose/Throat/Neck sinus congestion 08/05/2015 Ears/Nose/Throat/Neck No sore throat 08/05/2015 Ears/Nose/Throat/Neck No headache 08/05/2015 Cardiovascular No chest pain/pressure 08/05/2015 Eyes No vision change Dermatologic No sores Dermatologic No rash 10/2015 Genitourinary/Nephrology No dysuria 08/05/2015 Musculoskeletal myalgias 08/05/2015 Musculoskeletal No muscle weakness 08/05/2015 Musculoskeletal No joint complaint 08/05/2015 Psychiatric No anxiety 0 08/05/2015 Psychiatric No depression 08/05/2015 Constitutional No recent illness 08/03/2015 Constitutional No anorexia 08/03/2015 Constitutional No night sweats 08/03/2015 Constitutional No chills 08/03/2015 Constitutional No diaphoresis 08/03/2015 Constitutional No fatigue 08/03/2015 Constitutional No insomnia 08/03/2015 Constitutional No fever 08/03/2015 Constitutional No malaise 08/03/2015 Constitutional weight loss 08/03/2015 Constitutional No weight gain 08/03/2015 Eyes No eye discharge Eyes No eye erythema 08/2015 Eyes No vision change Eyes glaucoma 08/03/2015 Ears/Nose/Throat/Neck No dizziness 08/03/2015 Ears/Nose/Throat/Neck No dysphagia 08/03/2015 Ears/Nose/Throat/Neck No facial pain 08/03/2015 Ears/Nose/Throat/Neck No headache 08/03/2015 Ears/Nose/Throat/Neck No hearing loss 08/03/2015 Ears/Nose/Throat/Neck No hoarseness 08/03/2015 Ears/Nose/Throat/Neck No nasal allergies 08/03/2015 Ears/Nose/Throat/Neck No nasal discharge 08/03/2015 Ears/Nose/Throat/Neck No oral pain 08/03/2015 Ears/Nose/Throat/Neck No otalgia 08/03/2015 Ears/Nose/Throat/Neck No otitis media 08/03/2015 Ears/Nose/Throat/Neck postnasal drip 08/03/2015 Ears/Nose/Throat/Neck No sinus congestion 08/03/2015 Ears/Nose/Throat/Neck snoring 08/03/2015 Ears/Nose/Throat/Neck No sore throat 08/03/2015 Ears/Nose/Throat/Neck No taste change 08/03/2015 Cardiovascular No chest pain/pressure 08/03/2015 Cardiovascular No dyspnea 08/03/2015 Cardiovascular No claudication 08/03/2015 Cardiovascular No arrhythmia 08/03/2015 Cardiovascular No edema 08/03/2015 Cardiovascular No exercise intolerance 08/03/2015 Cardiovascular No fatigue 08/03/2015 Cardiovascular No near-syncope/dizziness 08/03/2015 Cardiovascular No palpitations 08/03/2015 Respiratory No cough 08/2015 Respiratory No chest congestion 08/03/2015 Respiratory productive sputum 08/03/2015 Respiratory asthma 08/03 Respiratory No dyspnea on exertion 08/03/2015 Respiratory No cigarette smoking 08/03/2015 Respiratory snoring 08/2015 Respiratory No wheezing 08/03/2015 Respiratory dyspnea 08/2015 Gastrointestinal No abdominal pain 08/03/2015 Gastrointestinal No constipation 08/03/2015 Gastrointestinal No diarrhea 08/03/2015 Gastrointestinal No anorexia 08/03/2015 Gastrointestinal No dyspepsia 08/03/2015 Gastrointestinal No dysphagia 08/03/2015 Gastrointestinal No gastroesophageal reflu x 08/03/2015 Gastrointestinal No gas and bloating 08/03/2015 Gastrointestinal No melena 08/03/2015 Gastrointestinal No nausea 08/03/2015 Gastrointestinal No vomiting 08/03/2015 Genitourinary/Nephrology No dysuria 08/03/2015 Genitourinary/Nephrology No flank pain 08/03/2015 Genitourinary/Nephrology No hematuria 08/03/2015 Genitourinary/Nephrology No nocturia 08/03/2015 Genitourinary/Nephrology No pelvic pain 08/03/2015 Genitourinary/Nephrology No urinary frequency 08/03/2015 Genitourinary/Nephrology No urinary urgenc y 08/03/2015 Genitourinary/Nephrology No urinary incontinence 08/03/2015 Musculoskeletal No stiffness 08/03/2015 Musculoskeletal No swelling 08/03/2015 Musculoskeletal arthralgia(s) 08/03/2015 Musculoskeletal No back pain 08/03/2015 Musculoskeletal No carpal tunnel syndrome 08/03/2015 Musculoskeletal No muscle weakness 08/03/2015 Musculoskeletal No joint complaint 08/03/2015 Musculoskeletal No myalgias 08/03/2015 Musculoskeletal No osteoporosis 08/03/2015 Musculoskeletal No sciatica 08/03/2015 Musculoskeletal No shoulder pain 08/03/2015 Dermatologic No rash 08/2015 Dermatologic No sores Neurologic No hearing loss 08/03/2015 Neurologic No memory loss 08/03/2015 Neurologic No headache 0 08/03/2015 Neurologic No gait abnormality 08/03/2015 Neurologic No dyskinesia or tremor 08/03/2015 Neurologic No dizziness 08/03/2015 Neurologic No aphasia Neurologic No alteration of consciousness 08/03/2015 Neurologic No mental status change 08/03/2015 Neurologic No paresthesia 08/03/2015 Neurologic No seizure Neurologic No syncope Neurologic No tinnitus 0 08/03/2015 Neurologic No vertigo Neurologic No weakness 0 08/03/2015 Psychiatric No anxiety 0 08/03/2015 Psychiatric No depression 08/03/2015 Endocrine No cold sensitivity 08/03/2015 Endocrine No dry or coarse skin 08/03/2015 Endocrine No hair loss 0 08/03/2015 Endocrine No diabetes mellitus type 1 08/03/2015 Endocrine No diabetes mellitus type 2 08/03/2015 Hematologic/Lymphatic No abnormal bl eeding and bruising 08/03/2015 Constitutional No recent illness 07/13/2015 Constitutional No chills 07/13/2015 Constitutional No fatigue 07/13/2015 Constitutional No fever 07/13/2015 Constitutional No insomnia 07/13/2015 Constitutional No malaise 07/13/2015 Eyes No blindness 2015 Eyes No vision change Ears/Nose/Throat/Neck No dental pain 07/13/2015 Ears/Nose/Throat/Neck No dizziness 07/13/2015 Ears/Nose/Throat/Neck No dysphagia 07/13/2015 Ears/Nose/Throat/Neck No headache 07/13/2015 Ears/Nose/Throat/Neck No hearing loss 07/13/2015 Ears/Nose/Throat/Neck nasal allergies 07/13/2015 Ears/Nose/Throat/Neck No sore throat 07/13/2015 Ears/Nose/Throat/Neck No postnasal drip 07/13/2015 Ears/Nose/Throat/Neck sinus congestion 07/13/2015 Cardiovascular No chest pain/pressure 07/13/2015 Cardiovascular No dyspnea 07/13/2015 Cardiovascular No edema 07/13/2015 Cardiovascular No exercise intolerance 07/13/2015 Cardiovascular No fatigue 07/13/2015 Cardiovascular No near-syncope/dizziness 07/13/2015 Respiratory No chest tightness 07/13/2015 Respiratory No cough 06/2016 Respiratory No dyspnea 0 07/13/2015 Respiratory No pedal edema 07/13/2015 Gastrointestinal No abdominal pain 07/13/2015 Gastrointestinal No constipation 07/13/2015 Gastrointestinal No diarrhea 07/13/2015 Gastrointestinal No gastroesophageal reflu x 07/13/2015 Gastrointestinal No nausea 07/13/2015 Gastrointestinal No vomiting 07/13/2015 Genitourinary/Nephrology No dysuria 07/13/2015 Genitourinary/Nephrology No nocturia 07/13/2015 Genitourinary/Nephrology No urinary incontinence 07/13/2015 Musculoskeletal No stiffness 07/13/2015 Musculoskeletal No swelling 07/13/2015 Musculoskeletal No muscle weakness 07/13/2015 Musculoskeletal No myalgias 07/13/2015 Dermatologic rash 2015 Dermatologic No sores Dermatologic No scar 06/2016 Neurologic No dizziness 07/13/2015 Neurologic No headache 0 07/13/2015 Neurologic No neck pain 07/13/2015 Neurologic No syncope Psychiatric No anxiety 0 07/13/2015 Psychiatric No depression 07/13/2015 Constitutional No recent illness 06/10/2015 Constitutional No chills 06/10/2015 Constitutional No fatigue 06/10/2015 Constitutional No fever 06/10/2015 Constitutional No insomnia 06/10/2015 Constitutional No malaise 06/10/2015 Eyes No blindness 2014 Eyes No vision change Ears/Nose/Throat/Neck No dental pain 06/10/2015 Ears/Nose/Throat/Neck No dizziness 06/10/2015 Ears/Nose/Throat/Neck No dysphagia 06/10/2015 Ears/Nose/Throat/Neck No headache 06/10/2015 Ears/Nose/Throat/Neck No hearing loss 06/10/2015 Ears/Nose/Throat/Neck nasal allergies 06/10/2015 Ears/Nose/Throat/Neck No sore throat 06/10/2015 Ears/Nose/Throat/Neck No postnasal drip 06/10/2015 Ears/Nose/Throat/Neck sinus congestion 06/10/2015 Cardiovascular No chest pain/pressure 06/10/2015 Cardiovascular No dyspnea 06/10/2015 Cardiovascular No edema 06/10/2015 Cardiovascular No exercise intolerance 06/10/2015 Cardiovascular No fatigue 06/10/2015 Cardiovascular No near-syncope/dizziness 06/10/2015 Respiratory No chest tightness 06/10/2015 Respiratory No cough 04/2015 Respiratory No dyspnea 1 08/11/2014 Respiratory No pedal edema 06/10/2015 Gastrointestinal No abdominal pain 06/10/2015 Gastrointestinal No constipation 06/10/2015 Gastrointestinal No diarrhea 06/10/2015 Gastrointestinal No gastroesophageal reflu x 06/10/2015 Gastrointestinal No nausea 06/10/2015 Gastrointestinal No vomiting 06/10/2015 Genitourinary/Nephrology No dysuria 06/10/2015 Genitourinary/Nephrology No nocturia 06/10/2015 Genitourinary/Nephrology No urinary incontinence 06/10/2015 Musculoskeletal No stiffness 06/10/2015 Musculoskeletal No swelling 06/10/2015 Musculoskeletal No muscle weakness 06/10/2015 Musculoskeletal No myalgias 06/10/2015 Dermatologic No rash 04/2015 Dermatologic No sores Dermatologic No scar 04/2015 Neurologic No dizziness 06/10/2015 Neurologic No headache 1 08/11/2014 Neurologic No neck pain 06/10/2015 Neurologic No syncope Psychiatric No anxiety 1 08/11/2014 Psychiatric No depression 06/10/2015 Constitutional No recent illness 03/10/2015 Constitutional No chills 03/10/2015 Constitutional No fatigue 03/10/2015 Constitutional No fever 03/10/2015 Constitutional No insomnia 03/10/2015 Constitutional No malaise 03/10/2015 Eyes No blindness 2014 Eyes No vision change Ears/Nose/Throat/Neck No dental pain 03/10/2015 Ears/Nose/Throat/Neck No dizziness 03/10/2015 Ears/Nose/Throat/Neck No dysphagia 03/10/2015 Ears/Nose/Throat/Neck No headache 03/10/2015 Ears/Nose/Throat/Neck No hearing loss 03/10/2015 Ears/Nose/Throat/Neck nasal allergies 03/10/2015 Ears/Nose/Throat/Neck No sore throat 03/10/2015 Ears/Nose/Throat/Neck No postnasal drip 03/10/2015 Ears/Nose/Throat/Neck sinus congestion 03/10/2015 Cardiovascular No chest pain/pressure 03/10/2015 Cardiovascular No dyspnea 03/10/2015 Cardiovascular No edema 03/10/2015 Cardiovascular No exercise intolerance 03/10/2015 Cardiovascular No fatigue 03/10/2015 Cardiovascular No near-syncope/dizziness 03/10/2015 Respiratory No chest tightness 03/10/2015 Respiratory No cough 03/2015 Respiratory No dyspnea 0 03/10/2015 Respiratory No pedal edema 03/10/2015 Gastrointestinal No abdominal pain 03/10/2015 Gastrointestinal No constipation 03/10/2015 Gastrointestinal No diarrhea 03/10/2015 Gastrointestinal No gastroesophageal reflu x 03/10/2015 Gastrointestinal No nausea 03/10/2015 Gastrointestinal No vomiting 03/10/2015 Genitourinary/Nephrology No dysuria 03/10/2015 Genitourinary/Nephrology No nocturia 03/10/2015 Genitourinary/Nephrology No urinary incontinence 03/10/2015 Musculoskeletal No stiffness 03/10/2015 Musculoskeletal No swelling 03/10/2015 Musculoskeletal No muscle weakness 03/10/2015 Musculoskeletal No myalgias 03/10/2015 Dermatologic No rash 03/2015 Dermatologic No sores Dermatologic No scar 03/2015 Neurologic No dizziness 03/10/2015 Neurologic No headache 0 03/10/2015 Neurologic No neck pain 03/10/2015 Neurologic No syncope Psychiatric No anxiety 0 03/10/2015 Psychiatric No depression 03/10/2015 System Result Effective Dates Constitutional No anorexia 02/25/2019 Constitutional No recent illness 02/25/2019 Constitutional No night sweats 02/25/2019 Constitutional No chills 02/25/2019 Constitutional No diaphoresis 02/25/2019 Constitutional No fatigue 02/25/2019 Constitutional No fever 02/25/2019 Constitutional No insomnia 02/25/2019 Constitutional No malaise 02/25/2019 Constitutional No weight loss 02/25/2019 Constitutional weight gain 02/25/2019 Eyes No eye discharge Eyes No eye erythema Ears/Nose/Throat/Neck No dizziness 02/25/2019 Ears/Nose/Throat/Neck No headache 02/25/2019 Cardiovascular No chest pain/pressure 02/25/2019 Cardiovascular No dyspnea 02/25/2019 Cardiovascular edema Respiratory No cough Gastrointestinal No abdominal pain 02/25/2019 Musculoskeletal joint complaint 02/25/2019 Dermatologic No rash Dermatologic No sores Neurologic No alteration of consciousness 02/25/2019 Constitutional recent illness 09/06/2018 Constitutional chills Constitutional No diaphoresis 09/06/2018 Constitutional fever 01/2019 Eyes No eye erythema 01/2019 Ears/Nose/Throat/Neck nasal allergies 09/06/2018 Ears/Nose/Throat/Neck nasal discharge 09/06/2018 Ears/Nose/Throat/Neck postnasal drip 09/06/2018 Ears/Nose/Throat/Neck sinus congestion 09/06/2018 Ears/Nose/Throat/Neck sore throat 09/06/2018 Cardiovascular No chest pain/pressure 09/06/2018 Cardiovascular No dyspnea 09/06/2018 Respiratory No chest congestion 09/06/2018 Respiratory cough 2018 Respiratory No dyspnea 0 09/06/2018 Gastrointestinal No constipation 09/06/2018 Gastrointestinal No diarrhea 09/06/2018 Gastrointestinal No nausea 09/06/2018 Gastrointestinal No vomiting 09/06/2018 Dermatologic No rash 01/2019 Neurologic No alteration of consciousness 09/06/2018 Neurologic No mental status change 09/06/2018 Constitutional No recent illness 08/23/2017 Constitutional No chills 08/23/2017 Constitutional No fatigue 08/23/2017 Constitutional No fever 08/23/2017 Constitutional No insomnia 08/23/2017 Constitutional No malaise 08/23/2017 Eyes No blindness 2017 Eyes No vision change Ears/Nose/Throat/Neck No dental pain 08/23/2017 Ears/Nose/Throat/Neck No dizziness 08/23/2017 Ears/Nose/Throat/Neck No dysphagia 08/23/2017 Ears/Nose/Throat/Neck No headache 08/23/2017 Ears/Nose/Throat/Neck No hearing loss 08/23/2017 Ears/Nose/Throat/Neck nasal allergies 08/23/2017 Ears/Nose/Throat/Neck No sore throat 08/23/2017 Ears/Nose/Throat/Neck No postnasal drip 08/23/2017 Ears/Nose/Throat/Neck sinus congestion 08/23/2017 Cardiovascular No chest pain/pressure 08/23/2017 Cardiovascular No dyspnea 08/23/2017 Cardiovascular No edema 08/23/2017 Cardiovascular No exercise intolerance 08/23/2017 Cardiovascular No fatigue 08/23/2017 Cardiovascular No near-syncope/dizziness 08/23/2017 Respiratory No chest tightness 08/23/2017 Respiratory No cough Respiratory No dyspnea 0 08/23/2017 Respiratory No pedal edema 08/23/2017 Gastrointestinal No abdominal pain 08/23/2017 Gastrointestinal No constipation 08/23/2017 Gastrointestinal No diarrhea 08/23/2017 Gastrointestinal No gastroesophageal reflu x 08/23/2017 Gastrointestinal No nausea 08/23/2017 Gastrointestinal No vomiting 08/23/2017 Genitourinary/Nephrology No dysuria 08/23/2017 Genitourinary/Nephrology No nocturia 08/23/2017 Genitourinary/Nephrology No urinary incontinence 08/23/2017 Musculoskeletal No stiffness 08/23/2017 Musculoskeletal No swelling 08/23/2017 Musculoskeletal No muscle weakness 08/23/2017 Musculoskeletal No myalgias 08/23/2017 Dermatologic No rash Dermatologic No sores Dermatologic No scar Neurologic No dizziness 08/23/2017 Neurologic No headache 0 08/23/2017 Neurologic No neck pain 08/23/2017 Neurologic No syncope Psychiatric No anxiety 0 08/23/2017 Psychiatric No depression 08/23/2017 Constitutional No recent illness 02/09/2017 Constitutional No chills 02/09/2017 Constitutional No diaphoresis 02/09/2017 Constitutional No fever 02/09/2017 Eyes No eye erythema 05/2017 Ears/Nose/Throat/Neck No nasal allergies 02/09/2017 Ears/Nose/Throat/Neck No nasal discharge 02/09/2017 Cardiovascular No chest pain/pressure 02/09/2017 Cardiovascular No dyspnea 02/09/2017 Respiratory No cough 05/2017 Respiratory No dyspnea 0 02/09/2017 Dermatologic rash 2016 Neurologic No alteration of consciousness 02/09/2017 Neurologic No mental status change 02/09/2017 Constitutional No recent illness 02/01/2017 Constitutional No chills 02/01/2017 Constitutional No fatigue 02/01/2017 Constitutional No fever 02/01/2017 Constitutional No insomnia 02/01/2017 Constitutional No malaise 02/01/2017 Eyes No blindness 2016 Eyes No vision change Ears/Nose/Throat/Neck No dental pain 02/01/2017 Ears/Nose/Throat/Neck No dizziness 02/01/2017 Ears/Nose/Throat/Neck No dysphagia 02/01/2017 Ears/Nose/Throat/Neck No headache 02/01/2017 Ears/Nose/Throat/Neck No hearing loss 02/01/2017 Ears/Nose/Throat/Neck nasal allergies 02/01/2017 Ears/Nose/Throat/Neck No sore throat 02/01/2017 Ears/Nose/Throat/Neck No postnasal drip 02/01/2017 Ears/Nose/Throat/Neck sinus congestion 02/01/2017 Cardiovascular No chest pain/pressure 02/01/2017 Cardiovascular No dyspnea 02/01/2017 Cardiovascular No edema 02/01/2017 Cardiovascular No exercise intolerance 02/01/2017 Cardiovascular No fatigue 02/01/2017 Cardiovascular No near-syncope/dizziness 02/01/2017 Respiratory No chest tightness 02/01/2017 Respiratory No cough 08/2016 Respiratory No dyspnea 0 02/01/2017 Respiratory No pedal edema 02/01/2017 Gastrointestinal No abdominal pain 02/01/2017 Gastrointestinal No constipation 02/01/2017 Gastrointestinal No diarrhea 02/01/2017 Gastrointestinal No gastroesophageal reflu x 02/01/2017 Gastrointestinal No nausea 02/01/2017 Gastrointestinal No vomiting 02/01/2017 Genitourinary/Nephrology No dysuria 02/01/2017 Genitourinary/Nephrology No nocturia 02/01/2017 Genitourinary/Nephrology No urinary incontinence 02/01/2017 Musculoskeletal No stiffness 02/01/2017 Musculoskeletal No swelling 02/01/2017 Musculoskeletal No muscle weakness 02/01/2017 Musculoskeletal No myalgias 02/01/2017 Dermatologic No rash 08/2016 Dermatologic No sores Dermatologic No scar 08/2016 Neurologic No dizziness 02/01/2017 Neurologic No headache 0 02/01/2017 Neurologic No neck pain 02/01/2017 Neurologic No syncope Psychiatric No anxiety 0 02/01/2017 Psychiatric No depression 02/01/2017 Constitutional No recent illness 08/03/2016 Constitutional No chills 08/03/2016 Constitutional No fatigue 08/03/2016 Constitutional No fever 08/03/2016 Constitutional No insomnia 08/03/2016 Constitutional No malaise 08/03/2016 Eyes No blindness 2016 Eyes No vision change Ears/Nose/Throat/Neck No dental pain 08/03/2016 Ears/Nose/Throat/Neck No dizziness 08/03/2016 Ears/Nose/Throat/Neck No dysphagia 08/03/2016 Ears/Nose/Throat/Neck No headache 08/03/2016 Ears/Nose/Throat/Neck No hearing loss 08/03/2016 Ears/Nose/Throat/Neck nasal allergies 08/03/2016 Ears/Nose/Throat/Neck No sore throat 08/03/2016 Ears/Nose/Throat/Neck No postnasal drip 08/03/2016 Ears/Nose/Throat/Neck sinus congestion 08/03/2016 Cardiovascular No chest pain/pressure 08/03/2016 Cardiovascular No dyspnea 08/03/2016 Cardiovascular No edema 08/03/2016 Cardiovascular No exercise intolerance 08/03/2016 Cardiovascular No fatigue 08/03/2016 Cardiovascular No near-syncope/dizziness 08/03/2016 Respiratory No chest tightness 08/03/2016 Respiratory No cough 08/2016 Respiratory No dyspnea 0 08/03/2016 Respiratory No pedal edema 08/03/2016 Gastrointestinal No abdominal pain 08/03/2016 Gastrointestinal No constipation 08/03/2016 Gastrointestinal No diarrhea 08/03/2016 Gastrointestinal No gastroesophageal reflu x 08/03/2016 Gastrointestinal No nausea 08/03/2016 Gastrointestinal No vomiting 08/03/2016 Genitourinary/Nephrology No dysuria 08/03/2016 Genitourinary/Nephrology No nocturia 08/03/2016 Genitourinary/Nephrology No urinary incontinence 08/03/2016 Musculoskeletal No stiffness 08/03/2016 Musculoskeletal No swelling 08/03/2016 Musculoskeletal No muscle weakness 08/03/2016 Musculoskeletal No myalgias 08/03/2016 Dermatologic No rash 08/2016 Dermatologic No sores Dermatologic No scar 08/2016 Neurologic No dizziness 08/03/2016 Neurologic No headache 0 08/03/2016 Neurologic No neck pain 08/03/2016 Neurologic No syncope Psychiatric No anxiety 0 08/03/2016 Psychiatric No depression 08/03/2016 Constitutional recent illness 04/24/2016 Eyes No eye erythema Ears/Nose/Throat/Neck nasal allergies 04/24/2016 Ears/Nose/Throat/Neck nasal discharge 04/24/2016 Ears/Nose/Throat/Neck postnasal drip 04/24/2016 Ears/Nose/Throat/Neck sinus congestion 04/24/2016 Cardiovascular No chest pain/pressure 04/24/2016 Cardiovascular No dyspnea 04/24/2016 Respiratory cough 2015 Respiratory No dyspnea 1 Gastrointestinal No nausea 04/24/2016 Gastrointestinal No vomiting 04/24/2016 Musculoskeletal No joint complaint 04/24/2016 Dermatologic No rash Neurologic No alteration of consciousness 04/24/2016 Neurologic No mental status change 04/24/2016 Respiratory No chest congestion 04/24/2016 Ears/Nose/Throat/Neck nasal allergies 03/28/2016 Ears/Nose/Throat/Neck nasal discharge 03/28/2016 Ears/Nose/Throat/Neck postnasal drip 03/28/2016 Ears/Nose/Throat/Neck sinus congestion 03/28/2016 Cardiovascular No chest pain/pressure 03/28/2016 Respiratory cough 2015 Respiratory dyspnea on exertion 03/28/2016 Respiratory No dyspnea 0 03/28/2016 Gastrointestinal No nausea 03/28/2016 Gastrointestinal No vomiting 03/28/2016 Musculoskeletal No joint complaint 03/28/2016 Dermatologic No rash Neurologic No alteration of consciousness 03/28/2016 Constitutional recent illness 03/28/2016 Eyes No eye erythema Cardiovascular No dyspnea 03/28/2016 Neurologic No mental status change 03/28/2016 Constitutional No recent illness 03/10/2016 Constitutional No fever 03/10/2016 Eyes No eye erythema 03/2016 Eyes No vision change Cardiovascular No chest pain/pressure 03/10/2016 Cardiovascular No dyspnea 03/10/2016 Respiratory No dyspnea 0 03/10/2016 Musculoskeletal joint complaint 03/10/2016 Dermatologic No rash 03/2016 Dermatologic No scar 03/2016 Neurologic No alteration of consciousness 03/10/2016 Neurologic No mental status change 03/10/2016 Gastrointestinal No abdominal pain 03/10/2016 Constitutional No recent illness 02/10/2016 Constitutional No fever 02/10/2016 Eyes No eye erythema 05/2016 Eyes No vision change Cardiovascular No chest pain/pressure 02/10/2016 Cardiovascular No dyspnea 02/10/2016 Respiratory No dyspnea 0 02/10/2016 Dermatologic No scar 05/2016 Musculoskeletal joint complaint 02/10/2016 Dermatologic No rash 05/2016 Neurologic No alteration of consciousness 02/10/2016 Neurologic No mental status change 02/10/2016 Constitutional No recent illness 01/11/2016 Constitutional No chills 01/11/2016 Constitutional No fatigue 01/11/2016 Constitutional No fever 01/11/2016 Constitutional No insomnia 01/11/2016 Constitutional No malaise 01/11/2016 Eyes No blindness 2015 Eyes No vision change Ears/Nose/Throat/Neck No dental pain 01/11/2016 Ears/Nose/Throat/Neck No dizziness 01/11/2016 Ears/Nose/Throat/Neck No dysphagia 01/11/2016 Ears/Nose/Throat/Neck No headache 01/11/2016 Ears/Nose/Throat/Neck No hearing loss 01/11/2016 Ears/Nose/Throat/Neck nasal allergies 01/11/2016 Ears/Nose/Throat/Neck No sore throat 01/11/2016 Ears/Nose/Throat/Neck No postnasal drip 01/11/2016 Ears/Nose/Throat/Neck sinus congestion 01/11/2016 Cardiovascular No chest pain/pressure 01/11/2016 Cardiovascular No dyspnea 01/11/2016 Cardiovascular No edema 01/11/2016 Cardiovascular No exercise intolerance 01/11/2016 Cardiovascular No fatigue 01/11/2016 Cardiovascular No near-syncope/dizziness 01/11/2016 Respiratory No chest tightness 01/11/2016 Respiratory No cough 06/2016 Respiratory No dyspnea 0 01/11/2016 Respiratory No pedal edema 01/11/2016 Gastrointestinal No abdominal pain 01/11/2016 Gastrointestinal No constipation 01/11/2016 Gastrointestinal No diarrhea 01/11/2016 Gastrointestinal No gastroesophageal reflu x 01/11/2016 Gastrointestinal No nausea 01/11/2016 Gastrointestinal No vomiting 01/11/2016 Genitourinary/Nephrology No dysuria 01/11/2016 Genitourinary/Nephrology No nocturia 01/11/2016 Genitourinary/Nephrology No urinary incontinence 01/11/2016 Musculoskeletal No stiffness 01/11/2016 Musculoskeletal No swelling 01/11/2016 Musculoskeletal No muscle weakness 01/11/2016 Musculoskeletal No myalgias 01/11/2016 Dermatologic rash 2015 Dermatologic No sores Dermatologic No scar 06/2016 Neurologic No dizziness 01/11/2016 Neurologic No headache 0 01/11/2016 Neurologic No neck pain 01/11/2016 Neurologic No syncope Psychiatric No anxiety 0 01/11/2016 Psychiatric No depression 01/11/2016 Constitutional No fever 12/16/2015 Eyes No vision change Cardiovascular No chest pain/pressure 12/16/2015 Respiratory No dyspnea 0 12/16/2015 Dermatologic No rash Dermatologic No sores Neurologic No alteration of consciousness 12/16/2015 Psychiatric No anxiety 0 12/16/2015 Psychiatric No depression 12/16/2015 Constitutional No recent illness 12/16/2015 Eyes No eye erythema Ears/Nose/Throat/Neck No nasal discharge 12/16/2015 Ears/Nose/Throat/Neck No nasal allergies 12/16/2015 Cardiovascular No dyspnea 12/16/2015 Respiratory No cough Gastrointestinal No abdominal pain 12/16/2015 Musculoskeletal back pain 12/16/2015 Neurologic No mental status change 12/16/2015 Constitutional No chills 09/30/2015 Constitutional No diaphoresis 09/30/2015 Constitutional No fatigue 09/30/2015 Constitutional No fever 09/30/2015 Constitutional No insomnia 09/30/2015 Constitutional No malaise 09/30/2015 Eyes No vision change Ears/Nose/Throat/Neck nasal allergies 09/30/2015 Ears/Nose/Throat/Neck nasal discharge 09/30/2015 Ears/Nose/Throat/Neck otalgia 09/30/2015 Ears/Nose/Throat/Neck postnasal drip 09/30/2015 Ears/Nose/Throat/Neck sinus congestion 09/30/2015 Ears/Nose/Throat/Neck sore throat 09/30/2015 Cardiovascular No chest pain/pressure 09/30/2015 Respiratory productive sputum 09/30/2015 Respiratory chest congestion 09/30/2015 Respiratory cough 2015 Respiratory dyspnea on exertion 09/30/2015 Gastrointestinal No abdominal pain 09/30/2015 Gastrointestinal No constipation 09/30/2015 Gastrointestinal No diarrhea 09/30/2015 Gastrointestinal No nausea 09/30/2015 Genitourinary/Nephrology No dysuria 09/30/2015 Musculoskeletal No joint complaint 09/30/2015 Dermatologic No rash Dermatologic No sores Psychiatric No anxiety 0 09/30/2015 Psychiatric No depression 09/30/2015 Ears/Nose/Throat/Neck otitis media 09/30/2015 Respiratory No dyspnea 0 09/30/2015 Gastrointestinal No vomiting 09/30/2015 Neurologic No alteration of consciousness 09/30/2015 Constitutional No recent illness 08/05/2015 Constitutional No anorexia 08/05/2015 Constitutional No night sweats 08/05/2015 Constitutional No chills 08/05/2015 Constitutional No diaphoresis 08/05/2015 Constitutional No fatigue 08/05/2015 Constitutional No fever 08/05/2015 Constitutional No insomnia 08/05/2015 Constitutional No malaise 08/05/2015 Constitutional No weight loss 08/05/2015 Constitutional No weight gain 08/05/2015 Constitutional No obesity 08/05/2015 Respiratory cough 2015 Respiratory nocturnal cough 08/05/2015 Respiratory dyspnea 10/2015 Respiratory No dyspnea on exertion 08/05/2015 Respiratory No cigarette smoking 08/05/2015 Respiratory No chest tightness 08/05/2015 Respiratory chest congestion 08/05/2015 Respiratory productive sputum 08/05/2015 Gastrointestinal No nausea 08/05/2015 Gastrointestinal No abdominal pain 08/05/2015 Gastrointestinal vomiting 08/05/2015 Gastrointestinal No diarrhea 08/05/2015 Gastrointestinal No constipation 08/05/2015 Ears/Nose/Throat/Neck nasal discharge 08/05/2015 Ears/Nose/Throat/Neck nasal allergies 08/05/2015 Ears/Nose/Throat/Neck otitis media 08/05/2015 Ears/Nose/Throat/Neck No otalgia 08/05/2015 Ears/Nose/Throat/Neck postnasal drip 08/05/2015 Ears/Nose/Throat/Neck sinus congestion 08/05/2015 Ears/Nose/Throat/Neck No sore throat 08/05/2015 Ears/Nose/Throat/Neck No headache 08/05/2015 Cardiovascular No chest pain/pressure 08/05/2015 Eyes No vision change Dermatologic No sores Dermatologic No rash 10/2015 Genitourinary/Nephrology No dysuria 08/05/2015 Musculoskeletal myalgias 08/05/2015 Musculoskeletal No muscle weakness 08/05/2015 Musculoskeletal No joint complaint 08/05/2015 Psychiatric No anxiety 0 08/05/2015 Psychiatric No depression 08/05/2015 Constitutional No recent illness 08/03/2015 Constitutional No anorexia 08/03/2015 Constitutional No night sweats 08/03/2015 Constitutional No chills 08/03/2015 Constitutional No diaphoresis 08/03/2015 Constitutional No fatigue 08/03/2015 Constitutional No insomnia 08/03/2015 Constitutional No fever 08/03/2015 Constitutional No malaise 08/03/2015 Constitutional weight loss 08/03/2015 Constitutional No weight gain 08/03/2015 Eyes No eye discharge Eyes No eye erythema 08/2015 Eyes No vision change Eyes glaucoma 08/03/2015 Ears/Nose/Throat/Neck No dizziness 08/03/2015 Ears/Nose/Throat/Neck No dysphagia 08/03/2015 Ears/Nose/Throat/Neck No facial pain 08/03/2015 Ears/Nose/Throat/Neck No headache 08/03/2015 Ears/Nose/Throat/Neck No hearing loss 08/03/2015 Ears/Nose/Throat/Neck No hoarseness 08/03/2015 Ears/Nose/Throat/Neck No nasal allergies 08/03/2015 Ears/Nose/Throat/Neck No nasal discharge 08/03/2015 Ears/Nose/Throat/Neck No oral pain 08/03/2015 Ears/Nose/Throat/Neck No otalgia 08/03/2015 Ears/Nose/Throat/Neck No otitis media 08/03/2015 Ears/Nose/Throat/Neck postnasal drip 08/03/2015 Ears/Nose/Throat/Neck No sinus congestion 08/03/2015 Ears/Nose/Throat/Neck snoring 08/03/2015 Ears/Nose/Throat/Neck No sore throat 08/03/2015 Ears/Nose/Throat/Neck No taste change 08/03/2015 Cardiovascular No chest pain/pressure 08/03/2015 Cardiovascular No dyspnea 08/03/2015 Cardiovascular No claudication 08/03/2015 Cardiovascular No arrhythmia 08/03/2015 Cardiovascular No edema 08/03/2015 Cardiovascular No exercise intolerance 08/03/2015 Cardiovascular No fatigue 08/03/2015 Cardiovascular No near-syncope/dizziness 08/03/2015 Cardiovascular No palpitations 08/03/2015 Respiratory No cough 08/2015 Respiratory No chest congestion 08/03/2015 Respiratory productive sputum 08/03/2015 Respiratory asthma 08/03 Respiratory No dyspnea on exertion 08/03/2015 Respiratory No cigarette smoking 08/03/2015 Respiratory snoring 08/2015 Respiratory No wheezing 08/03/2015 Respiratory dyspnea 08/2015 Gastrointestinal No abdominal pain 08/03/2015 Gastrointestinal No constipation 08/03/2015 Gastrointestinal No diarrhea 08/03/2015 Gastrointestinal No anorexia 08/03/2015 Gastrointestinal No dyspepsia 08/03/2015 Gastrointestinal No dysphagia 08/03/2015 Gastrointestinal No gastroesophageal reflu x 08/03/2015 Gastrointestinal No gas and bloating 08/03/2015 Gastrointestinal No melena 08/03/2015 Gastrointestinal No nausea 08/03/2015 Gastrointestinal No vomiting 08/03/2015 Genitourinary/Nephrology No dysuria 08/03/2015 Genitourinary/Nephrology No flank pain 08/03/2015 Genitourinary/Nephrology No hematuria 08/03/2015 Genitourinary/Nephrology No nocturia 08/03/2015 Genitourinary/Nephrology No pelvic pain 08/03/2015 Genitourinary/Nephrology No urinary frequency 08/03/2015 Genitourinary/Nephrology No urinary urgenc y 08/03/2015 Genitourinary/Nephrology No urinary incontinence 08/03/2015 Musculoskeletal No stiffness 08/03/2015 Musculoskeletal No swelling 08/03/2015 Musculoskeletal arthralgia(s) 08/03/2015 Musculoskeletal No back pain 08/03/2015 Musculoskeletal No carpal tunnel syndrome 08/03/2015 Musculoskeletal No muscle weakness 08/03/2015 Musculoskeletal No joint complaint 08/03/2015 Musculoskeletal No myalgias 08/03/2015 Musculoskeletal No osteoporosis 08/03/2015 Musculoskeletal No sciatica 08/03/2015 Musculoskeletal No shoulder pain 08/03/2015 Dermatologic No rash 08/2015 Dermatologic No sores Neurologic No hearing loss 08/03/2015 Neurologic No memory loss 08/03/2015 Neurologic No headache 0 08/03/2015 Neurologic No gait abnormality 08/03/2015 Neurologic No dyskinesia or tremor 08/03/2015 Neurologic No dizziness 08/03/2015 Neurologic No aphasia Neurologic No alteration of consciousness 08/03/2015 Neurologic No mental status change 08/03/2015 Neurologic No paresthesia 08/03/2015 Neurologic No seizure Neurologic No syncope Neurologic No tinnitus 0 08/03/2015 Neurologic No vertigo Neurologic No weakness 0 08/03/2015 Psychiatric No anxiety 0 08/03/2015 Psychiatric No depression 08/03/2015 Endocrine No cold sensitivity 08/03/2015 Endocrine No dry or coarse skin 08/03/2015 Endocrine No hair loss 0 08/03/2015 Endocrine No diabetes mellitus type 1 08/03/2015 Endocrine No diabetes mellitus type 2 08/03/2015 Hematologic/Lymphatic No abnormal bl eeding and bruising 08/03/2015 Constitutional No recent illness 07/13/2015 Constitutional No chills 07/13/2015 Constitutional No fatigue 07/13/2015 Constitutional No fever 07/13/2015 Constitutional No insomnia 07/13/2015 Constitutional No malaise 07/13/2015 Eyes No blindness 2015 Eyes No vision change Ears/Nose/Throat/Neck No dental pain 07/13/2015 Ears/Nose/Throat/Neck No dizziness 07/13/2015 Ears/Nose/Throat/Neck No dysphagia 07/13/2015 Ears/Nose/Throat/Neck No headache 07/13/2015 Ears/Nose/Throat/Neck No hearing loss 07/13/2015 Ears/Nose/Throat/Neck nasal allergies 07/13/2015 Ears/Nose/Throat/Neck No sore throat 07/13/2015 Ears/Nose/Throat/Neck No postnasal drip 07/13/2015 Ears/Nose/Throat/Neck sinus congestion 07/13/2015 Cardiovascular No chest pain/pressure 07/13/2015 Cardiovascular No dyspnea 07/13/2015 Cardiovascular No edema 07/13/2015 Cardiovascular No exercise intolerance 07/13/2015 Cardiovascular No fatigue 07/13/2015 Cardiovascular No near-syncope/dizziness 07/13/2015 Respiratory No chest tightness 07/13/2015 Respiratory No cough 06/2016 Respiratory No dyspnea 0 07/13/2015 Respiratory No pedal edema 07/13/2015 Gastrointestinal No abdominal pain 07/13/2015 Gastrointestinal No constipation 07/13/2015 Gastrointestinal No diarrhea 07/13/2015 Gastrointestinal No gastroesophageal reflu x 07/13/2015 Gastrointestinal No nausea 07/13/2015 Gastrointestinal No vomiting 07/13/2015 Genitourinary/Nephrology No dysuria 07/13/2015 Genitourinary/Nephrology No nocturia 07/13/2015 Genitourinary/Nephrology No urinary incontinence 07/13/2015 Musculoskeletal No stiffness 07/13/2015 Musculoskeletal No swelling 07/13/2015 Musculoskeletal No muscle weakness 07/13/2015 Musculoskeletal No myalgias 07/13/2015 Dermatologic rash 2015 Dermatologic No sores Dermatologic No scar 06/2016 Neurologic No dizziness 07/13/2015 Neurologic No headache 0 07/13/2015 Neurologic No neck pain 07/13/2015 Neurologic No syncope Psychiatric No anxiety 0 07/13/2015 Psychiatric No depression 07/13/2015 Constitutional No recent illness 06/10/2015 Constitutional No chills 06/10/2015 Constitutional No fatigue 06/10/2015 Constitutional No fever 06/10/2015 Constitutional No insomnia 06/10/2015 Constitutional No malaise 06/10/2015 Eyes No blindness 2014 Eyes No vision change Ears/Nose/Throat/Neck No dental pain 06/10/2015 Ears/Nose/Throat/Neck No dizziness 06/10/2015 Ears/Nose/Throat/Neck No dysphagia 06/10/2015 Ears/Nose/Throat/Neck No headache 06/10/2015 Ears/Nose/Throat/Neck No hearing loss 06/10/2015 Ears/Nose/Throat/Neck nasal allergies 06/10/2015 Ears/Nose/Throat/Neck No sore throat 06/10/2015 Ears/Nose/Throat/Neck No postnasal drip 06/10/2015 Ears/Nose/Throat/Neck sinus congestion 06/10/2015 Cardiovascular No chest pain/pressure 06/10/2015 Cardiovascular No dyspnea 06/10/2015 Cardiovascular No edema 06/10/2015 Cardiovascular No exercise intolerance 06/10/2015 Cardiovascular No fatigue 06/10/2015 Cardiovascular No near-syncope/dizziness 06/10/2015 Respiratory No chest tightness 06/10/2015 Respiratory No cough 04/2015 Respiratory No dyspnea 1 08/11/2014 Respiratory No pedal edema 06/10/2015 Gastrointestinal No abdominal pain 06/10/2015 Gastrointestinal No constipation 06/10/2015 Gastrointestinal No diarrhea 06/10/2015 Gastrointestinal No gastroesophageal reflu x 06/10/2015 Gastrointestinal No nausea 06/10/2015 Gastrointestinal No vomiting 06/10/2015 Genitourinary/Nephrology No dysuria 06/10/2015 Genitourinary/Nephrology No nocturia 06/10/2015 Genitourinary/Nephrology No urinary incontinence 06/10/2015 Musculoskeletal No stiffness 06/10/2015 Musculoskeletal No swelling 06/10/2015 Musculoskeletal No muscle weakness 06/10/2015 Musculoskeletal No myalgias 06/10/2015 Dermatologic No rash 04/2015 Dermatologic No sores Dermatologic No scar 04/2015 Neurologic No dizziness 06/10/2015 Neurologic No headache 1 08/11/2014 Neurologic No neck pain 06/10/2015 Neurologic No syncope Psychiatric No anxiety 1 08/11/2014 Psychiatric No depression 06/10/2015 Constitutional No recent illness 03/10/2015 Constitutional No chills 03/10/2015 Constitutional No fatigue 03/10/2015 Constitutional No fever 03/10/2015 Constitutional No insomnia 03/10/2015 Constitutional No malaise 03/10/2015 Eyes No blindness 2014 Eyes No vision change Ears/Nose/Throat/Neck No dental pain 03/10/2015 Ears/Nose/Throat/Neck No dizziness 03/10/2015 Ears/Nose/Throat/Neck No dysphagia 03/10/2015 Ears/Nose/Throat/Neck No headache 03/10/2015 Ears/Nose/Throat/Neck No hearing loss 03/10/2015 Ears/Nose/Throat/Neck nasal allergies 03/10/2015 Ears/Nose/Throat/Neck No sore throat 03/10/2015 Ears/Nose/Throat/Neck No postnasal drip 03/10/2015 Ears/Nose/Throat/Neck sinus congestion 03/10/2015 Cardiovascular No chest pain/pressure 03/10/2015 Cardiovascular No dyspnea 03/10/2015 Cardiovascular No edema 03/10/2015 Cardiovascular No exercise intolerance 03/10/2015 Cardiovascular No fatigue 03/10/2015 Cardiovascular No near-syncope/dizziness 03/10/2015 Respiratory No chest tightness 03/10/2015 Respiratory No cough 03/2015 Respiratory No dyspnea 0 03/10/2015 Respiratory No pedal edema 03/10/2015 Gastrointestinal No abdominal pain 03/10/2015 Gastrointestinal No constipation 03/10/2015 Gastrointestinal No diarrhea 03/10/2015 Gastrointestinal No gastroesophageal reflu x 03/10/2015 Gastrointestinal No nausea 03/10/2015 Gastrointestinal No vomiting 03/10/2015 Genitourinary/Nephrology No dysuria 03/10/2015 Genitourinary/Nephrology No nocturia 03/10/2015 Genitourinary/Nephrology No urinary incontinence 03/10/2015 Musculoskeletal No stiffness 03/10/2015 Musculoskeletal No swelling 03/10/2015 Musculoskeletal No muscle weakness 03/10/2015 Musculoskeletal No myalgias 03/10/2015 Dermatologic No rash 03/2015 Dermatologic No sores Dermatologic No scar 03/2015 Neurologic No dizziness 03/10/2015 Neurologic No headache 0 03/10/2015 Neurologic No neck pain 03/10/2015 Neurologic No syncope Psychiatric No anxiety 0 03/10/2015 Psychiatric No depression 03/10/2015 System Result Effective Dates Constitutional No recent illness 03/06/2019 Constitutional No night sweats 03/06/2019 Constitutional No chills 03/06/2019 Constitutional No diaphoresis 03/06/2019 Constitutional No fatigue 03/06/2019 Constitutional No fever 03/06/2019 Constitutional No insomnia 03/06/2019 Constitutional No malaise 03/06/2019 Constitutional No weight loss 03/06/2019 Constitutional No weight gain 03/06/2019 Constitutional No obesity 03/06/2019 Eyes No blindness 2018 Eyes No eye discharge Eyes No eye erythema 10/2018 Eyes No eye floaters 10/2018 Eyes No eye foreign body 03/06/2019 Eyes No eye pain 019 Eyes No eye tearing 10/2018 Eyes No eye trauma 03/06 Eyes No eyelid edema 10/2018 Eyes No eyelid erythema 03/06/2019 Eyes No eyelid pain 10/2018 Eyes No photophobia 10/2018 Eyes No vision change Eyes No amblyopia 2018 Eyes No cataract 019 Eyes No glaucoma 019 Eyes No macular degeneration 03/06/2019 Ears/Nose/Throat/Neck No dry mouth 03/06/2019 Ears/Nose/Throat/Neck No dental pain 03/06/2019 Ears/Nose/Throat/Neck No dizziness 03/06/2019 Ears/Nose/Throat/Neck No dysphagia 03/06/2019 Ears/Nose/Throat/Neck No headache 03/06/2019 Ears/Nose/Throat/Neck No hearing loss 03/06/2019 Ears/Nose/Throat/Neck No nasal allergies 03/06/2019 Ears/Nose/Throat/Neck No nasal discharge 03/06/2019 Ears/Nose/Throat/Neck No postnasal drip 03/06/2019 Ears/Nose/Throat/Neck No sinus congestion 03/06/2019 Ears/Nose/Throat/Neck No sore throat 03/06/2019 Cardiovascular No arrhythmia 03/06/2019 Cardiovascular No chest pain/pressure 03/06/2019 Cardiovascular No dyspnea 03/06/2019 Cardiovascular No edema 03/06/2019 Cardiovascular No exercise intolerance 03/06/2019 Cardiovascular No fatigue 03/06/2019 Cardiovascular No near-syncope/dizziness 03/06/2019 Cardiovascular No orthopnea 03/06/2019 Cardiovascular No palpitations 03/06/2019 Respiratory No electronic cigarettes/Vapor 03/06/2019 Respiratory No asthma Respiratory No pleuritic pain 03/06/2019 Respiratory No productive sputum 03/06/2019 Respiratory No chest tightness 03/06/2019 Respiratory No cigarette smoking 03/06/2019 Respiratory No cough 10/2018 Respiratory No dyspnea 0 03/06/2019 Respiratory No pedal edema 03/06/2019 Respiratory No snoring 0 03/06/2019 Respiratory No wheezing 03/06/2019 Gastrointestinal No hemorrhoids 03/06/2019 Gastrointestinal No abdominal pain 03/06/2019 Gastrointestinal No constipation 03/06/2019 Gastrointestinal No diarrhea 03/06/2019 Gastrointestinal No gastroesophageal reflu x 03/06/2019 Gastrointestinal No melena 03/06/2019 Gastrointestinal No nausea 03/06/2019 Gastrointestinal No vomiting 03/06/2019 Genitourinary/Nephrology No vaginal drynes s 03/06/2019 Genitourinary/Nephrology No dysuria 03/06/2019 Genitourinary/Nephrology No nocturia 03/06/2019 Genitourinary/Nephrology No urinary incontinence 03/06/2019 Musculoskeletal No stiffness 03/06/2019 Musculoskeletal swelling 03/06/2019 Musculoskeletal No muscle weakness 03/06/2019 Musculoskeletal No myalgias 03/06/2019 Dermatologic No pruritus 03/06/2019 Dermatologic rash 2018 Dermatologic No scar 10/2018 Neurologic No alteration of consciousness 03/06/2019 Musculoskeletal joint complaint 03/06/2019 Constitutional No anorexia 02/25/2019 Constitutional No recent illness 02/25/2019 Constitutional No night sweats 02/25/2019 Constitutional No chills 02/25/2019 Constitutional No diaphoresis 02/25/2019 Constitutional No fatigue 02/25/2019 Constitutional No fever 02/25/2019 Constitutional No insomnia 02/25/2019 Constitutional No malaise 02/25/2019 Constitutional No weight loss 02/25/2019 Constitutional weight gain 02/25/2019 Eyes No eye discharge Eyes No eye erythema Ears/Nose/Throat/Neck No dizziness 02/25/2019 Ears/Nose/Throat/Neck No headache 02/25/2019 Cardiovascular No chest pain/pressure 02/25/2019 Cardiovascular No dyspnea 02/25/2019 Cardiovascular edema Respiratory No cough Gastrointestinal No abdominal pain 02/25/2019 Musculoskeletal joint complaint 02/25/2019 Dermatologic No rash Dermatologic No sores Neurologic No alteration of consciousness 02/25/2019 Constitutional recent illness 09/06/2018 Constitutional chills Constitutional No diaphoresis 09/06/2018 Constitutional fever 01/2019 Eyes No eye erythema 01/2019 Ears/Nose/Throat/Neck nasal allergies 09/06/2018 Ears/Nose/Throat/Neck nasal discharge 09/06/2018 Ears/Nose/Throat/Neck postnasal drip 09/06/2018 Ears/Nose/Throat/Neck sinus congestion 09/06/2018 Ears/Nose/Throat/Neck sore throat 09/06/2018 Cardiovascular No chest pain/pressure 09/06/2018 Cardiovascular No dyspnea 09/06/2018 Respiratory No chest congestion 09/06/2018 Respiratory cough 2018 Respiratory No dyspnea 0 09/06/2018 Gastrointestinal No constipation 09/06/2018 Gastrointestinal No diarrhea 09/06/2018 Gastrointestinal No nausea 09/06/2018 Gastrointestinal No vomiting 09/06/2018 Dermatologic No rash 01/2019 Neurologic No alteration of consciousness 09/06/2018 Neurologic No mental status change 09/06/2018 Constitutional No recent illness 08/23/2017 Constitutional No chills 08/23/2017 Constitutional No fatigue 08/23/2017 Constitutional No fever 08/23/2017 Constitutional No insomnia 08/23/2017 Constitutional No malaise 08/23/2017 Eyes No blindness 2017 Eyes No vision change Ears/Nose/Throat/Neck No dental pain 08/23/2017 Ears/Nose/Throat/Neck No dizziness 08/23/2017 Ears/Nose/Throat/Neck No dysphagia 08/23/2017 Ears/Nose/Throat/Neck No headache 08/23/2017 Ears/Nose/Throat/Neck No hearing loss 08/23/2017 Ears/Nose/Throat/Neck nasal allergies 08/23/2017 Ears/Nose/Throat/Neck No sore throat 08/23/2017 Ears/Nose/Throat/Neck No postnasal drip 08/23/2017 Ears/Nose/Throat/Neck sinus congestion 08/23/2017 Cardiovascular No chest pain/pressure 08/23/2017 Cardiovascular No dyspnea 08/23/2017 Cardiovascular No edema 08/23/2017 Cardiovascular No exercise intolerance 08/23/2017 Cardiovascular No fatigue 08/23/2017 Cardiovascular No near-syncope/dizziness 08/23/2017 Respiratory No chest tightness 08/23/2017 Respiratory No cough Respiratory No dyspnea 0 08/23/2017 Respiratory No pedal edema 08/23/2017 Gastrointestinal No abdominal pain 08/23/2017 Gastrointestinal No constipation 08/23/2017 Gastrointestinal No diarrhea 08/23/2017 Gastrointestinal No gastroesophageal reflu x 08/23/2017 Gastrointestinal No nausea 08/23/2017 Gastrointestinal No vomiting 08/23/2017 Genitourinary/Nephrology No dysuria 08/23/2017 Genitourinary/Nephrology No nocturia 08/23/2017 Genitourinary/Nephrology No urinary incontinence 08/23/2017 Musculoskeletal No stiffness 08/23/2017 Musculoskeletal No swelling 08/23/2017 Musculoskeletal No muscle weakness 08/23/2017 Musculoskeletal No myalgias 08/23/2017 Dermatologic No rash Dermatologic No sores Dermatologic No scar Neurologic No dizziness 08/23/2017 Neurologic No headache 0 08/23/2017 Neurologic No neck pain 08/23/2017 Neurologic No syncope Psychiatric No anxiety 0 08/23/2017 Psychiatric No depression 08/23/2017 Constitutional No recent illness 02/09/2017 Constitutional No chills 02/09/2017 Constitutional No diaphoresis 02/09/2017 Constitutional No fever 02/09/2017 Eyes No eye erythema 05/2017 Ears/Nose/Throat/Neck No nasal allergies 02/09/2017 Ears/Nose/Throat/Neck No nasal discharge 02/09/2017 Cardiovascular No chest pain/pressure 02/09/2017 Cardiovascular No dyspnea 02/09/2017 Respiratory No cough 05/2017 Respiratory No dyspnea 0 02/09/2017 Dermatologic rash 2016 Neurologic No alteration of consciousness 02/09/2017 Neurologic No mental status change 02/09/2017 Constitutional No recent illness 02/01/2017 Constitutional No chills 02/01/2017 Constitutional No fatigue 02/01/2017 Constitutional No fever 02/01/2017 Constitutional No insomnia 02/01/2017 Constitutional No malaise 02/01/2017 Eyes No blindness 2016 Eyes No vision change Ears/Nose/Throat/Neck No dental pain 02/01/2017 Ears/Nose/Throat/Neck No dizziness 02/01/2017 Ears/Nose/Throat/Neck No dysphagia 02/01/2017 Ears/Nose/Throat/Neck No headache 02/01/2017 Ears/Nose/Throat/Neck No hearing loss 02/01/2017 Ears/Nose/Throat/Neck nasal allergies 02/01/2017 Ears/Nose/Throat/Neck No sore throat 02/01/2017 Ears/Nose/Throat/Neck No postnasal drip 02/01/2017 Ears/Nose/Throat/Neck sinus congestion 02/01/2017 Cardiovascular No chest pain/pressure 02/01/2017 Cardiovascular No dyspnea 02/01/2017 Cardiovascular No edema 02/01/2017 Cardiovascular No exercise intolerance 02/01/2017 Cardiovascular No fatigue 02/01/2017 Cardiovascular No near-syncope/dizziness 02/01/2017 Respiratory No chest tightness 02/01/2017 Respiratory No cough 08/2016 Respiratory No dyspnea 0 02/01/2017 Respiratory No pedal edema 02/01/2017 Gastrointestinal No abdominal pain 02/01/2017 Gastrointestinal No constipation 02/01/2017 Gastrointestinal No diarrhea 02/01/2017 Gastrointestinal No gastroesophageal reflu x 02/01/2017 Gastrointestinal No nausea 02/01/2017 Gastrointestinal No vomiting 02/01/2017 Genitourinary/Nephrology No dysuria 02/01/2017 Genitourinary/Nephrology No nocturia 02/01/2017 Genitourinary/Nephrology No urinary incontinence 02/01/2017 Musculoskeletal No stiffness 02/01/2017 Musculoskeletal No swelling 02/01/2017 Musculoskeletal No muscle weakness 02/01/2017 Musculoskeletal No myalgias 02/01/2017 Dermatologic No rash 08/2016 Dermatologic No sores Dermatologic No scar 08/2016 Neurologic No dizziness 02/01/2017 Neurologic No headache 0 02/01/2017 Neurologic No neck pain 02/01/2017 Neurologic No syncope Psychiatric No anxiety 0 02/01/2017 Psychiatric No depression 02/01/2017 Constitutional No recent illness 08/03/2016 Constitutional No chills 08/03/2016 Constitutional No fatigue 08/03/2016 Constitutional No fever 08/03/2016 Constitutional No insomnia 08/03/2016 Constitutional No malaise 08/03/2016 Eyes No blindness 2016 Eyes No vision change Ears/Nose/Throat/Neck No dental pain 08/03/2016 Ears/Nose/Throat/Neck No dizziness 08/03/2016 Ears/Nose/Throat/Neck No dysphagia 08/03/2016 Ears/Nose/Throat/Neck No headache 08/03/2016 Ears/Nose/Throat/Neck No hearing loss 08/03/2016 Ears/Nose/Throat/Neck nasal allergies 08/03/2016 Ears/Nose/Throat/Neck No sore throat 08/03/2016 Ears/Nose/Throat/Neck No postnasal drip 08/03/2016 Ears/Nose/Throat/Neck sinus congestion 08/03/2016 Cardiovascular No chest pain/pressure 08/03/2016 Cardiovascular No dyspnea 08/03/2016 Cardiovascular No edema 08/03/2016 Cardiovascular No exercise intolerance 08/03/2016 Cardiovascular No fatigue 08/03/2016 Cardiovascular No near-syncope/dizziness 08/03/2016 Respiratory No chest tightness 08/03/2016 Respiratory No cough 08/2016 Respiratory No dyspnea 0 08/03/2016 Respiratory No pedal edema 08/03/2016 Gastrointestinal No abdominal pain 08/03/2016 Gastrointestinal No constipation 08/03/2016 Gastrointestinal No diarrhea 08/03/2016 Gastrointestinal No gastroesophageal reflu x 08/03/2016 Gastrointestinal No nausea 08/03/2016 Gastrointestinal No vomiting 08/03/2016 Genitourinary/Nephrology No dysuria 08/03/2016 Genitourinary/Nephrology No nocturia 08/03/2016 Genitourinary/Nephrology No urinary incontinence 08/03/2016 Musculoskeletal No stiffness 08/03/2016 Musculoskeletal No swelling 08/03/2016 Musculoskeletal No muscle weakness 08/03/2016 Musculoskeletal No myalgias 08/03/2016 Dermatologic No rash 08/2016 Dermatologic No sores Dermatologic No scar 08/2016 Neurologic No dizziness 08/03/2016 Neurologic No headache 0 08/03/2016 Neurologic No neck pain 08/03/2016 Neurologic No syncope Psychiatric No anxiety 0 08/03/2016 Psychiatric No depression 08/03/2016 Constitutional recent illness 04/24/2016 Eyes No eye erythema Ears/Nose/Throat/Neck nasal allergies 04/24/2016 Ears/Nose/Throat/Neck nasal discharge 04/24/2016 Ears/Nose/Throat/Neck postnasal drip 04/24/2016 Ears/Nose/Throat/Neck sinus congestion 04/24/2016 Cardiovascular No chest pain/pressure 04/24/2016 Cardiovascular No dyspnea 04/24/2016 Respiratory cough 2015 Respiratory No dyspnea 1 Gastrointestinal No nausea 04/24/2016 Gastrointestinal No vomiting 04/24/2016 Musculoskeletal No joint complaint 04/24/2016 Dermatologic No rash Neurologic No alteration of consciousness 04/24/2016 Neurologic No mental status change 04/24/2016 Respiratory No chest congestion 04/24/2016 Ears/Nose/Throat/Neck nasal allergies 03/28/2016 Ears/Nose/Throat/Neck nasal discharge 03/28/2016 Ears/Nose/Throat/Neck postnasal drip 03/28/2016 Ears/Nose/Throat/Neck sinus congestion 03/28/2016 Cardiovascular No chest pain/pressure 03/28/2016 Respiratory cough 2015 Respiratory dyspnea on exertion 03/28/2016 Respiratory No dyspnea 0 03/28/2016 Gastrointestinal No nausea 03/28/2016 Gastrointestinal No vomiting 03/28/2016 Musculoskeletal No joint complaint 03/28/2016 Dermatologic No rash Neurologic No alteration of consciousness 03/28/2016 Constitutional recent illness 03/28/2016 Eyes No eye erythema Cardiovascular No dyspnea 03/28/2016 Neurologic No mental status change 03/28/2016 Constitutional No recent illness 03/10/2016 Constitutional No fever 03/10/2016 Eyes No eye erythema 03/2016 Eyes No vision change Cardiovascular No chest pain/pressure 03/10/2016 Cardiovascular No dyspnea 03/10/2016 Respiratory No dyspnea 0 03/10/2016 Musculoskeletal joint complaint 03/10/2016 Dermatologic No rash 03/2016 Dermatologic No scar 03/2016 Neurologic No alteration of consciousness 03/10/2016 Neurologic No mental status change 03/10/2016 Gastrointestinal No abdominal pain 03/10/2016 Constitutional No recent illness 02/10/2016 Constitutional No fever 02/10/2016 Eyes No eye erythema 05/2016 Eyes No vision change Cardiovascular No chest pain/pressure 02/10/2016 Cardiovascular No dyspnea 02/10/2016 Respiratory No dyspnea 0 02/10/2016 Dermatologic No scar 05/2016 Musculoskeletal joint complaint 02/10/2016 Dermatologic No rash 05/2016 Neurologic No alteration of consciousness 02/10/2016 Neurologic No mental status change 02/10/2016 Constitutional No recent illness 01/11/2016 Constitutional No chills 01/11/2016 Constitutional No fatigue 01/11/2016 Constitutional No fever 01/11/2016 Constitutional No insomnia 01/11/2016 Constitutional No malaise 01/11/2016 Eyes No blindness 2015 Eyes No vision change Ears/Nose/Throat/Neck No dental pain 01/11/2016 Ears/Nose/Throat/Neck No dizziness 01/11/2016 Ears/Nose/Throat/Neck No dysphagia 01/11/2016 Ears/Nose/Throat/Neck No headache 01/11/2016 Ears/Nose/Throat/Neck No hearing loss 01/11/2016 Ears/Nose/Throat/Neck nasal allergies 01/11/2016 Ears/Nose/Throat/Neck No sore throat 01/11/2016 Ears/Nose/Throat/Neck No postnasal drip 01/11/2016 Ears/Nose/Throat/Neck sinus congestion 01/11/2016 Cardiovascular No chest pain/pressure 01/11/2016 Cardiovascular No dyspnea 01/11/2016 Cardiovascular No edema 01/11/2016 Cardiovascular No exercise intolerance 01/11/2016 Cardiovascular No fatigue 01/11/2016 Cardiovascular No near-syncope/dizziness 01/11/2016 Respiratory No chest tightness 01/11/2016 Respiratory No cough 06/2016 Respiratory No dyspnea 0 01/11/2016 Respiratory No pedal edema 01/11/2016 Gastrointestinal No abdominal pain 01/11/2016 Gastrointestinal No constipation 01/11/2016 Gastrointestinal No diarrhea 01/11/2016 Gastrointestinal No gastroesophageal reflu x 01/11/2016 Gastrointestinal No nausea 01/11/2016 Gastrointestinal No vomiting 01/11/2016 Genitourinary/Nephrology No dysuria 01/11/2016 Genitourinary/Nephrology No nocturia 01/11/2016 Genitourinary/Nephrology No urinary incontinence 01/11/2016 Musculoskeletal No stiffness 01/11/2016 Musculoskeletal No swelling 01/11/2016 Musculoskeletal No muscle weakness 01/11/2016 Musculoskeletal No myalgias 01/11/2016 Dermatologic rash 2015 Dermatologic No sores Dermatologic No scar 06/2016 Neurologic No dizziness 01/11/2016 Neurologic No headache 0 01/11/2016 Neurologic No neck pain 01/11/2016 Neurologic No syncope Psychiatric No anxiety 0 01/11/2016 Psychiatric No depression 01/11/2016 Constitutional No fever 12/16/2015 Eyes No vision change Cardiovascular No chest pain/pressure 12/16/2015 Respiratory No dyspnea 0 12/16/2015 Dermatologic No rash Dermatologic No sores Neurologic No alteration of consciousness 12/16/2015 Psychiatric No anxiety 0 12/16/2015 Psychiatric No depression 12/16/2015 Constitutional No recent illness 12/16/2015 Eyes No eye erythema Ears/Nose/Throat/Neck No nasal discharge 12/16/2015 Ears/Nose/Throat/Neck No nasal allergies 12/16/2015 Cardiovascular No dyspnea 12/16/2015 Respiratory No cough Gastrointestinal No abdominal pain 12/16/2015 Musculoskeletal back pain 12/16/2015 Neurologic No mental status change 12/16/2015 Constitutional No chills 09/30/2015 Constitutional No diaphoresis 09/30/2015 Constitutional No fatigue 09/30/2015 Constitutional No fever 09/30/2015 Constitutional No insomnia 09/30/2015 Constitutional No malaise 09/30/2015 Eyes No vision change Ears/Nose/Throat/Neck nasal allergies 09/30/2015 Ears/Nose/Throat/Neck nasal discharge 09/30/2015 Ears/Nose/Throat/Neck otalgia 09/30/2015 Ears/Nose/Throat/Neck postnasal drip 09/30/2015 Ears/Nose/Throat/Neck sinus congestion 09/30/2015 Ears/Nose/Throat/Neck sore throat 09/30/2015 Cardiovascular No chest pain/pressure 09/30/2015 Respiratory productive sputum 09/30/2015 Respiratory chest congestion 09/30/2015 Respiratory cough 2015 Respiratory dyspnea on exertion 09/30/2015 Gastrointestinal No abdominal pain 09/30/2015 Gastrointestinal No constipation 09/30/2015 Gastrointestinal No diarrhea 09/30/2015 Gastrointestinal No nausea 09/30/2015 Genitourinary/Nephrology No dysuria 09/30/2015 Musculoskeletal No joint complaint 09/30/2015 Dermatologic No rash Dermatologic No sores Psychiatric No anxiety 0 09/30/2015 Psychiatric No depression 09/30/2015 Ears/Nose/Throat/Neck otitis media 09/30/2015 Respiratory No dyspnea 0 09/30/2015 Gastrointestinal No vomiting 09/30/2015 Neurologic No alteration of consciousness 09/30/2015 Constitutional No recent illness 08/05/2015 Constitutional No anorexia 08/05/2015 Constitutional No night sweats 08/05/2015 Constitutional No chills 08/05/2015 Constitutional No diaphoresis 08/05/2015 Constitutional No fatigue 08/05/2015 Constitutional No fever 08/05/2015 Constitutional No insomnia 08/05/2015 Constitutional No malaise 08/05/2015 Constitutional No weight loss 08/05/2015 Constitutional No weight gain 08/05/2015 Constitutional No obesity 08/05/2015 Respiratory cough 2015 Respiratory nocturnal cough 08/05/2015 Respiratory dyspnea 02/0 10/2015 Respiratory No dyspnea on exertion 08/05/2015 Respiratory No cigarette smoking 08/05/2015 Respiratory No chest tightness 08/05/2015 Respiratory chest congestion 08/05/2015 Respiratory productive sputum 08/05/2015 Gastrointestinal No nausea 08/05/2015 Gastrointestinal No abdominal pain 08/05/2015 Gastrointestinal vomiting 08/05/2015 Gastrointestinal No diarrhea 08/05/2015 Gastrointestinal No constipation 08/05/2015 Ears/Nose/Throat/Neck nasal discharge 08/05/2015 Ears/Nose/Throat/Neck nasal allergies 08/05/2015 Ears/Nose/Throat/Neck otitis media 08/05/2015 Ears/Nose/Throat/Neck No otalgia 08/05/2015 Ears/Nose/Throat/Neck postnasal drip 08/05/2015 Ears/Nose/Throat/Neck sinus congestion 08/05/2015 Ears/Nose/Throat/Neck No sore throat 08/05/2015 Ears/Nose/Throat/Neck No headache 08/05/2015 Cardiovascular No chest pain/pressure 08/05/2015 Eyes No vision change Dermatologic No sores Dermatologic No rash 10/2015 Genitourinary/Nephrology No dysuria 08/05/2015 Musculoskeletal myalgias 08/05/2015 Musculoskeletal No muscle weakness 08/05/2015 Musculoskeletal No joint complaint 08/05/2015 Psychiatric No anxiety 0 08/05/2015 Psychiatric No depression 08/05/2015 Constitutional No recent illness 08/03/2015 Constitutional No anorexia 08/03/2015 Constitutional No night sweats 08/03/2015 Constitutional No chills 08/03/2015 Constitutional No diaphoresis 08/03/2015 Constitutional No fatigue 08/03/2015 Constitutional No insomnia 08/03/2015 Constitutional No fever 08/03/2015 Constitutional No malaise 08/03/2015 Constitutional weight loss 08/03/2015 Constitutional No weight gain 08/03/2015 Eyes No eye discharge Eyes No eye erythema 08/2015 Eyes No vision change Eyes glaucoma 08/03/2015 Ears/Nose/Throat/Neck No dizziness 08/03/2015 Ears/Nose/Throat/Neck No dysphagia 08/03/2015 Ears/Nose/Throat/Neck No facial pain 08/03/2015 Ears/Nose/Throat/Neck No headache 08/03/2015 Ears/Nose/Throat/Neck No hearing loss 08/03/2015 Ears/Nose/Throat/Neck No hoarseness 08/03/2015 Ears/Nose/Throat/Neck No nasal allergies 08/03/2015 Ears/Nose/Throat/Neck No nasal discharge 08/03/2015 Ears/Nose/Throat/Neck No oral pain 08/03/2015 Ears/Nose/Throat/Neck No otalgia 08/03/2015 Ears/Nose/Throat/Neck No otitis media 08/03/2015 Ears/Nose/Throat/Neck postnasal drip 08/03/2015 Ears/Nose/Throat/Neck No sinus congestion 08/03/2015 Ears/Nose/Throat/Neck snoring 08/03/2015 Ears/Nose/Throat/Neck No sore throat 08/03/2015 Ears/Nose/Throat/Neck No taste change 08/03/2015 Cardiovascular No chest pain/pressure 08/03/2015 Cardiovascular No dyspnea 08/03/2015 Cardiovascular No claudication 08/03/2015 Cardiovascular No arrhythmia 08/03/2015 Cardiovascular No edema 08/03/2015 Cardiovascular No exercise intolerance 08/03/2015 Cardiovascular No fatigue 08/03/2015 Cardiovascular No near-syncope/dizziness 08/03/2015 Cardiovascular No palpitations 08/03/2015 Respiratory No cough 08/2015 Respiratory No chest congestion 08/03/2015 Respiratory productive sputum 08/03/2015 Respiratory asthma 08/03 Respiratory No dyspnea on exertion 08/03/2015 Respiratory No cigarette smoking 08/03/2015 Respiratory snoring 08/2015 Respiratory No wheezing 08/03/2015 Respiratory dyspnea 08/2015 Gastrointestinal No abdominal pain 08/03/2015 Gastrointestinal No constipation 08/03/2015 Gastrointestinal No diarrhea 08/03/2015 Gastrointestinal No anorexia 08/03/2015 Gastrointestinal No dyspepsia 08/03/2015 Gastrointestinal No dysphagia 08/03/2015 Gastrointestinal No gastroesophageal reflu x 08/03/2015 Gastrointestinal No gas and bloating 08/03/2015 Gastrointestinal No melena 08/03/2015 Gastrointestinal No nausea 08/03/2015 Gastrointestinal No vomiting 08/03/2015 Genitourinary/Nephrology No dysuria 08/03/2015 Genitourinary/Nephrology No flank pain 08/03/2015 Genitourinary/Nephrology No hematuria 08/03/2015 Genitourinary/Nephrology No nocturia 08/03/2015 Genitourinary/Nephrology No pelvic pain 08/03/2015 Genitourinary/Nephrology No urinary frequency 08/03/2015 Genitourinary/Nephrology No urinary urgenc y 08/03/2015 Genitourinary/Nephrology No urinary incontinence 08/03/2015 Musculoskeletal No stiffness 08/03/2015 Musculoskeletal No swelling 08/03/2015 Musculoskeletal arthralgia(s) 08/03/2015 Musculoskeletal No back pain 08/03/2015 Musculoskeletal No carpal tunnel syndrome 08/03/2015 Musculoskeletal No muscle weakness 08/03/2015 Musculoskeletal No joint complaint 08/03/2015 Musculoskeletal No myalgias 08/03/2015 Musculoskeletal No osteoporosis 08/03/2015 Musculoskeletal No sciatica 08/03/2015 Musculoskeletal No shoulder pain 08/03/2015 Dermatologic No rash 08/2015 Dermatologic No sores Neurologic No hearing loss 08/03/2015 Neurologic No memory loss 08/03/2015 Neurologic No headache 0 08/03/2015 Neurologic No gait abnormality 08/03/2015 Neurologic No dyskinesia or tremor 08/03/2015 Neurologic No dizziness 08/03/2015 Neurologic No aphasia Neurologic No alteration of consciousness 08/03/2015 Neurologic No mental status change 08/03/2015 Neurologic No paresthesia 08/03/2015 Neurologic No seizure Neurologic No syncope Neurologic No tinnitus 0 08/03/2015 Neurologic No vertigo Neurologic No weakness 0 08/03/2015 Psychiatric No anxiety 0 08/03/2015 Psychiatric No depression 08/03/2015 Endocrine No cold sensitivity 08/03/2015 Endocrine No dry or coarse skin 08/03/2015 Endocrine No hair loss 0 08/03/2015 Endocrine No diabetes mellitus type 1 08/03/2015 Endocrine No diabetes mellitus type 2 08/03/2015 Hematologic/Lymphatic No abnormal bl eeding and bruising 08/03/2015 Constitutional No recent illness 07/13/2015 Constitutional No chills 07/13/2015 Constitutional No fatigue 07/13/2015 Constitutional No fever 07/13/2015 Constitutional No insomnia 07/13/2015 Constitutional No malaise 07/13/2015 Eyes No blindness 2015 Eyes No vision change Ears/Nose/Throat/Neck No dental pain 07/13/2015 Ears/Nose/Throat/Neck No dizziness 07/13/2015 Ears/Nose/Throat/Neck No dysphagia 07/13/2015 Ears/Nose/Throat/Neck No headache 07/13/2015 Ears/Nose/Throat/Neck No hearing loss 07/13/2015 Ears/Nose/Throat/Neck nasal allergies 07/13/2015 Ears/Nose/Throat/Neck No sore throat 07/13/2015 Ears/Nose/Throat/Neck No postnasal drip 07/13/2015 Ears/Nose/Throat/Neck sinus congestion 07/13/2015 Cardiovascular No chest pain/pressure 07/13/2015 Cardiovascular No dyspnea 07/13/2015 Cardiovascular No edema 07/13/2015 Cardiovascular No exercise intolerance 07/13/2015 Cardiovascular No fatigue 07/13/2015 Cardiovascular No near-syncope/dizziness 07/13/2015 Respiratory No chest tightness 07/13/2015 Respiratory No cough 06/2016 Respiratory No dyspnea 0 07/13/2015 Respiratory No pedal edema 07/13/2015 Gastrointestinal No abdominal pain 07/13/2015 Gastrointestinal No constipation 07/13/2015 Gastrointestinal No diarrhea 07/13/2015 Gastrointestinal No gastroesophageal reflu x 07/13/2015 Gastrointestinal No nausea 07/13/2015 Gastrointestinal No vomiting 07/13/2015 Genitourinary/Nephrology No dysuria 07/13/2015 Genitourinary/Nephrology No nocturia 07/13/2015 Genitourinary/Nephrology No urinary incontinence 07/13/2015 Musculoskeletal No stiffness 07/13/2015 Musculoskeletal No swelling 07/13/2015 Musculoskeletal No muscle weakness 07/13/2015 Musculoskeletal No myalgias 07/13/2015 Dermatologic rash 2015 Dermatologic No sores Dermatologic No scar 06/2016 Neurologic No dizziness 07/13/2015 Neurologic No headache 0 07/13/2015 Neurologic No neck pain 07/13/2015 Neurologic No syncope Psychiatric No anxiety 0 07/13/2015 Psychiatric No depression 07/13/2015 Constitutional No recent illness 06/10/2015 Constitutional No chills 06/10/2015 Constitutional No fatigue 06/10/2015 Constitutional No fever 06/10/2015 Constitutional No insomnia 06/10/2015 Constitutional No malaise 06/10/2015 Eyes No blindness 2014 Eyes No vision change Ears/Nose/Throat/Neck No dental pain 06/10/2015 Ears/Nose/Throat/Neck No dizziness 06/10/2015 Ears/Nose/Throat/Neck No dysphagia 06/10/2015 Ears/Nose/Throat/Neck No headache 06/10/2015 Ears/Nose/Throat/Neck No hearing loss 06/10/2015 Ears/Nose/Throat/Neck nasal allergies 06/10/2015 Ears/Nose/Throat/Neck No sore throat 06/10/2015 Ears/Nose/Throat/Neck No postnasal drip 06/10/2015 Ears/Nose/Throat/Neck sinus congestion 06/10/2015 Cardiovascular No chest pain/pressure 06/10/2015 Cardiovascular No dyspnea 06/10/2015 Cardiovascular No edema 06/10/2015 Cardiovascular No exercise intolerance 06/10/2015 Cardiovascular No fatigue 06/10/2015 Cardiovascular No near-syncope/dizziness 06/10/2015 Respiratory No chest tightness 06/10/2015 Respiratory No cough 04/2015 Respiratory No dyspnea 1 08/11/2014 Respiratory No pedal edema 06/10/2015 Gastrointestinal No abdominal pain 06/10/2015 Gastrointestinal No constipation 06/10/2015 Gastrointestinal No diarrhea 06/10/2015 Gastrointestinal No gastroesophageal reflu x 06/10/2015 Gastrointestinal No nausea 06/10/2015 Gastrointestinal No vomiting 06/10/2015 Genitourinary/Nephrology No dysuria 06/10/2015 Genitourinary/Nephrology No nocturia 06/10/2015 Genitourinary/Nephrology No urinary incontinence 06/10/2015 Musculoskeletal No stiffness 06/10/2015 Musculoskeletal No swelling 06/10/2015 Musculoskeletal No muscle weakness 06/10/2015 Musculoskeletal No myalgias 06/10/2015 Dermatologic No rash 04/2015 Dermatologic No sores Dermatologic No scar 04/2015 Neurologic No dizziness 06/10/2015 Neurologic No headache 1 08/11/2014 Neurologic No neck pain 06/10/2015 Neurologic No syncope Psychiatric No anxiety 1 08/11/2014 Psychiatric No depression 06/10/2015 Constitutional No recent illness 03/10/2015 Constitutional No chills 03/10/2015 Constitutional No fatigue 03/10/2015 Constitutional No fever 03/10/2015 Constitutional No insomnia 03/10/2015 Constitutional No malaise 03/10/2015 Eyes No blindness 2014 Eyes No vision change Ears/Nose/Throat/Neck No dental pain 03/10/2015 Ears/Nose/Throat/Neck No dizziness 03/10/2015 Ears/Nose/Throat/Neck No dysphagia 03/10/2015 Ears/Nose/Throat/Neck No headache 03/10/2015 Ears/Nose/Throat/Neck No hearing loss 03/10/2015 Ears/Nose/Throat/Neck nasal allergies 03/10/2015 Ears/Nose/Throat/Neck No sore throat 03/10/2015 Ears/Nose/Throat/Neck No postnasal drip 03/10/2015 Ears/Nose/Throat/Neck sinus congestion 03/10/2015 Cardiovascular No chest pain/pressure 03/10/2015 Cardiovascular No dyspnea 03/10/2015 Cardiovascular No edema 03/10/2015 Cardiovascular No exercise intolerance 03/10/2015 Cardiovascular No fatigue 03/10/2015 Cardiovascular No near-syncope/dizziness 03/10/2015 Respiratory No chest tightness 03/10/2015 Respiratory No cough 03/2015 Respiratory No dyspnea 0 03/10/2015 Respiratory No pedal edema 03/10/2015 Gastrointestinal No abdominal pain 03/10/2015 Gastrointestinal No constipation 03/10/2015 Gastrointestinal No diarrhea 03/10/2015 Gastrointestinal No gastroesophageal reflu x 03/10/2015 Gastrointestinal No nausea 03/10/2015 Gastrointestinal No vomiting 03/10/2015 Genitourinary/Nephrology No dysuria 03/10/2015 Genitourinary/Nephrology No nocturia 03/10/2015 Genitourinary/Nephrology No urinary incontinence 03/10/2015 Musculoskeletal No stiffness 03/10/2015 Musculoskeletal No swelling 03/10/2015 Musculoskeletal No muscle weakness 03/10/2015 Musculoskeletal No myalgias 03/10/2015 Dermatologic No rash 03/2015 Dermatologic No sores Dermatologic No scar 03/2015 Neurologic No dizziness 03/10/2015 Neurologic No headache 0 03/10/2015 Neurologic No neck pain 03/10/2015 Neurologic No syncope Psychiatric No anxiety 0 03/10/2015 Psychiatric No depression 03/10/2015 Physical Exam Exam Name System Name It em Name Status Result Effective Dates Notes Full Exam - General 1994 Constitutional general appearance Development: well developed 08/23/2017 None Full Exam - General 1994 Constitutional general appearance Development: appears stated age 0208/23/2017 None Full Exam - General 1994 Constitutional general appearance Hygiene/Attention to Grooming: good hygiene 08/23/2017 None Full Exam - General 1994 Eyes conjunctiva/eyelids Overall: conjunctiva clear 08/23/2017 None Full Exam - General 1994 Eyes conjunctiva/eyelids Overall: cornea clear 08/23/2017 None Full Exam - General 1994 Eyes conjunctiva/eyelids Overall: eyelids normal 08/23/2017 None Full Exam - General 1994 Eyes pupils and irises Overall: pupils equal, round, reactive to light and accomodation 08/23/2017 None Full Exam - General 1994 Ears/Nose/Throat otoscopic exam Overall: external auditory canals clear 08/23/2017 None Full Exam - General 1994 Ears/Nose/Throat otoscopic exam Overall: tympanic membranes clear 08/23/2017 None Full Exam - General 1994 Ears/Nose/Throat lips/teeth/gingiva Overall: benign lips 08/23/2017 None Full Exam - General 1994 Ears/Nose/Throat lips/teeth/gingiva Overall: normal dentition 08/23/2017 None Full Exam - General 1994 Ears/Nose/Throat oral cavity/pharynx/larynx Overall: oral mucosa clear 08/23/2017 None Full Exam - General 1994 Ears/Nose/Throat oral cavity/pharynx/larynx Overall: oropharyngeal mucosa clear 08/23/2017 None Full Exam - General 1994 Ears/Nose/Throat oral cavity/pharynx/larynx Overall: hypopharynx benign 08/23/2017 None Full Exam - General 1994 Ears/Nose/Throat oral cavity/pharynx/larynx Overall: no masses 08/23/2017 None Full Exam - General 1994 Respiratory auscultation Overall: breath sounds clear bilaterally 08/23/2017 None Full Exam - General 1994 Respiratory respiratory effort/rhythm Overall: no retractions 08/23/2017 None Full Exam - General 1994 Respiratory respiratory effort/rhythm Overall: normal rate 08/23/2017 None Full Exam - General 1994 Cardiovascular extremities Overall: no clubbing 08/23/2017 None Full Exam - General 1994 Cardiovascular auscultation of heart Overall: regular rate 08/23/2017 None Full Exam - General 1994 Cardiovascular auscultation of heart Overall: normal heart sounds 08/23/2017 None Full Exam - General 1994 Abdomen abdominal exam Overall: no tenderness 08/23/2017 None Full Exam - General 1994 Abdomen abdominal exam Overall: normal bowel sounds 08/23/2017 None Full Exam - General 1994 Lymphatic neck nodes Overall: anterior cervical chain benign 08/23/2017 None Full Exam - General 1994 Lymphatic neck nodes Overall: posterior cervical chain benign 08/23/2017 None Full Exam - General 1994 Musculoskeletal spine, ribs and pelvis Overall: good posture 08/23/2017 None Full Exam - General 1994 Musculoskeletal head and neck Overall: cervical spine benign 08/23/2017 None Full Exam - General 1994 Integument inspection of skin Location: scalp 08/23/2017 left side - 3 marleny - a bout 1 inch in length Full Exam - General 1994 Psychiatric orientation/consciousness Overall: oriented to person, place and time 08/23/2017 None Full Exam - General 1994 Psychiatric mood and affect Overall: normal mood and affect 08/23/2017 None Full Exam - Dermatology Constitutional general appearance Overall: well nourished 02/09/2017 None Full Exam - Dermatology Constitutional general appearance Overall: well developed 02/09/2017 None Full Exam - Dermatology Constitutional general appearance Overall: in no acute distress 02/09/2017 None Full Exam - Dermatology Eyes conjunctiva/eyelids Overall: clear conjunctiva bilaterally 02/09/2017 None Full Exam - Dermatology Eyes conjunctiva/eyelids Overall: normal eyelids 02/09/2017 None Full Exam - Dermatology Ears/Nose/Throat lips/teeth/gingiva Overall: benign lips 02/09/2017 None Full Exam - Dermatology Ears/Nose/Throat oropharynx Overall: clear oral mucosa 02/09/2017 None Full Exam - Dermatology Respiratory respiratory effort/rhythm Overall: no retractions 02/09/2017 None Full Exam - Dermatology Respiratory respiratory effort/rhythm Overall: normal rate 02/09/2017 None Full Exam - Dermatology Integument insp & palp - head/face Location: on the right lower eyelid 02/09/2017 None Full Exam - Dermatology Integument insp & palp - head/face Location: on the left lower eyelid 02/09/2017 None Full Exam - Dermatology Integument insp & palp - head/face Location: on the right nasal ala 02/09/2017 None Full Exam - Dermatology Integument insp & palp - head/face Location: on the right side of the nose 02/09/2017 None Full Exam - Dermatology Integument insp & palp - head/face Color: erythematous 02/09/2017 None Full Exam - Dermatology Psychiatric orientation Overall: oriented to person, place and time 02/09/2017 None Full Exam - Dermatology Psychiatric mood and affect Overall: normal mood and affect 02/09/2017 None Full Exam - General 1994 Constitutional general appearance Development: well developed 02/01/2017 None Full Exam - General 1994 Constitutional general appearance Development: appears stated age 0802/01/2017 None Full Exam - General 1994 Constitutional general appearance Hygiene/Attention to Grooming: good hygiene 02/01/2017 None Full Exam - General 1994 Eyes conjunctiva/eyelids Overall: conjunctiva clear 02/01/2017 None Full Exam - General 1994 Eyes conjunctiva/eyelids Overall: cornea clear 02/01/2017 None Full Exam - General 1994 Eyes conjunctiva/eyelids Overall: eyelids normal 02/01/2017 None Full Exam - General 1994 Eyes pupils and irises Overall: pupils equal, round, reactive to light and accomodation 02/01/2017 None Full Exam - General 1994 Ears/Nose/Throat otoscopic exam Overall: external auditory canals clear 02/01/2017 None Full Exam - General 1994 Ears/Nose/Throat otoscopic exam Overall: tympanic membranes clear 02/01/2017 None Full Exam - General 1994 Ears/Nose/Throat lips/teeth/gingiva Overall: benign lips 02/01/2017 None Full Exam - General 1994 Ears/Nose/Throat lips/teeth/gingiva Overall: normal dentition 02/01/2017 None Full Exam - General 1994 Ears/Nose/Throat oral cavity/pharynx/larynx Overall: oral mucosa clear 02/01/2017 None Full Exam - General 1994 Ears/Nose/Throat oral cavity/pharynx/larynx Overall: oropharyngeal mucosa clear 02/01/2017 None Full Exam - General 1994 Ears/Nose/Throat oral cavity/pharynx/larynx Overall: hypopharynx benign 02/01/2017 None Full Exam - General 1994 Ears/Nose/Throat oral cavity/pharynx/larynx Overall: no masses 02/01/2017 None Full Exam - General 1994 Respiratory auscultation Overall: breath sounds clear bilaterally 02/01/2017 None Full Exam - General 1994 Respiratory respiratory effort/rhythm Overall: no retractions 02/01/2017 None Full Exam - General 1994 Respiratory respiratory effort/rhythm Overall: normal rate 02/01/2017 None Full Exam - General 1994 Cardiovascular extremities Overall: no clubbing 02/01/2017 None Full Exam - General 1994 Cardiovascular auscultation of heart Overall: regular rate 02/01/2017 None Full Exam - General 1994 Cardiovascular auscultation of heart Overall: normal heart sounds 02/01/2017 None Full Exam - General 1994 Abdomen abdominal exam Overall: no tenderness 02/01/2017 None Full Exam - General 1994 Abdomen abdominal exam Overall: normal bowel sounds 02/01/2017 None Full Exam - General 1994 Lymphatic neck nodes Overall: anterior cervical chain benign 02/01/2017 None Full Exam - General 1994 Lymphatic neck nodes Overall: posterior cervical chain benign 02/01/2017 None Full Exam - General 1994 Musculoskeletal spine, ribs and pelvis Overall: good posture 02/01/2017 None Full Exam - General 1994 Musculoskeletal head and neck Overall: cervical spine benign 02/01/2017 None Full Exam - General 1994 Psychiatric orientation/consciousness Overall: oriented to person, place and time 02/01/2017 None Full Exam - General 1994 Psychiatric mood and affect Overall: normal mood and affect 02/01/2017 None Full Exam - General 1994 Integument inspection of skin Location: scalp 02/01/2017 left side - 3 marleny - a bout 1 inch in length Full Exam - General 1994 Constitutional general appearance Development: well developed 08/03/2016 None Full Exam - General 1994 Constitutional general appearance Development: appears stated age 0208/03/2016 None Full Exam - General 1994 Constitutional general appearance Hygiene/Attention to Grooming: good hygiene 08/03/2016 None Full Exam - General 1994 Eyes conjunctiva/eyelids Overall: conjunctiva clear 08/03/2016 None Full Exam - General 1994 Eyes conjunctiva/eyelids Overall: cornea clear 08/03/2016 None Full Exam - General 1994 Eyes conjunctiva/eyelids Overall: eyelids normal 08/03/2016 None Full Exam - General 1994 Eyes pupils and irises Overall: pupils equal, round, reactive to light and accomodation 08/03/2016 None Full Exam - General 1994 Ears/Nose/Throat otoscopic exam Overall: external auditory canals clear 08/03/2016 None Full Exam - General 1994 Ears/Nose/Throat otoscopic exam Overall: tympanic membranes clear 08/03/2016 None Full Exam - General 1994 Ears/Nose/Throat lips/teeth/gingiva Overall: benign lips 08/03/2016 None Full Exam - General 1995 Ears/Nose/Throat lips/teeth/gingiva Overall: normal dentition 08/03/2016 None Full Exam - General 1995 Ears/Nose/Throat oral cavity/pharynx/larynx Overall: oral mucosa clear 08/03/2016 None Full Exam - General 1995 Ears/Nose/Throat oral cavity/pharynx/larynx Overall: oropharyngeal mucosa clear 08/03/2016 None Full Exam - General 1995 Ears/Nose/Throat oral cavity/pharynx/larynx Overall: hypopharynx benign 08/03/2016 None Full Exam - General 1995 Ears/Nose/Throat oral cavity/pharynx/larynx Overall: no masses 08/03/2016 None Full Exam - General 1994 Respiratory auscultation Overall: breath sounds clear bilaterally 08/03/2016 None Full Exam - General 1994 Respiratory respiratory effort/rhythm Overall: no retractions 08/03/2016 None Full Exam - General 1994 Respiratory respiratory effort/rhythm Overall: normal rate 08/03/2016 None Full Exam - General 1994 Cardiovascular extremities Overall: no clubbing 08/03/2016 None Full Exam - General 1994 Cardiovascular auscultation of heart Overall: regular rate 08/03/2016 None Full Exam - General 1994 Cardiovascular auscultation of heart Overall: normal heart sounds 08/03/2016 None Full Exam - General 1994 Abdomen abdominal exam Overall: no tenderness 08/03/2016 None Full Exam - General 1994 Abdomen abdominal exam Overall: normal bowel sounds 08/03/2016 None Full Exam - General 1994 Lymphatic neck nodes Overall: anterior cervical chain benign 08/03/2016 None Full Exam - General 1994 Lymphatic neck nodes Overall: posterior cervical chain benign 08/03/2016 None Full Exam - General 1994 Musculoskeletal spine, ribs and pelvis Overall: spine benign 08/03/2016 None Full Exam - General 1994 Musculoskeletal spine, ribs and pelvis Overall: sacroiliac joint benign 08/03/2016 None Full Exam - General 1994 Musculoskeletal spine, ribs and pelvis Overall: good posture 08/03/2016 None Full Exam - General 1994 Musculoskeletal head and neck Overall: head atraumatic 08/03/2016 None Full Exam - General 1994 Musculoskeletal head and neck Overall: cervical spine benign 08/03/2016 None Full Exam - General 1994 Integument inspection of skin Overall: few scattered moles, no gross abnormalities 08/03/2016 None Full Exam - General 1994 Neurologic deep tendon reflexes Overall: deep tendon reflexes intact 08/03/2016 None Full Exam - General 1994 Neurologic cranial nerves Overall: crainial nerves 2 - 12 grossly intact 08/03/2016 None Full Exam - General 1994 Psychiatric orientation/consciousness Overall: oriented to person, place and time 08/03/2016 None Full Exam - General 1994 Psychiatric mood and affect Overall: normal mood and affect 08/03/2016 None Full Exam - General 1994 Genitourinary cervix Overall: surgically absent 08/03/2016 None Full Exam - General 1994 Genitourinary labia and vagina Overall: normal hair distribution 08/03/2016 None Full Exam - General 1994 Genitourinary labia and vagina Overall: no lesions 08/03/2016 None Full Exam - General 1994 Genitourinary adnexa/parametria Overall: surgically absent 08/03/2016 None Full Exam - General 1994 Chest/Breast breast and axillae palpation Overall: breasts non- tender 08/03/2016 None Full Exam - General 1994 Chest/Breast breast and axillae palpation Overall: axillae non- tender 08/03/2016 None Full Exam - General 1994 Constitutional general appearance Overall: well developed 04/24/2016 None Full Exam - General 1994 Constitutional general appearance Overall: in no acute distress 04/24/2016 None Full Exam - General 1994 Constitutional general appearance Overall: well nourished 04/24/2016 None Full Exam - General 1994 Eyes conjunctiva/eyelids Overall: conjunctiva clear 04/24/2016 None Full Exam - General 1994 Eyes conjunctiva/eyelids Overall: cornea clear 04/24/2016 None Full Exam - General 1994 Eyes conjunctiva/eyelids Overall: eyelids normal 04/24/2016 None Full Exam - General 1994 Ears/Nose/Throat otoscopic exam Overall: external auditory canals clear 04/24/2016 None Full Exam - General 1994 Ears/Nose/Throat lips/teeth/gingiva Overall: benign lips 04/24/2016 None Full Exam - General 1994 Ears/Nose/Throat oral cavity/pharynx/larynx Overall: oral mucosa clear 04/24/2016 None Full Exam - General 1994 Ears/Nose/Throat oral cavity/pharynx/larynx Overall: oropharyngeal mucosa clear 04/24/2016 None Full Exam - General 1994 Ears/Nose/Throat oral cavity/pharynx/larynx Posterior Pharynx: clear post nasal drainage 04/24/2016 None Full Exam - General 1994 Respiratory respiratory effort/rhythm Overall: no retractions 04/24/2016 None Full Exam - General 1994 Respiratory respiratory effort/rhythm Overall: normal rate 04/24/2016 None Full Exam - General 1994 Cardiovascular extremities Overall: no clubbing 04/24/2016 None Full Exam - General 1994 Cardiovascular auscultation of heart Overall: regular rate 04/24/2016 None Full Exam - General 1994 Cardiovascular auscultation of heart Overall: normal heart sounds 04/24/2016 None Full Exam - General 1994 Musculoskeletal gait and station Overall: normal gait 04/24/2016 None Full Exam - General 1994 Musculoskeletal gait and station Overall: normal station 04/24/2016 None Full Exam - General 1994 Integument inspection of skin Overall: no rash, lesions 04/24/2016 None Full Exam - General 1994 Neurologic cranial nerves Overall: crainial nerves 2 - 12 grossly intact 04/24/2016 None Full Exam - General 1994 Psychiatric orientation/consciousness Overall: oriented to person, place and time 04/24/2016 None Full Exam - General 1994 Psychiatric mood and affect Overall: normal mood and affect 04/24/2016 None Full Exam - General 1994 Psychiatric appearance Overall: well-groomed, good eye contact 04/24/2016 None Full Exam - General 1994 Ears/Nose/Throat otoscopic exam Overall: tympanic membranes clear 04/24/2016 None Full Exam - General 1994 Ears/Nose/Throat internal nose Sinus tenderness: right maxillary 04/24/2016 None Full Exam - General 1994 Ears/Nose/Throat internal nose Sinus tenderness: left maxillary 04/24/2016 None Full Exam - General 1994 Respiratory auscultation Overall: breath sounds clear bilaterally 04/24/2016 None Full Exam - General 1994 Constitutional general appearance Overall: well developed 03/28/2016 None Full Exam - General 1994 Constitutional general appearance Overall: in no acute distress 03/28/2016 None Full Exam - General 1994 Constitutional general appearance Overall: well nourished 03/28/2016 None Full Exam - General 1994 Eyes conjunctiva/eyelids Overall: conjunctiva clear 03/28/2016 None Full Exam - General 1994 Eyes conjunctiva/eyelids Overall: cornea clear 03/28/2016 None Full Exam - General 1994 Eyes conjunctiva/eyelids Overall: eyelids normal 03/28/2016 None Full Exam - General 1994 Ears/Nose/Throat otoscopic exam Overall: external auditory canals clear 03/28/2016 None Full Exam - General 1994 Ears/Nose/Throat otoscopic exam Tympanic membrane: air-fluid level 03/28/2016 None Full Exam - General 1994 Ears/Nose/Throat oral cavity/pharynx/larynx Overall: oral mucosa clear 03/28/2016 None Full Exam - General 1994 Ears/Nose/Throat oral cavity/pharynx/larynx Overall: oropharyngeal mucosa clear 03/28/2016 None Full Exam - General 1994 Ears/Nose/Throat oral cavity/pharynx/larynx Overall: no masses 03/28/2016 None Full Exam - General 1994 Respiratory respiratory effort/rhythm Overall: no retractions 03/28/2016 None Full Exam - General 1994 Respiratory respiratory effort/rhythm Overall: normal rate 03/28/2016 None Full Exam - General 1994 Cardiovascular auscultation of heart Overall: regular rate 03/28/2016 None Full Exam - General 1994 Cardiovascular auscultation of heart Overall: normal heart sounds 03/28/2016 None Full Exam - General 1994 Musculoskeletal gait and station Overall: normal gait 03/28/2016 None Full Exam - General 1994 Musculoskeletal gait and station Overall: normal station 03/28/2016 None Full Exam - General 1994 Integument inspection of skin Overall: no rash, lesions 03/28/2016 None Full Exam - General 1994 Psychiatric orientation/consciousness Overall: oriented to person, place and time 03/28/2016 None Full Exam - General 1994 Psychiatric appearance Overall: well-groomed, good eye contact 03/28/2016 None Full Exam - General 1994 Ears/Nose/Throat oral cavity/pharynx/larynx Posterior Pharynx: clear post nasal drainage 03/28/2016 None Full Exam - General 1994 Ears/Nose/Throat lips/teeth/gingiva Overall: benign lips 03/28/2016 None Full Exam - General 1994 Respiratory auscultation Lower lung field: expiratory wheezes 03/28/2016 None Full Exam - General 1994 Respiratory auscultation Lower lung field: diminished 03/28/2016 None Full Exam - General 1994 Cardiovascular extremities Overall: no clubbing 03/28/2016 None Full Exam - General 1994 Neurologic cranial nerves Overall: crainial nerves 2 - 12 grossly intact 03/28/2016 None Full Exam - General 1994 Psychiatric mood and affect Overall: normal mood and affect 03/28/2016 None Full Exam - General 1994 Eyes conjunctiva/eyelids Overall: conjunctiva clear 03/10/2016 None Full Exam - General 1994 Eyes conjunctiva/eyelids Overall: cornea clear 03/10/2016 None Full Exam - General 1994 Eyes conjunctiva/eyelids Overall: eyelids normal 03/10/2016 None Full Exam - General 1994 Ears/Nose/Throat lips/teeth/gingiva Overall: benign lips 03/10/2016 None Full Exam - General 1994 Ears/Nose/Throat lips/teeth/gingiva Overall: normal dentition 03/10/2016 None Full Exam - General 1994 Respiratory respiratory effort/rhythm Overall: no retractions 03/10/2016 None Full Exam - General 1994 Respiratory respiratory effort/rhythm Overall: normal rate 03/10/2016 None Full Exam - General 1994 Cardiovascular extremities Overall: no clubbing 03/10/2016 None Full Exam - General 1994 Musculoskeletal upper extremity ROM - wrist: pain with radial bending 03/10/2016 None Full Exam - General 1994 Musculoskeletal upper extremity ROM - wrist: pain with ulnar bending 03/10/2016 None Full Exam - General 1994 Musculoskeletal spine, ribs and pelvis Overall: good posture 03/10/2016 None Full Exam - General 1994 Musculoskeletal head and neck Overall: head atraumatic 03/10/2016 None Full Exam - General 1994 Neurologic cranial nerves Overall: crainial nerves 2 - 12 grossly intact 03/10/2016 None Full Exam - General 1994 Psychiatric orientation/consciousness Overall: oriented to person, place and time 03/10/2016 None Full Exam - General 1994 Psychiatric mood and affect Overall: normal mood and affect 03/10/2016 None Full Exam - General 1994 Constitutional general appearance Overall: well developed 03/10/2016 None Full Exam - General 1994 Constitutional general appearance Overall: in no acute distress 03/10/2016 None Full Exam - General 1994 Constitutional general appearance Overall: well nourished 03/10/2016 None Full Exam - General 1994 Ears/Nose/Throat oral cavity/pharynx/larynx Overall: oral mucosa clear 03/10/2016 None Full Exam - General 1994 Respiratory auscultation Overall: breath sounds clear bilaterally 03/10/2016 None Full Exam - General 1994 Cardiovascular auscultation of heart Overall: regular rate 03/10/2016 None Full Exam - General 1994 Cardiovascular auscultation of heart Overall: normal heart sounds 03/10/2016 None Full Exam - General 1994 Musculoskeletal gait and station Overall: normal gait 03/10/2016 None Full Exam - General 1994 Musculoskeletal gait and station Overall: normal station 03/10/2016 None Full Exam - General 1994 Psychiatric appearance Overall: well-groomed, good eye contact 03/10/2016 None Full Exam - General 1994 Psychiatric speech Overall: normal quality, no aphasia 03/10/2016 None Full Exam - General 1994 Psychiatric speech Overall: normal quality, quantity, r ate 03/10/2016 None Full Exam - General 1994 Musculoskeletal upper extremity Inspection - wrist: Left _wrist in air cast 03/10/2016 None Full Exam - General 1994 Constitutional general appearance Development: well developed 02/10/2016 None Full Exam - General 1994 Constitutional general appearance Development: appears stated age 0802/10/2016 None Full Exam - General 1994 Constitutional general appearance Hygiene/Attention to Grooming: good hygiene 02/10/2016 None Full Exam - General 1994 Eyes conjunctiva/eyelids Overall: conjunctiva clear 02/10/2016 None Full Exam - General 1994 Eyes conjunctiva/eyelids Overall: cornea clear 02/10/2016 None Full Exam - General 1994 Eyes conjunctiva/eyelids Overall: eyelids normal 02/10/2016 None Full Exam - General 1994 Ears/Nose/Throat lips/teeth/gingiva Overall: benign lips 02/10/2016 None Full Exam - General 1994 Ears/Nose/Throat lips/teeth/gingiva Overall: normal dentition 02/10/2016 None Full Exam - General 1994 Respiratory respiratory effort/rhythm Overall: no retractions 02/10/2016 None Full Exam - General 1994 Respiratory respiratory effort/rhythm Overall: normal rate 02/10/2016 None Full Exam - General 1994 Cardiovascular extremities Overall: no clubbing 02/10/2016 None Full Exam - General 1994 Musculoskeletal spine, ribs and pelvis Overall: good posture 02/10/2016 None Full Exam - General 1994 Psychiatric orientation/consciousness Overall: oriented to person, place and time 02/10/2016 None Full Exam - General 1994 Psychiatric mood and affect Overall: normal mood and affect 02/10/2016 None Full Exam - General 1994 Musculoskeletal upper extremity Inspection - wrist: swelling 02/10/2016 None Full Exam - General 1994 Musculoskeletal upper extremity Palpation - wrist: tender 02/10/2016 None Full Exam - General 1994 Musculoskeletal upper extremity Palpation - wrist: joint swelling 02/10/2016 None Full Exam - General 1994 Musculoskeletal upper extremity ROM - wrist: pain with flexion 02/10/2016 None Full Exam - General 1994 Musculoskeletal upper extremity ROM - wrist: pain with radial bending 02/10/2016 None Full Exam - General 1994 Musculoskeletal upper extremity ROM - wrist: pain with ulnar bending 02/10/2016 None Full Exam - General 1994 Musculoskeletal head and neck Overall: head atraumatic 02/10/2016 None Full Exam - General 1994 Neurologic cranial nerves Overall: crainial nerves 2 - 12 grossly intact 02/10/2016 None Full Exam - General 1994 Constitutional general appearance Development: well developed 01/11/2016 None Full Exam - General 1994 Constitutional general appearance Development: appears stated age 0701/11/2016 None Full Exam - General 1994 Constitutional general appearance Hygiene/Attention to Grooming: good hygiene 01/11/2016 None Full Exam - General 1994 Eyes conjunctiva/eyelids Overall: conjunctiva clear 01/11/2016 None Full Exam - General 1994 Eyes conjunctiva/eyelids Overall: cornea clear 01/11/2016 None Full Exam - General 1994 Eyes conjunctiva/eyelids Overall: eyelids normal 01/11/2016 None Full Exam - General 1994 Eyes pupils and irises Overall: pupils equal, round, reactive to light and accomodation 01/11/2016 None Full Exam - General 1994 Ears/Nose/Throat otoscopic exam Overall: external auditory canals clear 01/11/2016 None Full Exam - General 1994 Ears/Nose/Throat otoscopic exam Overall: tympanic membranes clear 01/11/2016 None Full Exam - General 1994 Ears/Nose/Throat lips/teeth/gingiva Overall: benign lips 01/11/2016 None Full Exam - General 1994 Ears/Nose/Throat lips/teeth/gingiva Overall: normal dentition 01/11/2016 None Full Exam - General 1994 Ears/Nose/Throat oral cavity/pharynx/larynx Overall: oral mucosa clear 01/11/2016 None Full Exam - General 1994 Ears/Nose/Throat oral cavity/pharynx/larynx Overall: oropharyngeal mucosa clear 01/11/2016 None Full Exam - General 1994 Ears/Nose/Throat oral cavity/pharynx/larynx Overall: hypopharynx benign 01/11/2016 None Full Exam - General 1994 Ears/Nose/Throat oral cavity/pharynx/larynx Overall: no masses 01/11/2016 None Full Exam - General 1994 Respiratory auscultation Overall: breath sounds clear bilaterally 01/11/2016 None Full Exam - General 1994 Respiratory respiratory effort/rhythm Overall: no retractions 01/11/2016 None Full Exam - General 1994 Respiratory respiratory effort/rhythm Overall: normal rate 01/11/2016 None Full Exam - General 1994 Cardiovascular extremities Overall: no clubbing 01/11/2016 None Full Exam - General 1994 Cardiovascular auscultation of heart Overall: regular rate 01/11/2016 None Full Exam - General 1994 Cardiovascular auscultation of heart Overall: normal heart sounds 01/11/2016 None Full Exam - General 1994 Abdomen abdominal exam Overall: no tenderness 01/11/2016 None Full Exam - General 1994 Abdomen abdominal exam Overall: normal bowel sounds 01/11/2016 None Full Exam - General 1994 Lymphatic neck nodes Overall: anterior cervical chain benign 01/11/2016 None Full Exam - General 1994 Lymphatic neck nodes Overall: posterior cervical chain benign 01/11/2016 None Full Exam - General 1994 Musculoskeletal spine, ribs and pelvis Overall: spine benign 01/11/2016 None Full Exam - General 1994 Musculoskeletal spine, ribs and pelvis Overall: sacroiliac joint benign 01/11/2016 None Full Exam - General 1994 Musculoskeletal spine, ribs and pelvis Overall: good posture 01/11/2016 None Full Exam - General 1994 Musculoskeletal head and neck Overall: head atraumatic 01/11/2016 None Full Exam - General 1994 Musculoskeletal head and neck Overall: cervical spine benign 01/11/2016 None Full Exam - General 1994 Integument inspection of skin Overall: few scattered moles, dry patches of skin under eyes, in eyebrows, around nose 01/11/2016 None Full Exam - General 1994 Psychiatric orientation/consciousness Overall: oriented to person, place and time 01/11/2016 None Full Exam - General 1994 Psychiatric mood and affect Overall: normal mood and affect 01/11/2016 None Full Exam - General 1994 Constitutional general appearance Overall: well developed 12/16/2015 None Full Exam - General 1994 Constitutional general appearance Overall: in no acute distress 12/16/2015 None Full Exam - General 1994 Constitutional general appearance Overall: well nourished 12/16/2015 None Full Exam - General 1994 Eyes conjunctiva/eyelids Overall: conjunctiva clear 12/16/2015 None Full Exam - General 1994 Eyes conjunctiva/eyelids Overall: cornea clear 12/16/2015 None Full Exam - General 1994 Eyes conjunctiva/eyelids Overall: eyelids normal 12/16/2015 None Full Exam - General 1994 Respiratory respiratory effort/rhythm Overall: no retractions 12/16/2015 None Full Exam - General 1994 Respiratory respiratory effort/rhythm Overall: normal rate 12/16/2015 None Full Exam - General 1994 Musculoskeletal gait and station Overall: normal gait 12/16/2015 None Full Exam - General 1994 Musculoskeletal gait and station Overall: normal station 12/16/2015 None Full Exam - General 1994 Integument inspection of skin Overall: no rash, lesions 12/16/2015 None Full Exam - General 1994 Psychiatric orientation/consciousness Overall: oriented to person, place and time 12/16/2015 None Full Exam - General 1994 Psychiatric appearance Overall: well-groomed, good eye contact 12/16/2015 None Full Exam - General 1994 Ears/Nose/Throat lips/teeth/gingiva Overall: benign lips 12/16/2015 None Full Exam - General 1994 Ears/Nose/Throat lips/teeth/gingiva Overall: normal dentition 12/16/2015 None Full Exam - General 1994 Musculoskeletal spine, ribs and pelvis Sacroiliac joints: tender left sacroiliac joint 12/16/2015 None Full Exam - General 1994 Musculoskeletal spine, ribs and pelvis Spine: tender @ lumbar spine 12/16/2015 None Full Exam - General 1994 Neurologic cranial nerves Overall: crainial nerves 2 - 12 grossly intact 12/16/2015 None Full Exam - General 1994 Psychiatric mood and affect Overall: normal mood and affect 12/16/2015 None Full Exam - General 1994 Constitutional general appearance Overall: well developed 09/30/2015 None Full Exam - General 1994 Constitutional general appearance Overall: in no acute distress 09/30/2015 None Full Exam - General 1994 Constitutional general appearance Overall: well nourished 09/30/2015 None Full Exam - General 1994 Eyes conjunctiva/eyelids Overall: conjunctiva clear 09/30/2015 None Full Exam - General 1994 Eyes conjunctiva/eyelids Overall: cornea clear 09/30/2015 None Full Exam - General 1994 Eyes conjunctiva/eyelids Overall: eyelids normal 09/30/2015 None Full Exam - General 1994 Eyes pupils and irises Overall: pupils equal, round, reactive to light and accomodation 09/30/2015 None Full Exam - General 1994 Ears/Nose/Throat otoscopic exam Overall: external auditory canals clear 09/30/2015 None Full Exam - General 1994 Ears/Nose/Throat internal nose Sinus tenderness: left maxillary 09/30/2015 None Full Exam - General 1994 Ears/Nose/Throat internal nose Sinus tenderness: right maxillary 09/30/2015 None Full Exam - General 1994 Ears/Nose/Throat oral cavity/pharynx/larynx Overall: oral mucosa clear 09/30/2015 None Full Exam - General 1994 Ears/Nose/Throat oral cavity/pharynx/larynx Overall: oropharyngeal mucosa clear 09/30/2015 None Full Exam - General 1994 Ears/Nose/Throat oral cavity/pharynx/larynx Overall: no masses 09/30/2015 None Full Exam - General 1994 Respiratory auscultation Upper lung field: Breath sounds clear 09/30/2015 None Full Exam - General 1994 Respiratory auscultation Lower lung field: diminished 09/30/2015 None Full Exam - General 1994 Respiratory respiratory effort/rhythm Overall: no retractions 09/30/2015 None Full Exam - General 1994 Respiratory respiratory effort/rhythm Overall: normal rate 09/30/2015 None Full Exam - General 1994 Cardiovascular auscultation of heart Overall: regular rate 09/30/2015 None Full Exam - General 1994 Cardiovascular auscultation of heart Overall: normal heart sounds 09/30/2015 None Full Exam - General 1994 Musculoskeletal gait and station Overall: normal gait 09/30/2015 None Full Exam - General 1994 Musculoskeletal gait and station Overall: normal station 09/30/2015 None Full Exam - General 1994 Integument inspection of skin Overall: no rash, lesions 09/30/2015 None Full Exam - General 1994 Psychiatric orientation/consciousness Overall: oriented to person, place and time 09/30/2015 None Full Exam - General 1994 Psychiatric appearance Overall: well-groomed, good eye contact 09/30/2015 None Full Exam - General 1994 Ears/Nose/Throat otoscopic exam Tympanic membrane: erythematous 09/30/2015 None Full Exam - General 1994 Ears/Nose/Throat otoscopic exam Tympanic membrane: air-fluid level 09/30/2015 None Full Exam - General 1994 Ears/Nose/Throat oral cavity/pharynx/larynx Posterior Pharynx: clear post nasal drainage 09/30/2015 None Full Exam - General 1994 Constitutional general appearance Overall: well nourished 08/05/2015 None Full Exam - General 1994 Constitutional general appearance Overall: well developed 08/05/2015 None Full Exam - General 1994 Constitutional general appearance Overall: in no acute distress 08/05/2015 None Full Exam - General 1994 Eyes pupils and irises Overall: pupils equal, round, reactive to light and accomodation 08/05/2015 None Full Exam - General 1994 Eyes conjunctiva/eyelids Overall: conjunctiva clear 08/05/2015 None Full Exam - General 1994 Eyes conjunctiva/eyelids Overall: eyelids normal 08/05/2015 None Full Exam - General 1994 Eyes conjunctiva/eyelids Overall: cornea clear 08/05/2015 None Full Exam - General 1994 Ears/Nose/Throat internal nose Sinus tenderness: left maxillary 08/05/2015 None Full Exam - General 1994 Ears/Nose/Throat internal nose Sinus tenderness: right maxillary 08/05/2015 None Full Exam - General 1994 Ears/Nose/Throat oral cavity/pharynx/larynx Overall: oropharyngeal mucosa clear 08/05/2015 None Full Exam - General 1994 Ears/Nose/Throat oral cavity/pharynx/larynx Overall: no masses 08/05/2015 None Full Exam - General 1994 Ears/Nose/Throat oral cavity/pharynx/larynx Overall: oral mucosa clear 08/05/2015 None Full Exam - General 1994 Ears/Nose/Throat external ear Overall: no masses 08/05/2015 None Full Exam - General 1994 Ears/Nose/Throat external ear Overall: normal appearance 08/05/2015 None Full Exam - General 1994 Ears/Nose/Throat external ear Overall: normal mastoids 08/05/2015 None Full Exam - General 1994 Ears/Nose/Throat otoscopic exam Overall: tympanic membranes clear 08/05/2015 None Full Exam - General 1994 Ears/Nose/Throat otoscopic exam Overall: external auditory canals clear 08/05/2015 None Full Exam - General 1994 Cardiovascular auscultation of heart Overall: regular rate 08/05/2015 None Full Exam - General 1994 Cardiovascular auscultation of heart Overall: normal heart sounds 08/05/2015 None Full Exam - General 1994 Cardiovascular auscultation of heart Overall: no murmurs 08/05/2015 None Full Exam - General 1994 Respiratory respiratory effort/rhythm Overall: normal rate 08/05/2015 None Full Exam - General 1994 Respiratory respiratory effort/rhythm Overall: no retractions 08/05/2015 None Full Exam - General 1994 Respiratory auscultation Lower lung field: diminished 08/05/2015 None Full Exam - General 1994 Respiratory auscultation Upper lung field: Breath sounds clear 08/05/2015 None Full Exam - General 1994 Psychiatric orientation/consciousness Overall: oriented to person, place and time 08/05/2015 None Full Exam - General 1994 Psychiatric mood and affect Mood: happy 08/05/2015 None Full Exam - General 1994 Psychiatric appearance Overall: well-groomed, good eye contact 08/05/2015 None Full Exam - General 1994 Integument inspection of skin Overall: no rash, lesions 08/05/2015 None Full Exam - General 1994 Musculoskeletal gait and station Overall: normal station 08/05/2015 None Full Exam - General 1994 Musculoskeletal gait and station Overall: normal gait 08/05/2015 None Full Exam - General 1994 Constitutional general appearance Development: well developed 08/03/2015 None Full Exam - General 1994 Constitutional general appearance Development: appears stated age 0208/03/2015 None Full Exam - General 1994 Constitutional general appearance Hygiene/Attention to Grooming: good hygiene 08/03/2015 None Full Exam - General 1994 Respiratory auscultation Overall: breath sounds clear bilaterally 08/03/2015 None Full Exam - General 1994 Respiratory respiratory effort/rhythm Overall: no retractions 08/03/2015 None Full Exam - General 1994 Respiratory respiratory effort/rhythm Overall: normal rate 08/03/2015 None Full Exam - General 1994 Cardiovascular extremities Overall: no clubbing 08/03/2015 None Full Exam - General 1994 Cardiovascular auscultation of heart Overall: regular rate 08/03/2015 None Full Exam - General 1994 Cardiovascular auscultation of heart Overall: normal heart sounds 08/03/2015 None Full Exam - General 1994 Integument inspection of skin Dermatitis: erythema 08/03/2015 around nose - improved Full Exam - General 1994 Integument inspection of skin Dermatitis: dryness/flaking 08/03/2015 None Full Exam - General 1994 Neurologic deep tendon reflexes Overall: deep tendon reflexes intact 08/03/2015 None Full Exam - General 1994 Neurologic cranial nerves Overall: crainial nerves 2 - 12 grossly intact 08/03/2015 None Full Exam - General 1994 Psychiatric orientation/consciousness Overall: oriented to person, place and time 08/03/2015 None Full Exam - General 1994 Psychiatric mood and affect Overall: normal mood and affect 08/03/2015 None Full Exam - General 1994 Eyes conjunctiva/eyelids Overall: conjunctiva clear 08/03/2015 None Full Exam - General 1994 Eyes conjunctiva/eyelids Overall: cornea clear 08/03/2015 None Full Exam - General 1994 Eyes conjunctiva/eyelids Overall: eyelids normal 08/03/2015 None Full Exam - General 1994 Eyes pupils and irises Overall: pupils equal, round, reactive to light and accomodation 08/03/2015 None Full Exam - General 1994 Ears/Nose/Throat otoscopic exam Overall: external auditory canals clear 08/03/2015 None Full Exam - General 1994 Ears/Nose/Throat otoscopic exam Overall: tympanic membranes clear 08/03/2015 None Full Exam - General 1994 Ears/Nose/Throat lips/teeth/gingiva Overall: benign lips 08/03/2015 None Full Exam - General 1994 Ears/Nose/Throat lips/teeth/gingiva Overall: normal dentition 08/03/2015 None Full Exam - General 1994 Ears/Nose/Throat oral cavity/pharynx/larynx Overall: oral mucosa clear 08/03/2015 None Full Exam - General 1994 Ears/Nose/Throat oral cavity/pharynx/larynx Overall: oropharyngeal mucosa clear 08/03/2015 None Full Exam - General 1994 Ears/Nose/Throat oral cavity/pharynx/larynx Overall: hypopharynx benign 08/03/2015 None Full Exam - General 1994 Ears/Nose/Throat oral cavity/pharynx/larynx Overall: no masses 08/03/2015 None Full Exam - General 1994 Abdomen abdominal exam Overall: no tenderness 08/03/2015 None Full Exam - General 1994 Abdomen abdominal exam Overall: normal bowel sounds 08/03/2015 None Full Exam - General 1994 Lymphatic neck nodes Overall: anterior cervical chain benign 08/03/2015 None Full Exam - General 1994 Lymphatic neck nodes Overall: posterior cervical chain benign 08/03/2015 None Full Exam - General 1994 Musculoskeletal spine, ribs and pelvis Overall: spine benign 08/03/2015 None Full Exam - General 1994 Musculoskeletal spine, ribs and pelvis Overall: sacroiliac joint benign 08/03/2015 None Full Exam - General 1994 Musculoskeletal spine, ribs and pelvis Overall: good posture 08/03/2015 None Full Exam - General 1994 Musculoskeletal head and neck Overall: head atraumatic 08/03/2015 None Full Exam - General 1994 Musculoskeletal head and neck Overall: cervical spine benign 08/03/2015 None Full Exam - General 1994 Integument inspection of skin Overall: few scattered moles, no gross abnormalities 08/03/2015 None Full Exam - General 1994 Constitutional general appearance Hygiene/Attention to Grooming: normal grooming 08/03/2015 None Full Exam - General 1994 Psychiatric appearance Overall: well-groomed, good eye contact 08/03/2015 None Full Exam - General 1994 Psychiatric speech Overall: normal quality, no aphasia 08/03/2015 None Full Exam - General 1994 Psychiatric speech Overall: normal quality, quantity, r ate 08/03/2015 None Full Exam - General 1994 Psychiatric thought Overall: normal form and content 08/03/2015 None Full Exam - General 1994 Constitutional general appearance Development: well developed 07/13/2015 None Full Exam - General 1994 Constitutional general appearance Development: appears stated age 0107/13/2015 None Full Exam - General 1994 Constitutional general appearance Hygiene/Attention to Grooming: good hygiene 07/13/2015 None Full Exam - General 1994 Respiratory auscultation Overall: breath sounds clear bilaterally 07/13/2015 None Full Exam - General 1994 Respiratory respiratory effort/rhythm Overall: no retractions 07/13/2015 None Full Exam - General 1994 Respiratory respiratory effort/rhythm Overall: normal rate 07/13/2015 None Full Exam - General 1994 Cardiovascular extremities Overall: no clubbing 07/13/2015 None Full Exam - General 1994 Cardiovascular auscultation of heart Overall: regular rate 07/13/2015 None Full Exam - General 1994 Cardiovascular auscultation of heart Overall: normal heart sounds 07/13/2015 None Full Exam - General 1994 Neurologic deep tendon reflexes Overall: deep tendon reflexes intact 07/13/2015 None Full Exam - General 1994 Neurologic cranial nerves Overall: crainial nerves 2 - 12 grossly intact 07/13/2015 None Full Exam - General 1994 Psychiatric orientation/consciousness Overall: oriented to person, place and time 07/13/2015 None Full Exam - General 1994 Psychiatric mood and affect Overall: normal mood and affect 07/13/2015 None Full Exam - General 1994 Integument inspection of skin Dermatitis: dryness/flaking 07/13/2015 None Full Exam - General 1994 Integument inspection of skin Dermatitis: erythema 07/13/2015 around nose Full Exam - General 1994 Constitutional general appearance Development: well developed 06/10/2015 None Full Exam - General 1994 Constitutional general appearance Development: appears stated age 1206/10/2015 None Full Exam - General 1994 Constitutional general appearance Hygiene/Attention to Grooming: good hygiene 06/10/2015 None Full Exam - General 1994 Eyes conjunctiva/eyelids Overall: conjunctiva clear 06/10/2015 None Full Exam - General 1994 Eyes conjunctiva/eyelids Overall: cornea clear 06/10/2015 None Full Exam - General 1994 Eyes conjunctiva/eyelids Overall: eyelids normal 06/10/2015 None Full Exam - General 1994 Eyes pupils and irises Overall: pupils equal, round, reactive to light and accomodation 06/10/2015 None Full Exam - General 1994 Ears/Nose/Throat otoscopic exam Overall: external auditory canals clear 06/10/2015 None Full Exam - General 1994 Ears/Nose/Throat otoscopic exam Overall: tympanic membranes clear 06/10/2015 None Full Exam - General 1994 Ears/Nose/Throat lips/teeth/gingiva Overall: benign lips 06/10/2015 None Full Exam - General 1994 Ears/Nose/Throat lips/teeth/gingiva Overall: normal dentition 06/10/2015 None Full Exam - General 1994 Ears/Nose/Throat oral cavity/pharynx/larynx Overall: oral mucosa clear 06/10/2015 None Full Exam - General 1994 Ears/Nose/Throat oral cavity/pharynx/larynx Overall: oropharyngeal mucosa clear 06/10/2015 None Full Exam - General 1994 Ears/Nose/Throat oral cavity/pharynx/larynx Overall: hypopharynx benign 06/10/2015 None Full Exam - General 1994 Ears/Nose/Throat oral cavity/pharynx/larynx Overall: no masses 06/10/2015 None Full Exam - General 1994 Respiratory auscultation Overall: breath sounds clear bilaterally 06/10/2015 None Full Exam - General 1994 Respiratory respiratory effort/rhythm Overall: no retractions 06/10/2015 None Full Exam - General 1994 Respiratory respiratory effort/rhythm Overall: normal rate 06/10/2015 None Full Exam - General 1994 Cardiovascular extremities Overall: no clubbing 06/10/2015 None Full Exam - General 1994 Cardiovascular auscultation of heart Overall: regular rate 06/10/2015 None Full Exam - General 1994 Cardiovascular auscultation of heart Overall: normal heart sounds 06/10/2015 None Full Exam - General 1994 Abdomen abdominal exam Overall: no tenderness 06/10/2015 None Full Exam - General 1994 Abdomen abdominal exam Overall: normal bowel sounds 06/10/2015 None Full Exam - General 1994 Lymphatic neck nodes Overall: anterior cervical chain benign 06/10/2015 None Full Exam - General 1994 Lymphatic neck nodes Overall: posterior cervical chain benign 06/10/2015 None Full Exam - General 1994 Musculoskeletal spine, ribs and pelvis Overall: spine benign 06/10/2015 None Full Exam - General 1994 Musculoskeletal spine, ribs and pelvis Overall: sacroiliac joint benign 06/10/2015 None Full Exam - General 1994 Musculoskeletal spine, ribs and pelvis Overall: good posture 06/10/2015 None Full Exam - General 1994 Musculoskeletal head and neck Overall: head atraumatic 06/10/2015 None Full Exam - General 1994 Musculoskeletal head and neck Overall: cervical spine benign 06/10/2015 None Full Exam - General 1994 Integument inspection of skin Overall: few scattered moles, no gross abnormalities 06/10/2015 None Full Exam - General 1994 Neurologic deep tendon reflexes Overall: deep tendon reflexes intact 06/10/2015 None Full Exam - General 1994 Neurologic cranial nerves Overall: crainial nerves 2 - 12 grossly intact 06/10/2015 None Full Exam - General 1994 Psychiatric orientation/consciousness Overall: oriented to person, place and time 06/10/2015 None Full Exam - General 1994 Psychiatric mood and affect Overall: normal mood and affect 06/10/2015 None Full Exam - General 1994 Constitutional general appearance Development: well developed 03/10/2015 None Full Exam - General 1994 Constitutional general appearance Development: appears stated age 0903/10/2015 None Full Exam - General 1994 Constitutional general appearance Hygiene/Attention to Grooming: good hygiene 03/10/2015 None Full Exam - General 1994 Eyes conjunctiva/eyelids Overall: conjunctiva clear 03/10/2015 None Full Exam - General 1994 Eyes conjunctiva/eyelids Overall: cornea clear 03/10/2015 None Full Exam - General 1994 Eyes conjunctiva/eyelids Overall: eyelids normal 03/10/2015 None Full Exam - General 1994 Eyes pupils and irises Overall: pupils equal, round, reactive to light and accomodation 03/10/2015 None Full Exam - General 1994 Ears/Nose/Throat otoscopic exam Overall: external auditory canals clear 03/10/2015 None Full Exam - General 1994 Ears/Nose/Throat otoscopic exam Overall: tympanic membranes clear 03/10/2015 None Full Exam - General 1994 Ears/Nose/Throat lips/teeth/gingiva Overall: benign lips 03/10/2015 None Full Exam - General 1994 Ears/Nose/Throat lips/teeth/gingiva Overall: normal dentition 03/10/2015 None Full Exam - General 1994 Ears/Nose/Throat oral cavity/pharynx/larynx Overall: oral mucosa clear 03/10/2015 None Full Exam - General 1994 Ears/Nose/Throat oral cavity/pharynx/larynx Overall: oropharyngeal mucosa clear 03/10/2015 None Full Exam - General 1994 Ears/Nose/Throat oral cavity/pharynx/larynx Overall: hypopharynx benign 03/10/2015 None Full Exam - General 1994 Ears/Nose/Throat oral cavity/pharynx/larynx Overall: no masses 03/10/2015 None Full Exam - General 1994 Respiratory auscultation Overall: breath sounds clear bilaterally 03/10/2015 None Full Exam - General 1994 Respiratory respiratory effort/rhythm Overall: no retractions 03/10/2015 None Full Exam - General 1994 Respiratory respiratory effort/rhythm Overall: normal rate 03/10/2015 None Full Exam - General 1994 Cardiovascular extremities Overall: no clubbing 03/10/2015 None Full Exam - General 1994 Cardiovascular auscultation of heart Overall: regular rate 03/10/2015 None Full Exam - General 1994 Cardiovascular auscultation of heart Overall: normal heart sounds 03/10/2015 None Full Exam - General 1994 Abdomen abdominal exam Overall: no tenderness 03/10/2015 None Full Exam - General 1994 Abdomen abdominal exam Overall: normal bowel sounds 03/10/2015 None Full Exam - General 1994 Lymphatic neck nodes Overall: anterior cervical chain benign 03/10/2015 None Full Exam - General 1994 Lymphatic neck nodes Overall: posterior cervical chain benign 03/10/2015 None Full Exam - General 1994 Musculoskeletal spine, ribs and pelvis Overall: spine benign 03/10/2015 None Full Exam - General 1994 Musculoskeletal spine, ribs and pelvis Overall: sacroiliac joint benign 03/10/2015 None Full Exam - General 1994 Musculoskeletal spine, ribs and pelvis Overall: good posture 03/10/2015 None Full Exam - General 1994 Musculoskeletal head and neck Overall: head atraumatic 03/10/2015 None Full Exam - General 1994 Musculoskeletal head and neck Overall: cervical spine benign 03/10/2015 None Full Exam - General 1994 Integument inspection of skin Overall: few scattered moles, no gross abnormalities 03/10/2015 None Full Exam - General 1994 Neurologic deep tendon reflexes Overall: deep tendon reflexes intact 03/10/2015 None Full Exam - General 1994 Neurologic cranial nerves Overall: crainial nerves 2 - 12 grossly intact 03/10/2015 None Full Exam - General 1994 Psychiatric orientation/consciousness Overall: oriented to person, place and time 03/10/2015 None Full Exam - General 1994 Psychiatric mood and affect Overall: normal mood and affect 03/10/2015 None Exam Name System Name It em Name Status Result Effective Dates Notes Full Exam - ENT Constitutional general appearance Overall: well nourished 09/06/2018 None Full Exam - ENT Constitutional general appearance Overall: well developed 09/06/2018 None Full Exam - ENT Constitutional general appearance Overall: in no acute distress 09/06/2018 None Full Exam - ENT Ears/Nose/Throat otoscopic exam Overall: external auditory canals normal 09/06/2018 None Full Exam - ENT Ears/Nose/Throat otoscopic exam Left tympanic membrane: air-fluid le raghavendra 09/06/2018 None Full Exam - ENT Ears/Nose/Throat otoscopic exam Right tympanic membrane: air-fluid level 09/06/2018 None Full Exam - ENT Ears/Nose/Throat lips/teeth/gingiva Overall: benign lips 09/06/2018 None Full Exam - ENT Ears/Nose/Throat oropharynx Overall: oral mucosa clear 09/06/2018 None Full Exam - ENT Ears/Nose/Throat oropharynx Posterior Pharynx: clear post nasal drainage 09/06/2018 None Full Exam - ENT Ears/Nose/Throat oropharynx Posterior Pharynx: erythema 09/06/2018 None Full Exam - ENT Respiratory inspection Overall: no retractions 09/06/2018 None Full Exam - ENT Respiratory inspection Overall: normal rate 01/2019 None Full Exam - ENT Cardiovascular auscultation of heart Rate: normal rate 09/06/2018 None Full Exam - ENT Cardiovascular auscultation of heart Rhythm: regular rhythm 09/06/2018 None Full Exam - ENT Lymphatic palpation of lymph nodes Overall: anterior cervical chain benign 09/06/2018 None Full Exam - ENT Lymphatic palpation of lymph nodes Overall: posterior cervical chain benign 09/06/2018 None Full Exam - ENT Neurologic mood and affect Overall: normal mood 09/06/2018 None Full Exam - ENT Neurologic mood and affect Overall: normal affect 09/06/2018 None Full Exam - ENT Neurologic orientation Overall: oriented to person, place a nd time 09/06/2018 None Full Exam - ENT Respiratory auscultation Diffuse: diminished 09/06/2018 None Full Exam - ENT Respiratory auscultation Right lower lung field: expiratory w heezes 09/06/2018 None Full Exam - General 1994 Constitutional general appearance Development: well developed 08/23/2017 None Full Exam - General 1994 Constitutional general appearance Development: appears stated age 0208/23/2017 None Full Exam - General 1994 Constitutional general appearance Hygiene/Attention to Grooming: good hygiene 08/23/2017 None Full Exam - General 1994 Eyes conjunctiva/eyelids Overall: conjunctiva clear 08/23/2017 None Full Exam - General 1994 Eyes conjunctiva/eyelids Overall: cornea clear 08/23/2017 None Full Exam - General 1994 Eyes conjunctiva/eyelids Overall: eyelids normal 08/23/2017 None Full Exam - General 1994 Eyes pupils and irises Overall: pupils equal, round, reactive to light and accomodation 08/23/2017 None Full Exam - General 1994 Ears/Nose/Throat otoscopic exam Overall: external auditory canals clear 08/23/2017 None Full Exam - General 1994 Ears/Nose/Throat otoscopic exam Overall: tympanic membranes clear 08/23/2017 None Full Exam - General 1994 Ears/Nose/Throat lips/teeth/gingiva Overall: benign lips 08/23/2017 None Full Exam - General 1995 Ears/Nose/Throat lips/teeth/gingiva Overall: normal dentition 08/23/2017 None Full Exam - General 1995 Ears/Nose/Throat oral cavity/pharynx/larynx Overall: oral mucosa clear 08/23/2017 None Full Exam - General 1994 Ears/Nose/Throat oral cavity/pharynx/larynx Overall: oropharyngeal mucosa clear 08/23/2017 None Full Exam - General 1995 Ears/Nose/Throat oral cavity/pharynx/larynx Overall: hypopharynx benign 08/23/2017 None Full Exam - General 1994 Ears/Nose/Throat oral cavity/pharynx/larynx Overall: no masses 08/23/2017 None Full Exam - General 1994 Respiratory auscultation Overall: breath sounds clear bilaterally 08/23/2017 None Full Exam - General 1994 Respiratory respiratory effort/rhythm Overall: no retractions 08/23/2017 None Full Exam - General 1994 Respiratory respiratory effort/rhythm Overall: normal rate 08/23/2017 None Full Exam - General 1994 Cardiovascular extremities Overall: no clubbing 08/23/2017 None Full Exam - General 1994 Cardiovascular auscultation of heart Overall: regular rate 08/23/2017 None Full Exam - General 1994 Cardiovascular auscultation of heart Overall: normal heart sounds 08/23/2017 None Full Exam - General 1994 Abdomen abdominal exam Overall: no tenderness 08/23/2017 None Full Exam - General 1994 Abdomen abdominal exam Overall: normal bowel sounds 08/23/2017 None Full Exam - General 1994 Lymphatic neck nodes Overall: anterior cervical chain benign 08/23/2017 None Full Exam - General 1994 Lymphatic neck nodes Overall: posterior cervical chain benign 08/23/2017 None Full Exam - General 1994 Musculoskeletal spine, ribs and pelvis Overall: good posture 08/23/2017 None Full Exam - General 1994 Musculoskeletal head and neck Overall: cervical spine benign 08/23/2017 None Full Exam - General 1994 Integument inspection of skin Location: scalp 08/23/2017 left side - 3 marleny - a bout 1 inch in length Full Exam - General 1994 Psychiatric orientation/consciousness Overall: oriented to person, place and time 08/23/2017 None Full Exam - General 1994 Psychiatric mood and affect Overall: normal mood and affect 08/23/2017 None Full Exam - Dermatology Constitutional general appearance Overall: well nourished 02/09/2017 None Full Exam - Dermatology Constitutional general appearance Overall: well developed 02/09/2017 None Full Exam - Dermatology Constitutional general appearance Overall: in no acute distress 02/09/2017 None Full Exam - Dermatology Eyes conjunctiva/eyelids Overall: clear conjunctiva bilaterally 02/09/2017 None Full Exam - Dermatology Eyes conjunctiva/eyelids Overall: normal eyelids 02/09/2017 None Full Exam - Dermatology Ears/Nose/Throat lips/teeth/gingiva Overall: benign lips 02/09/2017 None Full Exam - Dermatology Ears/Nose/Throat oropharynx Overall: clear oral mucosa 02/09/2017 None Full Exam - Dermatology Respiratory respiratory effort/rhythm Overall: no retractions 02/09/2017 None Full Exam - Dermatology Respiratory respiratory effort/rhythm Overall: normal rate 02/09/2017 None Full Exam - Dermatology Integument insp & palp - head/face Location: on the right lower eyelid 02/09/2017 None Full Exam - Dermatology Integument insp & palp - head/face Location: on the left lower eyelid 02/09/2017 None Full Exam - Dermatology Integument insp & palp - head/face Location: on the right nasal ala 02/09/2017 None Full Exam - Dermatology Integument insp & palp - head/face Location: on the right side of the nose 02/09/2017 None Full Exam - Dermatology Integument insp & palp - head/face Color: erythematous 02/09/2017 None Full Exam - Dermatology Psychiatric orientation Overall: oriented to person, place and time 02/09/2017 None Full Exam - Dermatology Psychiatric mood and affect Overall: normal mood and affect 02/09/2017 None Full Exam - General 1994 Constitutional general appearance Development: well developed 02/01/2017 None Full Exam - General 1994 Constitutional general appearance Development: appears stated age 0802/01/2017 None Full Exam - General 1994 Constitutional general appearance Hygiene/Attention to Grooming: good hygiene 02/01/2017 None Full Exam - General 1994 Eyes conjunctiva/eyelids Overall: conjunctiva clear 02/01/2017 None Full Exam - General 1994 Eyes conjunctiva/eyelids Overall: cornea clear 02/01/2017 None Full Exam - General 1994 Eyes conjunctiva/eyelids Overall: eyelids normal 02/01/2017 None Full Exam - General 1994 Eyes pupils and irises Overall: pupils equal, round, reactive to light and accomodation 02/01/2017 None Full Exam - General 1994 Ears/Nose/Throat otoscopic exam Overall: external auditory canals clear 02/01/2017 None Full Exam - General 1994 Ears/Nose/Throat otoscopic exam Overall: tympanic membranes clear 02/01/2017 None Full Exam - General 1994 Ears/Nose/Throat lips/teeth/gingiva Overall: benign lips 02/01/2017 None Full Exam - General 1994 Ears/Nose/Throat lips/teeth/gingiva Overall: normal dentition 02/01/2017 None Full Exam - General 1994 Ears/Nose/Throat oral cavity/pharynx/larynx Overall: oral mucosa clear 02/01/2017 None Full Exam - General 1994 Ears/Nose/Throat oral cavity/pharynx/larynx Overall: oropharyngeal mucosa clear 02/01/2017 None Full Exam - General 1994 Ears/Nose/Throat oral cavity/pharynx/larynx Overall: hypopharynx benign 02/01/2017 None Full Exam - General 1994 Ears/Nose/Throat oral cavity/pharynx/larynx Overall: no masses 02/01/2017 None Full Exam - General 1994 Respiratory auscultation Overall: breath sounds clear bilaterally 02/01/2017 None Full Exam - General 1994 Respiratory respiratory effort/rhythm Overall: no retractions 02/01/2017 None Full Exam - General 1994 Respiratory respiratory effort/rhythm Overall: normal rate 02/01/2017 None Full Exam - General 1994 Cardiovascular extremities Overall: no clubbing 02/01/2017 None Full Exam - General 1994 Cardiovascular auscultation of heart Overall: regular rate 02/01/2017 None Full Exam - General 1994 Cardiovascular auscultation of heart Overall: normal heart sounds 02/01/2017 None Full Exam - General 1994 Abdomen abdominal exam Overall: no tenderness 02/01/2017 None Full Exam - General 1994 Abdomen abdominal exam Overall: normal bowel sounds 02/01/2017 None Full Exam - General 1994 Lymphatic neck nodes Overall: anterior cervical chain benign 02/01/2017 None Full Exam - General 1994 Lymphatic neck nodes Overall: posterior cervical chain benign 02/01/2017 None Full Exam - General 1994 Musculoskeletal spine, ribs and pelvis Overall: good posture 02/01/2017 None Full Exam - General 1994 Musculoskeletal head and neck Overall: cervical spine benign 02/01/2017 None Full Exam - General 1994 Psychiatric orientation/consciousness Overall: oriented to person, place and time 02/01/2017 None Full Exam - General 1994 Psychiatric mood and affect Overall: normal mood and affect 02/01/2017 None Full Exam - General 1994 Integument inspection of skin Location: scalp 02/01/2017 left side - 3 marleny - a bout 1 inch in length Full Exam - General 1994 Constitutional general appearance Development: well developed 08/03/2016 None Full Exam - General 1994 Constitutional general appearance Development: appears stated age 0208/03/2016 None Full Exam - General 1994 Constitutional general appearance Hygiene/Attention to Grooming: good hygiene 08/03/2016 None Full Exam - General 1994 Eyes conjunctiva/eyelids Overall: conjunctiva clear 08/03/2016 None Full Exam - General 1994 Eyes conjunctiva/eyelids Overall: cornea clear 08/03/2016 None Full Exam - General 1994 Eyes conjunctiva/eyelids Overall: eyelids normal 08/03/2016 None Full Exam - General 1994 Eyes pupils and irises Overall: pupils equal, round, reactive to light and accomodation 08/03/2016 None Full Exam - General 1994 Ears/Nose/Throat otoscopic exam Overall: external auditory canals clear 08/03/2016 None Full Exam - General 1994 Ears/Nose/Throat otoscopic exam Overall: tympanic membranes clear 08/03/2016 None Full Exam - General 1994 Ears/Nose/Throat lips/teeth/gingiva Overall: benign lips 08/03/2016 None Full Exam - General 1994 Ears/Nose/Throat lips/teeth/gingiva Overall: normal dentition 08/03/2016 None Full Exam - General 1994 Ears/Nose/Throat oral cavity/pharynx/larynx Overall: oral mucosa clear 08/03/2016 None Full Exam - General 1994 Ears/Nose/Throat oral cavity/pharynx/larynx Overall: oropharyngeal mucosa clear 08/03/2016 None Full Exam - General 1994 Ears/Nose/Throat oral cavity/pharynx/larynx Overall: hypopharynx benign 08/03/2016 None Full Exam - General 1994 Ears/Nose/Throat oral cavity/pharynx/larynx Overall: no masses 08/03/2016 None Full Exam - General 1994 Respiratory auscultation Overall: breath sounds clear bilaterally 08/03/2016 None Full Exam - General 1994 Respiratory respiratory effort/rhythm Overall: no retractions 08/03/2016 None Full Exam - General 1994 Respiratory respiratory effort/rhythm Overall: normal rate 08/03/2016 None Full Exam - General 1994 Cardiovascular extremities Overall: no clubbing 08/03/2016 None Full Exam - General 1994 Cardiovascular auscultation of heart Overall: regular rate 08/03/2016 None Full Exam - General 1994 Cardiovascular auscultation of heart Overall: normal heart sounds 08/03/2016 None Full Exam - General 1994 Abdomen abdominal exam Overall: no tenderness 08/03/2016 None Full Exam - General 1994 Abdomen abdominal exam Overall: normal bowel sounds 08/03/2016 None Full Exam - General 1994 Lymphatic neck nodes Overall: anterior cervical chain benign 08/03/2016 None Full Exam - General 1994 Lymphatic neck nodes Overall: posterior cervical chain benign 08/03/2016 None Full Exam - General 1994 Musculoskeletal spine, ribs and pelvis Overall: spine benign 08/03/2016 None Full Exam - General 1994 Musculoskeletal spine, ribs and pelvis Overall: sacroiliac joint benign 08/03/2016 None Full Exam - General 1994 Musculoskeletal spine, ribs and pelvis Overall: good posture 08/03/2016 None Full Exam - General 1994 Musculoskeletal head and neck Overall: head atraumatic 08/03/2016 None Full Exam - General 1994 Musculoskeletal head and neck Overall: cervical spine benign 08/03/2016 None Full Exam - General 1994 Integument inspection of skin Overall: few scattered moles, no gross abnormalities 08/03/2016 None Full Exam - General 1994 Neurologic deep tendon reflexes Overall: deep tendon reflexes intact 08/03/2016 None Full Exam - General 1994 Neurologic cranial nerves Overall: crainial nerves 2 - 12 grossly intact 08/03/2016 None Full Exam - General 1994 Psychiatric orientation/consciousness Overall: oriented to person, place and time 08/03/2016 None Full Exam - General 1994 Psychiatric mood and affect Overall: normal mood and affect 08/03/2016 None Full Exam - General 1994 Genitourinary cervix Overall: surgically absent 08/03/2016 None Full Exam - General 1994 Genitourinary labia and vagina Overall: normal hair distribution 08/03/2016 None Full Exam - General 1994 Genitourinary labia and vagina Overall: no lesions 08/03/2016 None Full Exam - General 1994 Genitourinary adnexa/parametria Overall: surgically absent 08/03/2016 None Full Exam - General 1994 Chest/Breast breast and axillae palpation Overall: breasts non- tender 08/03/2016 None Full Exam - General 1994 Chest/Breast breast and axillae palpation Overall: axillae non- tender 08/03/2016 None Full Exam - General 1994 Constitutional general appearance Overall: well developed 04/24/2016 None Full Exam - General 1994 Constitutional general appearance Overall: in no acute distress 04/24/2016 None Full Exam - General 1994 Constitutional general appearance Overall: well nourished 04/24/2016 None Full Exam - General 1994 Eyes conjunctiva/eyelids Overall: conjunctiva clear 04/24/2016 None Full Exam - General 1994 Eyes conjunctiva/eyelids Overall: cornea clear 04/24/2016 None Full Exam - General 1994 Eyes conjunctiva/eyelids Overall: eyelids normal 04/24/2016 None Full Exam - General 1994 Ears/Nose/Throat otoscopic exam Overall: external auditory canals clear 04/24/2016 None Full Exam - General 1994 Ears/Nose/Throat lips/teeth/gingiva Overall: benign lips 04/24/2016 None Full Exam - General 1994 Ears/Nose/Throat oral cavity/pharynx/larynx Overall: oral mucosa clear 04/24/2016 None Full Exam - General 1994 Ears/Nose/Throat oral cavity/pharynx/larynx Overall: oropharyngeal mucosa clear 04/24/2016 None Full Exam - General 1994 Ears/Nose/Throat oral cavity/pharynx/larynx Posterior Pharynx: clear post nasal drainage 04/24/2016 None Full Exam - General 1994 Respiratory respiratory effort/rhythm Overall: no retractions 04/24/2016 None Full Exam - General 1994 Respiratory respiratory effort/rhythm Overall: normal rate 04/24/2016 None Full Exam - General 1994 Cardiovascular extremities Overall: no clubbing 04/24/2016 None Full Exam - General 1994 Cardiovascular auscultation of heart Overall: regular rate 04/24/2016 None Full Exam - General 1994 Cardiovascular auscultation of heart Overall: normal heart sounds 04/24/2016 None Full Exam - General 1994 Musculoskeletal gait and station Overall: normal gait 04/24/2016 None Full Exam - General 1994 Musculoskeletal gait and station Overall: normal station 04/24/2016 None Full Exam - General 1994 Integument inspection of skin Overall: no rash, lesions 04/24/2016 None Full Exam - General 1994 Neurologic cranial nerves Overall: crainial nerves 2 - 12 grossly intact 04/24/2016 None Full Exam - General 1994 Psychiatric orientation/consciousness Overall: oriented to person, place and time 04/24/2016 None Full Exam - General 1994 Psychiatric mood and affect Overall: normal mood and affect 04/24/2016 None Full Exam - General 1994 Psychiatric appearance Overall: well-groomed, good eye contact 04/24/2016 None Full Exam - General 1994 Ears/Nose/Throat otoscopic exam Overall: tympanic membranes clear 04/24/2016 None Full Exam - General 1994 Ears/Nose/Throat internal nose Sinus tenderness: right maxillary 04/24/2016 None Full Exam - General 1994 Ears/Nose/Throat internal nose Sinus tenderness: left maxillary 04/24/2016 None Full Exam - General 1994 Respiratory auscultation Overall: breath sounds clear bilaterally 04/24/2016 None Full Exam - General 1994 Constitutional general appearance Overall: well developed 03/28/2016 None Full Exam - General 1994 Constitutional general appearance Overall: in no acute distress 03/28/2016 None Full Exam - General 1994 Constitutional general appearance Overall: well nourished 03/28/2016 None Full Exam - General 1994 Eyes conjunctiva/eyelids Overall: conjunctiva clear 03/28/2016 None Full Exam - General 1994 Eyes conjunctiva/eyelids Overall: cornea clear 03/28/2016 None Full Exam - General 1994 Eyes conjunctiva/eyelids Overall: eyelids normal 03/28/2016 None Full Exam - General 1994 Ears/Nose/Throat otoscopic exam Overall: external auditory canals clear 03/28/2016 None Full Exam - General 1994 Ears/Nose/Throat otoscopic exam Tympanic membrane: air-fluid level 03/28/2016 None Full Exam - General 1994 Ears/Nose/Throat oral cavity/pharynx/larynx Overall: oral mucosa clear 03/28/2016 None Full Exam - General 1994 Ears/Nose/Throat oral cavity/pharynx/larynx Overall: oropharyngeal mucosa clear 03/28/2016 None Full Exam - General 1994 Ears/Nose/Throat oral cavity/pharynx/larynx Overall: no masses 03/28/2016 None Full Exam - General 1994 Respiratory respiratory effort/rhythm Overall: no retractions 03/28/2016 None Full Exam - General 1994 Respiratory respiratory effort/rhythm Overall: normal rate 03/28/2016 None Full Exam - General 1994 Cardiovascular auscultation of heart Overall: regular rate 03/28/2016 None Full Exam - General 1994 Cardiovascular auscultation of heart Overall: normal heart sounds 03/28/2016 None Full Exam - General 1994 Musculoskeletal gait and station Overall: normal gait 03/28/2016 None Full Exam - General 1994 Musculoskeletal gait and station Overall: normal station 03/28/2016 None Full Exam - General 1994 Integument inspection of skin Overall: no rash, lesions 03/28/2016 None Full Exam - General 1994 Psychiatric orientation/consciousness Overall: oriented to person, place and time 03/28/2016 None Full Exam - General 1994 Psychiatric appearance Overall: well-groomed, good eye contact 03/28/2016 None Full Exam - General 1994 Ears/Nose/Throat oral cavity/pharynx/larynx Posterior Pharynx: clear post nasal drainage 03/28/2016 None Full Exam - General 1994 Ears/Nose/Throat lips/teeth/gingiva Overall: benign lips 03/28/2016 None Full Exam - General 1994 Respiratory auscultation Lower lung field: expiratory wheezes 03/28/2016 None Full Exam - General 1994 Respiratory auscultation Lower lung field: diminished 03/28/2016 None Full Exam - General 1994 Cardiovascular extremities Overall: no clubbing 03/28/2016 None Full Exam - General 1994 Neurologic cranial nerves Overall: crainial nerves 2 - 12 grossly intact 03/28/2016 None Full Exam - General 1994 Psychiatric mood and affect Overall: normal mood and affect 03/28/2016 None Full Exam - General 1994 Eyes conjunctiva/eyelids Overall: conjunctiva clear 03/10/2016 None Full Exam - General 1994 Eyes conjunctiva/eyelids Overall: cornea clear 03/10/2016 None Full Exam - General 1994 Eyes conjunctiva/eyelids Overall: eyelids normal 03/10/2016 None Full Exam - General 1994 Ears/Nose/Throat lips/teeth/gingiva Overall: benign lips 03/10/2016 None Full Exam - General 1994 Ears/Nose/Throat lips/teeth/gingiva Overall: normal dentition 03/10/2016 None Full Exam - General 1994 Respiratory respiratory effort/rhythm Overall: no retractions 03/10/2016 None Full Exam - General 1994 Respiratory respiratory effort/rhythm Overall: normal rate 03/10/2016 None Full Exam - General 1994 Cardiovascular extremities Overall: no clubbing 03/10/2016 None Full Exam - General 1994 Musculoskeletal upper extremity ROM - wrist: pain with radial bending 03/10/2016 None Full Exam - General 1994 Musculoskeletal upper extremity ROM - wrist: pain with ulnar bending 03/10/2016 None Full Exam - General 1994 Musculoskeletal spine, ribs and pelvis Overall: good posture 03/10/2016 None Full Exam - General 1994 Musculoskeletal head and neck Overall: head atraumatic 03/10/2016 None Full Exam - General 1994 Neurologic cranial nerves Overall: crainial nerves 2 - 12 grossly intact 03/10/2016 None Full Exam - General 1994 Psychiatric orientation/consciousness Overall: oriented to person, place and time 03/10/2016 None Full Exam - General 1994 Psychiatric mood and affect Overall: normal mood and affect 03/10/2016 None Full Exam - General 1994 Constitutional general appearance Overall: well developed 03/10/2016 None Full Exam - General 1994 Constitutional general appearance Overall: in no acute distress 03/10/2016 None Full Exam - General 1994 Constitutional general appearance Overall: well nourished 03/10/2016 None Full Exam - General 1994 Ears/Nose/Throat oral cavity/pharynx/larynx Overall: oral mucosa clear 03/10/2016 None Full Exam - General 1994 Respiratory auscultation Overall: breath sounds clear bilaterally 03/10/2016 None Full Exam - General 1994 Cardiovascular auscultation of heart Overall: regular rate 03/10/2016 None Full Exam - General 1994 Cardiovascular auscultation of heart Overall: normal heart sounds 03/10/2016 None Full Exam - General 1994 Musculoskeletal gait and station Overall: normal gait 03/10/2016 None Full Exam - General 1994 Musculoskeletal gait and station Overall: normal station 03/10/2016 None Full Exam - General 1994 Psychiatric appearance Overall: well-groomed, good eye contact 03/10/2016 None Full Exam - General 1994 Psychiatric speech Overall: normal quality, no aphasia 03/10/2016 None Full Exam - General 1994 Psychiatric speech Overall: normal quality, quantity, r ate 03/10/2016 None Full Exam - General 1994 Musculoskeletal upper extremity Inspection - wrist: Left _wrist in air cast 03/10/2016 None Full Exam - General 1994 Constitutional general appearance Development: well developed 02/10/2016 None Full Exam - General 1994 Constitutional general appearance Development: appears stated age 0802/10/2016 None Full Exam - General 1994 Constitutional general appearance Hygiene/Attention to Grooming: good hygiene 02/10/2016 None Full Exam - General 1994 Eyes conjunctiva/eyelids Overall: conjunctiva clear 02/10/2016 None Full Exam - General 1994 Eyes conjunctiva/eyelids Overall: cornea clear 02/10/2016 None Full Exam - General 1994 Eyes conjunctiva/eyelids Overall: eyelids normal 02/10/2016 None Full Exam - General 1994 Ears/Nose/Throat lips/teeth/gingiva Overall: benign lips 02/10/2016 None Full Exam - General 1994 Ears/Nose/Throat lips/teeth/gingiva Overall: normal dentition 02/10/2016 None Full Exam - General 1994 Respiratory respiratory effort/rhythm Overall: no retractions 02/10/2016 None Full Exam - General 1994 Respiratory respiratory effort/rhythm Overall: normal rate 02/10/2016 None Full Exam - General 1994 Cardiovascular extremities Overall: no clubbing 02/10/2016 None Full Exam - General 1994 Musculoskeletal spine, ribs and pelvis Overall: good posture 02/10/2016 None Full Exam - General 1994 Psychiatric orientation/consciousness Overall: oriented to person, place and time 02/10/2016 None Full Exam - General 1994 Psychiatric mood and affect Overall: normal mood and affect 02/10/2016 None Full Exam - General 1994 Musculoskeletal upper extremity Inspection - wrist: swelling 02/10/2016 None Full Exam - General 1994 Musculoskeletal upper extremity Palpation - wrist: tender 02/10/2016 None Full Exam - General 1994 Musculoskeletal upper extremity Palpation - wrist: joint swelling 02/10/2016 None Full Exam - General 1994 Musculoskeletal upper extremity ROM - wrist: pain with flexion 02/10/2016 None Full Exam - General 1994 Musculoskeletal upper extremity ROM - wrist: pain with radial bending 02/10/2016 None Full Exam - General 1994 Musculoskeletal upper extremity ROM - wrist: pain with ulnar bending 02/10/2016 None Full Exam - General 1994 Musculoskeletal head and neck Overall: head atraumatic 02/10/2016 None Full Exam - General 1994 Neurologic cranial nerves Overall: crainial nerves 2 - 12 grossly intact 02/10/2016 None Full Exam - General 1994 Constitutional general appearance Development: well developed 01/11/2016 None Full Exam - General 1994 Constitutional general appearance Development: appears stated age 0701/11/2016 None Full Exam - General 1994 Constitutional general appearance Hygiene/Attention to Grooming: good hygiene 01/11/2016 None Full Exam - General 1994 Eyes conjunctiva/eyelids Overall: conjunctiva clear 01/11/2016 None Full Exam - General 1994 Eyes conjunctiva/eyelids Overall: cornea clear 01/11/2016 None Full Exam - General 1994 Eyes conjunctiva/eyelids Overall: eyelids normal 01/11/2016 None Full Exam - General 1994 Eyes pupils and irises Overall: pupils equal, round, reactive to light and accomodation 01/11/2016 None Full Exam - General 1994 Ears/Nose/Throat otoscopic exam Overall: external auditory canals clear 01/11/2016 None Full Exam - General 1994 Ears/Nose/Throat otoscopic exam Overall: tympanic membranes clear 01/11/2016 None Full Exam - General 1994 Ears/Nose/Throat lips/teeth/gingiva Overall: benign lips 01/11/2016 None Full Exam - General 1994 Ears/Nose/Throat lips/teeth/gingiva Overall: normal dentition 01/11/2016 None Full Exam - General 1994 Ears/Nose/Throat oral cavity/pharynx/larynx Overall: oral mucosa clear 01/11/2016 None Full Exam - General 1994 Ears/Nose/Throat oral cavity/pharynx/larynx Overall: oropharyngeal mucosa clear 01/11/2016 None Full Exam - General 1994 Ears/Nose/Throat oral cavity/pharynx/larynx Overall: hypopharynx benign 01/11/2016 None Full Exam - General 1994 Ears/Nose/Throat oral cavity/pharynx/larynx Overall: no masses 01/11/2016 None Full Exam - General 1994 Respiratory auscultation Overall: breath sounds clear bilaterally 01/11/2016 None Full Exam - General 1994 Respiratory respiratory effort/rhythm Overall: no retractions 01/11/2016 None Full Exam - General 1994 Respiratory respiratory effort/rhythm Overall: normal rate 01/11/2016 None Full Exam - General 1994 Cardiovascular extremities Overall: no clubbing 01/11/2016 None Full Exam - General 1994 Cardiovascular auscultation of heart Overall: regular rate 01/11/2016 None Full Exam - General 1994 Cardiovascular auscultation of heart Overall: normal heart sounds 01/11/2016 None Full Exam - General 1994 Abdomen abdominal exam Overall: no tenderness 01/11/2016 None Full Exam - General 1994 Abdomen abdominal exam Overall: normal bowel sounds 01/11/2016 None Full Exam - General 1994 Lymphatic neck nodes Overall: anterior cervical chain benign 01/11/2016 None Full Exam - General 1994 Lymphatic neck nodes Overall: posterior cervical chain benign 01/11/2016 None Full Exam - General 1994 Musculoskeletal spine, ribs and pelvis Overall: spine benign 01/11/2016 None Full Exam - General 1994 Musculoskeletal spine, ribs and pelvis Overall: sacroiliac joint benign 01/11/2016 None Full Exam - General 1994 Musculoskeletal spine, ribs and pelvis Overall: good posture 01/11/2016 None Full Exam - General 1994 Musculoskeletal head and neck Overall: head atraumatic 01/11/2016 None Full Exam - General 1994 Musculoskeletal head and neck Overall: cervical spine benign 01/11/2016 None Full Exam - General 1994 Integument inspection of skin Overall: few scattered moles, dry patches of skin under eyes, in eyebrows, around nose 01/11/2016 None Full Exam - General 1994 Psychiatric orientation/consciousness Overall: oriented to person, place and time 01/11/2016 None Full Exam - General 1994 Psychiatric mood and affect Overall: normal mood and affect 01/11/2016 None Full Exam - General 1994 Constitutional general appearance Overall: well developed 12/16/2015 None Full Exam - General 1994 Constitutional general appearance Overall: in no acute distress 12/16/2015 None Full Exam - General 1994 Constitutional general appearance Overall: well nourished 12/16/2015 None Full Exam - General 1994 Eyes conjunctiva/eyelids Overall: conjunctiva clear 12/16/2015 None Full Exam - General 1994 Eyes conjunctiva/eyelids Overall: cornea clear 12/16/2015 None Full Exam - General 1994 Eyes conjunctiva/eyelids Overall: eyelids normal 12/16/2015 None Full Exam - General 1994 Respiratory respiratory effort/rhythm Overall: no retractions 12/16/2015 None Full Exam - General 1994 Respiratory respiratory effort/rhythm Overall: normal rate 12/16/2015 None Full Exam - General 1994 Musculoskeletal gait and station Overall: normal gait 12/16/2015 None Full Exam - General 1994 Musculoskeletal gait and station Overall: normal station 12/16/2015 None Full Exam - General 1994 Integument inspection of skin Overall: no rash, lesions 12/16/2015 None Full Exam - General 1994 Psychiatric orientation/consciousness Overall: oriented to person, place and time 12/16/2015 None Full Exam - General 1994 Psychiatric appearance Overall: well-groomed, good eye contact 12/16/2015 None Full Exam - General 1994 Ears/Nose/Throat lips/teeth/gingiva Overall: benign lips 12/16/2015 None Full Exam - General 1994 Ears/Nose/Throat lips/teeth/gingiva Overall: normal dentition 12/16/2015 None Full Exam - General 1994 Musculoskeletal spine, ribs and pelvis Sacroiliac joints: tender left sacroiliac joint 12/16/2015 None Full Exam - General 1994 Musculoskeletal spine, ribs and pelvis Spine: tender @ lumbar spine 12/16/2015 None Full Exam - General 1994 Neurologic cranial nerves Overall: crainial nerves 2 - 12 grossly intact 12/16/2015 None Full Exam - General 1994 Psychiatric mood and affect Overall: normal mood and affect 12/16/2015 None Full Exam - General 1994 Constitutional general appearance Overall: well developed 09/30/2015 None Full Exam - General 1994 Constitutional general appearance Overall: in no acute distress 09/30/2015 None Full Exam - General 1994 Constitutional general appearance Overall: well nourished 09/30/2015 None Full Exam - General 1994 Eyes conjunctiva/eyelids Overall: conjunctiva clear 09/30/2015 None Full Exam - General 1994 Eyes conjunctiva/eyelids Overall: cornea clear 09/30/2015 None Full Exam - General 1994 Eyes conjunctiva/eyelids Overall: eyelids normal 09/30/2015 None Full Exam - General 1994 Eyes pupils and irises Overall: pupils equal, round, reactive to light and accomodation 09/30/2015 None Full Exam - General 1994 Ears/Nose/Throat otoscopic exam Overall: external auditory canals clear 09/30/2015 None Full Exam - General 1994 Ears/Nose/Throat internal nose Sinus tenderness: left maxillary 09/30/2015 None Full Exam - General 1994 Ears/Nose/Throat internal nose Sinus tenderness: right maxillary 09/30/2015 None Full Exam - General 1994 Ears/Nose/Throat oral cavity/pharynx/larynx Overall: oral mucosa clear 09/30/2015 None Full Exam - General 1994 Ears/Nose/Throat oral cavity/pharynx/larynx Overall: oropharyngeal mucosa clear 09/30/2015 None Full Exam - General 1994 Ears/Nose/Throat oral cavity/pharynx/larynx Overall: no masses 09/30/2015 None Full Exam - General 1994 Respiratory auscultation Upper lung field: Breath sounds clear 09/30/2015 None Full Exam - General 1994 Respiratory auscultation Lower lung field: diminished 09/30/2015 None Full Exam - General 1994 Respiratory respiratory effort/rhythm Overall: no retractions 09/30/2015 None Full Exam - General 1994 Respiratory respiratory effort/rhythm Overall: normal rate 09/30/2015 None Full Exam - General 1994 Cardiovascular auscultation of heart Overall: regular rate 09/30/2015 None Full Exam - General 1994 Cardiovascular auscultation of heart Overall: normal heart sounds 09/30/2015 None Full Exam - General 1994 Musculoskeletal gait and station Overall: normal gait 09/30/2015 None Full Exam - General 1994 Musculoskeletal gait and station Overall: normal station 09/30/2015 None Full Exam - General 1994 Integument inspection of skin Overall: no rash, lesions 09/30/2015 None Full Exam - General 1994 Psychiatric orientation/consciousness Overall: oriented to person, place and time 09/30/2015 None Full Exam - General 1994 Psychiatric appearance Overall: well-groomed, good eye contact 09/30/2015 None Full Exam - General 1994 Ears/Nose/Throat otoscopic exam Tympanic membrane: erythematous 09/30/2015 None Full Exam - General 1994 Ears/Nose/Throat otoscopic exam Tympanic membrane: air-fluid level 09/30/2015 None Full Exam - General 1994 Ears/Nose/Throat oral cavity/pharynx/larynx Posterior Pharynx: clear post nasal drainage 09/30/2015 None Full Exam - General 1994 Constitutional general appearance Overall: well nourished 08/05/2015 None Full Exam - General 1994 Constitutional general appearance Overall: well developed 08/05/2015 None Full Exam - General 1994 Constitutional general appearance Overall: in no acute distress 08/05/2015 None Full Exam - General 1994 Eyes pupils and irises Overall: pupils equal, round, reactive to light and accomodation 08/05/2015 None Full Exam - General 1994 Eyes conjunctiva/eyelids Overall: conjunctiva clear 08/05/2015 None Full Exam - General 1994 Eyes conjunctiva/eyelids Overall: eyelids normal 08/05/2015 None Full Exam - General 1994 Eyes conjunctiva/eyelids Overall: cornea clear 08/05/2015 None Full Exam - General 1994 Ears/Nose/Throat internal nose Sinus tenderness: left maxillary 08/05/2015 None Full Exam - General 1994 Ears/Nose/Throat internal nose Sinus tenderness: right maxillary 08/05/2015 None Full Exam - General 1994 Ears/Nose/Throat oral cavity/pharynx/larynx Overall: oropharyngeal mucosa clear 08/05/2015 None Full Exam - General 1994 Ears/Nose/Throat oral cavity/pharynx/larynx Overall: no masses 08/05/2015 None Full Exam - General 1994 Ears/Nose/Throat oral cavity/pharynx/larynx Overall: oral mucosa clear 08/05/2015 None Full Exam - General 1994 Ears/Nose/Throat external ear Overall: no masses 08/05/2015 None Full Exam - General 1994 Ears/Nose/Throat external ear Overall: normal appearance 08/05/2015 None Full Exam - General 1994 Ears/Nose/Throat external ear Overall: normal mastoids 08/05/2015 None Full Exam - General 1994 Ears/Nose/Throat otoscopic exam Overall: tympanic membranes clear 08/05/2015 None Full Exam - General 1994 Ears/Nose/Throat otoscopic exam Overall: external auditory canals clear 08/05/2015 None Full Exam - General 1994 Cardiovascular auscultation of heart Overall: regular rate 08/05/2015 None Full Exam - General 1994 Cardiovascular auscultation of heart Overall: normal heart sounds 08/05/2015 None Full Exam - General 1994 Cardiovascular auscultation of heart Overall: no murmurs 08/05/2015 None Full Exam - General 1994 Respiratory respiratory effort/rhythm Overall: normal rate 08/05/2015 None Full Exam - General 1994 Respiratory respiratory effort/rhythm Overall: no retractions 08/05/2015 None Full Exam - General 1994 Respiratory auscultation Lower lung field: diminished 08/05/2015 None Full Exam - General 1994 Respiratory auscultation Upper lung field: Breath sounds clear 08/05/2015 None Full Exam - General 1994 Psychiatric orientation/consciousness Overall: oriented to person, place and time 08/05/2015 None Full Exam - General 1994 Psychiatric mood and affect Mood: happy 08/05/2015 None Full Exam - General 1994 Psychiatric appearance Overall: well-groomed, good eye contact 08/05/2015 None Full Exam - General 1994 Integument inspection of skin Overall: no rash, lesions 08/05/2015 None Full Exam - General 1994 Musculoskeletal gait and station Overall: normal station 08/05/2015 None Full Exam - General 1994 Musculoskeletal gait and station Overall: normal gait 08/05/2015 None Full Exam - General 1994 Constitutional general appearance Development: well developed 08/03/2015 None Full Exam - General 1994 Constitutional general appearance Development: appears stated age 0208/03/2015 None Full Exam - General 1994 Constitutional general appearance Hygiene/Attention to Grooming: good hygiene 08/03/2015 None Full Exam - General 1994 Respiratory auscultation Overall: breath sounds clear bilaterally 08/03/2015 None Full Exam - General 1994 Respiratory respiratory effort/rhythm Overall: no retractions 08/03/2015 None Full Exam - General 1994 Respiratory respiratory effort/rhythm Overall: normal rate 08/03/2015 None Full Exam - General 1994 Cardiovascular extremities Overall: no clubbing 08/03/2015 None Full Exam - General 1994 Cardiovascular auscultation of heart Overall: regular rate 08/03/2015 None Full Exam - General 1994 Cardiovascular auscultation of heart Overall: normal heart sounds 08/03/2015 None Full Exam - General 1994 Integument inspection of skin Dermatitis: erythema 08/03/2015 around nose - improved Full Exam - General 1994 Integument inspection of skin Dermatitis: dryness/flaking 08/03/2015 None Full Exam - General 1994 Neurologic deep tendon reflexes Overall: deep tendon reflexes intact 08/03/2015 None Full Exam - General 1994 Neurologic cranial nerves Overall: crainial nerves 2 - 12 grossly intact 08/03/2015 None Full Exam - General 1994 Psychiatric orientation/consciousness Overall: oriented to person, place and time 08/03/2015 None Full Exam - General 1994 Psychiatric mood and affect Overall: normal mood and affect 08/03/2015 None Full Exam - General 1994 Eyes conjunctiva/eyelids Overall: conjunctiva clear 08/03/2015 None Full Exam - General 1994 Eyes conjunctiva/eyelids Overall: cornea clear 08/03/2015 None Full Exam - General 1994 Eyes conjunctiva/eyelids Overall: eyelids normal 08/03/2015 None Full Exam - General 1994 Eyes pupils and irises Overall: pupils equal, round, reactive to light and accomodation 08/03/2015 None Full Exam - General 1994 Ears/Nose/Throat otoscopic exam Overall: external auditory canals clear 08/03/2015 None Full Exam - General 1994 Ears/Nose/Throat otoscopic exam Overall: tympanic membranes clear 08/03/2015 None Full Exam - General 1994 Ears/Nose/Throat lips/teeth/gingiva Overall: benign lips 08/03/2015 None Full Exam - General 1994 Ears/Nose/Throat lips/teeth/gingiva Overall: normal dentition 08/03/2015 None Full Exam - General 1994 Ears/Nose/Throat oral cavity/pharynx/larynx Overall: oral mucosa clear 08/03/2015 None Full Exam - General 1994 Ears/Nose/Throat oral cavity/pharynx/larynx Overall: oropharyngeal mucosa clear 08/03/2015 None Full Exam - General 1994 Ears/Nose/Throat oral cavity/pharynx/larynx Overall: hypopharynx benign 08/03/2015 None Full Exam - General 1994 Ears/Nose/Throat oral cavity/pharynx/larynx Overall: no masses 08/03/2015 None Full Exam - General 1994 Abdomen abdominal exam Overall: no tenderness 08/03/2015 None Full Exam - General 1994 Abdomen abdominal exam Overall: normal bowel sounds 08/03/2015 None Full Exam - General 1994 Lymphatic neck nodes Overall: anterior cervical chain benign 08/03/2015 None Full Exam - General 1994 Lymphatic neck nodes Overall: posterior cervical chain benign 08/03/2015 None Full Exam - General 1994 Musculoskeletal spine, ribs and pelvis Overall: spine benign 08/03/2015 None Full Exam - General 1994 Musculoskeletal spine, ribs and pelvis Overall: sacroiliac joint benign 08/03/2015 None Full Exam - General 1994 Musculoskeletal spine, ribs and pelvis Overall: good posture 08/03/2015 None Full Exam - General 1994 Musculoskeletal head and neck Overall: head atraumatic 08/03/2015 None Full Exam - General 1994 Musculoskeletal head and neck Overall: cervical spine benign 08/03/2015 None Full Exam - General 1994 Integument inspection of skin Overall: few scattered moles, no gross abnormalities 08/03/2015 None Full Exam - General 1994 Constitutional general appearance Hygiene/Attention to Grooming: normal grooming 08/03/2015 None Full Exam - General 1994 Psychiatric appearance Overall: well-groomed, good eye contact 08/03/2015 None Full Exam - General 1994 Psychiatric speech Overall: normal quality, no aphasia 08/03/2015 None Full Exam - General 1994 Psychiatric speech Overall: normal quality, quantity, r ate 08/03/2015 None Full Exam - General 1994 Psychiatric thought Overall: normal form and content 08/03/2015 None Full Exam - General 1994 Constitutional general appearance Development: well developed 07/13/2015 None Full Exam - General 1994 Constitutional general appearance Development: appears stated age 0107/13/2015 None Full Exam - General 1994 Constitutional general appearance Hygiene/Attention to Grooming: good hygiene 07/13/2015 None Full Exam - General 1994 Respiratory auscultation Overall: breath sounds clear bilaterally 07/13/2015 None Full Exam - General 1994 Respiratory respiratory effort/rhythm Overall: no retractions 07/13/2015 None Full Exam - General 1994 Respiratory respiratory effort/rhythm Overall: normal rate 07/13/2015 None Full Exam - General 1994 Cardiovascular extremities Overall: no clubbing 07/13/2015 None Full Exam - General 1994 Cardiovascular auscultation of heart Overall: regular rate 07/13/2015 None Full Exam - General 1994 Cardiovascular auscultation of heart Overall: normal heart sounds 07/13/2015 None Full Exam - General 1994 Neurologic deep tendon reflexes Overall: deep tendon reflexes intact 07/13/2015 None Full Exam - General 1994 Neurologic cranial nerves Overall: crainial nerves 2 - 12 grossly intact 07/13/2015 None Full Exam - General 1994 Psychiatric orientation/consciousness Overall: oriented to person, place and time 07/13/2015 None Full Exam - General 1994 Psychiatric mood and affect Overall: normal mood and affect 07/13/2015 None Full Exam - General 1994 Integument inspection of skin Dermatitis: dryness/flaking 07/13/2015 None Full Exam - General 1994 Integument inspection of skin Dermatitis: erythema 07/13/2015 around nose Full Exam - General 1994 Constitutional general appearance Development: well developed 06/10/2015 None Full Exam - General 1994 Constitutional general appearance Development: appears stated age 1206/10/2015 None Full Exam - General 1994 Constitutional general appearance Hygiene/Attention to Grooming: good hygiene 06/10/2015 None Full Exam - General 1994 Eyes conjunctiva/eyelids Overall: conjunctiva clear 06/10/2015 None Full Exam - General 1994 Eyes conjunctiva/eyelids Overall: cornea clear 06/10/2015 None Full Exam - General 1994 Eyes conjunctiva/eyelids Overall: eyelids normal 06/10/2015 None Full Exam - General 1994 Eyes pupils and irises Overall: pupils equal, round, reactive to light and accomodation 06/10/2015 None Full Exam - General 1994 Ears/Nose/Throat otoscopic exam Overall: external auditory canals clear 06/10/2015 None Full Exam - General 1994 Ears/Nose/Throat otoscopic exam Overall: tympanic membranes clear 06/10/2015 None Full Exam - General 1994 Ears/Nose/Throat lips/teeth/gingiva Overall: benign lips 06/10/2015 None Full Exam - General 1994 Ears/Nose/Throat lips/teeth/gingiva Overall: normal dentition 06/10/2015 None Full Exam - General 1994 Ears/Nose/Throat oral cavity/pharynx/larynx Overall: oral mucosa clear 06/10/2015 None Full Exam - General 1994 Ears/Nose/Throat oral cavity/pharynx/larynx Overall: oropharyngeal mucosa clear 06/10/2015 None Full Exam - General 1994 Ears/Nose/Throat oral cavity/pharynx/larynx Overall: hypopharynx benign 06/10/2015 None Full Exam - General 1994 Ears/Nose/Throat oral cavity/pharynx/larynx Overall: no masses 06/10/2015 None Full Exam - General 1994 Respiratory auscultation Overall: breath sounds clear bilaterally 06/10/2015 None Full Exam - General 1994 Respiratory respiratory effort/rhythm Overall: no retractions 06/10/2015 None Full Exam - General 1994 Respiratory respiratory effort/rhythm Overall: normal rate 06/10/2015 None Full Exam - General 1994 Cardiovascular extremities Overall: no clubbing 06/10/2015 None Full Exam - General 1994 Cardiovascular auscultation of heart Overall: regular rate 06/10/2015 None Full Exam - General 1994 Cardiovascular auscultation of heart Overall: normal heart sounds 06/10/2015 None Full Exam - General 1994 Abdomen abdominal exam Overall: no tenderness 06/10/2015 None Full Exam - General 1994 Abdomen abdominal exam Overall: normal bowel sounds 06/10/2015 None Full Exam - General 1994 Lymphatic neck nodes Overall: anterior cervical chain benign 06/10/2015 None Full Exam - General 1994 Lymphatic neck nodes Overall: posterior cervical chain benign 06/10/2015 None Full Exam - General 1994 Musculoskeletal spine, ribs and pelvis Overall: spine benign 06/10/2015 None Full Exam - General 1994 Musculoskeletal spine, ribs and pelvis Overall: sacroiliac joint benign 06/10/2015 None Full Exam - General 1994 Musculoskeletal spine, ribs and pelvis Overall: good posture 06/10/2015 None Full Exam - General 1994 Musculoskeletal head and neck Overall: head atraumatic 06/10/2015 None Full Exam - General 1994 Musculoskeletal head and neck Overall: cervical spine benign 06/10/2015 None Full Exam - General 1994 Integument inspection of skin Overall: few scattered moles, no gross abnormalities 06/10/2015 None Full Exam - General 1994 Neurologic deep tendon reflexes Overall: deep tendon reflexes intact 06/10/2015 None Full Exam - General 1994 Neurologic cranial nerves Overall: crainial nerves 2 - 12 grossly intact 06/10/2015 None Full Exam - General 1994 Psychiatric orientation/consciousness Overall: oriented to person, place and time 06/10/2015 None Full Exam - General 1994 Psychiatric mood and affect Overall: normal mood and affect 06/10/2015 None Full Exam - General 1994 Constitutional general appearance Development: well developed 03/10/2015 None Full Exam - General 1994 Constitutional general appearance Development: appears stated age 0903/10/2015 None Full Exam - General 1994 Constitutional general appearance Hygiene/Attention to Grooming: good hygiene 03/10/2015 None Full Exam - General 1994 Eyes conjunctiva/eyelids Overall: conjunctiva clear 03/10/2015 None Full Exam - General 1994 Eyes conjunctiva/eyelids Overall: cornea clear 03/10/2015 None Full Exam - General 1994 Eyes conjunctiva/eyelids Overall: eyelids normal 03/10/2015 None Full Exam - General 1994 Eyes pupils and irises Overall: pupils equal, round, reactive to light and accomodation 03/10/2015 None Full Exam - General 1994 Ears/Nose/Throat otoscopic exam Overall: external auditory canals clear 03/10/2015 None Full Exam - General 1994 Ears/Nose/Throat otoscopic exam Overall: tympanic membranes clear 03/10/2015 None Full Exam - General 1994 Ears/Nose/Throat lips/teeth/gingiva Overall: benign lips 03/10/2015 None Full Exam - General 1994 Ears/Nose/Throat lips/teeth/gingiva Overall: normal dentition 03/10/2015 None Full Exam - General 1995 Ears/Nose/Throat oral cavity/pharynx/larynx Overall: oral mucosa clear 03/10/2015 None Full Exam - General 1995 Ears/Nose/Throat oral cavity/pharynx/larynx Overall: oropharyngeal mucosa clear 03/10/2015 None Full Exam - General 1995 Ears/Nose/Throat oral cavity/pharynx/larynx Overall: hypopharynx benign 03/10/2015 None Full Exam - General 1994 Ears/Nose/Throat oral cavity/pharynx/larynx Overall: no masses 03/10/2015 None Full Exam - General 1994 Respiratory auscultation Overall: breath sounds clear bilaterally 03/10/2015 None Full Exam - General 1994 Respiratory respiratory effort/rhythm Overall: no retractions 03/10/2015 None Full Exam - General 1994 Respiratory respiratory effort/rhythm Overall: normal rate 03/10/2015 None Full Exam - General 1994 Cardiovascular extremities Overall: no clubbing 03/10/2015 None Full Exam - General 1994 Cardiovascular auscultation of heart Overall: regular rate 03/10/2015 None Full Exam - General 1994 Cardiovascular auscultation of heart Overall: normal heart sounds 03/10/2015 None Full Exam - General 1994 Abdomen abdominal exam Overall: no tenderness 03/10/2015 None Full Exam - General 1994 Abdomen abdominal exam Overall: normal bowel sounds 03/10/2015 None Full Exam - General 1994 Lymphatic neck nodes Overall: anterior cervical chain benign 03/10/2015 None Full Exam - General 1994 Lymphatic neck nodes Overall: posterior cervical chain benign 03/10/2015 None Full Exam - General 1994 Musculoskeletal spine, ribs and pelvis Overall: spine benign 03/10/2015 None Full Exam - General 1994 Musculoskeletal spine, ribs and pelvis Overall: sacroiliac joint benign 03/10/2015 None Full Exam - General 1994 Musculoskeletal spine, ribs and pelvis Overall: good posture 03/10/2015 None Full Exam - General 1994 Musculoskeletal head and neck Overall: head atraumatic 03/10/2015 None Full Exam - General 1994 Musculoskeletal head and neck Overall: cervical spine benign 03/10/2015 None Full Exam - General 1994 Integument inspection of skin Overall: few scattered moles, no gross abnormalities 03/10/2015 None Full Exam - General 1994 Neurologic deep tendon reflexes Overall: deep tendon reflexes intact 03/10/2015 None Full Exam - General 1994 Neurologic cranial nerves Overall: crainial nerves 2 - 12 grossly intact 03/10/2015 None Full Exam - General 1994 Psychiatric orientation/consciousness Overall: oriented to person, place and time 03/10/2015 None Full Exam - General 1994 Psychiatric mood and affect Overall: normal mood and affect 03/10/2015 None Exam Name System Name It em Name Status Result Effective Dates Notes Full Exam - General 1994 Constitutional general appearance Development: well developed 02/25/2019 None Full Exam - General 1994 Constitutional general appearance Development: appears stated age 0802/25/2019 None Full Exam - General 1994 Constitutional general appearance Hygiene/Attention to Grooming: good hygiene 02/25/2019 None Full Exam - General 1994 Eyes conjunctiva/eyelids Overall: conjunctiva clear 02/25/2019 None Full Exam - General 1994 Eyes conjunctiva/eyelids Overall: cornea clear 02/25/2019 None Full Exam - General 1994 Eyes conjunctiva/eyelids Overall: eyelids normal 02/25/2019 None Full Exam - General 1994 Eyes pupils and irises Overall: pupils equal, round, reactive to light and accomodation 02/25/2019 None Full Exam - General 1994 Ears/Nose/Throat otoscopic exam Overall: external auditory canals clear 02/25/2019 None Full Exam - General 1994 Ears/Nose/Throat otoscopic exam Overall: tympanic membranes clear 02/25/2019 None Full Exam - General 1995 Ears/Nose/Throat lips/teeth/gingiva Overall: benign lips 02/25/2019 None Full Exam - General 1995 Ears/Nose/Throat lips/teeth/gingiva Overall: normal dentition 02/25/2019 None Full Exam - General 1995 Ears/Nose/Throat oral cavity/pharynx/larynx Overall: oral mucosa clear 02/25/2019 None Full Exam - General 1995 Ears/Nose/Throat oral cavity/pharynx/larynx Overall: oropharyngeal mucosa clear 02/25/2019 None Full Exam - General 1995 Ears/Nose/Throat oral cavity/pharynx/larynx Overall: hypopharynx benign 02/25/2019 None Full Exam - General 1994 Ears/Nose/Throat oral cavity/pharynx/larynx Overall: no masses 02/25/2019 None Full Exam - General 1994 Respiratory auscultation Overall: breath sounds clear bilaterally 02/25/2019 None Full Exam - General 1994 Respiratory respiratory effort/rhythm Overall: no retractions 02/25/2019 None Full Exam - General 1994 Respiratory respiratory effort/rhythm Overall: normal rate 02/25/2019 None Full Exam - General 1994 Cardiovascular extremities Overall: no clubbing 02/25/2019 None Full Exam - General 1994 Cardiovascular auscultation of heart Overall: regular rate 02/25/2019 None Full Exam - General 1994 Cardiovascular auscultation of heart Overall: normal heart sounds 02/25/2019 None Full Exam - General 1994 Abdomen abdominal exam Overall: no tenderness 02/25/2019 None Full Exam - General 1994 Abdomen abdominal exam Overall: normal bowel sounds 02/25/2019 None Full Exam - General 1994 Lymphatic neck nodes Overall: anterior cervical chain benign 02/25/2019 None Full Exam - General 1994 Lymphatic neck nodes Overall: posterior cervical chain benign 02/25/2019 None Full Exam - General 1994 Musculoskeletal spine, ribs and pelvis Overall: good posture 02/25/2019 None Full Exam - General 1994 Musculoskeletal head and neck Overall: cervical spine benign 02/25/2019 None Full Exam - General 1994 Psychiatric orientation/consciousness Overall: oriented to person, place and time 02/25/2019 None Full Exam - General 1994 Psychiatric mood and affect Overall: normal mood and affect 02/25/2019 None Full Exam - Cardiology Cardiovascular extremities Edema present: pitting 02/25/2019 None Full Exam - Cardiology Cardiovascular extremities Edema present: severity 1+ - 4+: 1+ 02/25/2019 None Full Exam - Cardiology Cardiovascular extremities Edema present: to leg 02/25/2019 left foot to mid calf Full Exam - ENT Constitutional general appearance Overall: well nourished 09/06/2018 None Full Exam - ENT Constitutional general appearance Overall: well developed 09/06/2018 None Full Exam - ENT Constitutional general appearance Overall: in no acute distress 09/06/2018 None Full Exam - ENT Ears/Nose/Throat otoscopic exam Overall: external auditory canals normal 09/06/2018 None Full Exam - ENT Ears/Nose/Throat otoscopic exam Left tympanic membrane: air-fluid le raghavendra 09/06/2018 None Full Exam - ENT Ears/Nose/Throat otoscopic exam Right tympanic membrane: air-fluid level 09/06/2018 None Full Exam - ENT Ears/Nose/Throat lips/teeth/gingiva Overall: benign lips 09/06/2018 None Full Exam - ENT Ears/Nose/Throat oropharynx Overall: oral mucosa clear 09/06/2018 None Full Exam - ENT Ears/Nose/Throat oropharynx Posterior Pharynx: clear post nasal drainage 09/06/2018 None Full Exam - ENT Ears/Nose/Throat oropharynx Posterior Pharynx: erythema 09/06/2018 None Full Exam - ENT Respiratory inspection Overall: no retractions 09/06/2018 None Full Exam - ENT Respiratory inspection Overall: normal rate 01/2019 None Full Exam - ENT Cardiovascular auscultation of heart Rate: normal rate 09/06/2018 None Full Exam - ENT Cardiovascular auscultation of heart Rhythm: regular rhythm 09/06/2018 None Full Exam - ENT Lymphatic palpation of lymph nodes Overall: anterior cervical chain benign 09/06/2018 None Full Exam - ENT Lymphatic palpation of lymph nodes Overall: posterior cervical chain benign 09/06/2018 None Full Exam - ENT Neurologic mood and affect Overall: normal mood 09/06/2018 None Full Exam - ENT Neurologic mood and affect Overall: normal affect 09/06/2018 None Full Exam - ENT Neurologic orientation Overall: oriented to person, place a nd time 09/06/2018 None Full Exam - ENT Respiratory auscultation Diffuse: diminished 09/06/2018 None Full Exam - ENT Respiratory auscultation Right lower lung field: expiratory w heezes 09/06/2018 None Full Exam - General 1994 Constitutional general appearance Development: well developed 08/23/2017 None Full Exam - General 1994 Constitutional general appearance Development: appears stated age 0208/23/2017 None Full Exam - General 1994 Constitutional general appearance Hygiene/Attention to Grooming: good hygiene 08/23/2017 None Full Exam - General 1994 Eyes conjunctiva/eyelids Overall: conjunctiva clear 08/23/2017 None Full Exam - General 1994 Eyes conjunctiva/eyelids Overall: cornea clear 08/23/2017 None Full Exam - General 1994 Eyes conjunctiva/eyelids Overall: eyelids normal 08/23/2017 None Full Exam - General 1994 Eyes pupils and irises Overall: pupils equal, round, reactive to light and accomodation 08/23/2017 None Full Exam - General 1994 Ears/Nose/Throat otoscopic exam Overall: external auditory canals clear 08/23/2017 None Full Exam - General 1994 Ears/Nose/Throat otoscopic exam Overall: tympanic membranes clear 08/23/2017 None Full Exam - General 1994 Ears/Nose/Throat lips/teeth/gingiva Overall: benign lips 08/23/2017 None Full Exam - General 1994 Ears/Nose/Throat lips/teeth/gingiva Overall: normal dentition 08/23/2017 None Full Exam - General 1994 Ears/Nose/Throat oral cavity/pharynx/larynx Overall: oral mucosa clear 08/23/2017 None Full Exam - General 1994 Ears/Nose/Throat oral cavity/pharynx/larynx Overall: oropharyngeal mucosa clear 08/23/2017 None Full Exam - General 1994 Ears/Nose/Throat oral cavity/pharynx/larynx Overall: hypopharynx benign 08/23/2017 None Full Exam - General 1994 Ears/Nose/Throat oral cavity/pharynx/larynx Overall: no masses 08/23/2017 None Full Exam - General 1994 Respiratory auscultation Overall: breath sounds clear bilaterally 08/23/2017 None Full Exam - General 1994 Respiratory respiratory effort/rhythm Overall: no retractions 08/23/2017 None Full Exam - General 1994 Respiratory respiratory effort/rhythm Overall: normal rate 08/23/2017 None Full Exam - General 1994 Cardiovascular extremities Overall: no clubbing 08/23/2017 None Full Exam - General 1994 Cardiovascular auscultation of heart Overall: regular rate 08/23/2017 None Full Exam - General 1994 Cardiovascular auscultation of heart Overall: normal heart sounds 08/23/2017 None Full Exam - General 1994 Abdomen abdominal exam Overall: no tenderness 08/23/2017 None Full Exam - General 1994 Abdomen abdominal exam Overall: normal bowel sounds 08/23/2017 None Full Exam - General 1994 Lymphatic neck nodes Overall: anterior cervical chain benign 08/23/2017 None Full Exam - General 1994 Lymphatic neck nodes Overall: posterior cervical chain benign 08/23/2017 None Full Exam - General 1994 Musculoskeletal spine, ribs and pelvis Overall: good posture 08/23/2017 None Full Exam - General 1994 Musculoskeletal head and neck Overall: cervical spine benign 08/23/2017 None Full Exam - General 1994 Integument inspection of skin Location: scalp 08/23/2017 left side - 3 marleny - a bout 1 inch in length Full Exam - General 1994 Psychiatric orientation/consciousness Overall: oriented to person, place and time 08/23/2017 None Full Exam - General 1994 Psychiatric mood and affect Overall: normal mood and affect 08/23/2017 None Full Exam - Dermatology Constitutional general appearance Overall: well nourished 02/09/2017 None Full Exam - Dermatology Constitutional general appearance Overall: well developed 02/09/2017 None Full Exam - Dermatology Constitutional general appearance Overall: in no acute distress 02/09/2017 None Full Exam - Dermatology Eyes conjunctiva/eyelids Overall: clear conjunctiva bilaterally 02/09/2017 None Full Exam - Dermatology Eyes conjunctiva/eyelids Overall: normal eyelids 02/09/2017 None Full Exam - Dermatology Ears/Nose/Throat lips/teeth/gingiva Overall: benign lips 02/09/2017 None Full Exam - Dermatology Ears/Nose/Throat oropharynx Overall: clear oral mucosa 02/09/2017 None Full Exam - Dermatology Respiratory respiratory effort/rhythm Overall: no retractions 02/09/2017 None Full Exam - Dermatology Respiratory respiratory effort/rhythm Overall: normal rate 02/09/2017 None Full Exam - Dermatology Integument insp & palp - head/face Location: on the right lower eyelid 02/09/2017 None Full Exam - Dermatology Integument insp & palp - head/face Location: on the left lower eyelid 02/09/2017 None Full Exam - Dermatology Integument insp & palp - head/face Location: on the right nasal ala 02/09/2017 None Full Exam - Dermatology Integument insp & palp - head/face Location: on the right side of the nose 02/09/2017 None Full Exam - Dermatology Integument insp & palp - head/face Color: erythematous 02/09/2017 None Full Exam - Dermatology Psychiatric orientation Overall: oriented to person, place and time 02/09/2017 None Full Exam - Dermatology Psychiatric mood and affect Overall: normal mood and affect 02/09/2017 None Full Exam - General 1994 Constitutional general appearance Development: well developed 02/01/2017 None Full Exam - General 1994 Constitutional general appearance Development: appears stated age 0802/01/2017 None Full Exam - General 1994 Constitutional general appearance Hygiene/Attention to Grooming: good hygiene 02/01/2017 None Full Exam - General 1994 Eyes conjunctiva/eyelids Overall: conjunctiva clear 02/01/2017 None Full Exam - General 1994 Eyes conjunctiva/eyelids Overall: cornea clear 02/01/2017 None Full Exam - General 1994 Eyes conjunctiva/eyelids Overall: eyelids normal 02/01/2017 None Full Exam - General 1994 Eyes pupils and irises Overall: pupils equal, round, reactive to light and accomodation 02/01/2017 None Full Exam - General 1994 Ears/Nose/Throat otoscopic exam Overall: external auditory canals clear 02/01/2017 None Full Exam - General 1994 Ears/Nose/Throat otoscopic exam Overall: tympanic membranes clear 02/01/2017 None Full Exam - General 1994 Ears/Nose/Throat lips/teeth/gingiva Overall: benign lips 02/01/2017 None Full Exam - General 1994 Ears/Nose/Throat lips/teeth/gingiva Overall: normal dentition 02/01/2017 None Full Exam - General 1994 Ears/Nose/Throat oral cavity/pharynx/larynx Overall: oral mucosa clear 02/01/2017 None Full Exam - General 1994 Ears/Nose/Throat oral cavity/pharynx/larynx Overall: oropharyngeal mucosa clear 02/01/2017 None Full Exam - General 1994 Ears/Nose/Throat oral cavity/pharynx/larynx Overall: hypopharynx benign 02/01/2017 None Full Exam - General 1994 Ears/Nose/Throat oral cavity/pharynx/larynx Overall: no masses 02/01/2017 None Full Exam - General 1994 Respiratory auscultation Overall: breath sounds clear bilaterally 02/01/2017 None Full Exam - General 1994 Respiratory respiratory effort/rhythm Overall: no retractions 02/01/2017 None Full Exam - General 1994 Respiratory respiratory effort/rhythm Overall: normal rate 02/01/2017 None Full Exam - General 1994 Cardiovascular extremities Overall: no clubbing 02/01/2017 None Full Exam - General 1994 Cardiovascular auscultation of heart Overall: regular rate 02/01/2017 None Full Exam - General 1994 Cardiovascular auscultation of heart Overall: normal heart sounds 02/01/2017 None Full Exam - General 1994 Abdomen abdominal exam Overall: no tenderness 02/01/2017 None Full Exam - General 1994 Abdomen abdominal exam Overall: normal bowel sounds 02/01/2017 None Full Exam - General 1994 Lymphatic neck nodes Overall: anterior cervical chain benign 02/01/2017 None Full Exam - General 1994 Lymphatic neck nodes Overall: posterior cervical chain benign 02/01/2017 None Full Exam - General 1994 Musculoskeletal spine, ribs and pelvis Overall: good posture 02/01/2017 None Full Exam - General 1994 Musculoskeletal head and neck Overall: cervical spine benign 02/01/2017 None Full Exam - General 1994 Psychiatric orientation/consciousness Overall: oriented to person, place and time 02/01/2017 None Full Exam - General 1994 Psychiatric mood and affect Overall: normal mood and affect 02/01/2017 None Full Exam - General 1994 Integument inspection of skin Location: scalp 02/01/2017 left side - 3 marleny - a bout 1 inch in length Full Exam - General 1994 Constitutional general appearance Development: well developed 08/03/2016 None Full Exam - General 1994 Constitutional general appearance Development: appears stated age 0208/03/2016 None Full Exam - General 1994 Constitutional general appearance Hygiene/Attention to Grooming: good hygiene 08/03/2016 None Full Exam - General 1994 Eyes conjunctiva/eyelids Overall: conjunctiva clear 08/03/2016 None Full Exam - General 1994 Eyes conjunctiva/eyelids Overall: cornea clear 08/03/2016 None Full Exam - General 1994 Eyes conjunctiva/eyelids Overall: eyelids normal 08/03/2016 None Full Exam - General 1994 Eyes pupils and irises Overall: pupils equal, round, reactive to light and accomodation 08/03/2016 None Full Exam - General 1994 Ears/Nose/Throat otoscopic exam Overall: external auditory canals clear 08/03/2016 None Full Exam - General 1994 Ears/Nose/Throat otoscopic exam Overall: tympanic membranes clear 08/03/2016 None Full Exam - General 1994 Ears/Nose/Throat lips/teeth/gingiva Overall: benign lips 08/03/2016 None Full Exam - General 1994 Ears/Nose/Throat lips/teeth/gingiva Overall: normal dentition 08/03/2016 None Full Exam - General 1994 Ears/Nose/Throat oral cavity/pharynx/larynx Overall: oral mucosa clear 08/03/2016 None Full Exam - General 1994 Ears/Nose/Throat oral cavity/pharynx/larynx Overall: oropharyngeal mucosa clear 08/03/2016 None Full Exam - General 1994 Ears/Nose/Throat oral cavity/pharynx/larynx Overall: hypopharynx benign 08/03/2016 None Full Exam - General 1994 Ears/Nose/Throat oral cavity/pharynx/larynx Overall: no masses 08/03/2016 None Full Exam - General 1994 Respiratory auscultation Overall: breath sounds clear bilaterally 08/03/2016 None Full Exam - General 1994 Respiratory respiratory effort/rhythm Overall: no retractions 08/03/2016 None Full Exam - General 1994 Respiratory respiratory effort/rhythm Overall: normal rate 08/03/2016 None Full Exam - General 1994 Cardiovascular extremities Overall: no clubbing 08/03/2016 None Full Exam - General 1994 Cardiovascular auscultation of heart Overall: regular rate 08/03/2016 None Full Exam - General 1994 Cardiovascular auscultation of heart Overall: normal heart sounds 08/03/2016 None Full Exam - General 1994 Abdomen abdominal exam Overall: no tenderness 08/03/2016 None Full Exam - General 1994 Abdomen abdominal exam Overall: normal bowel sounds 08/03/2016 None Full Exam - General 1994 Lymphatic neck nodes Overall: anterior cervical chain benign 08/03/2016 None Full Exam - General 1994 Lymphatic neck nodes Overall: posterior cervical chain benign 08/03/2016 None Full Exam - General 1994 Musculoskeletal spine, ribs and pelvis Overall: spine benign 08/03/2016 None Full Exam - General 1994 Musculoskeletal spine, ribs and pelvis Overall: sacroiliac joint benign 08/03/2016 None Full Exam - General 1994 Musculoskeletal spine, ribs and pelvis Overall: good posture 08/03/2016 None Full Exam - General 1994 Musculoskeletal head and neck Overall: head atraumatic 08/03/2016 None Full Exam - General 1994 Musculoskeletal head and neck Overall: cervical spine benign 08/03/2016 None Full Exam - General 1994 Integument inspection of skin Overall: few scattered moles, no gross abnormalities 08/03/2016 None Full Exam - General 1994 Neurologic deep tendon reflexes Overall: deep tendon reflexes intact 08/03/2016 None Full Exam - General 1994 Neurologic cranial nerves Overall: crainial nerves 2 - 12 grossly intact 08/03/2016 None Full Exam - General 1994 Psychiatric orientation/consciousness Overall: oriented to person, place and time 08/03/2016 None Full Exam - General 1994 Psychiatric mood and affect Overall: normal mood and affect 08/03/2016 None Full Exam - General 1994 Genitourinary cervix Overall: surgically absent 08/03/2016 None Full Exam - General 1994 Genitourinary labia and vagina Overall: normal hair distribution 08/03/2016 None Full Exam - General 1994 Genitourinary labia and vagina Overall: no lesions 08/03/2016 None Full Exam - General 1994 Genitourinary adnexa/parametria Overall: surgically absent 08/03/2016 None Full Exam - General 1994 Chest/Breast breast and axillae palpation Overall: breasts non- tender 08/03/2016 None Full Exam - General 1994 Chest/Breast breast and axillae palpation Overall: axillae non- tender 08/03/2016 None Full Exam - General 1994 Constitutional general appearance Overall: well developed 04/24/2016 None Full Exam - General 1994 Constitutional general appearance Overall: in no acute distress 04/24/2016 None Full Exam - General 1994 Constitutional general appearance Overall: well nourished 04/24/2016 None Full Exam - General 1994 Eyes conjunctiva/eyelids Overall: conjunctiva clear 04/24/2016 None Full Exam - General 1994 Eyes conjunctiva/eyelids Overall: cornea clear 04/24/2016 None Full Exam - General 1994 Eyes conjunctiva/eyelids Overall: eyelids normal 04/24/2016 None Full Exam - General 1994 Ears/Nose/Throat otoscopic exam Overall: external auditory canals clear 04/24/2016 None Full Exam - General 1994 Ears/Nose/Throat lips/teeth/gingiva Overall: benign lips 04/24/2016 None Full Exam - General 1994 Ears/Nose/Throat oral cavity/pharynx/larynx Overall: oral mucosa clear 04/24/2016 None Full Exam - General 1994 Ears/Nose/Throat oral cavity/pharynx/larynx Overall: oropharyngeal mucosa clear 04/24/2016 None Full Exam - General 1994 Ears/Nose/Throat oral cavity/pharynx/larynx Posterior Pharynx: clear post nasal drainage 04/24/2016 None Full Exam - General 1994 Respiratory respiratory effort/rhythm Overall: no retractions 04/24/2016 None Full Exam - General 1994 Respiratory respiratory effort/rhythm Overall: normal rate 04/24/2016 None Full Exam - General 1994 Cardiovascular extremities Overall: no clubbing 04/24/2016 None Full Exam - General 1994 Cardiovascular auscultation of heart Overall: regular rate 04/24/2016 None Full Exam - General 1994 Cardiovascular auscultation of heart Overall: normal heart sounds 04/24/2016 None Full Exam - General 1994 Musculoskeletal gait and station Overall: normal gait 04/24/2016 None Full Exam - General 1994 Musculoskeletal gait and station Overall: normal station 04/24/2016 None Full Exam - General 1994 Integument inspection of skin Overall: no rash, lesions 04/24/2016 None Full Exam - General 1994 Neurologic cranial nerves Overall: crainial nerves 2 - 12 grossly intact 04/24/2016 None Full Exam - General 1994 Psychiatric orientation/consciousness Overall: oriented to person, place and time 04/24/2016 None Full Exam - General 1994 Psychiatric mood and affect Overall: normal mood and affect 04/24/2016 None Full Exam - General 1994 Psychiatric appearance Overall: well-groomed, good eye contact 04/24/2016 None Full Exam - General 1994 Ears/Nose/Throat otoscopic exam Overall: tympanic membranes clear 04/24/2016 None Full Exam - General 1994 Ears/Nose/Throat internal nose Sinus tenderness: right maxillary 04/24/2016 None Full Exam - General 1994 Ears/Nose/Throat internal nose Sinus tenderness: left maxillary 04/24/2016 None Full Exam - General 1994 Respiratory auscultation Overall: breath sounds clear bilaterally 04/24/2016 None Full Exam - General 1994 Constitutional general appearance Overall: well developed 03/28/2016 None Full Exam - General 1994 Constitutional general appearance Overall: in no acute distress 03/28/2016 None Full Exam - General 1994 Constitutional general appearance Overall: well nourished 03/28/2016 None Full Exam - General 1994 Eyes conjunctiva/eyelids Overall: conjunctiva clear 03/28/2016 None Full Exam - General 1994 Eyes conjunctiva/eyelids Overall: cornea clear 03/28/2016 None Full Exam - General 1994 Eyes conjunctiva/eyelids Overall: eyelids normal 03/28/2016 None Full Exam - General 1994 Ears/Nose/Throat otoscopic exam Overall: external auditory canals clear 03/28/2016 None Full Exam - General 1994 Ears/Nose/Throat otoscopic exam Tympanic membrane: air-fluid level 03/28/2016 None Full Exam - General 1995 Ears/Nose/Throat oral cavity/pharynx/larynx Overall: oral mucosa clear 03/28/2016 None Full Exam - General 1994 Ears/Nose/Throat oral cavity/pharynx/larynx Overall: oropharyngeal mucosa clear 03/28/2016 None Full Exam - General 1995 Ears/Nose/Throat oral cavity/pharynx/larynx Overall: no masses 03/28/2016 None Full Exam - General 1994 Respiratory respiratory effort/rhythm Overall: no retractions 03/28/2016 None Full Exam - General 1994 Respiratory respiratory effort/rhythm Overall: normal rate 03/28/2016 None Full Exam - General 1994 Cardiovascular auscultation of heart Overall: regular rate 03/28/2016 None Full Exam - General 1994 Cardiovascular auscultation of heart Overall: normal heart sounds 03/28/2016 None Full Exam - General 1994 Musculoskeletal gait and station Overall: normal gait 03/28/2016 None Full Exam - General 1994 Musculoskeletal gait and station Overall: normal station 03/28/2016 None Full Exam - General 1994 Integument inspection of skin Overall: no rash, lesions 03/28/2016 None Full Exam - General 1994 Psychiatric orientation/consciousness Overall: oriented to person, place and time 03/28/2016 None Full Exam - General 1994 Psychiatric appearance Overall: well-groomed, good eye contact 03/28/2016 None Full Exam - General 1994 Ears/Nose/Throat oral cavity/pharynx/larynx Posterior Pharynx: clear post nasal drainage 03/28/2016 None Full Exam - General 1994 Ears/Nose/Throat lips/teeth/gingiva Overall: benign lips 03/28/2016 None Full Exam - General 1994 Respiratory auscultation Lower lung field: expiratory wheezes 03/28/2016 None Full Exam - General 1994 Respiratory auscultation Lower lung field: diminished 03/28/2016 None Full Exam - General 1994 Cardiovascular extremities Overall: no clubbing 03/28/2016 None Full Exam - General 1994 Neurologic cranial nerves Overall: crainial nerves 2 - 12 grossly intact 03/28/2016 None Full Exam - General 1994 Psychiatric mood and affect Overall: normal mood and affect 03/28/2016 None Full Exam - General 1994 Eyes conjunctiva/eyelids Overall: conjunctiva clear 03/10/2016 None Full Exam - General 1994 Eyes conjunctiva/eyelids Overall: cornea clear 03/10/2016 None Full Exam - General 1994 Eyes conjunctiva/eyelids Overall: eyelids normal 03/10/2016 None Full Exam - General 1994 Ears/Nose/Throat lips/teeth/gingiva Overall: benign lips 03/10/2016 None Full Exam - General 1995 Ears/Nose/Throat lips/teeth/gingiva Overall: normal dentition 03/10/2016 None Full Exam - General 1994 Respiratory respiratory effort/rhythm Overall: no retractions 03/10/2016 None Full Exam - General 1994 Respiratory respiratory effort/rhythm Overall: normal rate 03/10/2016 None Full Exam - General 1994 Cardiovascular extremities Overall: no clubbing 03/10/2016 None Full Exam - General 1995 Musculoskeletal upper extremity ROM - wrist: pain with radial bending 03/10/2016 None Full Exam - General 1994 Musculoskeletal upper extremity ROM - wrist: pain with ulnar bending 03/10/2016 None Full Exam - General 1994 Musculoskeletal spine, ribs and pelvis Overall: good posture 03/10/2016 None Full Exam - General 1994 Musculoskeletal head and neck Overall: head atraumatic 03/10/2016 None Full Exam - General 1994 Neurologic cranial nerves Overall: crainial nerves 2 - 12 grossly intact 03/10/2016 None Full Exam - General 1994 Psychiatric orientation/consciousness Overall: oriented to person, place and time 03/10/2016 None Full Exam - General 1994 Psychiatric mood and affect Overall: normal mood and affect 03/10/2016 None Full Exam - General 1994 Constitutional general appearance Overall: well developed 03/10/2016 None Full Exam - General 1994 Constitutional general appearance Overall: in no acute distress 03/10/2016 None Full Exam - General 1994 Constitutional general appearance Overall: well nourished 03/10/2016 None Full Exam - General 1994 Ears/Nose/Throat oral cavity/pharynx/larynx Overall: oral mucosa clear 03/10/2016 None Full Exam - General 1994 Respiratory auscultation Overall: breath sounds clear bilaterally 03/10/2016 None Full Exam - General 1994 Cardiovascular auscultation of heart Overall: regular rate 03/10/2016 None Full Exam - General 1994 Cardiovascular auscultation of heart Overall: normal heart sounds 03/10/2016 None Full Exam - General 1994 Musculoskeletal gait and station Overall: normal gait 03/10/2016 None Full Exam - General 1994 Musculoskeletal gait and station Overall: normal station 03/10/2016 None Full Exam - General 1994 Psychiatric appearance Overall: well-groomed, good eye contact 03/10/2016 None Full Exam - General 1994 Psychiatric speech Overall: normal quality, no aphasia 03/10/2016 None Full Exam - General 1994 Psychiatric speech Overall: normal quality, quantity, r ate 03/10/2016 None Full Exam - General 1994 Musculoskeletal upper extremity Inspection - wrist: Left _wrist in air cast 03/10/2016 None Full Exam - General 1994 Constitutional general appearance Development: well developed 02/10/2016 None Full Exam - General 1994 Constitutional general appearance Development: appears stated age 0802/10/2016 None Full Exam - General 1994 Constitutional general appearance Hygiene/Attention to Grooming: good hygiene 02/10/2016 None Full Exam - General 1994 Eyes conjunctiva/eyelids Overall: conjunctiva clear 02/10/2016 None Full Exam - General 1994 Eyes conjunctiva/eyelids Overall: cornea clear 02/10/2016 None Full Exam - General 1994 Eyes conjunctiva/eyelids Overall: eyelids normal 02/10/2016 None Full Exam - General 1994 Ears/Nose/Throat lips/teeth/gingiva Overall: benign lips 02/10/2016 None Full Exam - General 1994 Ears/Nose/Throat lips/teeth/gingiva Overall: normal dentition 02/10/2016 None Full Exam - General 1994 Respiratory respiratory effort/rhythm Overall: no retractions 02/10/2016 None Full Exam - General 1994 Respiratory respiratory effort/rhythm Overall: normal rate 02/10/2016 None Full Exam - General 1994 Cardiovascular extremities Overall: no clubbing 02/10/2016 None Full Exam - General 1994 Musculoskeletal spine, ribs and pelvis Overall: good posture 02/10/2016 None Full Exam - General 1994 Psychiatric orientation/consciousness Overall: oriented to person, place and time 02/10/2016 None Full Exam - General 1994 Psychiatric mood and affect Overall: normal mood and affect 02/10/2016 None Full Exam - General 1994 Musculoskeletal upper extremity Inspection - wrist: swelling 02/10/2016 None Full Exam - General 1994 Musculoskeletal upper extremity Palpation - wrist: tender 02/10/2016 None Full Exam - General 1994 Musculoskeletal upper extremity Palpation - wrist: joint swelling 02/10/2016 None Full Exam - General 1994 Musculoskeletal upper extremity ROM - wrist: pain with flexion 02/10/2016 None Full Exam - General 1994 Musculoskeletal upper extremity ROM - wrist: pain with radial bending 02/10/2016 None Full Exam - General 1994 Musculoskeletal upper extremity ROM - wrist: pain with ulnar bending 02/10/2016 None Full Exam - General 1994 Musculoskeletal head and neck Overall: head atraumatic 02/10/2016 None Full Exam - General 1994 Neurologic cranial nerves Overall: crainial nerves 2 - 12 grossly intact 02/10/2016 None Full Exam - General 1994 Constitutional general appearance Development: well developed 01/11/2016 None Full Exam - General 1994 Constitutional general appearance Development: appears stated age 0701/11/2016 None Full Exam - General 1994 Constitutional general appearance Hygiene/Attention to Grooming: good hygiene 01/11/2016 None Full Exam - General 1994 Eyes conjunctiva/eyelids Overall: conjunctiva clear 01/11/2016 None Full Exam - General 1994 Eyes conjunctiva/eyelids Overall: cornea clear 01/11/2016 None Full Exam - General 1994 Eyes conjunctiva/eyelids Overall: eyelids normal 01/11/2016 None Full Exam - General 1994 Eyes pupils and irises Overall: pupils equal, round, reactive to light and accomodation 01/11/2016 None Full Exam - General 1994 Ears/Nose/Throat otoscopic exam Overall: external auditory canals clear 01/11/2016 None Full Exam - General 1994 Ears/Nose/Throat otoscopic exam Overall: tympanic membranes clear 01/11/2016 None Full Exam - General 1994 Ears/Nose/Throat lips/teeth/gingiva Overall: benign lips 01/11/2016 None Full Exam - General 1994 Ears/Nose/Throat lips/teeth/gingiva Overall: normal dentition 01/11/2016 None Full Exam - General 1994 Ears/Nose/Throat oral cavity/pharynx/larynx Overall: oral mucosa clear 01/11/2016 None Full Exam - General 1994 Ears/Nose/Throat oral cavity/pharynx/larynx Overall: oropharyngeal mucosa clear 01/11/2016 None Full Exam - General 1994 Ears/Nose/Throat oral cavity/pharynx/larynx Overall: hypopharynx benign 01/11/2016 None Full Exam - General 1994 Ears/Nose/Throat oral cavity/pharynx/larynx Overall: no masses 01/11/2016 None Full Exam - General 1994 Respiratory auscultation Overall: breath sounds clear bilaterally 01/11/2016 None Full Exam - General 1994 Respiratory respiratory effort/rhythm Overall: no retractions 01/11/2016 None Full Exam - General 1994 Respiratory respiratory effort/rhythm Overall: normal rate 01/11/2016 None Full Exam - General 1994 Cardiovascular extremities Overall: no clubbing 01/11/2016 None Full Exam - General 1994 Cardiovascular auscultation of heart Overall: regular rate 01/11/2016 None Full Exam - General 1994 Cardiovascular auscultation of heart Overall: normal heart sounds 01/11/2016 None Full Exam - General 1994 Abdomen abdominal exam Overall: no tenderness 01/11/2016 None Full Exam - General 1994 Abdomen abdominal exam Overall: normal bowel sounds 01/11/2016 None Full Exam - General 1994 Lymphatic neck nodes Overall: anterior cervical chain benign 01/11/2016 None Full Exam - General 1994 Lymphatic neck nodes Overall: posterior cervical chain benign 01/11/2016 None Full Exam - General 1994 Musculoskeletal spine, ribs and pelvis Overall: spine benign 01/11/2016 None Full Exam - General 1994 Musculoskeletal spine, ribs and pelvis Overall: sacroiliac joint benign 01/11/2016 None Full Exam - General 1994 Musculoskeletal spine, ribs and pelvis Overall: good posture 01/11/2016 None Full Exam - General 1994 Musculoskeletal head and neck Overall: head atraumatic 01/11/2016 None Full Exam - General 1994 Musculoskeletal head and neck Overall: cervical spine benign 01/11/2016 None Full Exam - General 1994 Integument inspection of skin Overall: few scattered moles, dry patches of skin under eyes, in eyebrows, around nose 01/11/2016 None Full Exam - General 1994 Psychiatric orientation/consciousness Overall: oriented to person, place and time 01/11/2016 None Full Exam - General 1994 Psychiatric mood and affect Overall: normal mood and affect 01/11/2016 None Full Exam - General 1994 Constitutional general appearance Overall: well developed 12/16/2015 None Full Exam - General 1994 Constitutional general appearance Overall: in no acute distress 12/16/2015 None Full Exam - General 1994 Constitutional general appearance Overall: well nourished 12/16/2015 None Full Exam - General 1994 Eyes conjunctiva/eyelids Overall: conjunctiva clear 12/16/2015 None Full Exam - General 1994 Eyes conjunctiva/eyelids Overall: cornea clear 12/16/2015 None Full Exam - General 1994 Eyes conjunctiva/eyelids Overall: eyelids normal 12/16/2015 None Full Exam - General 1994 Respiratory respiratory effort/rhythm Overall: no retractions 12/16/2015 None Full Exam - General 1994 Respiratory respiratory effort/rhythm Overall: normal rate 12/16/2015 None Full Exam - General 1994 Musculoskeletal gait and station Overall: normal gait 12/16/2015 None Full Exam - General 1994 Musculoskeletal gait and station Overall: normal station 12/16/2015 None Full Exam - General 1994 Integument inspection of skin Overall: no rash, lesions 12/16/2015 None Full Exam - General 1994 Psychiatric orientation/consciousness Overall: oriented to person, place and time 12/16/2015 None Full Exam - General 1994 Psychiatric appearance Overall: well-groomed, good eye contact 12/16/2015 None Full Exam - General 1994 Ears/Nose/Throat lips/teeth/gingiva Overall: benign lips 12/16/2015 None Full Exam - General 1994 Ears/Nose/Throat lips/teeth/gingiva Overall: normal dentition 12/16/2015 None Full Exam - General 1994 Musculoskeletal spine, ribs and pelvis Sacroiliac joints: tender left sacroiliac joint 12/16/2015 None Full Exam - General 1994 Musculoskeletal spine, ribs and pelvis Spine: tender @ lumbar spine 12/16/2015 None Full Exam - General 1994 Neurologic cranial nerves Overall: crainial nerves 2 - 12 grossly intact 12/16/2015 None Full Exam - General 1994 Psychiatric mood and affect Overall: normal mood and affect 12/16/2015 None Full Exam - General 1994 Constitutional general appearance Overall: well developed 09/30/2015 None Full Exam - General 1994 Constitutional general appearance Overall: in no acute distress 09/30/2015 None Full Exam - General 1994 Constitutional general appearance Overall: well nourished 09/30/2015 None Full Exam - General 1994 Eyes conjunctiva/eyelids Overall: conjunctiva clear 09/30/2015 None Full Exam - General 1994 Eyes conjunctiva/eyelids Overall: cornea clear 09/30/2015 None Full Exam - General 1994 Eyes conjunctiva/eyelids Overall: eyelids normal 09/30/2015 None Full Exam - General 1994 Eyes pupils and irises Overall: pupils equal, round, reactive to light and accomodation 09/30/2015 None Full Exam - General 1994 Ears/Nose/Throat otoscopic exam Overall: external auditory canals clear 09/30/2015 None Full Exam - General 1994 Ears/Nose/Throat internal nose Sinus tenderness: left maxillary 09/30/2015 None Full Exam - General 1994 Ears/Nose/Throat internal nose Sinus tenderness: right maxillary 09/30/2015 None Full Exam - General 1994 Ears/Nose/Throat oral cavity/pharynx/larynx Overall: oral mucosa clear 09/30/2015 None Full Exam - General 1994 Ears/Nose/Throat oral cavity/pharynx/larynx Overall: oropharyngeal mucosa clear 09/30/2015 None Full Exam - General 1994 Ears/Nose/Throat oral cavity/pharynx/larynx Overall: no masses 09/30/2015 None Full Exam - General 1994 Respiratory auscultation Upper lung field: Breath sounds clear 09/30/2015 None Full Exam - General 1994 Respiratory auscultation Lower lung field: diminished 09/30/2015 None Full Exam - General 1994 Respiratory respiratory effort/rhythm Overall: no retractions 09/30/2015 None Full Exam - General 1994 Respiratory respiratory effort/rhythm Overall: normal rate 09/30/2015 None Full Exam - General 1994 Cardiovascular auscultation of heart Overall: regular rate 09/30/2015 None Full Exam - General 1994 Cardiovascular auscultation of heart Overall: normal heart sounds 09/30/2015 None Full Exam - General 1994 Musculoskeletal gait and station Overall: normal gait 09/30/2015 None Full Exam - General 1994 Musculoskeletal gait and station Overall: normal station 09/30/2015 None Full Exam - General 1994 Integument inspection of skin Overall: no rash, lesions 09/30/2015 None Full Exam - General 1994 Psychiatric orientation/consciousness Overall: oriented to person, place and time 09/30/2015 None Full Exam - General 1994 Psychiatric appearance Overall: well-groomed, good eye contact 09/30/2015 None Full Exam - General 1994 Ears/Nose/Throat otoscopic exam Tympanic membrane: erythematous 09/30/2015 None Full Exam - General 1994 Ears/Nose/Throat otoscopic exam Tympanic membrane: air-fluid level 09/30/2015 None Full Exam - General 1994 Ears/Nose/Throat oral cavity/pharynx/larynx Posterior Pharynx: clear post nasal drainage 09/30/2015 None Full Exam - General 1994 Constitutional general appearance Overall: well nourished 08/05/2015 None Full Exam - General 1994 Constitutional general appearance Overall: well developed 08/05/2015 None Full Exam - General 1994 Constitutional general appearance Overall: in no acute distress 08/05/2015 None Full Exam - General 1994 Eyes pupils and irises Overall: pupils equal, round, reactive to light and accomodation 08/05/2015 None Full Exam - General 1994 Eyes conjunctiva/eyelids Overall: conjunctiva clear 08/05/2015 None Full Exam - General 1994 Eyes conjunctiva/eyelids Overall: eyelids normal 08/05/2015 None Full Exam - General 1994 Eyes conjunctiva/eyelids Overall: cornea clear 08/05/2015 None Full Exam - General 1994 Ears/Nose/Throat internal nose Sinus tenderness: left maxillary 08/05/2015 None Full Exam - General 1994 Ears/Nose/Throat internal nose Sinus tenderness: right maxillary 08/05/2015 None Full Exam - General 1994 Ears/Nose/Throat oral cavity/pharynx/larynx Overall: oropharyngeal mucosa clear 08/05/2015 None Full Exam - General 1994 Ears/Nose/Throat oral cavity/pharynx/larynx Overall: no masses 08/05/2015 None Full Exam - General 1994 Ears/Nose/Throat oral cavity/pharynx/larynx Overall: oral mucosa clear 08/05/2015 None Full Exam - General 1994 Ears/Nose/Throat external ear Overall: no masses 08/05/2015 None Full Exam - General 1994 Ears/Nose/Throat external ear Overall: normal appearance 08/05/2015 None Full Exam - General 1994 Ears/Nose/Throat external ear Overall: normal mastoids 08/05/2015 None Full Exam - General 1994 Ears/Nose/Throat otoscopic exam Overall: tympanic membranes clear 08/05/2015 None Full Exam - General 1994 Ears/Nose/Throat otoscopic exam Overall: external auditory canals clear 08/05/2015 None Full Exam - General 1994 Cardiovascular auscultation of heart Overall: regular rate 08/05/2015 None Full Exam - General 1994 Cardiovascular auscultation of heart Overall: normal heart sounds 08/05/2015 None Full Exam - General 1994 Cardiovascular auscultation of heart Overall: no murmurs 08/05/2015 None Full Exam - General 1994 Respiratory respiratory effort/rhythm Overall: normal rate 08/05/2015 None Full Exam - General 1994 Respiratory respiratory effort/rhythm Overall: no retractions 08/05/2015 None Full Exam - General 1994 Respiratory auscultation Lower lung field: diminished 08/05/2015 None Full Exam - General 1994 Respiratory auscultation Upper lung field: Breath sounds clear 08/05/2015 None Full Exam - General 1994 Psychiatric orientation/consciousness Overall: oriented to person, place and time 08/05/2015 None Full Exam - General 1994 Psychiatric mood and affect Mood: happy 08/05/2015 None Full Exam - General 1994 Psychiatric appearance Overall: well-groomed, good eye contact 08/05/2015 None Full Exam - General 1994 Integument inspection of skin Overall: no rash, lesions 08/05/2015 None Full Exam - General 1994 Musculoskeletal gait and station Overall: normal station 08/05/2015 None Full Exam - General 1994 Musculoskeletal gait and station Overall: normal gait 08/05/2015 None Full Exam - General 1995 Constitutional general appearance Development: well developed 08/03/2015 None Full Exam - General 1994 Constitutional general appearance Development: appears stated age 0208/03/2015 None Full Exam - General 1995 Constitutional general appearance Hygiene/Attention to Grooming: good hygiene 08/03/2015 None Full Exam - General 1994 Respiratory auscultation Overall: breath sounds clear bilaterally 08/03/2015 None Full Exam - General 1994 Respiratory respiratory effort/rhythm Overall: no retractions 08/03/2015 None Full Exam - General 1994 Respiratory respiratory effort/rhythm Overall: normal rate 08/03/2015 None Full Exam - General 1994 Cardiovascular extremities Overall: no clubbing 08/03/2015 None Full Exam - General 1994 Cardiovascular auscultation of heart Overall: regular rate 08/03/2015 None Full Exam - General 1994 Cardiovascular auscultation of heart Overall: normal heart sounds 08/03/2015 None Full Exam - General 1994 Integument inspection of skin Dermatitis: erythema 08/03/2015 around nose - improved Full Exam - General 1994 Integument inspection of skin Dermatitis: dryness/flaking 08/03/2015 None Full Exam - General 1994 Neurologic deep tendon reflexes Overall: deep tendon reflexes intact 08/03/2015 None Full Exam - General 1994 Neurologic cranial nerves Overall: crainial nerves 2 - 12 grossly intact 08/03/2015 None Full Exam - General 1994 Psychiatric orientation/consciousness Overall: oriented to person, place and time 08/03/2015 None Full Exam - General 1994 Psychiatric mood and affect Overall: normal mood and affect 08/03/2015 None Full Exam - General 1994 Eyes conjunctiva/eyelids Overall: conjunctiva clear 08/03/2015 None Full Exam - General 1994 Eyes conjunctiva/eyelids Overall: cornea clear 08/03/2015 None Full Exam - General 1994 Eyes conjunctiva/eyelids Overall: eyelids normal 08/03/2015 None Full Exam - General 1994 Eyes pupils and irises Overall: pupils equal, round, reactive to light and accomodation 08/03/2015 None Full Exam - General 1994 Ears/Nose/Throat otoscopic exam Overall: external auditory canals clear 08/03/2015 None Full Exam - General 1994 Ears/Nose/Throat otoscopic exam Overall: tympanic membranes clear 08/03/2015 None Full Exam - General 1994 Ears/Nose/Throat lips/teeth/gingiva Overall: benign lips 08/03/2015 None Full Exam - General 1994 Ears/Nose/Throat lips/teeth/gingiva Overall: normal dentition 08/03/2015 None Full Exam - General 1994 Ears/Nose/Throat oral cavity/pharynx/larynx Overall: oral mucosa clear 08/03/2015 None Full Exam - General 1994 Ears/Nose/Throat oral cavity/pharynx/larynx Overall: oropharyngeal mucosa clear 08/03/2015 None Full Exam - General 1994 Ears/Nose/Throat oral cavity/pharynx/larynx Overall: hypopharynx benign 08/03/2015 None Full Exam - General 1994 Ears/Nose/Throat oral cavity/pharynx/larynx Overall: no masses 08/03/2015 None Full Exam - General 1994 Abdomen abdominal exam Overall: no tenderness 08/03/2015 None Full Exam - General 1994 Abdomen abdominal exam Overall: normal bowel sounds 08/03/2015 None Full Exam - General 1994 Lymphatic neck nodes Overall: anterior cervical chain benign 08/03/2015 None Full Exam - General 1994 Lymphatic neck nodes Overall: posterior cervical chain benign 08/03/2015 None Full Exam - General 1994 Musculoskeletal spine, ribs and pelvis Overall: spine benign 08/03/2015 None Full Exam - General 1994 Musculoskeletal spine, ribs and pelvis Overall: sacroiliac joint benign 08/03/2015 None Full Exam - General 1994 Musculoskeletal spine, ribs and pelvis Overall: good posture 08/03/2015 None Full Exam - General 1994 Musculoskeletal head and neck Overall: head atraumatic 08/03/2015 None Full Exam - General 1994 Musculoskeletal head and neck Overall: cervical spine benign 08/03/2015 None Full Exam - General 1994 Integument inspection of skin Overall: few scattered moles, no gross abnormalities 08/03/2015 None Full Exam - General 1994 Constitutional general appearance Hygiene/Attention to Grooming: normal grooming 08/03/2015 None Full Exam - General 1994 Psychiatric appearance Overall: well-groomed, good eye contact 08/03/2015 None Full Exam - General 1994 Psychiatric speech Overall: normal quality, no aphasia 08/03/2015 None Full Exam - General 1994 Psychiatric speech Overall: normal quality, quantity, r ate 08/03/2015 None Full Exam - General 1994 Psychiatric thought Overall: normal form and content 08/03/2015 None Full Exam - General 1994 Constitutional general appearance Development: well developed 07/13/2015 None Full Exam - General 1994 Constitutional general appearance Development: appears stated age 0107/13/2015 None Full Exam - General 1994 Constitutional general appearance Hygiene/Attention to Grooming: good hygiene 07/13/2015 None Full Exam - General 1994 Respiratory auscultation Overall: breath sounds clear bilaterally 07/13/2015 None Full Exam - General 1994 Respiratory respiratory effort/rhythm Overall: no retractions 07/13/2015 None Full Exam - General 1994 Respiratory respiratory effort/rhythm Overall: normal rate 07/13/2015 None Full Exam - General 1994 Cardiovascular extremities Overall: no clubbing 07/13/2015 None Full Exam - General 1994 Cardiovascular auscultation of heart Overall: regular rate 07/13/2015 None Full Exam - General 1994 Cardiovascular auscultation of heart Overall: normal heart sounds 07/13/2015 None Full Exam - General 1994 Neurologic deep tendon reflexes Overall: deep tendon reflexes intact 07/13/2015 None Full Exam - General 1994 Neurologic cranial nerves Overall: crainial nerves 2 - 12 grossly intact 07/13/2015 None Full Exam - General 1994 Psychiatric orientation/consciousness Overall: oriented to person, place and time 07/13/2015 None Full Exam - General 1994 Psychiatric mood and affect Overall: normal mood and affect 07/13/2015 None Full Exam - General 1994 Integument inspection of skin Dermatitis: dryness/flaking 07/13/2015 None Full Exam - General 1994 Integument inspection of skin Dermatitis: erythema 07/13/2015 around nose Full Exam - General 1994 Constitutional general appearance Development: well developed 06/10/2015 None Full Exam - General 1994 Constitutional general appearance Development: appears stated age 1206/10/2015 None Full Exam - General 1994 Constitutional general appearance Hygiene/Attention to Grooming: good hygiene 06/10/2015 None Full Exam - General 1994 Eyes conjunctiva/eyelids Overall: conjunctiva clear 06/10/2015 None Full Exam - General 1994 Eyes conjunctiva/eyelids Overall: cornea clear 06/10/2015 None Full Exam - General 1994 Eyes conjunctiva/eyelids Overall: eyelids normal 06/10/2015 None Full Exam - General 1994 Eyes pupils and irises Overall: pupils equal, round, reactive to light and accomodation 06/10/2015 None Full Exam - General 1994 Ears/Nose/Throat otoscopic exam Overall: external auditory canals clear 06/10/2015 None Full Exam - General 1994 Ears/Nose/Throat otoscopic exam Overall: tympanic membranes clear 06/10/2015 None Full Exam - General 1994 Ears/Nose/Throat lips/teeth/gingiva Overall: benign lips 06/10/2015 None Full Exam - General 1994 Ears/Nose/Throat lips/teeth/gingiva Overall: normal dentition 06/10/2015 None Full Exam - General 1994 Ears/Nose/Throat oral cavity/pharynx/larynx Overall: oral mucosa clear 06/10/2015 None Full Exam - General 1994 Ears/Nose/Throat oral cavity/pharynx/larynx Overall: oropharyngeal mucosa clear 06/10/2015 None Full Exam - General 1994 Ears/Nose/Throat oral cavity/pharynx/larynx Overall: hypopharynx benign 06/10/2015 None Full Exam - General 1994 Ears/Nose/Throat oral cavity/pharynx/larynx Overall: no masses 06/10/2015 None Full Exam - General 1994 Respiratory auscultation Overall: breath sounds clear bilaterally 06/10/2015 None Full Exam - General 1994 Respiratory respiratory effort/rhythm Overall: no retractions 06/10/2015 None Full Exam - General 1994 Respiratory respiratory effort/rhythm Overall: normal rate 06/10/2015 None Full Exam - General 1994 Cardiovascular extremities Overall: no clubbing 06/10/2015 None Full Exam - General 1994 Cardiovascular auscultation of heart Overall: regular rate 06/10/2015 None Full Exam - General 1994 Cardiovascular auscultation of heart Overall: normal heart sounds 06/10/2015 None Full Exam - General 1994 Abdomen abdominal exam Overall: no tenderness 06/10/2015 None Full Exam - General 1994 Abdomen abdominal exam Overall: normal bowel sounds 06/10/2015 None Full Exam - General 1994 Lymphatic neck nodes Overall: anterior cervical chain benign 06/10/2015 None Full Exam - General 1994 Lymphatic neck nodes Overall: posterior cervical chain benign 06/10/2015 None Full Exam - General 1994 Musculoskeletal spine, ribs and pelvis Overall: spine benign 06/10/2015 None Full Exam - General 1994 Musculoskeletal spine, ribs and pelvis Overall: sacroiliac joint benign 06/10/2015 None Full Exam - General 1994 Musculoskeletal spine, ribs and pelvis Overall: good posture 06/10/2015 None Full Exam - General 1994 Musculoskeletal head and neck Overall: head atraumatic 06/10/2015 None Full Exam - General 1994 Musculoskeletal head and neck Overall: cervical spine benign 06/10/2015 None Full Exam - General 1994 Integument inspection of skin Overall: few scattered moles, no gross abnormalities 06/10/2015 None Full Exam - General 1994 Neurologic deep tendon reflexes Overall: deep tendon reflexes intact 06/10/2015 None Full Exam - General 1994 Neurologic cranial nerves Overall: crainial nerves 2 - 12 grossly intact 06/10/2015 None Full Exam - General 1994 Psychiatric orientation/consciousness Overall: oriented to person, place and time 06/10/2015 None Full Exam - General 1994 Psychiatric mood and affect Overall: normal mood and affect 06/10/2015 None Full Exam - General 1994 Constitutional general appearance Development: well developed 03/10/2015 None Full Exam - General 1994 Constitutional general appearance Development: appears stated age 0903/10/2015 None Full Exam - General 1994 Constitutional general appearance Hygiene/Attention to Grooming: good hygiene 03/10/2015 None Full Exam - General 1994 Eyes conjunctiva/eyelids Overall: conjunctiva clear 03/10/2015 None Full Exam - General 1994 Eyes conjunctiva/eyelids Overall: cornea clear 03/10/2015 None Full Exam - General 1994 Eyes conjunctiva/eyelids Overall: eyelids normal 03/10/2015 None Full Exam - General 1994 Eyes pupils and irises Overall: pupils equal, round, reactive to light and accomodation 03/10/2015 None Full Exam - General 1994 Ears/Nose/Throat otoscopic exam Overall: external auditory canals clear 03/10/2015 None Full Exam - General 1994 Ears/Nose/Throat otoscopic exam Overall: tympanic membranes clear 03/10/2015 None Full Exam - General 1994 Ears/Nose/Throat lips/teeth/gingiva Overall: benign lips 03/10/2015 None Full Exam - General 1994 Ears/Nose/Throat lips/teeth/gingiva Overall: normal dentition 03/10/2015 None Full Exam - General 1994 Ears/Nose/Throat oral cavity/pharynx/larynx Overall: oral mucosa clear 03/10/2015 None Full Exam - General 1995 Ears/Nose/Throat oral cavity/pharynx/larynx Overall: oropharyngeal mucosa clear 03/10/2015 None Full Exam - General 1994 Ears/Nose/Throat oral cavity/pharynx/larynx Overall: hypopharynx benign 03/10/2015 None Full Exam - General 1994 Ears/Nose/Throat oral cavity/pharynx/larynx Overall: no masses 03/10/2015 None Full Exam - General 1994 Respiratory auscultation Overall: breath sounds clear bilaterally 03/10/2015 None Full Exam - General 1994 Respiratory respiratory effort/rhythm Overall: no retractions 03/10/2015 None Full Exam - General 1994 Respiratory respiratory effort/rhythm Overall: normal rate 03/10/2015 None Full Exam - General 1994 Cardiovascular extremities Overall: no clubbing 03/10/2015 None Full Exam - General 1994 Cardiovascular auscultation of heart Overall: regular rate 03/10/2015 None Full Exam - General 1994 Cardiovascular auscultation of heart Overall: normal heart sounds 03/10/2015 None Full Exam - General 1994 Abdomen abdominal exam Overall: no tenderness 03/10/2015 None Full Exam - General 1994 Abdomen abdominal exam Overall: normal bowel sounds 03/10/2015 None Full Exam - General 1994 Lymphatic neck nodes Overall: anterior cervical chain benign 03/10/2015 None Full Exam - General 1994 Lymphatic neck nodes Overall: posterior cervical chain benign 03/10/2015 None Full Exam - General 1994 Musculoskeletal spine, ribs and pelvis Overall: spine benign 03/10/2015 None Full Exam - General 1994 Musculoskeletal spine, ribs and pelvis Overall: sacroiliac joint benign 03/10/2015 None Full Exam - General 1994 Musculoskeletal spine, ribs and pelvis Overall: good posture 03/10/2015 None Full Exam - General 1994 Musculoskeletal head and neck Overall: head atraumatic 03/10/2015 None Full Exam - General 1994 Musculoskeletal head and neck Overall: cervical spine benign 03/10/2015 None Full Exam - General 1994 Integument inspection of skin Overall: few scattered moles, no gross abnormalities 03/10/2015 None Full Exam - General 1994 Neurologic deep tendon reflexes Overall: deep tendon reflexes intact 03/10/2015 None Full Exam - General 1994 Neurologic cranial nerves Overall: crainial nerves 2 - 12 grossly intact 03/10/2015 None Full Exam - General 1994 Psychiatric orientation/consciousness Overall: oriented to person, place and time 03/10/2015 None Full Exam - General 1994 Psychiatric mood and affect Overall: normal mood and affect 03/10/2015 None Exam Name System Name It em Name Status Result Effective Dates Notes Full Exam - General 1994 Constitutional general appearance Development: well developed 03/06/2019 None Full Exam - General 1994 Constitutional general appearance Development: appears stated age 0903/06/2019 None Full Exam - General 1994 Constitutional general appearance Hygiene/Attention to Grooming: good hygiene 03/06/2019 None Full Exam - General 1994 Eyes conjunctiva/eyelids Overall: conjunctiva clear 03/06/2019 None Full Exam - General 1994 Eyes conjunctiva/eyelids Overall: cornea clear 03/06/2019 None Full Exam - General 1994 Eyes conjunctiva/eyelids Overall: eyelids normal 03/06/2019 None Full Exam - General 1994 Eyes pupils and irises Overall: pupils equal, round, reactive to light and accomodation 03/06/2019 None Full Exam - General 1994 Ears/Nose/Throat otoscopic exam Overall: external auditory canals clear 03/06/2019 None Full Exam - General 1995 Ears/Nose/Throat otoscopic exam Overall: tympanic membranes clear 03/06/2019 None Full Exam - General 1995 Ears/Nose/Throat lips/teeth/gingiva Overall: benign lips 03/06/2019 None Full Exam - General 1995 Ears/Nose/Throat lips/teeth/gingiva Overall: normal dentition 03/06/2019 None Full Exam - General 1995 Ears/Nose/Throat oral cavity/pharynx/larynx Overall: oral mucosa clear 03/06/2019 None Full Exam - General 1995 Ears/Nose/Throat oral cavity/pharynx/larynx Overall: oropharyngeal mucosa clear 03/06/2019 None Full Exam - General 1995 Ears/Nose/Throat oral cavity/pharynx/larynx Overall: hypopharynx benign 03/06/2019 None Full Exam - General 1995 Ears/Nose/Throat oral cavity/pharynx/larynx Overall: no masses 03/06/2019 None Full Exam - Cardiology Cardiovascular extremities Edema present: pitting 03/06/2019 None Full Exam - Cardiology Cardiovascular extremities Edema present: severity 1+ - 4+: 1+ 03/06/2019 None Full Exam - Cardiology Cardiovascular extremities Edema present: to foot only 03/06/2019 None Full Exam - General 1994 Respiratory auscultation Overall: breath sounds clear bilaterally 03/06/2019 None Full Exam - General 1994 Respiratory respiratory effort/rhythm Overall: no retractions 03/06/2019 None Full Exam - General 1994 Respiratory respiratory effort/rhythm Overall: normal rate 03/06/2019 None Full Exam - General 1994 Cardiovascular extremities Overall: no clubbing 03/06/2019 None Full Exam - General 1994 Cardiovascular auscultation of heart Overall: regular rate 03/06/2019 None Full Exam - General 1994 Cardiovascular auscultation of heart Overall: normal heart sounds 03/06/2019 None Full Exam - General 1994 Abdomen abdominal exam Overall: no tenderness 03/06/2019 None Full Exam - General 1994 Abdomen abdominal exam Overall: normal bowel sounds 03/06/2019 None Full Exam - General 1994 Lymphatic neck nodes Overall: anterior cervical chain benign 03/06/2019 None Full Exam - General 1994 Lymphatic neck nodes Overall: posterior cervical chain benign 03/06/2019 None Full Exam - General 1994 Musculoskeletal spine, ribs and pelvis Overall: good posture 03/06/2019 None Full Exam - General 1994 Musculoskeletal head and neck Overall: cervical spine benign 03/06/2019 None Full Exam - General 1994 Psychiatric orientation/consciousness Overall: oriented to person, place and time 03/06/2019 None Full Exam - General 1994 Psychiatric mood and affect Overall: normal mood and affect 03/06/2019 None Full Exam - Cardiology Integument inspection/palpation Location: left foot 03/06/2019 None Full Exam - Cardiology Integument inspection/palpation Dermatitis: excoriation 03/06/2019 None Full Exam - General 1994 Constitutional general appearance Development: well developed 02/25/2019 None Full Exam - General 1994 Constitutional general appearance Development: appears stated age 0802/25/2019 None Full Exam - General 1994 Constitutional general appearance Hygiene/Attention to Grooming: good hygiene 02/25/2019 None Full Exam - General 1994 Eyes conjunctiva/eyelids Overall: conjunctiva clear 02/25/2019 None Full Exam - General 1994 Eyes conjunctiva/eyelids Overall: cornea clear 02/25/2019 None Full Exam - General 1994 Eyes conjunctiva/eyelids Overall: eyelids normal 02/25/2019 None Full Exam - General 1994 Eyes pupils and irises Overall: pupils equal, round, reactive to light and accomodation 02/25/2019 None Full Exam - General 1994 Ears/Nose/Throat otoscopic exam Overall: external auditory canals clear 02/25/2019 None Full Exam - General 1994 Ears/Nose/Throat otoscopic exam Overall: tympanic membranes clear 02/25/2019 None Full Exam - General 1994 Ears/Nose/Throat lips/teeth/gingiva Overall: benign lips 02/25/2019 None Full Exam - General 1994 Ears/Nose/Throat lips/teeth/gingiva Overall: normal dentition 02/25/2019 None Full Exam - General 1994 Ears/Nose/Throat oral cavity/pharynx/larynx Overall: oral mucosa clear 02/25/2019 None Full Exam - General 1994 Ears/Nose/Throat oral cavity/pharynx/larynx Overall: oropharyngeal mucosa clear 02/25/2019 None Full Exam - General 1994 Ears/Nose/Throat oral cavity/pharynx/larynx Overall: hypopharynx benign 02/25/2019 None Full Exam - General 1994 Ears/Nose/Throat oral cavity/pharynx/larynx Overall: no masses 02/25/2019 None Full Exam - General 1994 Respiratory auscultation Overall: breath sounds clear bilaterally 02/25/2019 None Full Exam - General 1994 Respiratory respiratory effort/rhythm Overall: no retractions 02/25/2019 None Full Exam - General 1994 Respiratory respiratory effort/rhythm Overall: normal rate 02/25/2019 None Full Exam - General 1994 Cardiovascular extremities Overall: no clubbing 02/25/2019 None Full Exam - General 1994 Cardiovascular auscultation of heart Overall: regular rate 02/25/2019 None Full Exam - General 1994 Cardiovascular auscultation of heart Overall: normal heart sounds 02/25/2019 None Full Exam - General 1994 Abdomen abdominal exam Overall: no tenderness 02/25/2019 None Full Exam - General 1994 Abdomen abdominal exam Overall: normal bowel sounds 02/25/2019 None Full Exam - General 1994 Lymphatic neck nodes Overall: anterior cervical chain benign 02/25/2019 None Full Exam - General 1994 Lymphatic neck nodes Overall: posterior cervical chain benign 02/25/2019 None Full Exam - General 1994 Musculoskeletal spine, ribs and pelvis Overall: good posture 02/25/2019 None Full Exam - General 1994 Musculoskeletal head and neck Overall: cervical spine benign 02/25/2019 None Full Exam - General 1994 Psychiatric orientation/consciousness Overall: oriented to person, place and time 02/25/2019 None Full Exam - General 1994 Psychiatric mood and affect Overall: normal mood and affect 02/25/2019 None Full Exam - Cardiology Cardiovascular extremities Edema present: pitting 02/25/2019 None Full Exam - Cardiology Cardiovascular extremities Edema present: severity 1+ - 4+: 1+ 02/25/2019 None Full Exam - Cardiology Cardiovascular extremities Edema present: to leg 02/25/2019 left foot to mid calf Full Exam - ENT Constitutional general appearance Overall: well nourished 09/06/2018 None Full Exam - ENT Constitutional general appearance Overall: well developed 09/06/2018 None Full Exam - ENT Constitutional general appearance Overall: in no acute distress 09/06/2018 None Full Exam - ENT Ears/Nose/Throat otoscopic exam Overall: external auditory canals normal 09/06/2018 None Full Exam - ENT Ears/Nose/Throat otoscopic exam Left tympanic membrane: air-fluid le raghavendra 09/06/2018 None Full Exam - ENT Ears/Nose/Throat otoscopic exam Right tympanic membrane: air-fluid level 09/06/2018 None Full Exam - ENT Ears/Nose/Throat lips/teeth/gingiva Overall: benign lips 09/06/2018 None Full Exam - ENT Ears/Nose/Throat oropharynx Overall: oral mucosa clear 09/06/2018 None Full Exam - ENT Ears/Nose/Throat oropharynx Posterior Pharynx: clear post nasal drainage 09/06/2018 None Full Exam - ENT Ears/Nose/Throat oropharynx Posterior Pharynx: erythema 09/06/2018 None Full Exam - ENT Respiratory inspection Overall: no retractions 09/06/2018 None Full Exam - ENT Respiratory inspection Overall: normal rate 01/2019 None Full Exam - ENT Cardiovascular auscultation of heart Rate: normal rate 09/06/2018 None Full Exam - ENT Cardiovascular auscultation of heart Rhythm: regular rhythm 09/06/2018 None Full Exam - ENT Lymphatic palpation of lymph nodes Overall: anterior cervical chain benign 09/06/2018 None Full Exam - ENT Lymphatic palpation of lymph nodes Overall: posterior cervical chain benign 09/06/2018 None Full Exam - ENT Neurologic mood and affect Overall: normal mood 09/06/2018 None Full Exam - ENT Neurologic mood and affect Overall: normal affect 09/06/2018 None Full Exam - ENT Neurologic orientation Overall: oriented to person, place a nd time 09/06/2018 None Full Exam - ENT Respiratory auscultation Diffuse: diminished 09/06/2018 None Full Exam - ENT Respiratory auscultation Right lower lung field: expiratory w heezes 09/06/2018 None Full Exam - General 1994 Constitutional general appearance Development: well developed 08/23/2017 None Full Exam - General 1994 Constitutional general appearance Development: appears stated age 0208/23/2017 None Full Exam - General 1994 Constitutional general appearance Hygiene/Attention to Grooming: good hygiene 08/23/2017 None Full Exam - General 1994 Eyes conjunctiva/eyelids Overall: conjunctiva clear 08/23/2017 None Full Exam - General 1994 Eyes conjunctiva/eyelids Overall: cornea clear 08/23/2017 None Full Exam - General 1994 Eyes conjunctiva/eyelids Overall: eyelids normal 08/23/2017 None Full Exam - General 1994 Eyes pupils and irises Overall: pupils equal, round, reactive to light and accomodation 08/23/2017 None Full Exam - General 1994 Ears/Nose/Throat otoscopic exam Overall: external auditory canals clear 08/23/2017 None Full Exam - General 1994 Ears/Nose/Throat otoscopic exam Overall: tympanic membranes clear 08/23/2017 None Full Exam - General 1994 Ears/Nose/Throat lips/teeth/gingiva Overall: benign lips 08/23/2017 None Full Exam - General 1994 Ears/Nose/Throat lips/teeth/gingiva Overall: normal dentition 08/23/2017 None Full Exam - General 1994 Ears/Nose/Throat oral cavity/pharynx/larynx Overall: oral mucosa clear 08/23/2017 None Full Exam - General 1994 Ears/Nose/Throat oral cavity/pharynx/larynx Overall: oropharyngeal mucosa clear 08/23/2017 None Full Exam - General 1994 Ears/Nose/Throat oral cavity/pharynx/larynx Overall: hypopharynx benign 08/23/2017 None Full Exam - General 1994 Ears/Nose/Throat oral cavity/pharynx/larynx Overall: no masses 08/23/2017 None Full Exam - General 1994 Respiratory auscultation Overall: breath sounds clear bilaterally 08/23/2017 None Full Exam - General 1994 Respiratory respiratory effort/rhythm Overall: no retractions 08/23/2017 None Full Exam - General 1994 Respiratory respiratory effort/rhythm Overall: normal rate 08/23/2017 None Full Exam - General 1994 Cardiovascular extremities Overall: no clubbing 08/23/2017 None Full Exam - General 1994 Cardiovascular auscultation of heart Overall: regular rate 08/23/2017 None Full Exam - General 1994 Cardiovascular auscultation of heart Overall: normal heart sounds 08/23/2017 None Full Exam - General 1994 Abdomen abdominal exam Overall: no tenderness 08/23/2017 None Full Exam - General 1994 Abdomen abdominal exam Overall: normal bowel sounds 08/23/2017 None Full Exam - General 1994 Lymphatic neck nodes Overall: anterior cervical chain benign 08/23/2017 None Full Exam - General 1994 Lymphatic neck nodes Overall: posterior cervical chain benign 08/23/2017 None Full Exam - General 1994 Musculoskeletal spine, ribs and pelvis Overall: good posture 08/23/2017 None Full Exam - General 1994 Musculoskeletal head and neck Overall: cervical spine benign 08/23/2017 None Full Exam - General 1994 Integument inspection of skin Location: scalp 08/23/2017 left side - 3 marleny - a bout 1 inch in length Full Exam - General 1994 Psychiatric orientation/consciousness Overall: oriented to person, place and time 08/23/2017 None Full Exam - General 1994 Psychiatric mood and affect Overall: normal mood and affect 08/23/2017 None Full Exam - Dermatology Constitutional general appearance Overall: well nourished 02/09/2017 None Full Exam - Dermatology Constitutional general appearance Overall: well developed 02/09/2017 None Full Exam - Dermatology Constitutional general appearance Overall: in no acute distress 02/09/2017 None Full Exam - Dermatology Eyes conjunctiva/eyelids Overall: clear conjunctiva bilaterally 02/09/2017 None Full Exam - Dermatology Eyes conjunctiva/eyelids Overall: normal eyelids 02/09/2017 None Full Exam - Dermatology Ears/Nose/Throat lips/teeth/gingiva Overall: benign lips 02/09/2017 None Full Exam - Dermatology Ears/Nose/Throat oropharynx Overall: clear oral mucosa 02/09/2017 None Full Exam - Dermatology Respiratory respiratory effort/rhythm Overall: no retractions 02/09/2017 None Full Exam - Dermatology Respiratory respiratory effort/rhythm Overall: normal rate 02/09/2017 None Full Exam - Dermatology Integument insp & palp - head/face Location: on the right lower eyelid 02/09/2017 None Full Exam - Dermatology Integument insp & palp - head/face Location: on the left lower eyelid 02/09/2017 None Full Exam - Dermatology Integument insp & palp - head/face Location: on the right nasal ala 02/09/2017 None Full Exam - Dermatology Integument insp & palp - head/face Location: on the right side of the nose 02/09/2017 None Full Exam - Dermatology Integument insp & palp - head/face Color: erythematous 02/09/2017 None Full Exam - Dermatology Psychiatric orientation Overall: oriented to person, place and time 02/09/2017 None Full Exam - Dermatology Psychiatric mood and affect Overall: normal mood and affect 02/09/2017 None Full Exam - General 1994 Constitutional general appearance Development: well developed 02/01/2017 None Full Exam - General 1994 Constitutional general appearance Development: appears stated age 0802/01/2017 None Full Exam - General 1994 Constitutional general appearance Hygiene/Attention to Grooming: good hygiene 02/01/2017 None Full Exam - General 1994 Eyes conjunctiva/eyelids Overall: conjunctiva clear 02/01/2017 None Full Exam - General 1994 Eyes conjunctiva/eyelids Overall: cornea clear 02/01/2017 None Full Exam - General 1994 Eyes conjunctiva/eyelids Overall: eyelids normal 02/01/2017 None Full Exam - General 1994 Eyes pupils and irises Overall: pupils equal, round, reactive to light and accomodation 02/01/2017 None Full Exam - General 1994 Ears/Nose/Throat otoscopic exam Overall: external auditory canals clear 02/01/2017 None Full Exam - General 1994 Ears/Nose/Throat otoscopic exam Overall: tympanic membranes clear 02/01/2017 None Full Exam - General 1994 Ears/Nose/Throat lips/teeth/gingiva Overall: benign lips 02/01/2017 None Full Exam - General 1994 Ears/Nose/Throat lips/teeth/gingiva Overall: normal dentition 02/01/2017 None Full Exam - General 1994 Ears/Nose/Throat oral cavity/pharynx/larynx Overall: oral mucosa clear 02/01/2017 None Full Exam - General 1994 Ears/Nose/Throat oral cavity/pharynx/larynx Overall: oropharyngeal mucosa clear 02/01/2017 None Full Exam - General 1994 Ears/Nose/Throat oral cavity/pharynx/larynx Overall: hypopharynx benign 02/01/2017 None Full Exam - General 1994 Ears/Nose/Throat oral cavity/pharynx/larynx Overall: no masses 02/01/2017 None Full Exam - General 1994 Respiratory auscultation Overall: breath sounds clear bilaterally 02/01/2017 None Full Exam - General 1994 Respiratory respiratory effort/rhythm Overall: no retractions 02/01/2017 None Full Exam - General 1994 Respiratory respiratory effort/rhythm Overall: normal rate 02/01/2017 None Full Exam - General 1994 Cardiovascular extremities Overall: no clubbing 02/01/2017 None Full Exam - General 1994 Cardiovascular auscultation of heart Overall: regular rate 02/01/2017 None Full Exam - General 1994 Cardiovascular auscultation of heart Overall: normal heart sounds 02/01/2017 None Full Exam - General 1994 Abdomen abdominal exam Overall: no tenderness 02/01/2017 None Full Exam - General 1994 Abdomen abdominal exam Overall: normal bowel sounds 02/01/2017 None Full Exam - General 1994 Lymphatic neck nodes Overall: anterior cervical chain benign 02/01/2017 None Full Exam - General 1994 Lymphatic neck nodes Overall: posterior cervical chain benign 02/01/2017 None Full Exam - General 1994 Musculoskeletal spine, ribs and pelvis Overall: good posture 02/01/2017 None Full Exam - General 1994 Musculoskeletal head and neck Overall: cervical spine benign 02/01/2017 None Full Exam - General 1994 Psychiatric orientation/consciousness Overall: oriented to person, place and time 02/01/2017 None Full Exam - General 1994 Psychiatric mood and affect Overall: normal mood and affect 02/01/2017 None Full Exam - General 1994 Integument inspection of skin Location: scalp 02/01/2017 left side - 3 marleny - a bout 1 inch in length Full Exam - General 1994 Constitutional general appearance Development: well developed 08/03/2016 None Full Exam - General 1994 Constitutional general appearance Development: appears stated age 0208/03/2016 None Full Exam - General 1994 Constitutional general appearance Hygiene/Attention to Grooming: good hygiene 08/03/2016 None Full Exam - General 1994 Eyes conjunctiva/eyelids Overall: conjunctiva clear 08/03/2016 None Full Exam - General 1994 Eyes conjunctiva/eyelids Overall: cornea clear 08/03/2016 None Full Exam - General 1994 Eyes conjunctiva/eyelids Overall: eyelids normal 08/03/2016 None Full Exam - General 1994 Eyes pupils and irises Overall: pupils equal, round, reactive to light and accomodation 08/03/2016 None Full Exam - General 1994 Ears/Nose/Throat otoscopic exam Overall: external auditory canals clear 08/03/2016 None Full Exam - General 1994 Ears/Nose/Throat otoscopic exam Overall: tympanic membranes clear 08/03/2016 None Full Exam - General 1994 Ears/Nose/Throat lips/teeth/gingiva Overall: benign lips 08/03/2016 None Full Exam - General 1994 Ears/Nose/Throat lips/teeth/gingiva Overall: normal dentition 08/03/2016 None Full Exam - General 1994 Ears/Nose/Throat oral cavity/pharynx/larynx Overall: oral mucosa clear 08/03/2016 None Full Exam - General 1994 Ears/Nose/Throat oral cavity/pharynx/larynx Overall: oropharyngeal mucosa clear 08/03/2016 None Full Exam - General 1994 Ears/Nose/Throat oral cavity/pharynx/larynx Overall: hypopharynx benign 08/03/2016 None Full Exam - General 1994 Ears/Nose/Throat oral cavity/pharynx/larynx Overall: no masses 08/03/2016 None Full Exam - General 1994 Respiratory auscultation Overall: breath sounds clear bilaterally 08/03/2016 None Full Exam - General 1994 Respiratory respiratory effort/rhythm Overall: no retractions 08/03/2016 None Full Exam - General 1994 Respiratory respiratory effort/rhythm Overall: normal rate 08/03/2016 None Full Exam - General 1994 Cardiovascular extremities Overall: no clubbing 08/03/2016 None Full Exam - General 1994 Cardiovascular auscultation of heart Overall: regular rate 08/03/2016 None Full Exam - General 1994 Cardiovascular auscultation of heart Overall: normal heart sounds 08/03/2016 None Full Exam - General 1994 Abdomen abdominal exam Overall: no tenderness 08/03/2016 None Full Exam - General 1994 Abdomen abdominal exam Overall: normal bowel sounds 08/03/2016 None Full Exam - General 1994 Lymphatic neck nodes Overall: anterior cervical chain benign 08/03/2016 None Full Exam - General 1994 Lymphatic neck nodes Overall: posterior cervical chain benign 08/03/2016 None Full Exam - General 1994 Musculoskeletal spine, ribs and pelvis Overall: spine benign 08/03/2016 None Full Exam - General 1994 Musculoskeletal spine, ribs and pelvis Overall: sacroiliac joint benign 08/03/2016 None Full Exam - General 1994 Musculoskeletal spine, ribs and pelvis Overall: good posture 08/03/2016 None Full Exam - General 1994 Musculoskeletal head and neck Overall: head atraumatic 08/03/2016 None Full Exam - General 1994 Musculoskeletal head and neck Overall: cervical spine benign 08/03/2016 None Full Exam - General 1994 Integument inspection of skin Overall: few scattered moles, no gross abnormalities 08/03/2016 None Full Exam - General 1994 Neurologic deep tendon reflexes Overall: deep tendon reflexes intact 08/03/2016 None Full Exam - General 1994 Neurologic cranial nerves Overall: crainial nerves 2 - 12 grossly intact 08/03/2016 None Full Exam - General 1994 Psychiatric orientation/consciousness Overall: oriented to person, place and time 08/03/2016 None Full Exam - General 1994 Psychiatric mood and affect Overall: normal mood and affect 08/03/2016 None Full Exam - General 1994 Genitourinary cervix Overall: surgically absent 08/03/2016 None Full Exam - General 1994 Genitourinary labia and vagina Overall: normal hair distribution 08/03/2016 None Full Exam - General 1994 Genitourinary labia and vagina Overall: no lesions 08/03/2016 None Full Exam - General 1994 Genitourinary adnexa/parametria Overall: surgically absent 08/03/2016 None Full Exam - General 1994 Chest/Breast breast and axillae palpation Overall: breasts non- tender 08/03/2016 None Full Exam - General 1994 Chest/Breast breast and axillae palpation Overall: axillae non- tender 08/03/2016 None Full Exam - General 1994 Constitutional general appearance Overall: well developed 04/24/2016 None Full Exam - General 1994 Constitutional general appearance Overall: in no acute distress 04/24/2016 None Full Exam - General 1994 Constitutional general appearance Overall: well nourished 04/24/2016 None Full Exam - General 1994 Eyes conjunctiva/eyelids Overall: conjunctiva clear 04/24/2016 None Full Exam - General 1994 Eyes conjunctiva/eyelids Overall: cornea clear 04/24/2016 None Full Exam - General 1994 Eyes conjunctiva/eyelids Overall: eyelids normal 04/24/2016 None Full Exam - General 1994 Ears/Nose/Throat otoscopic exam Overall: external auditory canals clear 04/24/2016 None Full Exam - General 1994 Ears/Nose/Throat lips/teeth/gingiva Overall: benign lips 04/24/2016 None Full Exam - General 1994 Ears/Nose/Throat oral cavity/pharynx/larynx Overall: oral mucosa clear 04/24/2016 None Full Exam - General 1994 Ears/Nose/Throat oral cavity/pharynx/larynx Overall: oropharyngeal mucosa clear 04/24/2016 None Full Exam - General 1994 Ears/Nose/Throat oral cavity/pharynx/larynx Posterior Pharynx: clear post nasal drainage 04/24/2016 None Full Exam - General 1994 Respiratory respiratory effort/rhythm Overall: no retractions 04/24/2016 None Full Exam - General 1994 Respiratory respiratory effort/rhythm Overall: normal rate 04/24/2016 None Full Exam - General 1994 Cardiovascular extremities Overall: no clubbing 04/24/2016 None Full Exam - General 1994 Cardiovascular auscultation of heart Overall: regular rate 04/24/2016 None Full Exam - General 1994 Cardiovascular auscultation of heart Overall: normal heart sounds 04/24/2016 None Full Exam - General 1994 Musculoskeletal gait and station Overall: normal gait 04/24/2016 None Full Exam - General 1994 Musculoskeletal gait and station Overall: normal station 04/24/2016 None Full Exam - General 1994 Integument inspection of skin Overall: no rash, lesions 04/24/2016 None Full Exam - General 1994 Neurologic cranial nerves Overall: crainial nerves 2 - 12 grossly intact 04/24/2016 None Full Exam - General 1994 Psychiatric orientation/consciousness Overall: oriented to person, place and time 04/24/2016 None Full Exam - General 1994 Psychiatric mood and affect Overall: normal mood and affect 04/24/2016 None Full Exam - General 1994 Psychiatric appearance Overall: well-groomed, good eye contact 04/24/2016 None Full Exam - General 1994 Ears/Nose/Throat otoscopic exam Overall: tympanic membranes clear 04/24/2016 None Full Exam - General 1994 Ears/Nose/Throat internal nose Sinus tenderness: right maxillary 04/24/2016 None Full Exam - General 1994 Ears/Nose/Throat internal nose Sinus tenderness: left maxillary 04/24/2016 None Full Exam - General 1994 Respiratory auscultation Overall: breath sounds clear bilaterally 04/24/2016 None Full Exam - General 1994 Constitutional general appearance Overall: well developed 03/28/2016 None Full Exam - General 1994 Constitutional general appearance Overall: in no acute distress 03/28/2016 None Full Exam - General 1994 Constitutional general appearance Overall: well nourished 03/28/2016 None Full Exam - General 1994 Eyes conjunctiva/eyelids Overall: conjunctiva clear 03/28/2016 None Full Exam - General 1994 Eyes conjunctiva/eyelids Overall: cornea clear 03/28/2016 None Full Exam - General 1994 Eyes conjunctiva/eyelids Overall: eyelids normal 03/28/2016 None Full Exam - General 1994 Ears/Nose/Throat otoscopic exam Overall: external auditory canals clear 03/28/2016 None Full Exam - General 1994 Ears/Nose/Throat otoscopic exam Tympanic membrane: air-fluid level 03/28/2016 None Full Exam - General 1994 Ears/Nose/Throat oral cavity/pharynx/larynx Overall: oral mucosa clear 03/28/2016 None Full Exam - General 1994 Ears/Nose/Throat oral cavity/pharynx/larynx Overall: oropharyngeal mucosa clear 03/28/2016 None Full Exam - General 1995 Ears/Nose/Throat oral cavity/pharynx/larynx Overall: no masses 03/28/2016 None Full Exam - General 1994 Respiratory respiratory effort/rhythm Overall: no retractions 03/28/2016 None Full Exam - General 1994 Respiratory respiratory effort/rhythm Overall: normal rate 03/28/2016 None Full Exam - General 1994 Cardiovascular auscultation of heart Overall: regular rate 03/28/2016 None Full Exam - General 1994 Cardiovascular auscultation of heart Overall: normal heart sounds 03/28/2016 None Full Exam - General 1994 Musculoskeletal gait and station Overall: normal gait 03/28/2016 None Full Exam - General 1994 Musculoskeletal gait and station Overall: normal station 03/28/2016 None Full Exam - General 1994 Integument inspection of skin Overall: no rash, lesions 03/28/2016 None Full Exam - General 1994 Psychiatric orientation/consciousness Overall: oriented to person, place and time 03/28/2016 None Full Exam - General 1994 Psychiatric appearance Overall: well-groomed, good eye contact 03/28/2016 None Full Exam - General 1994 Ears/Nose/Throat oral cavity/pharynx/larynx Posterior Pharynx: clear post nasal drainage 03/28/2016 None Full Exam - General 1994 Ears/Nose/Throat lips/teeth/gingiva Overall: benign lips 03/28/2016 None Full Exam - General 1994 Respiratory auscultation Lower lung field: expiratory wheezes 03/28/2016 None Full Exam - General 1994 Respiratory auscultation Lower lung field: diminished 03/28/2016 None Full Exam - General 1994 Cardiovascular extremities Overall: no clubbing 03/28/2016 None Full Exam - General 1994 Neurologic cranial nerves Overall: crainial nerves 2 - 12 grossly intact 03/28/2016 None Full Exam - General 1994 Psychiatric mood and affect Overall: normal mood and affect 03/28/2016 None Full Exam - General 1994 Eyes conjunctiva/eyelids Overall: conjunctiva clear 03/10/2016 None Full Exam - General 1994 Eyes conjunctiva/eyelids Overall: cornea clear 03/10/2016 None Full Exam - General 1994 Eyes conjunctiva/eyelids Overall: eyelids normal 03/10/2016 None Full Exam - General 1994 Ears/Nose/Throat lips/teeth/gingiva Overall: benign lips 03/10/2016 None Full Exam - General 1994 Ears/Nose/Throat lips/teeth/gingiva Overall: normal dentition 03/10/2016 None Full Exam - General 1994 Respiratory respiratory effort/rhythm Overall: no retractions 03/10/2016 None Full Exam - General 1994 Respiratory respiratory effort/rhythm Overall: normal rate 03/10/2016 None Full Exam - General 1994 Cardiovascular extremities Overall: no clubbing 03/10/2016 None Full Exam - General 1994 Musculoskeletal upper extremity ROM - wrist: pain with radial bending 03/10/2016 None Full Exam - General 1994 Musculoskeletal upper extremity ROM - wrist: pain with ulnar bending 03/10/2016 None Full Exam - General 1994 Musculoskeletal spine, ribs and pelvis Overall: good posture 03/10/2016 None Full Exam - General 1994 Musculoskeletal head and neck Overall: head atraumatic 03/10/2016 None Full Exam - General 1994 Neurologic cranial nerves Overall: crainial nerves 2 - 12 grossly intact 03/10/2016 None Full Exam - General 1994 Psychiatric orientation/consciousness Overall: oriented to person, place and time 03/10/2016 None Full Exam - General 1994 Psychiatric mood and affect Overall: normal mood and affect 03/10/2016 None Full Exam - General 1994 Constitutional general appearance Overall: well developed 03/10/2016 None Full Exam - General 1994 Constitutional general appearance Overall: in no acute distress 03/10/2016 None Full Exam - General 1994 Constitutional general appearance Overall: well nourished 03/10/2016 None Full Exam - General 1994 Ears/Nose/Throat oral cavity/pharynx/larynx Overall: oral mucosa clear 03/10/2016 None Full Exam - General 1994 Respiratory auscultation Overall: breath sounds clear bilaterally 03/10/2016 None Full Exam - General 1994 Cardiovascular auscultation of heart Overall: regular rate 03/10/2016 None Full Exam - General 1994 Cardiovascular auscultation of heart Overall: normal heart sounds 03/10/2016 None Full Exam - General 1994 Musculoskeletal gait and station Overall: normal gait 03/10/2016 None Full Exam - General 1994 Musculoskeletal gait and station Overall: normal station 03/10/2016 None Full Exam - General 1994 Psychiatric appearance Overall: well-groomed, good eye contact 03/10/2016 None Full Exam - General 1994 Psychiatric speech Overall: normal quality, no aphasia 03/10/2016 None Full Exam - General 1994 Psychiatric speech Overall: normal quality, quantity, r ate 03/10/2016 None Full Exam - General 1994 Musculoskeletal upper extremity Inspection - wrist: Left _wrist in air cast 03/10/2016 None Full Exam - General 1994 Constitutional general appearance Development: well developed 02/10/2016 None Full Exam - General 1994 Constitutional general appearance Development: appears stated age 0802/10/2016 None Full Exam - General 1994 Constitutional general appearance Hygiene/Attention to Grooming: good hygiene 02/10/2016 None Full Exam - General 1994 Eyes conjunctiva/eyelids Overall: conjunctiva clear 02/10/2016 None Full Exam - General 1994 Eyes conjunctiva/eyelids Overall: cornea clear 02/10/2016 None Full Exam - General 1994 Eyes conjunctiva/eyelids Overall: eyelids normal 02/10/2016 None Full Exam - General 1994 Ears/Nose/Throat lips/teeth/gingiva Overall: benign lips 02/10/2016 None Full Exam - General 1994 Ears/Nose/Throat lips/teeth/gingiva Overall: normal dentition 02/10/2016 None Full Exam - General 1994 Respiratory respiratory effort/rhythm Overall: no retractions 02/10/2016 None Full Exam - General 1994 Respiratory respiratory effort/rhythm Overall: normal rate 02/10/2016 None Full Exam - General 1994 Cardiovascular extremities Overall: no clubbing 02/10/2016 None Full Exam - General 1994 Musculoskeletal spine, ribs and pelvis Overall: good posture 02/10/2016 None Full Exam - General 1994 Psychiatric orientation/consciousness Overall: oriented to person, place and time 02/10/2016 None Full Exam - General 1994 Psychiatric mood and affect Overall: normal mood and affect 02/10/2016 None Full Exam - General 1994 Musculoskeletal upper extremity Inspection - wrist: swelling 02/10/2016 None Full Exam - General 1994 Musculoskeletal upper extremity Palpation - wrist: tender 02/10/2016 None Full Exam - General 1994 Musculoskeletal upper extremity Palpation - wrist: joint swelling 02/10/2016 None Full Exam - General 1994 Musculoskeletal upper extremity ROM - wrist: pain with flexion 02/10/2016 None Full Exam - General 1994 Musculoskeletal upper extremity ROM - wrist: pain with radial bending 02/10/2016 None Full Exam - General 1994 Musculoskeletal upper extremity ROM - wrist: pain with ulnar bending 02/10/2016 None Full Exam - General 1994 Musculoskeletal head and neck Overall: head atraumatic 02/10/2016 None Full Exam - General 1994 Neurologic cranial nerves Overall: crainial nerves 2 - 12 grossly intact 02/10/2016 None Full Exam - General 1994 Constitutional general appearance Development: well developed 01/11/2016 None Full Exam - General 1994 Constitutional general appearance Development: appears stated age 0701/11/2016 None Full Exam - General 1994 Constitutional general appearance Hygiene/Attention to Grooming: good hygiene 01/11/2016 None Full Exam - General 1994 Eyes conjunctiva/eyelids Overall: conjunctiva clear 01/11/2016 None Full Exam - General 1994 Eyes conjunctiva/eyelids Overall: cornea clear 01/11/2016 None Full Exam - General 1994 Eyes conjunctiva/eyelids Overall: eyelids normal 01/11/2016 None Full Exam - General 1994 Eyes pupils and irises Overall: pupils equal, round, reactive to light and accomodation 01/11/2016 None Full Exam - General 1994 Ears/Nose/Throat otoscopic exam Overall: external auditory canals clear 01/11/2016 None Full Exam - General 1994 Ears/Nose/Throat otoscopic exam Overall: tympanic membranes clear 01/11/2016 None Full Exam - General 1994 Ears/Nose/Throat lips/teeth/gingiva Overall: benign lips 01/11/2016 None Full Exam - General 1994 Ears/Nose/Throat lips/teeth/gingiva Overall: normal dentition 01/11/2016 None Full Exam - General 1994 Ears/Nose/Throat oral cavity/pharynx/larynx Overall: oral mucosa clear 01/11/2016 None Full Exam - General 1994 Ears/Nose/Throat oral cavity/pharynx/larynx Overall: oropharyngeal mucosa clear 01/11/2016 None Full Exam - General 1994 Ears/Nose/Throat oral cavity/pharynx/larynx Overall: hypopharynx benign 01/11/2016 None Full Exam - General 1994 Ears/Nose/Throat oral cavity/pharynx/larynx Overall: no masses 01/11/2016 None Full Exam - General 1994 Respiratory auscultation Overall: breath sounds clear bilaterally 01/11/2016 None Full Exam - General 1994 Respiratory respiratory effort/rhythm Overall: no retractions 01/11/2016 None Full Exam - General 1994 Respiratory respiratory effort/rhythm Overall: normal rate 01/11/2016 None Full Exam - General 1994 Cardiovascular extremities Overall: no clubbing 01/11/2016 None Full Exam - General 1994 Cardiovascular auscultation of heart Overall: regular rate 01/11/2016 None Full Exam - General 1994 Cardiovascular auscultation of heart Overall: normal heart sounds 01/11/2016 None Full Exam - General 1994 Abdomen abdominal exam Overall: no tenderness 01/11/2016 None Full Exam - General 1994 Abdomen abdominal exam Overall: normal bowel sounds 01/11/2016 None Full Exam - General 1994 Lymphatic neck nodes Overall: anterior cervical chain benign 01/11/2016 None Full Exam - General 1994 Lymphatic neck nodes Overall: posterior cervical chain benign 01/11/2016 None Full Exam - General 1994 Musculoskeletal spine, ribs and pelvis Overall: spine benign 01/11/2016 None Full Exam - General 1994 Musculoskeletal spine, ribs and pelvis Overall: sacroiliac joint benign 01/11/2016 None Full Exam - General 1994 Musculoskeletal spine, ribs and pelvis Overall: good posture 01/11/2016 None Full Exam - General 1994 Musculoskeletal head and neck Overall: head atraumatic 01/11/2016 None Full Exam - General 1994 Musculoskeletal head and neck Overall: cervical spine benign 01/11/2016 None Full Exam - General 1994 Integument inspection of skin Overall: few scattered moles, dry patches of skin under eyes, in eyebrows, around nose 01/11/2016 None Full Exam - General 1994 Psychiatric orientation/consciousness Overall: oriented to person, place and time 01/11/2016 None Full Exam - General 1994 Psychiatric mood and affect Overall: normal mood and affect 01/11/2016 None Full Exam - General 1994 Constitutional general appearance Overall: well developed 12/16/2015 None Full Exam - General 1994 Constitutional general appearance Overall: in no acute distress 12/16/2015 None Full Exam - General 1994 Constitutional general appearance Overall: well nourished 12/16/2015 None Full Exam - General 1994 Eyes conjunctiva/eyelids Overall: conjunctiva clear 12/16/2015 None Full Exam - General 1994 Eyes conjunctiva/eyelids Overall: cornea clear 12/16/2015 None Full Exam - General 1994 Eyes conjunctiva/eyelids Overall: eyelids normal 12/16/2015 None Full Exam - General 1994 Respiratory respiratory effort/rhythm Overall: no retractions 12/16/2015 None Full Exam - General 1994 Respiratory respiratory effort/rhythm Overall: normal rate 12/16/2015 None Full Exam - General 1994 Musculoskeletal gait and station Overall: normal gait 12/16/2015 None Full Exam - General 1994 Musculoskeletal gait and station Overall: normal station 12/16/2015 None Full Exam - General 1994 Integument inspection of skin Overall: no rash, lesions 12/16/2015 None Full Exam - General 1994 Psychiatric orientation/consciousness Overall: oriented to person, place and time 12/16/2015 None Full Exam - General 1994 Psychiatric appearance Overall: well-groomed, good eye contact 12/16/2015 None Full Exam - General 1994 Ears/Nose/Throat lips/teeth/gingiva Overall: benign lips 12/16/2015 None Full Exam - General 1994 Ears/Nose/Throat lips/teeth/gingiva Overall: normal dentition 12/16/2015 None Full Exam - General 1994 Musculoskeletal spine, ribs and pelvis Sacroiliac joints: tender left sacroiliac joint 12/16/2015 None Full Exam - General 1994 Musculoskeletal spine, ribs and pelvis Spine: tender @ lumbar spine 12/16/2015 None Full Exam - General 1994 Neurologic cranial nerves Overall: crainial nerves 2 - 12 grossly intact 12/16/2015 None Full Exam - General 1994 Psychiatric mood and affect Overall: normal mood and affect 12/16/2015 None Full Exam - General 1994 Constitutional general appearance Overall: well developed 09/30/2015 None Full Exam - General 1994 Constitutional general appearance Overall: in no acute distress 09/30/2015 None Full Exam - General 1994 Constitutional general appearance Overall: well nourished 09/30/2015 None Full Exam - General 1994 Eyes conjunctiva/eyelids Overall: conjunctiva clear 09/30/2015 None Full Exam - General 1994 Eyes conjunctiva/eyelids Overall: cornea clear 09/30/2015 None Full Exam - General 1994 Eyes conjunctiva/eyelids Overall: eyelids normal 09/30/2015 None Full Exam - General 1994 Eyes pupils and irises Overall: pupils equal, round, reactive to light and accomodation 09/30/2015 None Full Exam - General 1994 Ears/Nose/Throat otoscopic exam Overall: external auditory canals clear 09/30/2015 None Full Exam - General 1994 Ears/Nose/Throat internal nose Sinus tenderness: left maxillary 09/30/2015 None Full Exam - General 1994 Ears/Nose/Throat internal nose Sinus tenderness: right maxillary 09/30/2015 None Full Exam - General 1994 Ears/Nose/Throat oral cavity/pharynx/larynx Overall: oral mucosa clear 09/30/2015 None Full Exam - General 1994 Ears/Nose/Throat oral cavity/pharynx/larynx Overall: oropharyngeal mucosa clear 09/30/2015 None Full Exam - General 1994 Ears/Nose/Throat oral cavity/pharynx/larynx Overall: no masses 09/30/2015 None Full Exam - General 1994 Respiratory auscultation Upper lung field: Breath sounds clear 09/30/2015 None Full Exam - General 1994 Respiratory auscultation Lower lung field: diminished 09/30/2015 None Full Exam - General 1994 Respiratory respiratory effort/rhythm Overall: no retractions 09/30/2015 None Full Exam - General 1994 Respiratory respiratory effort/rhythm Overall: normal rate 09/30/2015 None Full Exam - General 1994 Cardiovascular auscultation of heart Overall: regular rate 09/30/2015 None Full Exam - General 1994 Cardiovascular auscultation of heart Overall: normal heart sounds 09/30/2015 None Full Exam - General 1994 Musculoskeletal gait and station Overall: normal gait 09/30/2015 None Full Exam - General 1994 Musculoskeletal gait and station Overall: normal station 09/30/2015 None Full Exam - General 1994 Integument inspection of skin Overall: no rash, lesions 09/30/2015 None Full Exam - General 1994 Psychiatric orientation/consciousness Overall: oriented to person, place and time 09/30/2015 None Full Exam - General 1994 Psychiatric appearance Overall: well-groomed, good eye contact 09/30/2015 None Full Exam - General 1994 Ears/Nose/Throat otoscopic exam Tympanic membrane: erythematous 09/30/2015 None Full Exam - General 1994 Ears/Nose/Throat otoscopic exam Tympanic membrane: air-fluid level 09/30/2015 None Full Exam - General 1994 Ears/Nose/Throat oral cavity/pharynx/larynx Posterior Pharynx: clear post nasal drainage 09/30/2015 None Full Exam - General 1994 Constitutional general appearance Overall: well nourished 08/05/2015 None Full Exam - General 1994 Constitutional general appearance Overall: well developed 08/05/2015 None Full Exam - General 1994 Constitutional general appearance Overall: in no acute distress 08/05/2015 None Full Exam - General 1994 Eyes pupils and irises Overall: pupils equal, round, reactive to light and accomodation 08/05/2015 None Full Exam - General 1994 Eyes conjunctiva/eyelids Overall: conjunctiva clear 08/05/2015 None Full Exam - General 1994 Eyes conjunctiva/eyelids Overall: eyelids normal 08/05/2015 None Full Exam - General 1994 Eyes conjunctiva/eyelids Overall: cornea clear 08/05/2015 None Full Exam - General 1994 Ears/Nose/Throat internal nose Sinus tenderness: left maxillary 08/05/2015 None Full Exam - General 1994 Ears/Nose/Throat internal nose Sinus tenderness: right maxillary 08/05/2015 None Full Exam - General 1994 Ears/Nose/Throat oral cavity/pharynx/larynx Overall: oropharyngeal mucosa clear 08/05/2015 None Full Exam - General 1994 Ears/Nose/Throat oral cavity/pharynx/larynx Overall: no masses 08/05/2015 None Full Exam - General 1994 Ears/Nose/Throat oral cavity/pharynx/larynx Overall: oral mucosa clear 08/05/2015 None Full Exam - General 1994 Ears/Nose/Throat external ear Overall: no masses 08/05/2015 None Full Exam - General 1994 Ears/Nose/Throat external ear Overall: normal appearance 08/05/2015 None Full Exam - General 1994 Ears/Nose/Throat external ear Overall: normal mastoids 08/05/2015 None Full Exam - General 1994 Ears/Nose/Throat otoscopic exam Overall: tympanic membranes clear 08/05/2015 None Full Exam - General 1994 Ears/Nose/Throat otoscopic exam Overall: external auditory canals clear 08/05/2015 None Full Exam - General 1994 Cardiovascular auscultation of heart Overall: regular rate 08/05/2015 None Full Exam - General 1994 Cardiovascular auscultation of heart Overall: normal heart sounds 08/05/2015 None Full Exam - General 1994 Cardiovascular auscultation of heart Overall: no murmurs 08/05/2015 None Full Exam - General 1994 Respiratory respiratory effort/rhythm Overall: normal rate 08/05/2015 None Full Exam - General 1994 Respiratory respiratory effort/rhythm Overall: no retractions 08/05/2015 None Full Exam - General 1994 Respiratory auscultation Lower lung field: diminished 08/05/2015 None Full Exam - General 1994 Respiratory auscultation Upper lung field: Breath sounds clear 08/05/2015 None Full Exam - General 1994 Psychiatric orientation/consciousness Overall: oriented to person, place and time 08/05/2015 None Full Exam - General 1994 Psychiatric mood and affect Mood: happy 08/05/2015 None Full Exam - General 1994 Psychiatric appearance Overall: well-groomed, good eye contact 08/05/2015 None Full Exam - General 1994 Integument inspection of skin Overall: no rash, lesions 08/05/2015 None Full Exam - General 1994 Musculoskeletal gait and station Overall: normal station 08/05/2015 None Full Exam - General 1994 Musculoskeletal gait and station Overall: normal gait 08/05/2015 None Full Exam - General 1994 Constitutional general appearance Development: well developed 08/03/2015 None Full Exam - General 1994 Constitutional general appearance Development: appears stated age 0208/03/2015 None Full Exam - General 1995 Constitutional general appearance Hygiene/Attention to Grooming: good hygiene 08/03/2015 None Full Exam - General 1994 Respiratory auscultation Overall: breath sounds clear bilaterally 08/03/2015 None Full Exam - General 1994 Respiratory respiratory effort/rhythm Overall: no retractions 08/03/2015 None Full Exam - General 1994 Respiratory respiratory effort/rhythm Overall: normal rate 08/03/2015 None Full Exam - General 1994 Cardiovascular extremities Overall: no clubbing 08/03/2015 None Full Exam - General 1994 Cardiovascular auscultation of heart Overall: regular rate 08/03/2015 None Full Exam - General 1994 Cardiovascular auscultation of heart Overall: normal heart sounds 08/03/2015 None Full Exam - General 1994 Integument inspection of skin Dermatitis: erythema 08/03/2015 around nose - improved Full Exam - General 1994 Integument inspection of skin Dermatitis: dryness/flaking 08/03/2015 None Full Exam - General 1994 Neurologic deep tendon reflexes Overall: deep tendon reflexes intact 08/03/2015 None Full Exam - General 1994 Neurologic cranial nerves Overall: crainial nerves 2 - 12 grossly intact 08/03/2015 None Full Exam - General 1994 Psychiatric orientation/consciousness Overall: oriented to person, place and time 08/03/2015 None Full Exam - General 1994 Psychiatric mood and affect Overall: normal mood and affect 08/03/2015 None Full Exam - General 1994 Eyes conjunctiva/eyelids Overall: conjunctiva clear 08/03/2015 None Full Exam - General 1994 Eyes conjunctiva/eyelids Overall: cornea clear 08/03/2015 None Full Exam - General 1994 Eyes conjunctiva/eyelids Overall: eyelids normal 08/03/2015 None Full Exam - General 1994 Eyes pupils and irises Overall: pupils equal, round, reactive to light and accomodation 08/03/2015 None Full Exam - General 1994 Ears/Nose/Throat otoscopic exam Overall: external auditory canals clear 08/03/2015 None Full Exam - General 1994 Ears/Nose/Throat otoscopic exam Overall: tympanic membranes clear 08/03/2015 None Full Exam - General 1994 Ears/Nose/Throat lips/teeth/gingiva Overall: benign lips 08/03/2015 None Full Exam - General 1994 Ears/Nose/Throat lips/teeth/gingiva Overall: normal dentition 08/03/2015 None Full Exam - General 1994 Ears/Nose/Throat oral cavity/pharynx/larynx Overall: oral mucosa clear 08/03/2015 None Full Exam - General 1994 Ears/Nose/Throat oral cavity/pharynx/larynx Overall: oropharyngeal mucosa clear 08/03/2015 None Full Exam - General 1994 Ears/Nose/Throat oral cavity/pharynx/larynx Overall: hypopharynx benign 08/03/2015 None Full Exam - General 1994 Ears/Nose/Throat oral cavity/pharynx/larynx Overall: no masses 08/03/2015 None Full Exam - General 1994 Abdomen abdominal exam Overall: no tenderness 08/03/2015 None Full Exam - General 1994 Abdomen abdominal exam Overall: normal bowel sounds 08/03/2015 None Full Exam - General 1994 Lymphatic neck nodes Overall: anterior cervical chain benign 08/03/2015 None Full Exam - General 1994 Lymphatic neck nodes Overall: posterior cervical chain benign 08/03/2015 None Full Exam - General 1994 Musculoskeletal spine, ribs and pelvis Overall: spine benign 08/03/2015 None Full Exam - General 1994 Musculoskeletal spine, ribs and pelvis Overall: sacroiliac joint benign 08/03/2015 None Full Exam - General 1994 Musculoskeletal spine, ribs and pelvis Overall: good posture 08/03/2015 None Full Exam - General 1994 Musculoskeletal head and neck Overall: head atraumatic 08/03/2015 None Full Exam - General 1994 Musculoskeletal head and neck Overall: cervical spine benign 08/03/2015 None Full Exam - General 1994 Integument inspection of skin Overall: few scattered moles, no gross abnormalities 08/03/2015 None Full Exam - General 1994 Constitutional general appearance Hygiene/Attention to Grooming: normal grooming 08/03/2015 None Full Exam - General 1994 Psychiatric appearance Overall: well-groomed, good eye contact 08/03/2015 None Full Exam - General 1994 Psychiatric speech Overall: normal quality, no aphasia 08/03/2015 None Full Exam - General 1994 Psychiatric speech Overall: normal quality, quantity, r ate 08/03/2015 None Full Exam - General 1994 Psychiatric thought Overall: normal form and content 08/03/2015 None Full Exam - General 1994 Constitutional general appearance Development: well developed 07/13/2015 None Full Exam - General 1994 Constitutional general appearance Development: appears stated age 0107/13/2015 None Full Exam - General 1994 Constitutional general appearance Hygiene/Attention to Grooming: good hygiene 07/13/2015 None Full Exam - General 1994 Respiratory auscultation Overall: breath sounds clear bilaterally 07/13/2015 None Full Exam - General 1994 Respiratory respiratory effort/rhythm Overall: no retractions 07/13/2015 None Full Exam - General 1994 Respiratory respiratory effort/rhythm Overall: normal rate 07/13/2015 None Full Exam - General 1994 Cardiovascular extremities Overall: no clubbing 07/13/2015 None Full Exam - General 1994 Cardiovascular auscultation of heart Overall: regular rate 07/13/2015 None Full Exam - General 1994 Cardiovascular auscultation of heart Overall: normal heart sounds 07/13/2015 None Full Exam - General 1994 Neurologic deep tendon reflexes Overall: deep tendon reflexes intact 07/13/2015 None Full Exam - General 1994 Neurologic cranial nerves Overall: crainial nerves 2 - 12 grossly intact 07/13/2015 None Full Exam - General 1994 Psychiatric orientation/consciousness Overall: oriented to person, place and time 07/13/2015 None Full Exam - General 1994 Psychiatric mood and affect Overall: normal mood and affect 07/13/2015 None Full Exam - General 1994 Integument inspection of skin Dermatitis: dryness/flaking 07/13/2015 None Full Exam - General 1994 Integument inspection of skin Dermatitis: erythema 07/13/2015 around nose Full Exam - General 1994 Constitutional general appearance Development: well developed 06/10/2015 None Full Exam - General 1994 Constitutional general appearance Development: appears stated age 1206/10/2015 None Full Exam - General 1994 Constitutional general appearance Hygiene/Attention to Grooming: good hygiene 06/10/2015 None Full Exam - General 1994 Eyes conjunctiva/eyelids Overall: conjunctiva clear 06/10/2015 None Full Exam - General 1994 Eyes conjunctiva/eyelids Overall: cornea clear 06/10/2015 None Full Exam - General 1994 Eyes conjunctiva/eyelids Overall: eyelids normal 06/10/2015 None Full Exam - General 1994 Eyes pupils and irises Overall: pupils equal, round, reactive to light and accomodation 06/10/2015 None Full Exam - General 1994 Ears/Nose/Throat otoscopic exam Overall: external auditory canals clear 06/10/2015 None Full Exam - General 1994 Ears/Nose/Throat otoscopic exam Overall: tympanic membranes clear 06/10/2015 None Full Exam - General 1994 Ears/Nose/Throat lips/teeth/gingiva Overall: benign lips 06/10/2015 None Full Exam - General 1994 Ears/Nose/Throat lips/teeth/gingiva Overall: normal dentition 06/10/2015 None Full Exam - General 1994 Ears/Nose/Throat oral cavity/pharynx/larynx Overall: oral mucosa clear 06/10/2015 None Full Exam - General 1994 Ears/Nose/Throat oral cavity/pharynx/larynx Overall: oropharyngeal mucosa clear 06/10/2015 None Full Exam - General 1994 Ears/Nose/Throat oral cavity/pharynx/larynx Overall: hypopharynx benign 06/10/2015 None Full Exam - General 1994 Ears/Nose/Throat oral cavity/pharynx/larynx Overall: no masses 06/10/2015 None Full Exam - General 1994 Respiratory auscultation Overall: breath sounds clear bilaterally 06/10/2015 None Full Exam - General 1994 Respiratory respiratory effort/rhythm Overall: no retractions 06/10/2015 None Full Exam - General 1994 Respiratory respiratory effort/rhythm Overall: normal rate 06/10/2015 None Full Exam - General 1994 Cardiovascular extremities Overall: no clubbing 06/10/2015 None Full Exam - General 1994 Cardiovascular auscultation of heart Overall: regular rate 06/10/2015 None Full Exam - General 1994 Cardiovascular auscultation of heart Overall: normal heart sounds 06/10/2015 None Full Exam - General 1994 Abdomen abdominal exam Overall: no tenderness 06/10/2015 None Full Exam - General 1994 Abdomen abdominal exam Overall: normal bowel sounds 06/10/2015 None Full Exam - General 1994 Lymphatic neck nodes Overall: anterior cervical chain benign 06/10/2015 None Full Exam - General 1994 Lymphatic neck nodes Overall: posterior cervical chain benign 06/10/2015 None Full Exam - General 1994 Musculoskeletal spine, ribs and pelvis Overall: spine benign 06/10/2015 None Full Exam - General 1994 Musculoskeletal spine, ribs and pelvis Overall: sacroiliac joint benign 06/10/2015 None Full Exam - General 1994 Musculoskeletal spine, ribs and pelvis Overall: good posture 06/10/2015 None Full Exam - General 1994 Musculoskeletal head and neck Overall: head atraumatic 06/10/2015 None Full Exam - General 1994 Musculoskeletal head and neck Overall: cervical spine benign 06/10/2015 None Full Exam - General 1994 Integument inspection of skin Overall: few scattered moles, no gross abnormalities 06/10/2015 None Full Exam - General 1994 Neurologic deep tendon reflexes Overall: deep tendon reflexes intact 06/10/2015 None Full Exam - General 1994 Neurologic cranial nerves Overall: crainial nerves 2 - 12 grossly intact 06/10/2015 None Full Exam - General 1994 Psychiatric orientation/consciousness Overall: oriented to person, place and time 06/10/2015 None Full Exam - General 1994 Psychiatric mood and affect Overall: normal mood and affect 06/10/2015 None Full Exam - General 1994 Constitutional general appearance Development: well developed 03/10/2015 None Full Exam - General 1994 Constitutional general appearance Development: appears stated age 0903/10/2015 None Full Exam - General 1994 Constitutional general appearance Hygiene/Attention to Grooming: good hygiene 03/10/2015 None Full Exam - General 1994 Eyes conjunctiva/eyelids Overall: conjunctiva clear 03/10/2015 None Full Exam - General 1994 Eyes conjunctiva/eyelids Overall: cornea clear 03/10/2015 None Full Exam - General 1994 Eyes conjunctiva/eyelids Overall: eyelids normal 03/10/2015 None Full Exam - General 1994 Eyes pupils and irises Overall: pupils equal, round, reactive to light and accomodation 03/10/2015 None Full Exam - General 1994 Ears/Nose/Throat otoscopic exam Overall: external auditory canals clear 03/10/2015 None Full Exam - General 1994 Ears/Nose/Throat otoscopic exam Overall: tympanic membranes clear 03/10/2015 None Full Exam - General 1994 Ears/Nose/Throat lips/teeth/gingiva Overall: benign lips 03/10/2015 None Full Exam - General 1994 Ears/Nose/Throat lips/teeth/gingiva Overall: normal dentition 03/10/2015 None Full Exam - General 1994 Ears/Nose/Throat oral cavity/pharynx/larynx Overall: oral mucosa clear 03/10/2015 None Full Exam - General 1994 Ears/Nose/Throat oral cavity/pharynx/larynx Overall: oropharyngeal mucosa clear 03/10/2015 None Full Exam - General 1994 Ears/Nose/Throat oral cavity/pharynx/larynx Overall: hypopharynx benign 03/10/2015 None Full Exam - General 1994 Ears/Nose/Throat oral cavity/pharynx/larynx Overall: no masses 03/10/2015 None Full Exam - General 1994 Respiratory auscultation Overall: breath sounds clear bilaterally 03/10/2015 None Full Exam - General 1994 Respiratory respiratory effort/rhythm Overall: no retractions 03/10/2015 None Full Exam - General 1994 Respiratory respiratory effort/rhythm Overall: normal rate 03/10/2015 None Full Exam - General 1994 Cardiovascular extremities Overall: no clubbing 03/10/2015 None Full Exam - General 1994 Cardiovascular auscultation of heart Overall: regular rate 03/10/2015 None Full Exam - General 1994 Cardiovascular auscultation of heart Overall: normal heart sounds 03/10/2015 None Full Exam - General 1994 Abdomen abdominal exam Overall: no tenderness 03/10/2015 None Full Exam - General 1994 Abdomen abdominal exam Overall: normal bowel sounds 03/10/2015 None Full Exam - General 1994 Lymphatic neck nodes Overall: anterior cervical chain benign 03/10/2015 None Full Exam - General 1994 Lymphatic neck nodes Overall: posterior cervical chain benign 03/10/2015 None Full Exam - General 1994 Musculoskeletal spine, ribs and pelvis Overall: spine benign 03/10/2015 None Full Exam - General 1994 Musculoskeletal spine, ribs and pelvis Overall: sacroiliac joint benign 03/10/2015 None Full Exam - General 1994 Musculoskeletal spine, ribs and pelvis Overall: good posture 03/10/2015 None Full Exam - General 1994 Musculoskeletal head and neck Overall: head atraumatic 03/10/2015 None Full Exam - General 1994 Musculoskeletal head and neck Overall: cervical spine benign 03/10/2015 None Full Exam - General 1994 Integument inspection of skin Overall: few scattered moles, no gross abnormalities 03/10/2015 None Full Exam - General 1994 Neurologic deep tendon reflexes Overall: deep tendon reflexes intact 03/10/2015 None Full Exam - General 1994 Neurologic cranial nerves Overall: crainial nerves 2 - 12 grossly intact 03/10/2015 None Full Exam - General 1994 Psychiatric orientation/consciousness Overall: oriented to person, place and time 03/10/2015 None Full Exam - General 1994 Psychiatric mood and affect Overall: normal mood and affect 03/10/2015 None History of Present Illness Symptom Name Status Resu lt Effective Date Notes hypertension Onset and Resolution ongoing 08/23/2017 None well woman exam (65+ years) Lifestyle regular seatbelt use 08/23/2017 None well woman exam (65+ years) Lifestyle abnormal sleep patterns 08/23/2017 None well woman exam (65+ years) Lifestyle abnormal amount of stress 08/23/2017 None well woman exam (65+ years) Obstetri nancy History 0 total pregnancies 08/23/2017 None well woman exam (65+ years) Nutritio n and Exercise inadequate nutrition 08/23/2017 None well woman exam (65+ years) Nutritio n and Exercise no exercise 08/23/2017 N one hypertension Quality chr onic 08/23/2017 None hypertension Quality sta ble 08/23/2017 None hypertension Onset of Symptom during adulthood 08/23/2017 None hypertension Pertinent Findings Denies anxiety 08/23/2017 None hypertension Pertinent Findings Denies decreased energy 08/23/2017 None hypertension Pertinent Findings Denies dizziness 08/23/2017 None hypertension Pertinent Findings Denies dyspnea 08/23/2017 None hypertension Pertinent Findings Denies edema 08/23/2017 None hypertension Blood Pressure Values not checking blood pressure at home 08/23/2017 None hypertension Severity mi ld 08/23/2017 None hypertension Triggers no known associated factors 08/23/2017 None hypertension Alleviating Factors medication 08/23/2017 None rash Location-Major on t he head 02/09/2017 None rash Location-Head/Neck on the nose 02/09/2017 None rash Color red 02/09/2017 None rash Onset and Resolution ongoing 02/09/2017 None rash Onset of Symptom 1 year ago 02/09/2017 None hypertension Onset and Resolution ongoing 02/01/2017 None wound follow up Date of procedure 01/30/2017 02/01/2017 None well woman exam (65+ years) Lifestyle regular seatbelt use 08/03/2016 None well woman exam (65+ years) Lifestyle abnormal sleep patterns 08/03/2016 None well woman exam (65+ years) Lifestyle abnormal amount of stress 08/03/2016 None well woman exam (65+ years) Obstetri nancy History 0 total pregnancies 08/03/2016 None well woman exam (65+ years) Nutritio n and Exercise inadequate nutrition 08/03/2016 None well woman exam (65+ years) Nutritio n and Exercise no exercise 08/03/2016 N one cough Location in the th roat 04/24/2016 None cough Quality constant 04/24/2016 None cough Quality hacking 04/24/2016 None cough Quality productive 04/24/2016 None cough Onset and Resolution sudden in onset 04/24/2016 None cough Onset of Symptom 1 weeks ago 04/24/2016 None cough Frequency of Episodes daily 04/24/2016 None cough Pertinent Findings hoarseness 04/24/2016 None cough Pertinent Findings nasal congestion 04/24/2016 None sinus congestion Location frontal sinuses 04/24/2016 None sinus congestion Quality fullness 04/24/2016 None sinus congestion Quality pain 04/24/2016 None sinus congestion Onset and Resolution sudden in onset 04/24/2016 None sinus congestion Onset of Symptom 1 weeks ago 04/24/2016 None cough Location in the th roat 03/28/2016 None cough Quality constant 03/28/2016 None cough Quality dry 03/28/2016 None cough Quality hacking 03/28/2016 None cough Onset and Resolution sudden in onset 03/28/2016 None cough Onset of Symptom 5 days ago 03/28/2016 None cough Frequency of Episodes daily 03/28/2016 None sinus congestion Onset and Resolution sudden in onset 03/28/2016 None sinus congestion Pertinent Findings cough 03/28/2016 None sinus congestion Pertinent Findings hoarseness 03/28/2016 None sinus congestion Location on both sides 03/28/2016 None sinus congestion Quality constant 03/28/2016 None sinus congestion Quality fullness 03/28/2016 None sinus congestion Quality pressure 03/28/2016 None bone fracture Location a cute 03/10/2016 None bone fracture Location o n the left wrist 03/10/2016 None bone fracture Quality ac [place] 03/10/2016 None bone fracture Triggers f all 03/10/2016 None bone fracture Pertinent Findings Denies fever 03/10/2016 None bone fracture Location a cute 02/10/2016 None bone fracture Location o n the left wrist 02/10/2016 None bone fracture Quality ac [place] 02/10/2016 None bone fracture Mechanism of injury moderate energy 02/10/2016 None bone fracture Triggers f all 02/10/2016 None bone fracture Pertinent Findings Denies fever 02/10/2016 None rash Quality recurrent 01/11/2016 None rash Quality dry 01/11/2016 None rash Triggers no known t riggers 01/11/2016 None rash Pertinent Findings Denies itching 01/11/2016 None rash Location-Head/Neck on the right cheek 01/11/2016 under the right eye rash Onset and Resolution ongoing 01/11/2016 None hypertension Onset and Resolution ongoing 01/11/2016 None hypertension Onset of Symptom during adulthood 01/11/2016 None hypertension Alleviating Factors medication 01/11/2016 None hypertension Exacerbating Factors stress 01/11/2016 None back pain Location in th e left lower back area 12/16/2015 None back pain Quality aching 12/16/2015 None back pain Quality interm ittent 12/16/2015 None back pain Quality sharp 12/16/2015 None back pain Quality stabbi ng 12/16/2015 None back pain Quality worsen ing 12/16/2015 None back pain Quality radiat ing 12/16/2015 None back pain Onset and Resolution sudden in onset 12/16/2015 None back pain Onset of Symptom 1 weeks ago 12/16/2015 None back pain Frequency of Episodes daily 12/16/2015 None back pain Mechanism of injury unknown 12/16/2015 None back pain Mechanism of injury flexion/extension 12/16/2015 None back pain Radiating down left leg 12/16/2015 None cough Location in the mayra ng 09/30/2015 None cough Quality constant 09/30/2015 None cough Quality productive 09/30/2015 None cough Onset and Resolution sudden in onset 09/30/2015 None cough Onset of Symptom 3 days ago 09/30/2015 None cough Frequency of Episodes daily 09/30/2015 None cough Pertinent Findings chest discomfort 09/30/2015 None cough Pertinent Findings fever 09/30/2015 None cough Pertinent Findings hoarseness 09/30/2015 None cough Pertinent Findings nasal congestion 09/30/2015 None sinus congestion Location on both sides 09/30/2015 None sinus congestion Quality fullness 09/30/2015 None sinus congestion Onset and Resolution sudden in onset 09/30/2015 None sinus congestion Onset of Symptom 3 days ago 09/30/2015 None sore throat Location on both sides 09/30/2015 None sore throat Quality dull 09/30/2015 None sore throat Quality scra tchy 09/30/2015 None sore throat Onset and Resolution sudden in onset 09/30/2015 None earache Location left ear 09/30/2015 None earache Onset and Resolution sudden in onset 09/30/2015 None earache Onset of Symptom 3 days ago 09/30/2015 None nasal discharge Location in both nares 08/05/2015 None nasal discharge Quality acute 08/05/2015 None nasal discharge Onset and Resolution gradual in onset 08/05/2015 None nasal discharge Quality yellow 08/05/2015 None nasal discharge Quality thick 08/05/2015 None cough Location in the [facility] 08/05/2015 None cough Quality chronic 08/05/2015 None cough Onset and Resolution gradual in onset 08/05/2015 None cough Onset and Resolution ongoing 08/05/2015 None Annual Medicare Wellness Exam Alcohol Use does not drink any alcohol 08/03/2015 None Annual Medicare Wellness Exam Aspirin Use no 08/03/2015 None Annual Medicare Wellness Exam Blood Glucose (self reported) don't know 08/03/2015 No ne Annual Medicare Wellness Exam Blood Pressure (self reported) borderline (120/80 - 139/89) 016 None Annual Medicare Wellness Exam Choles terol (self reported) borderline high (200-239) 08/03/2015 None Annual Medicare Wellness Exam Depres shirley (last 6 months) almost never 08/03/2015 None Annual Medicare Wellness Exam Depres shirley or Hopelessness almost never 08/03/2015 None Annual Medicare Wellness Exam Descri be Your Health fair 08/03/2015 None Annual Medicare Wellness Exam Exerci se Habits does not exercise 08/03/2015 None Annual Medicare Wellness Exam Handli ng Stress usually lauryn effectively 08/03/2015 None Annual Medicare Wellness Exam Hemagl obin A-1C (self reported) don't know 08/03/2015 No ne Annual Medicare Wellness Exam Hours of Sleep 6 08/03/2015 None Annual Medicare Wellness Exam Intera ction with Friends yes 08/03/2015 None Annual Medicare Wellness Exam Intere sts & Pleasure most of the time 08/03/2015 None Annual Medicare Wellness Exam Life S atisfaction satisfied 08/03/2015 Non e Annual Medicare Wellness Exam Motor Vehicle Safety always fastens seat belt: _ 08/03/19 16 None Annual Medicare Wellness Exam Nutrition servings of fried food / high fat foods per day: 0 08/03/2015 None Annual Medicare Wellness Exam Nutrition servings of high fiber / whole grain per day: 3 08/03/2015 None Annual Medicare Wellness Exam Nutrition servings of vegetables / fruit per day: 3 08/03/2015 None Annual Medicare Wellness Exam Smokin g and Tobacco Use non smoker 08/03/2015 No ne Annual Medicare Wellness Exam Social & Emotional Support always 08/03/2015 None Annual Medicare Wellness Exam Stress almost never 08/03/2015 None Annual Medicare Wellness Exam Sun Exposure protects skin when outdoors: _ 08/03/2015 None cough Location in the [place] 07/13/2015 None cough Quality chronic 07/13/2015 None cough Quality dry 07/13/2015 None cough Quality hacking 07/13/2015 None cough Quality productive 07/13/2015 clear/yellowish sputum cough Onset and Resolution ongoing 07/13/2015 None cough Onset of Symptom _ years ago 07/13/2015 None cough Triggers no known associated factors 07/13/2015 None rash Quality recurrent 07/13/2015 None rash Quality dry 07/13/2015 - pt states that it happened this summer and she has not used any treatments - it does not itch and it just feels dry and she can flake off the dry skin - rash Onset and Resolution sudden in onset 07/13/2015 None rash Onset of Symptom _ months ago 07/13/2015 During the summer rash Triggers no known t riggers 07/13/2015 None rash Pertinent Findings Denies itching 07/13/2015 None cough Frequency of Episodes unchanged 07/13/2015 None cough Pertinent Findings Denies fever 07/13/2015 None rash Onset and Resolution resolved 07/13/2015 None cough Location in the [place] 06/10/2015 None cough Quality chronic 06/10/2015 None cough Onset and Resolution ongoing 06/10/2015 None cough Quality hacking 06/10/2015 None cough Quality dry 06/10/2015 None cough Quality productive 06/10/2015 "sometimes"- more so in the morning cough Onset of Symptom _ years ago 06/10/2015 None cough Frequency of Episodes increasing 06/10/2015 None cough Triggers no known associated factors 06/10/2015 None rash Onset of Symptom _ months ago 06/10/2015 During the summer rash Onset and Resolution sudden in onset 06/10/2015 None rash Onset and Resolution ongoing 06/10/2015 None well woman exam (65+ years) Lifestyle regular seatbelt use 06/10/2015 None well woman exam (65+ years) Lifestyle abnormal sleep patterns 06/10/2015 "doesn't sleep through the night" well woman exam (65+ years) Lifestyle abnormal amount of stress 06/10/2015 None well woman exam (65+ years) Obstetri nancy History 0 total pregnancies 06/10/2015 None well woman exam (65+ years) Nutritio n and Exercise no exercise 06/10/2015 N one well woman exam (65+ years) Nutritio n and Exercise inadequate nutrition 06/10/2015 None well woman exam (65+ years) Pap Smear last normal performed on 08-15-12 06/10/2015 Has a history of preovarian cancer rash Location-Head/Neck on the right cheek 06/10/2015 and around the nose rash Quality recurrent 06/10/2015 None rash Quality dry 06/10/2015 - pt states that it happened this summe r and she has not used any treatments - it does not itch and it just feels dry and she can flake off the dry skin - rash Color red 06/10/2015 None rash Triggers no known t riggers 06/10/2015 None rash Pertinent Findings Denies itching 06/10/2015 None cough Location in the [place] 03/10/2015 None cough Quality chronic 03/10/2015 None cough Onset and Resolution ongoing 03/10/2015 None cough Triggers change of seasons 03/10/2015 None cough Triggers post nasa l drip 03/10/2015 None sinus congestion Quality chronic 03/10/2015 None sinus congestion Onset and Resolution ongoing 03/10/2015 None sinus congestion Severity moderate 03/10/2015 None Symptom Name Status Resu lt Effective Date Notes Location in the lung 09/06/2018 None Quality acute 09/06/2018 None Pertinent Findings Den ies dyspnea 09/06/2018 None hypertension Onset and Resolution ongoing 08/23/2017 None well woman exam (65+ years) Lifestyle regular seatbelt use 08/23/2017 None well woman exam (65+ years) Lifestyle abnormal sleep patterns 08/23/2017 None well woman exam (65+ years) Lifestyle abnormal amount of stress 08/23/2017 None well woman exam (65+ years) Obstetri nancy History 0 total pregnancies 08/23/2017 None well woman exam (65+ years) Nutritio n and Exercise inadequate nutrition 08/23/2017 None well woman exam (65+ years) Nutritio n and Exercise no exercise 08/23/2017 N one hypertension Quality chr onic 08/23/2017 None hypertension Quality sta ble 08/23/2017 None hypertension Onset of Symptom during adulthood 08/23/2017 None hypertension Pertinent Findings Denies anxiety 08/23/2017 None hypertension Pertinent Findings Denies decreased energy 08/23/2017 None hypertension Pertinent Findings Denies dizziness 08/23/2017 None hypertension Pertinent Findings Denies dyspnea 08/23/2017 None hypertension Pertinent Findings Denies edema 08/23/2017 None hypertension Blood Pressure Values not checking blood pressure at home 08/23/2017 None hypertension Severity mi ld 08/23/2017 None hypertension Triggers no known associated factors 08/23/2017 None hypertension Alleviating Factors medication 08/23/2017 None rash Location-Major on t he head 02/09/2017 None rash Location-Head/Neck on the nose 02/09/2017 None rash Color red 02/09/2017 None rash Onset and Resolution ongoing 02/09/2017 None rash Onset of Symptom 1 year ago 02/09/2017 None hypertension Onset and Resolution ongoing 02/01/2017 None wound follow up Date of procedure 01/30/2017 02/01/2017 None well woman exam (65+ years) Lifestyle regular seatbelt use 08/03/2016 None well woman exam (65+ years) Lifestyle abnormal sleep patterns 08/03/2016 None well woman exam (65+ years) Lifestyle abnormal amount of stress 08/03/2016 None well woman exam (65+ years) Obstetri nancy History 0 total pregnancies 08/03/2016 None well woman exam (65+ years) Nutritio n and Exercise inadequate nutrition 08/03/2016 None well woman exam (65+ years) Nutritio n and Exercise no exercise 08/03/2016 N one cough Location in the roat 04/24/2016 None cough Quality constant 04/24/2016 None cough Quality hacking 04/24/2016 None cough Quality productive 04/24/2016 None cough Onset and Resolution sudden in onset 04/24/2016 None cough Onset of Symptom 1 weeks ago 04/24/2016 None cough Frequency of Episodes daily 04/24/2016 None cough Pertinent Findings hoarseness 04/24/2016 None cough Pertinent Findings nasal congestion 04/24/2016 None sinus congestion Location frontal sinuses 04/24/2016 None sinus congestion Quality fullness 04/24/2016 None sinus congestion Quality pain 04/24/2016 None sinus congestion Onset and Resolution sudden in onset 04/24/2016 None sinus congestion Onset of Symptom 1 weeks ago 04/24/2016 None cough Location in the roat 03/28/2016 None cough Quality constant 03/28/2016 None cough Quality dry 03/28/2016 None cough Quality hacking 03/28/2016 None cough Onset and Resolution sudden in onset 03/28/2016 None cough Onset of Symptom 5 days ago 03/28/2016 None cough Frequency of Episodes daily 03/28/2016 None sinus congestion Onset and Resolution sudden in onset 03/28/2016 None sinus congestion Pertinent Findings cough 03/28/2016 None sinus congestion Pertinent Findings hoarseness 03/28/2016 None sinus congestion Location on both sides 03/28/2016 None sinus congestion Quality constant 03/28/2016 None sinus congestion Quality fullness 03/28/2016 None sinus congestion Quality pressure 03/28/2016 None bone fracture Location a cute 03/10/2016 None bone fracture Location o n the left wrist 03/10/2016 None bone fracture Quality ac [place] 03/10/2016 None bone fracture Triggers f all 03/10/2016 None bone fracture Pertinent Findings Denies fever 03/10/2016 None bone fracture Location a cute 02/10/2016 None bone fracture Location o n the left wrist 02/10/2016 None bone fracture Quality ac [place] 02/10/2016 None bone fracture Mechanism of injury moderate energy 02/10/2016 None bone fracture Triggers f all 02/10/2016 None bone fracture Pertinent Findings Denies fever 02/10/2016 None rash Quality recurrent 01/11/2016 None rash Quality dry 01/11/2016 None rash Triggers no known t riggers 01/11/2016 None rash Pertinent Findings Denies itching 01/11/2016 None rash Location-Head/Neck on the right cheek 01/11/2016 under the right eye rash Onset and Resolution ongoing 01/11/2016 None hypertension Onset and Resolution ongoing 01/11/2016 None hypertension Onset of Symptom during adulthood 01/11/2016 None hypertension Alleviating Factors medication 01/11/2016 None hypertension Exacerbating Factors stress 01/11/2016 None back pain Location in th e left lower back area 12/16/2015 None back pain Quality aching 12/16/2015 None back pain Quality interm ittent 12/16/2015 None back pain Quality sharp 12/16/2015 None back pain Quality stabbi ng 12/16/2015 None back pain Quality worsen ing 12/16/2015 None back pain Quality radiat ing 12/16/2015 None back pain Onset and Resolution sudden in onset 12/16/2015 None back pain Onset of Symptom 1 weeks ago 12/16/2015 None back pain Frequency of Episodes daily 12/16/2015 None back pain Mechanism of injury unknown 12/16/2015 None back pain Mechanism of injury flexion/extension 12/16/2015 None back pain Radiating down left leg 12/16/2015 None cough Location in the [place] 09/30/2015 None cough Quality constant 09/30/2015 None cough Quality productive 09/30/2015 None cough Onset and Resolution sudden in onset 09/30/2015 None cough Onset of Symptom 3 days ago 09/30/2015 None cough Frequency of Episodes daily 09/30/2015 None cough Pertinent Findings chest discomfort 09/30/2015 None cough Pertinent Findings fever 09/30/2015 None cough Pertinent Findings hoarseness 09/30/2015 None cough Pertinent Findings nasal congestion 09/30/2015 None sinus congestion Location on both sides 09/30/2015 None sinus congestion Quality fullness 09/30/2015 None sinus congestion Onset and Resolution sudden in onset 09/30/2015 None sinus congestion Onset of Symptom 3 days ago 09/30/2015 None sore throat Location on both sides 09/30/2015 None sore throat Quality dull 09/30/2015 None sore throat Quality scra tchy 09/30/2015 None sore throat Onset and Resolution sudden in onset 09/30/2015 None earache Location left ear 09/30/2015 None earache Onset and Resolution sudden in onset 09/30/2015 None earache Onset of Symptom 3 days ago 09/30/2015 None nasal discharge Location in both nares 08/05/2015 None nasal discharge Quality acute 08/05/2015 None nasal discharge Onset and Resolution gradual in onset 08/05/2015 None nasal discharge Quality yellow 08/05/2015 None nasal discharge Quality thick 08/05/2015 None cough Location in the [place] [facility] 08/05/2015 None cough Quality chronic 08/05/2015 None cough Onset and Resolution gradual in onset 08/05/2015 None cough Onset and Resolution ongoing 08/05/2015 None Annual Medicare Wellness Exam Alcohol Use does not drink any alcohol 08/03/2015 None Annual Medicare Wellness Exam Aspirin Use no 08/03/2015 None Annual Medicare Wellness Exam Blood Glucose (self reported) don't know 08/03/2015 No ne Annual Medicare Wellness Exam Blood Pressure (self reported) borderline (120/80 - 139/89) 016 None Annual Medicare Wellness Exam Choles terol (self reported) borderline high (200-239) 08/03/2015 None Annual Medicare Wellness Exam Depres shirley (last 6 months) almost never 08/03/2015 None Annual Medicare Wellness Exam Depres shirley or Hopelessness almost never 08/03/2015 None Annual Medicare Wellness Exam Descri be Your Health fair 08/03/2015 None Annual Medicare Wellness Exam Exerci se Habits does not exercise 08/03/2015 None Annual Medicare Wellness Exam Handcarl ng Stress usually lauryn effectively 08/03/2015 None Annual Medicare Wellness Exam Hemagl obin A-1C (self reported) don't know 08/03/2015 No ne Annual Medicare Wellness Exam Hours of Sleep 6 08/03/2015 None Annual Medicare Wellness Exam Intera ction with Friends yes 08/03/2015 None Annual Medicare Wellness Exam Intere sts & Pleasure most of the time 08/03/2015 None Annual Medicare Wellness Exam Life S atisfaction satisfied 08/03/2015 Non e Annual Medicare Wellness Exam Motor Vehicle Safety always fastens seat belt: _ 08/03/19 16 None Annual Medicare Wellness Exam Nutrition servings of fried food / high fat foods per day: 0 08/03/2015 None Annual Medicare Wellness Exam Nutrition servings of high fiber / whole grain per day: 3 08/03/2015 None Annual Medicare Wellness Exam Nutrition servings of vegetables / fruit per day: 3 08/03/2015 None Annual Medicare Wellness Exam Smokin g and Tobacco Use non smoker 08/03/2015 No ne Annual Medicare Wellness Exam Social & Emotional Support always 08/03/2015 None Annual Medicare Wellness Exam Stress almost never 08/03/2015 None Annual Medicare Wellness Exam Sun Exposure protects skin when outdoors: _ 08/03/2015 None cough Location in the [place] 07/13/2015 None cough Quality chronic 07/13/2015 None cough Quality dry 07/13/2015 None cough Quality hacking 07/13/2015 None cough Quality productive 07/13/2015 clear/yellowish sputum cough Onset and Resolution ongoing 07/13/2015 None cough Onset of Symptom _ years ago 07/13/2015 None cough Triggers no known associated factors 07/13/2015 None rash Quality recurrent 07/13/2015 None rash Quality dry 07/13/2015 - pt states that it happened this summer and she has not used any treatments - it does not itch and it just feels dry and she can flake off the dry skin - rash Onset and Resolution sudden in onset 07/13/2015 None rash Onset of Symptom _ months ago 07/13/2015 During the summer rash Triggers no known t riggers 07/13/2015 None rash Pertinent Findings Denies itching 07/13/2015 None cough Frequency of Episodes unchanged 07/13/2015 None cough Pertinent Findings Denies fever 07/13/2015 None rash Onset and Resolution resolved 07/13/2015 None cough Location in the [place] 06/10/2015 None cough Quality chronic 06/10/2015 None cough Onset and Resolution ongoing 06/10/2015 None cough Quality hacking 06/10/2015 None cough Quality dry 06/10/2015 None cough Quality productive 06/10/2015 "sometimes"- more so in the morning cough Onset of Symptom _ years ago 06/10/2015 None cough Frequency of Episodes increasing 06/10/2015 None cough Triggers no known associated factors 06/10/2015 None rash Onset of Symptom _ months ago 06/10/2015 During the summer rash Onset and Resolution sudden in onset 06/10/2015 None rash Onset and Resolution ongoing 06/10/2015 None well woman exam (65+ years) Lifestyle regular seatbelt use 06/10/2015 None well woman exam (65+ years) Lifestyle abnormal sleep patterns 06/10/2015 "doesn't sleep through the night" well woman exam (65+ years) Lifestyle abnormal amount of stress 06/10/2015 None well woman exam (65+ years) Obstetri nancy History 0 total pregnancies 06/10/2015 None well woman exam (65+ years) Nutritio n and Exercise no exercise 06/10/2015 N one well woman exam (65+ years) Nutritio n and Exercise inadequate nutrition 06/10/2015 None well woman exam (65+ years) Pap Smear last normal performed on 08-15-12 06/10/2015 Has a history of preovarian cancer rash Location-Head/Neck on the right cheek 06/10/2015 and around the nose rash Quality recurrent 06/10/2015 None rash Quality dry 06/10/2015 - pt states that it happened this summe r and she has not used any treatments - it does not itch and it just feels dry and she can flake off the dry skin - rash Color red 06/10/2015 None rash Triggers no known t riggers 06/10/2015 None rash Pertinent Findings Denies itching 06/10/2015 None cough Location in the [facility] 03/10/2015 None cough Quality chronic 03/10/2015 None cough Onset and Resolution ongoing 03/10/2015 None cough Triggers change of seasons 03/10/2015 None cough Triggers post nasa l drip 03/10/2015 None sinus congestion Quality chronic 03/10/2015 None sinus congestion Onset and Resolution ongoing 03/10/2015 None sinus congestion Severity moderate 03/10/2015 None Symptom Name Status Resu lt Effective Date Notes Quality acute 02/25/2019 None Quality worsening 02/25/2019 None Onset and Resolution D enies sudden in onset 02/25/2019 None Onset of Symptom 1 wee ks ago 02/25/2019 None Triggers Denies no kno wn associated factors 02/25/2019 None Location on the left a nkle 02/25/2019 and foot Pertinent Findings [place] b pain / tenderness 02/25/2019 None Limitation on Activities does not limit activities 02/25/2019 None Frequency of Episodes increasing 02/25/2019 None Length of Episodes 1 w eeks 02/25/2019 None Location in the lung 09/06/2018 None Quality acute 09/06/2018 None Pertinent Findings Den ies dyspnea 09/06/2018 None hypertension Onset and Resolution ongoing 08/23/2017 None well woman exam (65+ years) Lifestyle regular seatbelt use 08/23/2017 None well woman exam (65+ years) Lifestyle abnormal sleep patterns 08/23/2017 None well woman exam (65+ years) Lifestyle abnormal amount of stress 08/23/2017 None well woman exam (65+ years) Obstetri nancy History 0 total pregnancies 08/23/2017 None well woman exam (65+ years) Nutritio n and Exercise inadequate nutrition 08/23/2017 None well woman exam (65+ years) Nutritio n and Exercise no exercise 08/23/2017 N one hypertension Quality chr onic 08/23/2017 None hypertension Quality sta ble 08/23/2017 None hypertension Onset of Symptom during adulthood 08/23/2017 None hypertension Pertinent Findings Denies anxiety 08/23/2017 None hypertension Pertinent Findings Denies decreased energy 08/23/2017 None hypertension Pertinent Findings Denies dizziness 08/23/2017 None hypertension Pertinent Findings Denies dyspnea 08/23/2017 None hypertension Pertinent Findings Denies edema 08/23/2017 None hypertension Blood Pressure Values not checking blood pressure at home 08/23/2017 None hypertension Severity mi ld 08/23/2017 None hypertension Triggers no known associated factors 08/23/2017 None hypertension Alleviating Factors medication 08/23/2017 None rash Location-Major on t he head 02/09/2017 None rash Location-Head/Neck on the nose 02/09/2017 None rash Color red 02/09/2017 None rash Onset and Resolution ongoing 02/09/2017 None rash Onset of Symptom 1 year ago 02/09/2017 None hypertension Onset and Resolution ongoing 02/01/2017 None wound follow up Date of procedure 01/30/2017 02/01/2017 None well woman exam (65+ years) Lifestyle regular seatbelt use 08/03/2016 None well woman exam (65+ years) Lifestyle abnormal sleep patterns 08/03/2016 None well woman exam (65+ years) Lifestyle abnormal amount of stress 08/03/2016 None well woman exam (65+ years) Obstetri nancy History 0 total pregnancies 08/03/2016 None well woman exam (65+ years) Nutritio n and Exercise inadequate nutrition 08/03/2016 None well woman exam (65+ years) Nutritio n and Exercise no exercise 08/03/2016 N one cough Location in the roat 04/24/2016 None cough Quality constant 04/24/2016 None cough Quality hacking 04/24/2016 None cough Quality productive 04/24/2016 None cough Onset and Resolution sudden in onset 04/24/2016 None cough Onset of Symptom 1 weeks ago 04/24/2016 None cough Frequency of Episodes daily 04/24/2016 None cough Pertinent Findings hoarseness 04/24/2016 None cough Pertinent Findings nasal congestion 04/24/2016 None sinus congestion Location frontal sinuses 04/24/2016 None sinus congestion Quality fullness 04/24/2016 None sinus congestion Quality pain 04/24/2016 None sinus congestion Onset and Resolution sudden in onset 04/24/2016 None sinus congestion Onset of Symptom 1 weeks ago 04/24/2016 None cough Location in the roat 03/28/2016 None cough Quality constant 03/28/2016 None cough Quality dry 03/28/2016 None cough Quality hacking 03/28/2016 None cough Onset and Resolution sudden in onset 03/28/2016 None cough Onset of Symptom 5 days ago 03/28/2016 None cough Frequency of Episodes daily 03/28/2016 None sinus congestion Onset and Resolution sudden in onset 03/28/2016 None sinus congestion Pertinent Findings cough 03/28/2016 None sinus congestion Pertinent Findings hoarseness 03/28/2016 None sinus congestion Location on both sides 03/28/2016 None sinus congestion Quality constant 03/28/2016 None sinus congestion Quality fullness 03/28/2016 None sinus congestion Quality pressure 03/28/2016 None bone fracture Location a cute 03/10/2016 None bone fracture Location o n the left wrist 03/10/2016 None bone fracture Quality ac [place] 03/10/2016 None bone fracture Triggers f all 03/10/2016 None bone fracture Pertinent Findings Denies fever 03/10/2016 None bone fracture Location a cute 02/10/2016 None bone fracture Location o n the left wrist 02/10/2016 None bone fracture Quality ac [place] 02/10/2016 None bone fracture Mechanism of injury moderate energy 02/10/2016 None bone fracture Triggers f all 02/10/2016 None bone fracture Pertinent Findings Denies fever 02/10/2016 None rash Quality recurrent 01/11/2016 None rash Quality dry 01/11/2016 None rash Triggers no known t riggers 01/11/2016 None rash Pertinent Findings Denies itching 01/11/2016 None rash Location-Head/Neck on the right cheek 01/11/2016 under the right eye rash Onset and Resolution ongoing 01/11/2016 None hypertension Onset and Resolution ongoing 01/11/2016 None hypertension Onset of Symptom during adulthood 01/11/2016 None hypertension Alleviating Factors medication 01/11/2016 None hypertension Exacerbating Factors stress 01/11/2016 None back pain Location in th e left lower back area 12/16/2015 None back pain Quality aching 12/16/2015 None back pain Quality interm ittent 12/16/2015 None back pain Quality sharp 12/16/2015 None back pain Quality stabbi ng 12/16/2015 None back pain Quality worsen ing 12/16/2015 None back pain Quality radiat ing 12/16/2015 None back pain Onset and Resolution sudden in onset 12/16/2015 None back pain Onset of Symptom 1 weeks ago 12/16/2015 None back pain Frequency of Episodes daily 12/16/2015 None back pain Mechanism of injury unknown 12/16/2015 None back pain Mechanism of injury flexion/extension 12/16/2015 None back pain Radiating down left leg 12/16/2015 None cough Location in the [place] 09/30/2015 None cough Quality constant 09/30/2015 None cough Quality productive 09/30/2015 None cough Onset and Resolution sudden in onset 09/30/2015 None cough Onset of Symptom 3 days ago 09/30/2015 None cough Frequency of Episodes daily 09/30/2015 None cough Pertinent Findings chest discomfort 09/30/2015 None cough Pertinent Findings fever 09/30/2015 None cough Pertinent Findings hoarseness 09/30/2015 None cough Pertinent Findings nasal congestion 09/30/2015 None sinus congestion Location on both sides 09/30/2015 None sinus congestion Quality fullness 09/30/2015 None sinus congestion Onset and Resolution sudden in onset 09/30/2015 None sinus congestion Onset of Symptom 3 days ago 09/30/2015 None sore throat Location on both sides 09/30/2015 None sore throat Quality dull 09/30/2015 None sore throat Quality scra tchy 09/30/2015 None sore throat Onset and Resolution sudden in onset 09/30/2015 None earache Location left ear 09/30/2015 None earache Onset and Resolution sudden in onset 09/30/2015 None earache Onset of Symptom 3 days ago 09/30/2015 None nasal discharge Location in both nares 08/05/2015 None nasal discharge Quality acute 08/05/2015 None nasal discharge Onset and Resolution gradual in onset 08/05/2015 None nasal discharge Quality yellow 08/05/2015 None nasal discharge Quality thick 08/05/2015 None cough Location in the [facility] 08/05/2015 None cough Quality chronic 08/05/2015 None cough Onset and Resolution gradual in onset 08/05/2015 None cough Onset and Resolution ongoing 08/05/2015 None Annual Medicare Wellness Exam Alcohol Use does not drink any alcohol 08/03/2015 None Annual Medicare Wellness Exam Aspirin Use no 08/03/2015 None Annual Medicare Wellness Exam Blood Glucose (self reported) don't know 08/03/2015 No ne Annual Medicare Wellness Exam Blood Pressure (self reported) borderline (120/80 - 139/89) 016 None Annual Medicare Wellness Exam Choles terol (self reported) borderline high (200-239) 08/03/2015 None Annual Medicare Wellness Exam Depres shirley (last 6 months) almost never 08/03/2015 None Annual Medicare Wellness Exam Depres shirley or Hopelessness almost never 08/03/2015 None Annual Medicare Wellness Exam Descri be Your Health fair 08/03/2015 None Annual Medicare Wellness Exam Exerci se Habits does not exercise 08/03/2015 None Annual Medicare Wellness Exam Handli ng Stress usually lauryn effectively 08/03/2015 None Annual Medicare Wellness Exam Hemagl obin A-1C (self reported) don't know 08/03/2015 No ne Annual Medicare Wellness Exam Hours of Sleep 6 08/03/2015 None Annual Medicare Wellness Exam Intera ction with Friends yes 08/03/2015 None Annual Medicare Wellness Exam Intere sts & Pleasure most of the time 08/03/2015 None Annual Medicare Wellness Exam Life S atisfaction satisfied 08/03/2015 Non e Annual Medicare Wellness Exam Motor Vehicle Safety always fastens seat belt: _ 08/03/19 16 None Annual Medicare Wellness Exam Nutrition servings of fried food / high fat foods per day: 0 08/03/2015 None Annual Medicare Wellness Exam Nutrition servings of high fiber / whole grain per day: 3 08/03/2015 None Annual Medicare Wellness Exam Nutrition servings of vegetables / fruit per day: 3 08/03/2015 None Annual Medicare Wellness Exam Smokin g and Tobacco Use non smoker 08/03/2015 No ne Annual Medicare Wellness Exam Social & Emotional Support always 08/03/2015 None Annual Medicare Wellness Exam Stress almost never 08/03/2015 None Annual Medicare Wellness Exam Sun Exposure protects skin when outdoors: _ 08/03/2015 None cough Location in the [facility] 07/13/2015 None cough Quality chronic 07/13/2015 None cough Quality dry 07/13/2015 None cough Quality hacking 07/13/2015 None cough Quality productive 07/13/2015 clear/yellowish sputum cough Onset and Resolution ongoing 07/13/2015 None cough Onset of Symptom _ years ago 07/13/2015 None cough Triggers no known associated factors 07/13/2015 None rash Quality recurrent 07/13/2015 None rash Quality dry 07/13/2015 - pt states that it happened this summer and she has not used any treatments - it does not itch and it just feels dry and she can flake off the dry skin - rash Onset and Resolution sudden in onset 07/13/2015 None rash Onset of Symptom _ months ago 07/13/2015 During the summer rash Triggers no known t riggers 07/13/2015 None rash Pertinent Findings Denies itching 07/13/2015 None cough Frequency of Episodes unchanged 07/13/2015 None cough Pertinent Findings Denies fever 07/13/2015 None rash Onset and Resolution resolved 07/13/2015 None cough Location in the [place] 06/10/2015 None cough Quality chronic 06/10/2015 None cough Onset and Resolution ongoing 06/10/2015 None cough Quality hacking 06/10/2015 None cough Quality dry 06/10/2015 None cough Quality productive 06/10/2015 "sometimes"- more so in the morning cough Onset of Symptom _ years ago 06/10/2015 None cough Frequency of Episodes increasing 06/10/2015 None cough Triggers no known associated factors 06/10/2015 None rash Onset of Symptom _ months ago 06/10/2015 During the summer rash Onset and Resolution sudden in onset 06/10/2015 None rash Onset and Resolution ongoing 06/10/2015 None well woman exam (65+ years) Lifestyle regular seatbelt use 06/10/2015 None well woman exam (65+ years) Lifestyle abnormal sleep patterns 06/10/2015 "doesn't sleep through the night" well woman exam (65+ years) Lifestyle abnormal amount of stress 06/10/2015 None well woman exam (65+ years) Obstetri nancy History 0 total pregnancies 06/10/2015 None well woman exam (65+ years) Nutritio n and Exercise no exercise 06/10/2015 N one well woman exam (65+ years) Nutritio n and Exercise inadequate nutrition 06/10/2015 None well woman exam (65+ years) Pap Smear last normal performed on 08-15-12 06/10/2015 Has a history of preovarian cancer rash Location-Head/Neck on the right cheek 06/10/2015 and around the nose rash Quality recurrent 06/10/2015 None rash Quality dry 06/10/2015 - pt states that it happened this summe r and she has not used any treatments - it does not itch and it just feels dry and she can flake off the dry skin - rash Color red 06/10/2015 None rash Triggers no known t riggers 06/10/2015 None rash Pertinent Findings Denies itching 06/10/2015 None cough Location in the [place] 03/10/2015 None cough Quality chronic 03/10/2015 None cough Onset and Resolution ongoing 03/10/2015 None cough Triggers change of seasons 03/10/2015 None cough Triggers post nasa l drip 03/10/2015 None sinus congestion Quality chronic 03/10/2015 None sinus congestion Onset and Resolution ongoing 03/10/2015 None sinus congestion Severity moderate 03/10/2015 None Symptom Name Status Resu lt Effective Date Notes Onset and Resolution D enies sudden in onset 03/06/2019 None Onset of Symptom 2+ we eks ago 03/06/2019 None Limitation on Activities does not limit activities 03/06/2019 None Triggers Denies no kno wn associated factors 03/06/2019 None Pertinent Findings walden b pain / tenderness 03/06/2019 None Location on the left a nkle 03/06/2019 and foot Quality acute 03/06/2019 None Location-Extremities o n the left foot 03/06/2019 None Color red 03/06/2019 None Onset and Resolution s udden in onset 03/06/2019 None Onset of Symptom 1 day s ago 03/06/2019 None Pertinent Findings itc mercedes 03/06/2019 None Triggers no known trig gers 03/06/2019 None Quality acute 02/25/2019 None Quality worsening 02/25/2019 None Onset and Resolution D enies sudden in onset 02/25/2019 None Onset of Symptom 1 wee ks ago 02/25/2019 None Triggers Denies no kno wn associated factors 02/25/2019 None Location on the left a nkle 02/25/2019 and foot Pertinent Findings walden b pain / tenderness 02/25/2019 None Limitation on Activities does not limit activities 02/25/2019 None Frequency of Episodes increasing 02/25/2019 None Length of Episodes 1 w eeks 02/25/2019 None Location in the lung 09/06/2018 None Quality acute 09/06/2018 None Pertinent Findings Den ies dyspnea 09/06/2018 None hypertension Onset and Resolution ongoing 08/23/2017 None well woman exam (65+ years) Lifestyle regular seatbelt use 08/23/2017 None well woman exam (65+ years) Lifestyle abnormal sleep patterns 08/23/2017 None well woman exam (65+ years) Lifestyle abnormal amount of stress 08/23/2017 None well woman exam (65+ years) Obstetri nancy History 0 total pregnancies 08/23/2017 None well woman exam (65+ years) Nutritio n and Exercise inadequate nutrition 08/23/2017 None well woman exam (65+ years) Nutritio n and Exercise no exercise 08/23/2017 N one hypertension Quality chr onic 08/23/2017 None hypertension Quality sta ble 08/23/2017 None hypertension Onset of Symptom during adulthood 08/23/2017 None hypertension Pertinent Findings Denies anxiety 08/23/2017 None hypertension Pertinent Findings Denies decreased energy 08/23/2017 None hypertension Pertinent Findings Denies dizziness 08/23/2017 None hypertension Pertinent Findings Denies dyspnea 08/23/2017 None hypertension Pertinent Findings Denies edema 08/23/2017 None hypertension Blood Pressure Values not checking blood pressure at home 08/23/2017 None hypertension Severity mi ld 08/23/2017 None hypertension Triggers no known associated factors 08/23/2017 None hypertension Alleviating Factors medication 08/23/2017 None rash Location-Major on t he head 02/09/2017 None rash Location-Head/Neck on the nose 02/09/2017 None rash Color red 02/09/2017 None rash Onset and Resolution ongoing 02/09/2017 None rash Onset of Symptom 1 year ago 02/09/2017 None hypertension Onset and Resolution ongoing 02/01/2017 None wound follow up Date of procedure 01/30/2017 02/01/2017 None well woman exam (65+ years) Lifestyle regular seatbelt use 08/03/2016 None well woman exam (65+ years) Lifestyle abnormal sleep patterns 08/03/2016 None well woman exam (65+ years) Lifestyle abnormal amount of stress 08/03/2016 None well woman exam (65+ years) Obstetri nancy History 0 total pregnancies 08/03/2016 None well woman exam (65+ years) Nutritio n and Exercise inadequate nutrition 08/03/2016 None well woman exam (65+ years) Nutritio n and Exercise no exercise 08/03/2016 N one cough Location in the [place] 04/24/2016 None cough Quality constant 04/24/2016 None cough Quality hacking 04/24/2016 None cough Quality productive 04/24/2016 None cough Onset and Resolution sudden in onset 04/24/2016 None cough Onset of Symptom 1 weeks ago 04/24/2016 None cough Frequency of Episodes daily 04/24/2016 None cough Pertinent Findings hoarseness 04/24/2016 None cough Pertinent Findings nasal congestion 04/24/2016 None sinus congestion Location frontal sinuses 04/24/2016 None sinus congestion Quality fullness 04/24/2016 None sinus congestion Quality pain 04/24/2016 None sinus congestion Onset and Resolution sudden in onset 04/24/2016 None sinus congestion Onset of Symptom 1 weeks ago 04/24/2016 None cough Location in the [place] 03/28/2016 None cough Quality constant 03/28/2016 None cough Quality dry 03/28/2016 None cough Quality hacking 03/28/2016 None cough Onset and Resolution sudden in onset 03/28/2016 None cough Onset of Symptom 5 days ago 03/28/2016 None cough Frequency of Episodes daily 03/28/2016 None sinus congestion Onset and Resolution sudden in onset 03/28/2016 None sinus congestion Pertinent Findings cough 03/28/2016 None sinus congestion Pertinent Findings hoarseness 03/28/2016 None sinus congestion Location on both sides 03/28/2016 None sinus congestion Quality constant 03/28/2016 None sinus congestion Quality fullness 03/28/2016 None sinus congestion Quality pressure 03/28/2016 None bone fracture Location a cute 03/10/2016 None bone fracture Location o n the left wrist 03/10/2016 None bone fracture Quality ac gambell 03/10/2016 None bone fracture Triggers f all 03/10/2016 None bone fracture Pertinent Findings Denies fever 03/10/2016 None bone fracture Location a cute 02/10/2016 None bone fracture Location o n the left wrist 02/10/2016 None bone fracture Quality ac gambell 02/10/2016 None bone fracture Mechanism of injury moderate energy 02/10/2016 None bone fracture Triggers f all 02/10/2016 None bone fracture Pertinent Findings Denies fever 02/10/2016 None rash Quality recurrent 01/11/2016 None rash Quality dry 01/11/2016 None rash Triggers no known t riggers 01/11/2016 None rash Pertinent Findings Denies itching 01/11/2016 None rash Location-Head/Neck on the right cheek 01/11/2016 under the right eye rash Onset and Resolution ongoing 01/11/2016 None hypertension Onset and Resolution ongoing 01/11/2016 None hypertension Onset of Symptom during adulthood 01/11/2016 None hypertension Alleviating Factors medication 01/11/2016 None hypertension Exacerbating Factors stress 01/11/2016 None back pain Location in th e left lower back area 12/16/2015 None back pain Quality aching 12/16/2015 None back pain Quality interm ittent 12/16/2015 None back pain Quality sharp 12/16/2015 None back pain Quality stabbi ng 12/16/2015 None back pain Quality worsen ing 12/16/2015 None back pain Quality radiat ing 12/16/2015 None back pain Onset and Resolution sudden in onset 12/16/2015 None back pain Onset of Symptom 1 weeks ago 12/16/2015 None back pain Frequency of Episodes daily 12/16/2015 None back pain Mechanism of injury unknown 12/16/2015 None back pain Mechanism of injury flexion/extension 12/16/2015 None back pain Radiating down left leg 12/16/2015 None cough Location in the [place] 09/30/2015 None cough Quality constant 09/30/2015 None cough Quality productive 09/30/2015 None cough Onset and Resolution sudden in onset 09/30/2015 None cough Onset of Symptom 3 days ago 09/30/2015 None cough Frequency of Episodes daily 09/30/2015 None cough Pertinent Findings chest discomfort 09/30/2015 None cough Pertinent Findings fever 09/30/2015 None cough Pertinent Findings hoarseness 09/30/2015 None cough Pertinent Findings nasal congestion 09/30/2015 None sinus congestion Location on both sides 09/30/2015 None sinus congestion Quality fullness 09/30/2015 None sinus congestion Onset and Resolution sudden in onset 09/30/2015 None sinus congestion Onset of Symptom 3 days ago 09/30/2015 None sore throat Location on both sides 09/30/2015 None sore throat Quality dull 09/30/2015 None sore throat Quality scra tchy 09/30/2015 None sore throat Onset and Resolution sudden in onset 09/30/2015 None earache Location left ear 09/30/2015 None earache Onset and Resolution sudden in onset 09/30/2015 None earache Onset of Symptom 3 days ago 09/30/2015 None nasal discharge Location in both nares 08/05/2015 None nasal discharge Quality acute 08/05/2015 None nasal discharge Onset and Resolution gradual in onset 08/05/2015 None nasal discharge Quality yellow 08/05/2015 None nasal discharge Quality thick 08/05/2015 None cough Location in the [facility] 08/05/2015 None cough Quality chronic 08/05/2015 None cough Onset and Resolution gradual in onset 08/05/2015 None cough Onset and Resolution ongoing 08/05/2015 None Annual Medicare Wellness Exam Alcohol Use does not drink any alcohol 08/03/2015 None Annual Medicare Wellness Exam Aspirin Use no 08/03/2015 None Annual Medicare Wellness Exam Blood Glucose (self reported) don't know 08/03/2015 No ne Annual Medicare Wellness Exam Blood Pressure (self reported) borderline (120/80 - 139/89) 016 None Annual Medicare Wellness Exam Choles terol (self reported) borderline high (200-239) 08/03/2015 None Annual Medicare Wellness Exam Depres shirley (last 6 months) almost never 08/03/2015 None Annual Medicare Wellness Exam Depres shirley or Hopelessness almost never 08/03/2015 None Annual Medicare Wellness Exam Descri be Your Health fair 08/03/2015 None Annual Medicare Wellness Exam Exerci se Habits does not exercise 08/03/2015 None Annual Medicare Wellness Exam Primitivo klein Stress usually lauryn effectively 08/03/2015 None Annual Medicare Wellness Exam Hemagl obin A-1C (self reported) don't know 08/03/2015 No ne Annual Medicare Wellness Exam Hours of Sleep 6 08/03/2015 None Annual Medicare Wellness Exam Intera ction with Friends yes 08/03/2015 None Annual Medicare Wellness Exam Intere sts & Pleasure most of the time 08/03/2015 None Annual Medicare Wellness Exam Life S atisfaction satisfied 08/03/2015 Non e Annual Medicare Wellness Exam Motor Vehicle Safety always fastens seat belt: _ 08/03/19 16 None Annual Medicare Wellness Exam Nutrition servings of fried food / high fat foods per day: 0 08/03/2015 None Annual Medicare Wellness Exam Nutrition servings of high fiber / whole grain per day: 3 08/03/2015 None Annual Medicare Wellness Exam Nutrition servings of vegetables / fruit per day: 3 08/03/2015 None Annual Medicare Wellness Exam Smokin g and Tobacco Use non smoker 08/03/2015 No ne Annual Medicare Wellness Exam Social & Emotional Support always 08/03/2015 None Annual Medicare Wellness Exam Stress almost never 08/03/2015 None Annual Medicare Wellness Exam Sun Exposure protects skin when outdoors: _ 08/03/2015 None cough Location in the [place] 07/13/2015 None cough Quality chronic 07/13/2015 None cough Quality dry 07/13/2015 None cough Quality hacking 07/13/2015 None cough Quality productive 07/13/2015 clear/yellowish sputum cough Onset and Resolution ongoing 07/13/2015 None cough Onset of Symptom _ years ago 07/13/2015 None cough Triggers no known associated factors 07/13/2015 None rash Quality recurrent 07/13/2015 None rash Quality dry 07/13/2015 - pt states that it happened this summer and she has not used any treatments - it does not itch and it just feels dry and she can flake off the dry skin - rash Onset and Resolution sudden in onset 07/13/2015 None rash Onset of Symptom _ months ago 07/13/2015 During the summer rash Triggers no known t riggers 07/13/2015 None rash Pertinent Findings Denies itching 07/13/2015 None cough Frequency of Episodes unchanged 07/13/2015 None cough Pertinent Findings Denies fever 07/13/2015 None rash Onset and Resolution resolved 07/13/2015 None cough Location in the [place] 06/10/2015 None cough Quality chronic 06/10/2015 None cough Onset and Resolution ongoing 06/10/2015 None cough Quality hacking 06/10/2015 None cough Quality dry 06/10/2015 None cough Quality productive 06/10/2015 "sometimes"- more so in the morning cough Onset of Symptom _ years ago 06/10/2015 None cough Frequency of Episodes increasing 06/10/2015 None cough Triggers no known associated factors 06/10/2015 None rash Onset of Symptom _ months ago 06/10/2015 During the summer rash Onset and Resolution sudden in onset 06/10/2015 None rash Onset and Resolution ongoing 06/10/2015 None well woman exam (65+ years) Lifestyle regular seatbelt use 06/10/2015 None well woman exam (65+ years) Lifestyle abnormal sleep patterns 06/10/2015 "doesn't sleep through the night" well woman exam (65+ years) Lifestyle abnormal amount of stress 06/10/2015 None well woman exam (65+ years) Obstetri nancy History 0 total pregnancies 06/10/2015 None well woman exam (65+ years) Nutritio n and Exercise no exercise 06/10/2015 N one well woman exam (65+ years) Nutritio n and Exercise inadequate nutrition 06/10/2015 None well woman exam (65+ years) Pap Smear last normal performed on 08-15-12 06/10/2015 Has a history of preovarian cancer rash Location-Head/Neck on the right cheek 06/10/2015 and around the nose rash Quality recurrent 06/10/2015 None rash Quality dry 06/10/2015 - pt states that it happened this summe r and she has not used any treatments - it does not itch and it just feels dry and she can flake off the dry skin - rash Color red 06/10/2015 None rash Triggers no known t riggers 06/10/2015 None rash Pertinent Findings Denies itching 06/10/2015 None cough Location in the [place] 03/10/2015 None cough Quality chronic 03/10/2015 None cough Onset and Resolution ongoing 03/10/2015 None cough Triggers change of seasons 03/10/2015 None cough Triggers post nasa l drip 03/10/2015 None sinus congestion Quality chronic 03/10/2015 None sinus congestion Onset and Resolution ongoing 03/10/2015 None sinus congestion Severity moderate 03/10/2015 None Instructions Comment . Sinusitis - Pt has acute infection - pain in face, maxillary region, Pt informed to use decongestant, RX given to patient, sinus rinses also recommended. Call if symptoms do not show improvement. Otitis Media - discussed the diagnosis with the patient, script sent electronically to the pharmacy for treatment of the infection. The disease course was discussed and the need to notify the clinic if symptoms do not improve or if they acutely worsen. BMI 34 - The pt has been counseled about diet changes, calorie restriction, and need to exercise. Pt will RTC at next appointment for weight check. estroven - otc for h ot flashes - or try edemame - (soy) . Hypertension - well controlled - calvin nue with current medications, continue with no added salt diet. Pt has been encouraged to exercise daily. The pt has been advised to call the office if there are any acute concerns about change in blood pressure readings at home. Well Adult Female - exam completed. pelvic and breast exam completed. Pt will be called with results of her testing. She was advised to continue with yearly annual exams. Safe sex practices discussed during office visit today. Call if any abnormal gynecologic issues during the next year, otherwise, RTC yearly or prn. . Bronchitis - acute case of bronchitis identified. Pt has been given antibiotics, breathing treatments as appropriate, and pt has been instructed to call if symptoms are not improved, or if symptoms acutely worsen. . Sinusitis - Pt has acute infection - pain in face, maxillary region, Pt informed to use decongestant, RX given to patient, sinus rinses also recommended. Call if symptoms do not show improvement. Kenalog injection today in the office. Chronic cough-refer to Dr Suarez . Sinusitis - Pt has acute infection - pain in face, maxillary region, Pt informed to use decongestant, RX given to patient, sinus rinses also recommended. Call if symptoms do not show improvement. . Welcome to Medicar e Exam - today we discussed the patients past history, immunizations, preventative exams/evaluations - colonoscopy, fecal occult blood testing, routine labs for renal function, glucose, cholesterol, osteoporosis evaluations, cardiovascular testing and cancer screenings. We have also discussed mental health and the signs/symptoms of depression. The patient was advised of home safety evaluations and the need to make sure that as the aging process continues, we need to be aware of different ways to make the home a safer place to reside. The patient has also been counseled that exercise is necessary - and of utmost importance as we age to help decrease fall risk and to maintain independece in the home. . Left wrist fractur e - delayed healing - Pt still in air cast - pt to increase her vitamin D and calcium - will refer to Ortho . Hypertension - wel l controlled - continue with current medications, continue with no added salt diet. Pt has been encouraged to exercise daily. The pt has been advised to call the office if there are any acute concerns about change in blood pressure readings at home. Rash on face - use betamethasone. samples of dexilant - take ONE pill daily. . Hypertension - well controlled - calvin nue with current medications, continue with no added salt diet. Pt has been encouraged to exercise daily. The pt has been advised to call the office if there are any acute concerns about change in blood pressure readings at home. Esophageal Reflux - the patient has been counseled against excessive intake of caffeine, spicy foods, peppermint, and cinnamon - all of which can exacerbate esophageal reflux. The patient is to take medications as prescribed and call the office if the symptoms are not improving. . Hypertension - wel l controlled - continue with current medications, continue with no added salt diet. Pt has been encouraged to exercise daily. The pt has been advised to call the office if there are any acute concerns about change in blood pressure readings at home. Osteoporosis - hx of fragility fx of wrist - rx for dexa scan laceration of head - continue with neosporin use. . Left wrist fractur e - Pt tried to catch herself while falling backwards - will give script for aircast - repeat X-ray in 1 month - notify clinic with any changes or concerns. cetaphil wash and cr eam OR cerave wash and cream . Hypertension - well controlled - calvin nue with current medications, continue with no added salt diet. Pt has been encouraged to exercise daily. The pt has been advised to call the office if there are any acute concerns about change in blood pressure readings at home. Dermatitis - cetaphil wash and cream OR cerave wash and cream Esophageal Reflux - the patient has been counseled against excessive intake of caffeine, spicy foods, peppermint, and cinnamon - all of which can exacerbate esophageal reflux. The patient is to take medications as prescribed and call the office if the symptoms are not improving. use the netti pot tw ice daily one time about an hour before bed and one time in the morning. use symbicort inhaled twice daily use steroid on lesions on feet one time daily selsun blue on dry skin on face . use the netti pot twice daily one time about an hour before bed and one time in the morning. use symbicort inhaled twice daily use steroid on lesions on feet one time daily selsun blue on dry skin on face . Hypertension - wel l controlled - continue with current medications, continue with no added salt diet. Pt has been encouraged to exercise daily. The pt has been advised to call the office if there are any acute concerns about change in blood pressure readings at home. Osteopenia - hx of fragility fx of wrist -dexa scan shows osteopenia use anti-inflammato rik post injection today, ice to the injected site, call if redness, warmth, or increased pain occurs at the site of injection. . Joint Injection - left SI joint - Pt w as given post - injection instructions. The pt has been advised to use anti-inflammatories post injection today, ice to the injected site, call if redness, warmth, or increased pain occurs at the site of injection. Low back pain- the patient was instructed in appropriate posture, need for weight loss to alleviate abdominal obesity that is worsening the patient's back pain.. The pt is to use prn antiinflammatories to manage acute pain. The patient is to call the office if the pain is worsening or does not improve. . Rash - ongoing - w ill send RX, will refer to Dr. Kelley - The patient was instructed to use the cream as per RX. The patient is to call for any change in symptoms, increase in size of the lesion, increase in pain, worsening redness, warmth, discharge. Additional Source Comments This clinical document has been generated using [employer] software that has been certified by the Office of the National Coordinator for Health Information Technology (ONC 15.99.04.3023.[id number]) and the National Committee for Health Science Specialist (NCQA, as an eMeasure certified technology). FOR RECORDS PERTAINING TO PATIENTS WHO ARE OR HAVE BEEN ENROLLED IN A CHEMICAL D EPENDENCY/SUBSTANCE ABUSE PROGRAM, SOME INFORMATION MAY BE OMITTED. This clinica l summary was aggregated from multiple sources. Caution should be exercised in using it in the provision of clinical care. This summary normalizes information from multiple sources, and as a consequence, information in this document may ma terially change the coding, format and clinical context of patient data. In kayla tion, data may be omitted in some cases. CLINICAL DECISIONS SHOULD BE BASED ON T HE PRIMARY CLINICAL RECORDS. [facility] [employer] [facility]. provides no warranty or guara ntee of the accuracy or completeness of information in this document.The followi ng information is based on time limited clinical information
[2019-11-22] MEDS ORDERED: OXYMETAZOLINE (AFRIN) 0.05% NA 30 ML BTL ONE (22:20)
[2019-11-22] MEDS ORDERED: HYDR-4342 (22:32)
[2019-11-22] MEDS ORDERED: GABA300C (22:32)
[2019-11-22] MEDS ORDERED: hydrALAZINE (APESOLINE) 20 MG/ML VIAL ONE (22:35)
--- NOTE | 2019-11-22 22:42 | ED EENT ---
History of Present Illness General Chief Complaint: Nasal Problems Stated Complaint: NOSE BLEED Source: patient Exam Limitations: no limitations History of Present Illness Date Seen by Provider: November 22, 2019 Time Seen by Provider: 22:27 Initial Comments Patient presents ER by private conveyance from home with chief complaint of bilateral nose bleed while she was sitting doing nothing strenuous. No coughing sneezing or blowing her nose. She denies picking her nose or stick anything in her nose. She takes aspirin 81 milligrams twice a day and no blood thinners. She has a recent right hip replacement. Followed by Dr. Tavarez. She is having a little nausea related to swallowing blood. She has no history of anemia and denies any chest pain, shortness of breath or weakness tonight. She has no history of epistaxis. She did notice her blood pressure was significantly high and took another dose of atenolol 50 mg tonight. She's been taking it daily as prescribed. She said she took her atenolol about an hour prior to arrival. Nosebleed started at 2049, approximately an hour and half prior to arrival. The patient denies Previous nasal surgery. Patient admits to seasonal allergies and takes rnid-djq-osxhvzx second generation antihistamines and nasal saline sprays as well as Ventolin for her history of multiple pneumonias. She denies using nasal steroids. Allergies and Home Medications Allergies Coded Allergies: Sulfa (Sulfonamide Antibiotics) (Verified Allergy, Unknown, HIVES, 10/03/17) ciprofloxacin (Verified Allergy, Unknown, HIVES, 10/03/17) latex (Verified Allergy, Unknown, HIVES, 10/03/17) sulfamethoxazole (Verified Allergy, Unknown, HIVES, 10/03/17) trimethoprim (Verified Allergy, Unknown, HIVES, 10/03/17) Home Medications Albuterol Sulfate 1 Puff Puff, 2 PUFF IH QID PRN for WHEEZING, (Reported) 1 PUFF = 90 MCG Atenolol 25 Mg Tablet, 25 MG PO BID, (Reported) Brimonidine Tartrate 5 Ml Btl, 1 DROP OU BID, (Reported) Calcium Carbonate 500 Mg Tablet, 500 MG PO BID, (Reported) Fluticasone Furoate 200 Mcg Blst.w.dev, 200 MCG IH DAILY, (Reported) Fluticasone Propionate 16 Gm [place].susp, 2 SPRAY NSEACH DAILY, (Reported) Loratadine 10 Mg Tablet, 10 MG PO DAILY, (Reported) Montelukast Sodium 10 Mg Tablet, 10 MG PO HS, (Reported) Multivitamin W/Iron, Minerals 1 Each Tablet, 1 TAB PO DAILY, (Reported) Omeprazole 20 Mg Tablet.dr, 20 MG PO PRN, (Reported) Soy Isofl/Blk Coh/Gr Tea/Yerba 1 Each Tablet, 1 TAB PO DAILY, (Reported) Vitamin B Complex 1 Each Tablet, 1 TAB PO DAILY, (Reported) Patient Home Medication List Home Medication List Reviewed: Yes Review of Systems Review of Systems Constitutional: No chills, No diaphoresis Eyes: Denies Blindness, Denies Blurred Vision Ears: Denies Dizziness, Denies Pain Nose: clots, congestion, epistaxis; denies pain; bloody discharge Mouth: denies clots, denies loose teeth Throat: denies pain, denies swelling Respiratory: No cough, No short of breath Cardiovascular: No chest pain, No edema All Other Systems Reviewed Negative Unless Noted: Yes Past Tmegjuf-Dyrcpp-Jhfxrn Hx Patient Social History Alcohol Use: Denies Use Recreational Drug Use: No Smoking Status: Never a Smoker 2nd Hand Smoke Exposure: No Recent Foreign Travel: No Contact w/Someone Who Travel: No Recent Hopitalizations: Yes (hip replacement) Immunizations Up To Date Date of Pneumonia Vaccine: Aug 15, 2015 Date of Influenza Vaccine: Jul 25, 2017 Seasonal Allergies Seasonal Allergies: Yes Past Medical History Surgeries: Yes (THROAT SKIN LESION) Appendectomy, Hysterectomy, Orthopedic, Tonsillectomy Respiratory: Yes ( OXYGEN AT HS) Asthma, Pneumonia, COPD Cardiac: Yes Hypertension Neurological: No 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 0.0oz. 86.105156cc; 37.00 BMI Method: General Appearance: WD/WN, mild distress Eyes: bilateral eye normal inspection, bilateral eye PERRL, bilateral eye EOMI Ears: bilateral ear auricle normal, bilateral ear canal normal, bilateral ear TM normal Nose: No active bleeding, No sinus tenderness; other (bloody mucus in the right nostril. No polyps, abrasions or lacerations noted.) Mouth/Throat: normal mouth inspection, pharynx normal Neck: full range of motion, normal inspection Cardiovascular: normal peripheral pulses, regular rate, rhythm Respiratory: no respiratory distress, no accessory muscle use Neurologic/Psychiatric: alert, normal mood/affect, oriented x 3 Skin: normal color, warm/dry Progress/Results/Core Measures Results/Orders Lab Results Laboratory Tests Test 11/22/19 22:40 Range/Units White Blood Count 6.6 4.3-11.0 10^3/uL Red Blood Count 4.17 L 4.35-5.85 10^6/uL Hemoglobin 12.6 11.5-16.0 G/DL Hematocrit 39 35-52 % Mean Corpuscular Volume 93 80-99 FL Mean Corpuscular Hemoglobin 30 25-34 PG Mean Corpuscular Hemoglobin Concent 33 32-36 G/DL Red Cell Distribution Width 12.6 10.0-14.5 % Platelet Count 447 H 130-400 10^3/uL Mean Platelet Volume 8.8 7.4-10.4 FL Neutrophils (%) (Auto) 57 42-75 % Lymphocytes (%) (Auto) 29 12-44 % Monocytes (%) (Auto) 10 0-12 % Eosinophils (%) (Auto) 4 0-10 % Basophils (%) (Auto) 1 0-10 % Neutrophils # (Auto) 3.7 1.8-7.8 X 10^3 Lymphocytes # (Auto) 1.9 1.0-4.0 X 10^3 Monocytes # (Auto) 0.7 0.0-1.0 X 10^3 Eosinophils # (Auto) 0.2 0.0-0.3 10^3/uL Basophils # (Auto) 0.1 0.0-0.1 10^3/uL Sodium Level 143 135-145 MMOL/L Potassium Level 3.6 3.6-5.0 MMOL/L Chloride Level 106 98-107 MMOL/L Carbon Dioxide Level 26 21-32 MMOL/L Anion Gap 11 5-14 MMOL/L Blood Urea Nitrogen 13 7-18 MG/DL Creatinine 0.80 0.60-1.30 MG/DL Estimat Glomerular Filtration Rate > 60 BUN/Creatinine Ratio 16 Glucose Level 105 70-105 MG/DL Calcium Level 10.0 8.5-10.1 MG/DL My Orders Orders - ROLY MENDOZA Cbc With Automated Diff (11/22/19 22:09) Protime With Inr (11/22/19 22:09) Partial Thromboplastin Time (11/22/19 22:09) Oxymetazoline 0.05% Nasal [place] (Afrin 0. (11/23/19 09:00) Oxymetazoline 0.05% Nasal [place] (Afrin 0. (11/22/19 22:20) Ed Iv/Invasive Line Start (11/22/19 22:35) Basic Metabolic Panel (11/22/19 22:35) Ondansetron Injection (Zofran Injectio (11/22/19 22:45) Hydralazine Injection (Apresoline Inject (11/22/19 22:45) Hydralazine Injection (Apresoline Inject (11/22/19 22:35) Medications Given in ED Current Medications Medications Dose Ordered Sig/Lizet Route Start Time Stop Time Status Last Admin Dose Admin Hydralazine HCl 10 mg ONCE ONCE IV 11/22/19 22:45 11/22/19 22:46 DC 11/22/19 22:43 10 MG Ondansetron HCl 4 mg ONCE ONCE IVP 11/22/19 22:45 11/22/19 22:46 DC 11/22/19 22:43 4 MG Vital Signs/I&O 11/22/19 22:25 Temp 37.2 Pulse 84 Resp 18 B/P (MAP) 198/125 (149) Pulse Ox 95 O2 Delivery Room Air Progress Progress Note #1: Time: 22:40 Progress Note The patient has significantly elevated blood pressure 198/125 but no chest pain, shortness of breath. We are going to give her some Zofran for her nausea which is probably related to swallowing blood. We've done 2 large puffs of oxymetazoline up each nostril despite the epistaxis nearly being hemostatic. We'll have her hold pressure. Plan to check some basic labs. Because of her elevated blood pressure we will check a BMP and treat with hydralazine 10 mg. Goal is to drop her about 25% of her blood pressure and have her follow-up with primary care. Progress Note #2: Time: 23:13 Progress Note Blood pressure significantly improved to 156/71. Plan to put her on Norvasc 5 mg daily until she follows up with her primary care doctor. Departure Impression Primary Impression: Epistaxis Additional Impression: Hypertensive urgency Disposition: 01 HOME, SELF-CARE Condition: Stable Departure-Patient Inst. Decision time for Depature: 23:13 Referrals: ERIC TAVAREZ MD (PCP/Family) Primary Care Physician Patient Instructions: Nosebleeds (DC) Add. Discharge Instructions: Plan to follow up with your primary care doctor to discuss your high blood pressure. If you have another nose bleed apply 1-2 puffs of oxymetazoline up each nostril and then apply direct pressure and do not remove it for 20 minutes. If you're still having bleeding you can repeat this process with oxymetazoline and direct pressure for 20 minutes. If this does not stop the nosebleed then you should return to the ER for further intervention. If at anytime you develop chest pain, shortness of air or other worrisome symptoms then you should promptly return to the ER. Starting tomorrow plan to start Norvasc 1 tablet daily until you follow up with your primary care doctor to help control blood pressure. All discharge instructions reviewed with patient and/or family. Voiced understanding. Scripts Amlodipine Besylate (Norvasc) 5 Mg Tablet 5 MG PO DAILY for 14 Days, #14 TAB 0 Refills Prov: ROLY MENDOZA 11/22/19 ROLY MENDOZA November 22, 2019 22:42
[2019-11-22] MEDS ORDERED: hydrALAZINE (APESOLINE) 20 MG/ML VIAL IV ONE (22:45)
[2019-11-22] MEDS ORDERED: ONDANSETRON 4 MG/2 ML (SDV) Z0FRAN IVP ONE (22:45)
[2019-11-22 22:48] LABS: BASOPHILS # (AUTO) 0.1 10^3/uL (0.0-0.1); BASOPHILS % (AUTO) 1 % (0-10); EOSINOPHILS # (AUTO) 0.2 10^3/uL (0.0-0.3); EOSINOPHILS % (AUTO) 4 % (0-10); HEMATOCRIT 39 % (35-52); HEMOGLOBIN 12.6 G/DL (11.5-16.0); LYMPHOCYTES # (AUTO) 1.9 X 10^3 (1.0-4.0); LYMPHOCYTES % (AUTO) 29 % (12-44); MEAN CORPUSCULAR HEMOGLOBIN 30 PG (25-34); MEAN CORPUSCULAR HGB CONC 33 G/DL (32-36); MEAN CORPUSCULAR VOLUME 93 FL (80-99); MEAN PLATELET VOLUME 8.8 FL (7.4-10.4); MONOCYTES # (AUTO) 0.7 X 10^3 (0.0-1.0); MONOCYTES % (AUTO) 10 % (0-12); NEUTROPHILS # (AUTO) 3.7 X 10^3 (1.8-7.8); NEUTROPHILS % (AUTO) 57 % (42-75); PLATELET COUNT 447 10^3/uL (130-400); RED CELL DISTRIBUTION WIDTH 12.6 % (10.0-14.5); WHITE BLOOD COUNT 6.6 10^3/uL (4.3-11.0)
[2019-11-22 22:58] LABS: CHLORIDE 106 MMOL/L (98-107); POTASSIUM 3.6 MMOL/L (3.6-5.0); SODIUM 143 MMOL/L (135-145)
[2019-11-22 23:00] LABS: GLUCOSE 105 MG/DL (70-105)
[2019-11-22 23:01] LABS: CARBON DIOXIDE 26 MMOL/L (21-32)
[2019-11-22 23:04] LABS: GFR ESTIMATED > 60
[2019-11-22 23:05] LABS: BUN/CREATININE RATIO 16
[2019-11-22] MEDS ORDERED: AMLO5TAB4 PO (23:15)
[2019-11-22 23:17] VITALS: BP 155/78
[2019-11-22 23:18] LABS: PROTHROMBIN TIME PATIENT 13.6 SEC (12.2-14.7)
[2019-11-22] MEDS ORDERED: amLODIPine 5 MG (NORVASC) TAB PO ONE (23:30)
[2019-11-23] MEDS ORDERED: OXYMETAZOLINE (AFRIN) 0.05% NA 30 ML BTL SCH (09:00)
== END 2019-11-22 23:21 | disposition home or self-care (01) ==
LOC: EDUNIT# 22:06 → ER 22:08
DX: R04.0 Epistaxis (principal); I16.0 Hypertensive urgency; J44.9 Chronic obstructive pulmonary disease, unspecified; I10 Essential (primary) hypertension; K21.9 Gastro-esophageal reflux disease without esophagitis; Z79.82 Long term (current) use of aspirin; Z96.641 Presence of right artificial hip joint; Z88.2 Allergy status to sulfonamides; Z88.1 Allergy status to other antibiotic agents; Z91.040 Latex allergy status; Z99.81 Dependence on supplemental oxygen
CPT/HCPCS: 36415; 80048; 85025; 85610; 85730

== ENCOUNTER → 2020-02-17 | Outpatient (CLI) | payer MEDICARE, OTHER ==
[~2020-02-17] MED LIST changes: +AMLO5TAB4 PO; +GABA300C; +HYDR-3817; +RT-ALBUTEROL SULF 2.5 MG/3 ML PRE-MIX VIAL INH ONE
== END ==
LOC: RT 10:05
PROVIDERS: ATTEND Nurse Practitioner Family
DX: J30.9 Allergic rhinitis, unspecified (principal); G47.36 Sleep related hypoventilation in conditions classified elsewhere; J45.909 Unspecified asthma, uncomplicated; J40 Bronchitis, not specified as acute or chronic
CPT/HCPCS: 94060; 94726; 94729

== ENCOUNTER → 2020-11-11 | Outpatient (CLI) | payer MEDICARE, OTHER ==
[~2020-11-11] MED LIST changes: -MONT10TA26 PO; +MONT10TA32 PO; -RT-ALBUTEROL SULF 2.5 MG/3 ML PRE-MIX VIAL INH ONE
--- NOTE | 2020-11-12 12:55 | Diagnostic Imaging Report ---
INDICATION: Routine screening. COMPARISON is made with prior mammograms 09/05/2018 and 08/09/2017. 2-D and 3-D bilateral screening mammography was performed with CAD. Scattered fibroglandular densities are identified bilaterally. Benign-appearing nodules in the medial aspect of the right breast are stable. There is a new nodule in the outer right breast at posterior depth best seen on the CC view. This is not well-seen on the MLO view. Left breast is unremarkable. There are benign parenchymal and vascular calcification bilaterally. Axillae are unremarkable. IMPRESSION: BI-RADS 0 Right breast density. Additional views are recommended for further evaluation. ACR BI-RADS Category 0: Incomplete. (Needs additional imaging evaluation). Result letter will be mailed to the patient. Note: At least 10% of breast cancer is not imaged by mammography. Dictated by: Dictated on workstation # [id number]
== END ==
LOC: RAD 14:57
PROVIDERS: ATTEND Nurse Practitioner Family
DX: Z12.31 Encounter for screening mammogram for malignant neoplasm of breast (principal); R92.8 Other abnormal and inconclusive findings on diagnostic imaging of breast
CPT/HCPCS: 77063; 77067

== ENCOUNTER → 2020-11-19 | Outpatient (CLI) | payer MEDICARE, OTHER ==
--- NOTE | 2020-11-19 12:40 | Diagnostic Imaging Report ---
INDICATION: Right breast density. Patient presents for additional views. Correlation is made with recent screening study from 11/11/2020. Unilateral right 2-D and 3-D diagnostic mammography was performed with CAD. Spot compression CC, rolled CC and conventional 90 degrees lateral views were performed. Nodular density in the outer right breast posterior depth appears to have resolved with additional views and most likely represented superimposed tissue. No mass is identified. IMPRESSION: BI-RADS Category 1 Additional views fail to demonstrate a discrete mass. The patient may return to routine annual screening mammography. ACR BI-RADS Category 1: Negative. Result letter will be mailed to the patient. Note: At least 10% of breast cancer is not imaged by mammography. Dictated by: Dictated on workstation # [id number]
== END ==
LOC: RAD 12:45
PROVIDERS: ATTEND Family Medicine
DX: R92.2 Inconclusive mammogram (principal)
CPT/HCPCS: 77065; G0279

== ENCOUNTER → 2021-11-29 | Outpatient (CLI) | payer MEDICARE, OTHER ==
[~2021-11-29] MED LIST changes: +MONT-40 PO; -MONT10TA32 PO; +OMEP20TA56 PO; -OMEP20TA7 PO
--- NOTE | 2021-11-29 14:29 | Diagnostic Imaging Report ---
INDICATION: Routine screening. COMPARISON: 11/11/2020 and 09/05/2018. TECHNIQUE: 2D and 3D bilateral screening mammography was performed with CAD. FINDINGS: Scattered fibroglandular densities are identified bilaterally. The parenchymal pattern is stable. No mass or malignant-appearing microcalcifications are seen. There are scattered benign parenchymal and vascular calcifications bilaterally. The axillae are unremarkable. IMPRESSION: No mammographic features suspicious for malignancy are identified. ACR BI-RADS Category 2: Benign findings. Result letter will be mailed to the patient. Note: At least 10% of breast cancer is not imaged by mammography. Dictated by: Dictated on workstation # [id number]
--- NOTE | 2021-11-29 17:02 | Diagnostic Imaging Report ---
INDICATION: Postmenopausal screening for osteoporosis COMPARISON: 08/09/2017 FINDINGS: AP Spine L1-L4: [BMD (g/cm2): 1.203] [T-Score: 0.0] [Z-Score: 1.2] [BMD Previous: 1.261] [BMD % Change: -4.6%] LT Hip Neck: [BMD (g/cm2): 0.826] [T-Score: -1.5] [Z-Score: -0.1] LT Hip Total: [BMD (g/cm2):0.861] [T-Score:-1.2] [Z-Score: 0.0] [BMD Previous: 0.970] [BMD % Change: -11.2%] RT Hip Neck: [BMD (g/cm2):n/a] [T-Score:n/a] [Z-Score:n/a] RT Hip Total: [BMD (g/cm2):n/a] [T-score:n/a] [Z-Score:n/a] [BMD Previous:n/a] [BMD % Change:n/a] *Indicates significant change from prior examination based on 95% confidence level. World Health Organization criteria for BMD interpretation classify patients as Normal (T-score at or above -1.0), Osteopenic (T-score between -1.0 and -2.5) or Osteoporotic (T-score at or below -2.5). LIMITATIONS AND MODIFICATION: None. FRACTURE RISK (FRAX SCORE): The ten year probability of (%): Major Osteoporotic Fracture: [15.6%] Hip Fracture: [2.4%] IMPRESSION: 1. Osteopenia (Low bone mass). 2. Due to differences in equipment utilized between examinations, direct quantitative comparison is not possible to assess for interval change in bone mineral density. 3. See below National Osteoporosis Foundation guidelines on when to potentially initiate pharmacologic therapy. Based on the National Osteoporosis Foundation Guidelines, pharmacologic treatment should be initiated in any of the following, unless clinical conditions suggest otherwise: * Any patient with prior fragility fracture of the hip or vertebrae. A spine fracture indicates 5X risk for subsequent spine fracture and 2X risk for subsequent hip fracture. * Osteoporosis (T-score <-2.5). * Postmenopausal women and men age 50 and older with low bone mass/osteopenia (T-score between -1.0 and -2.5) by DXA and 10-year major osteoporotic fracture greater than 20% or a 10-year probability of hip fracture greater than 3%. These fracture risks are supplied above in the FRAX score, if applicable. * Clinician judgement and/or patient preferences may indicate treatment for people with 10-year fracture probabilities above or below these levels. Dictated by: Dictated on workstation # [id number]
== END ==
LOC: RAD 09:15
PROVIDERS: ATTEND Family Medicine
DX: Z12.31 Encounter for screening mammogram for malignant neoplasm of breast (principal); Z13.820 Encounter for screening for osteoporosis; M85.88 Other specified disorders of bone density and structure, other site; Z78.0 Asymptomatic menopausal state
CPT/HCPCS: 77063; 77067; 77080

== ENCOUNTER → 2022-05-05 | Outpatient (CLI) | payer MEDICARE, OTHER ==
--- NOTE | 2022-05-05 10:52 | Diagnostic Imaging Report ---
PROCEDURE: US Gallbladder. TECHNIQUE: Multiple real-time grayscale images were obtained over the right upper quadrant in various projections. INDICATION: Right upper quadrant pain. FINDINGS: Liver is normal in size 14.6 cm. The portal vein is patent and shows normal direction of flow. No liver mass is detected. No definite gallstones or sludge are identified. The gallbladder wall is borderline in thickness at 3 to 4 mm. No pericholecystic fluid or biliary duct dilatation is seen. Pancreas was obscured by bowel gas. Aorta is nonaneurysmal. IVC is patent. Right kidneys without calculi or hydronephrosis. There is no ascites. IMPRESSION: Borderline gallbladder wall thickening. However, there is no evidence of cholelithiasis or gallbladder sludge. Dictated by: Dictated on workstation # [id number]
== END ==
LOC: RAD 10:00
PROVIDERS: ATTEND Nurse Practitioner Family
DX: R10.11 Right upper quadrant pain (principal)
CPT/HCPCS: 76705

== ENCOUNTER → 2022-05-17 | Outpatient (CLI) | payer MEDICARE, OTHER ==
[~2022-05-17] MED LIST changes: +CATHETER FLUSH 10 ML SYR IVP PRN
--- NOTE | 2022-05-17 13:45 | Diagnostic Imaging Report ---
INDICATION: Right upper quadrant pain. Patient was administered 4.8 mCi technetium 99m Choletec intravenously and imaging over the abdomen was performed. At 60 minutes patient ingested 8 ounces Ensure and a gallbladder ejection fraction was calculated. There is homogeneous uptake of activity by the liver with prompt excretion of activity into the common duct and gallbladder. There is normal passage of activity into the small bowel. Gallbladder ejection fraction is low at 29%. Normal values are 35% or greater. IMPRESSION: 1. Patent cystic duct and common bile duct. 2. Low gallbladder ejection fraction of 29%. Dictated by: Dictated on workstation # [id number]
== END ==
LOC: CARD 09:00
PROVIDERS: ATTEND Family Medicine
DX: K82.9 Disease of gallbladder, unspecified (principal)
CPT/HCPCS: 78227; A9537

== ENCOUNTER 2022-06-22 05:29 | Outpatient (CLI) | payer MEDICARE, OTHER ==
[~2022-06-22] VITALS: Ht 157.4 cm; Wt 83.3 kg
[~2022-06-22 05:29] MED LIST changes: -CATHETER FLUSH 10 ML SYR IVP PRN
[2022-06-27] MEDS ORDERED: GABA-486 PO (11:09)
[2022-06-27] MEDS ORDERED: METR60GE4 TP (11:12)
[2022-06-27] MEDS ORDERED: DICL100G13 TP (11:12)
[2022-06-29] MEDS ORDERED: DOCU-143 PO (11:23)
[2022-06-29] MEDS ORDERED: ACHD5005 PO (11:23)
== END 2022-06-27 12:33 | disposition home or self-care (01) ==
LOC: PREOP 05:29
PROVIDERS: ATTEND Surgery
DX: Z01.818 Encounter for other preprocedural examination (principal)

== ENCOUNTER 2022-06-29 09:02 | Day surgery (SDC) | payer MEDICARE, OTHER ==
[~2022-06-29] VITALS: Ht 154.4 cm; Wt 83.3 kg
[2022-06-29] VITALS (12 sets, daily range): BP systolic 136–190; BP diastolic 80–98
[~2022-06-29 09:02] MED LIST changes: +DICL100G13 TP; +GABA-486 PO; +METR60GE4 TP
[2022-06-29] MEDS ORDERED: ceFAZolin INJECTION 2,000 MG in NS (IVPB) 50 ML IV ONE (09:30)
[2022-06-29] MEDS: LACTATED RINGERS 1,000 ML IV SCH ×2 (09:44→11:15)
[2022-06-29] MEDS ORDERED: fentaNYL INJ 100 MCG/2 ML AMP ONE (10:02)
[2022-06-29] MEDS ORDERED: proPOfol 200 MG/20 ML (DIPRIVAN) VIAL IV ONE (10:02)
[2022-06-29] MEDS ORDERED: MIDAZOLAM 2 MG/2 ML (VERSED) VIAL ONE (10:02)
[2022-06-29] MEDS ORDERED: LIDOCAINE PF 2% 5 ML (XYLOCAINE) VIAL ONE (10:02)
[2022-06-29] MEDS ORDERED: SEVOFLURANE (ULTANE) 15 ML INHAL SOLN ONE ×2 (10:02→11:03)
[2022-06-29] MEDS ORDERED: ONDANSETRON 4 MG/2 ML (SDV) Z0FRAN ONE (10:02)
[2022-06-29] MEDS ORDERED: BUP/EPI 0.25% 1:200,000 (MARCAINE) 30 ML VIAL ONE (10:21)
--- NOTE | 2022-06-29 10:32 | Progress Note-Pre Operative ---
Pre-Operative Progress Note Date of Available H&P: Jun 09, 2022 Date H&P Reviewed: Jun 29, 2022 Time H&P Reviewed: 10:32 History & Physical: H&P Reviewed, Patient Examed, No changes noted Pre-Operative Diagnosis: biliary dyskinesia ROWAN MARTINEZ DO Jun 29, 2022 10:32
[2022-06-29] MEDS ORDERED: ESMOLOL 100 MG/10 ML (BREVIBLOC) VIAL ONE (11:06)
[2022-06-29] MEDS ORDERED: BUP/EPI 0.25% 1:200,000 (MARCAINE) 30 ML VIAL INJ ONE (11:13)
[2022-06-29] MEDS ORDERED: IOHEXOL 300 MG/ML 100 ML (OMNIPAQUE 300) VIAL INJ ONE (11:14)
[2022-06-29] MEDS ORDERED: ROCURONIUM 50 MG/5 ML (ZEMURON) VIAL IV ONE (11:19)
[2022-06-29] MEDS ORDERED: ACHD5005 PO (11:23)
[2022-06-29] MEDS ORDERED: DOCU-143 PO (11:23)
--- NOTE | 2022-06-29 11:25 | Discharge Inst-Simple/Standard ---
Discharge Inst-Standard Discharge Medications New, Converted or Re-Newed RX: RX on Chart Patient Instructions/Follow Up Plan of Care/Instructions/FU: 2 weeks Yash Activity as Tolerated: No Discharge Diet: Regular Diet Other Inst to Patient Follow up Appt: Make appointment for 2 weeks. Instructions: No lifting greater than 10 pounds. No strenuous activity. May shower in 24 hours, no tub bath or soaking. Use incentive spirometer at home as directed. No Smoking Skin/Wound Care: You have special glue over incision, it will fall off on it's own. Symptoms to Report: Appetite Changes, Extremity Discoloration, Numbness/Tingling, Swelling Increased, Bleeding Excessive, Eyesight Changes, Pain Increased, Urine Color Change, Constipation(Persistent), Fever over 101 degree F, Pain/Pressure in ches t, Urinating Difficulty, Cough Up/Vomit Blood, Heart Beat Irreg/Pounding, Pain/Pressure in jaw, Vaginal Bleeding Increase, Cramps in feet or legs, Lightheadedness, Pain/Pressure in shoulder, Diarrhea(Persistent), Memory Changes Suddenly, Questions/Concerns, Weight gain consecutive days, Dizziness/Fainting, Nausea/Vomiting, Shortness of Breath, Weight gain over 2 pounds. If eyes or skin turn yellow notify physician. If questions or concerns contact your physician Or seek help at emergency department. ROWAN MARTINEZ DO Jun 29, 2022 11:25
--- NOTE | 2022-06-29 11:32 | Progress Note-Post Operative ---
Post-Operative Progess Note Surgeon (s)/Handle Bar Assembler (s) Surgeon ROWAN MARTINEZ DO Handle Bar Assembler: Dr. Maravilla to assist in retraction dissection and closure. Pre-Operative Diagnosis biliary dyskinesia Post-Operative Diagnosis same Procedure & Operative Findings Date of Procedure 06/29/22 Procedure Performed/Findings PROCEDURE: Laparoscopic cholecystectomy with intraoperative cholangiogram. COMPLICATIONS: None. PROCEDURE: The patient was taken to the operating suite and was prepped and draped in sterile fashion. A surgical pause was performed. Just superior to the umbilicus, a 12 mm incision was made. Dissection was taken down to the fascia, which was then scored and grasped with a Pasquale and the abdomen was then entered. A 0 Vicryl suture was placed in a [id number]-uq-mulyy fashion and a Holder trocar was placed and secured. Pneumoperitoneum was achieved. A 5mm trochar place in the subxyphoid and 2 in the right upper quadrant. The gallbladder was then grasped and elevated. Adhesions to the gallbladder were taken down with [place] and cautery. The cystic duct, and cystic artery were then dissected out. Clip was placed on the distal portion of the cystic duct which was then partially transected. An arrow catheter was inserted into the duct. The cholangiogram was then performed. No filing defects and contrast made its way into the duodenum. Catheter removed. Clips were placed on proximal portion of the cystic duct and then the duct was then transected. Clips were placed along the proximal and distal portion of the cystic artery which was then transected. Hook cautery was used to dissect the gallbladder from the gallbladder fossa achieving hemostasis. The gallbladder was placed in an Endobag and removed through the 12 mm trocar site. The abdomen was then reinspected. Copious amounts of irrigation were used to irrigate the abdomen and there were no signs of active bleeding. Hemostasis had been achieved. The 12 mm fascial defect was then closed with 0 Vicryl suture that had been placed in a [id number] fashion. The abdomen was then desufflated, the trocars were removed. The abdomen was then washed and dried. The skin was then closed using 4-0 Monocryl in a subcuticular fashion. The abdomen was washed and dried and Skin Affix was place over incisions. Patient tolerated the procedure well without any complications and was taken to the recovery room in stable condition. Anesthesia Type general Estimated Blood Loss Estimated blood loss (mL): minimal Specimens/Packing Specimens Removed gallbladder ROWAN MARTINEZ DO Jun 29, 2022 11:32
--- NOTE | 2022-06-29 11:40 | Anesthesia-General Post-Op ---
General Patient Condition Mental Status/LOC: Same as Preop Cardiovascular: Satisfactory Nausea/Vomiting: Absent Respiratory: Satisfactory Pain: Controlled Complications: Absent Post Op Complications Complications None Follow Up Care/Instructions Patient Instructions None needed. Anesthesia/Patient Condition Patient Condition Patient is doing well, no complaints, stable vital signs, no apparent adverse anesthesia problems. No complications reported per nursing. [place] [facility] [place] Yes BRYSON SEGURA CRNA Jun 29, 2022 11:40
[2022-06-29] MEDS ORDERED: HYDROmorphone 2 MG/ML VIAL (DILAUDID) ONE (11:45)
[2022-06-29] MEDS ORDERED: HYDROmorphone 2 MG/ML VIAL (DILAUDID) IV ONE (11:45)
[2022-06-29] MEDS ORDERED: ONDANSETRON 4 MG/2 ML (SDV) Z0FRAN IVP PRN (11:45)
--- NOTE | 2022-06-29 17:34 | Diagnostic Imaging Report ---
INDICATION: Right upper quadrant abdominal pain. COMPARISON: HIDA scan from 05/17/2022 Total fluoroscopy time: 12 seconds Total number of fluoroscopic images saved: 67 FINDINGS: Multiple intraoperative image intensifier and digital subtraction images of the right upper abdominal quadrant were obtained during intraoperative cholangiogram. Images provided show contrast opacifying the intra and extrahepatic biliary ductal systems. There is no focal stricture or evidence of dilatation. No abnormal intraluminal filling defects are seen. Contrast empties into the small bowel, as expected. There is reflux into the pancreatic duct. Please note, interpreting radiologist was not present during the procedure. IMPRESSION: 1. Fluoroscopic guidance provided during intraoperative cholangiogram, as above. Dictated by: Dictated on workstation # [id number]
== END 2022-06-29 13:55 | disposition home or self-care (01) ==
LOC: SDC 09:02
PROVIDERS: ATTEND Surgery
DX: K81.1 Chronic cholecystitis (principal); K66.0 Peritoneal adhesions (postprocedural) (postinfection); E66.9 Obesity, unspecified; Z68.34 Body mass index [BMI] 34.0-34.9, adult
CPT/HCPCS: 76000; 87081; 94664

== ENCOUNTER 2022-08-24 13:22 | Emergency (ER) | payer MEDICARE, OTHER ==
[~2022-08-24] VITALS: Ht 157 cm; Wt 75.7 kg
[~2022-08-24 13:22] MED LIST changes: +DOCU-143 PO
--- NOTE | 2022-08-24 13:39 | ED Respiratory ---
General Chief Complaint: Cough/Cold/Flu Symptoms Stated Complaint: COUGH | CHEST CONGESTION | NASAL DRAINAGE History of Present Illness Date Seen by Provider: Aug 24, 2022 Time Seen by Provider: 13:36 Initial Comments 71-year-old female presents with cough, wheezing, congestion. Patient has history of known underlying reactive airway disease. She has been struggling with it being under control and was taken off all of her medications in April in anticipation of seeing another specialist after her card clothier in [place] felt she needed a another opinion. Patient is on a rescue inhaler and has been using about 3 times a day. She reports that her current symptoms started 6 days ago. That 2 days ago she was started on prednisone. She feels that sometimes she is coughing so much that she might pass out. She is not having any chest pain fevers or chills. She does complain of significant wheezing. Allergies and Home Medications Allergies Coded Allergies: Sulfa (Sulfonamide Antibiotics) (Verified Allergy, Unknown, HIVES, 06/27/22) ciprofloxacin (Verified Allergy, Unknown, HIVES, 06/27/22) latex (Verified Allergy, Unknown, HIVES, 06/27/22) sulfamethoxazole (Verified Allergy, Unknown, HIVES, 06/27/22) trimethoprim (Verified Allergy, Unknown, HIVES, 06/27/22) Patient Home Medication List Home Medication List Reviewed: Yes Albuterol Sulfate (Ventolin Hfa) 1 Puff Puff, 2 PUFF IH QID PRN for WHEEZING, (Reported) Entered as Reported by: MARCO MTZ on 08/15/171606 Atenolol (Atenolol) 25 Mg Tablet, 25 MG PO BID, (Reported) Entered as Reported by: MARCO MTZ on 08/15/171606 Brimonidine Tartrate (Brimonidine Tartrate) 5 Ml Btl, 1 DROP OU BID, (Reported) Entered as Reported by: MARCO MTZ on 08/15/171606 Calcium Carbonate (Calcium) 500 Mg Tablet, 500 MG PO BID, (Reported) Entered as Reported by: MARCO MTZ on 08/15/171606 Diclofenac Sodium (Diclofenac Sodium) 1 % Gel..gram., 100 GM TP UD, (Reported) Entered as Reported by: LIZ AGUAYO on 06/27/22 1112 Docusate Sodium (Colace) 100 Mg Capsule, 100 MG PO BID Prescribed by: ROWAN MARTINEZ on 06/29/22 1123 Fluticasone Propionate (Fluticasone Propionate) 16 Gm [place].susp, 2 SPRAY NSEACH DAILY, (Reported) Entered as Reported by: MARCO MTZ on 08/15/17 1607 Gabapentin (Gabapentin) 100 Mg Capsule, 100 MG PO UD, (Reported) Entered as Reported by: LIZ AGUAYO on 06/27/22 1109 Hydrocodone/Acetaminophen (Hydrocodone-Acetamin 5-325 mg) 5 Mg-325 Mg Tablet, 1 EACH PO Q4H PRN for PAIN-MODERATE (5-7) Prescribed by: ROWAN MARTINEZ on 06/29/22 1124 Metronidazole (Metronidazole) 1 % Gel..gram., 60 GM TP UD, (Reported) Entered as Reported by: LIZ AGUAYO on 06/27/22 1112 Multivitamin W/Iron, Minerals (Complete Senior) 1 Each Tablet, 1 TAB PO DAILY, (Reported) Entered as Reported by: MARCO MTZ on 08/15/17 1607 Review of Systems Review of Systems Constitutional: No chills, No fever Respiratory: cough, short of breath, wheezing Cardiovascular: No chest pain, No palpitations Gastrointestinal: no symptoms reported Genitourinary: no symptoms reported Musculoskeletal: no symptoms reported Skin: no symptoms reported Psychiatric/Neurological: No Symptoms Reported Past Smrbkax-Urhfrc-Jkeqbp Hx Immunizations Up To Date First/Initial COVID19 Vaccinat: 08/24/2020 Second COVID19 Vaccination Bryson: 09/21/2020 Third COVID19 Vaccination Date: 05/23/2021, ? 2021 Seasonal Allergies Seasonal Allergies: Yes Past Medical History Surgeries: Yes (THROAT SKIN LESION, R TOTAL HIP REPLACEMENT) Appendectomy, Hysterectomy, Orthopedic, Tonsillectomy Respiratory: Yes ( OXYGEN AT HS NC2L) Asthma, Pneumonia Currently Using CPAP: No Currently Using BIPAP: No Cardiac: Yes Hypertension Neurological: No Reproductive Disorders: No [employer] History: Hysterectomy, Menopausal Sexually Transmitted Disease: No HIV/AIDS: No Genitourinary: No Gastrointestinal: Yes Gastroesophageal Reflux Musculoskeletal: Yes (L ARM, L LEG BROKEN) Arthritis, Fractures Endocrine: No HEENT: Yes Cataract, Glaucoma Hearing Impairment: Denies Cancer: No Psychosocial: No Integumentary: Yes (ROSACEA) Blood Disorders: No Adverse Reaction/Blood Tranf: No (N/A) Physical Exam Vital Signs - First Documented 08/24/22 13:40 Temp 36.4 Pulse 78 Resp 16 B/P (MAP) 156/95 (115) Pulse Ox 94 O2 Delivery Room Air Capillary Refill : Height: 5'2.00" Weight: 190lbs. 0.0oz. [id number]; 34.94 BMI Method: General Appearance: WD/WN, no apparent distress Neck: supple, normal inspection Respiratory: no respiratory distress, no accessory muscle use, wheezing (Diffuse) Gastrointestinal: non tender, soft Neurologic/Psychiatric: alert, normal mood/affect, oriented x 3 Skin: normal color, warm/dry Progress/Results/Core Measures Suspected Sepsis SIRS Temperature: Pulse: Respiratory Rate: Laboratory Tests 08/24/22 13:56: White Blood Count 9.7 Blood Pressure / Mean: Laboratory Tests 08/24/22 13:56: Creatinine 0.89, Platelet Count 345, Total Bilirubin 0.4 Results/Orders Lab Results Laboratory Tests Test 08/24/22 13:34 08/24/22 13:56 Range/Units Influenza Type A (RT-PCR) Not Detected Not Detecte Influenza Type B (RT-PCR) Not Detected Not Detecte SARS-CoV-2 RNA (RT-PCR) Not Detected Not Detecte White Blood Count 9.7 4.3-11.0 10^3/uL Red Blood Count 4.88 3.80-5.11 10^6/uL Hemoglobin 14.6 11.5-16.0 g/dL Hematocrit 43 35-52 % Mean Corpuscular Volume 88 80-99 fL Mean Corpuscular Hemoglobin 30 25-34 pg Mean Corpuscular Hemoglobin Concent 34 32-36 g/dL Red Cell Distribution Width 12.7 10.0-14.5 % Platelet Count 345 130-400 10^3/uL Mean Platelet Volume 9.1 9.0-12.2 fL Immature Granulocyte % (Auto) 1 % Neutrophils (%) (Auto) 72 42-75 % Lymphocytes (%) (Auto) 23 12-44 % Monocytes (%) (Auto) 5 0-12 % Eosinophils (%) (Auto) 0 0-10 % Basophils (%) (Auto) 0 0-10 % Neutrophils # (Auto) 7.0 1.8-7.8 10^3/uL Lymphocytes # (Auto) 2.2 1.0-4.0 10^3/uL Monocytes # (Auto) 0.4 0.0-1.0 10^3/uL Eosinophils # (Auto) 0.0 0.0-0.3 10^3/uL Basophils # (Auto) 0.0 0.0-0.1 10^3/uL Immature Granulocyte # (Auto) 0.1 0.0-0.1 10^3/uL Neutrophils % (Manual) 71 % Lymphocytes % (Manual) 22 % Monocytes % (Manual) 6 % Eosinophils % (Manual) 1 % Platelet Estimate ADEQUATE Blood Morphology Comment NORMAL Sodium Level 141 135-145 MMOL/L Potassium Level 4.1 3.6-5.0 MMOL/L Chloride Level 106 98-107 MMOL/L Carbon Dioxide Level 23 21-32 MMOL/L Anion Gap 12 5-14 MMOL/L Blood Urea Nitrogen 25 H 7-18 MG/DL Creatinine 0.89 0.60-1.30 MG/DL Estimat Glomerular Filtration Rate 69 BUN/Creatinine Ratio 28 Glucose Level 108 H 70-105 MG/DL Calcium Level 10.4 H 8.5-10.1 MG/DL Corrected Calcium 10.5 H 8.5-10.1 MG/DL Total Bilirubin 0.4 0.1-1.0 MG/DL Aspartate Amino Transf (AST/SGOT) 30 5-34 U/L Alanine Aminotransferase (ALT/SGPT) 26 0-55 U/L Alkaline Phosphatase 82 40-136 U/L C-Reactive Protein High Sensitivity 0.36 0.00-0.50 MG/DL Total Protein 6.9 6.4-8.2 GM/DL Albumin 3.9 3.2-4.5 GM/DL My Orders Orders - PIERCE,SHERIF L DO Chest Pa/Lat (2 View) (08/24/22 13:39) Cbc With Automated Diff (08/24/22 13:39) Comprehensive Metabolic Panel (08/24/22 13:39) Hs C Reactive Protein (08/24/22 13:39) Influenza A And B By Pcr (08/24/22 13:39) Covid 19 Inhouse Test (08/24/22 13:39) Albuterol/Ipra Inhalation Soln (Duoneb I (08/24/22 13:45) Svn Small Volume Nebulizer (08/24/22 13:39) Manual Differential (08/24/22 13:56) Medications Given in ED Current Medications Medications Dose Ordered Sig/Lizet Route Start Time Stop Time Status Last Admin Dose Admin Albuterol/ Ipratropium 3 ml ONCE ONCE INH 08/24/22 13:45 08/24/22 13:46 DC 08/24/22 14:23 3 ML Vital Signs/I&O 08/24/22 08/24/22 13:40 14:24 Temp 36.4 Pulse 78 Resp 16 B/P (MAP) 156/95 (115) Pulse Ox 94 96 O2 Delivery Room Air Room Air Capillary Refill : Progress Note : Progress Note Patient's labs were reviewed by me shows no acute abnormalities. Patient's x- ray was reviewed by me and shows no acute changes. She did improve with the DuoNeb. Patient has Ventolin at home. I will start her on azithromycin since she was prescribed steroids by her primary care provider. Also give her some Tessalon Perles to help with the cough. I discussed with her at this time we will not add any further inhaled medication because her primary card clothier has a plan to have her further evaluated and I would not want to compromise his overall goal. I recommended she call him to see if he wants to change any of her medications. Patient is stable and discharged home Diagnostic Imaging Diagonstic Imaging: Xray Plain Films/CT/US/NM/MRI: chest Departure Impression Primary Impression: Bronchitis Disposition: 01 HOME, SELF-CARE Condition: Stable Departure-Patient Inst. Referrals: ERIC MCKAY MD (PCP/Family) Primary Care Physician Patient Instructions: Acute Bronchitis, Adult (DC) Add. Discharge Instructions: Please call your card clothier for further recommendations. Recommend you use your inhaler every 4 hours for the next 24 hours while you are awake then as needed. All discharge instructions reviewed with patient and/or family. Voiced understanding. Scripts Benzonatate (TESSALON PERLES) 100 Mg Capsule 100 MG PO TID for Cough, #15 CAP Prov: SHERIF PIERCE DO 08/24/22 Azithromycin (Azithromycin) 250 Mg Tablet 250 MG PO UD, #6 TAB TAKE 2 TABLETS ON DAY ONE THEN TAKE 1 TABLET DAILY FOR FOUR MORE DAYS Prov: SHERIF PIERCE DO 08/24/22 SHERIF PIERCE DO Aug 24, 2022 13:39
[2022-08-24] MEDS ORDERED: RT-ALBUTEROL/IPRATROPIUM 3 ML (DUONEB) VIAL INH ONE (13:45)
[2022-08-24 14:01] LABS: BASOPHILS % (AUTO) 0 % (0-10); EOSINOPHILS % (AUTO) 0 % (0-10); HEMATOCRIT 43 % (35-52); HEMOGLOBIN 14.6 g/dL (11.5-16.0); LYMPHOCYTES # (AUTO) 2.2 10^3/uL (1.0-4.0); LYMPHOCYTES % (AUTO) 23 % (12-44); MEAN CORPUSCULAR HEMOGLOBIN 30 pg (25-34); MEAN CORPUSCULAR HGB CONC 34 g/dL (32-36); MEAN CORPUSCULAR VOLUME 88 fL (80-99); MEAN PLATELET VOLUME 9.1 fL (9.0-12.2); MONOCYTES # (AUTO) 0.4 10^3/uL (0.0-1.0); MONOCYTES % (AUTO) 5 % (0-12); NEUTROPHILS % (AUTO) 72 % (42-75); PLATELET COUNT 345 10^3/uL (130-400); WHITE BLOOD COUNT 9.7 10^3/uL (4.3-11.0)
[2022-08-24 14:17] LABS: ALBUMIN 3.9 GM/DL (3.2-4.5); EOSINOPHILS % (MANUAL) 1 %; LYMPHOCYTES % (MANUAL) 22 %; MONOCYTES % (MANUAL) 6 %; NEUTROPHILS % (MANUAL) 71 %; POTASSIUM 4.1 MMOL/L (3.6-5.0)
[2022-08-24 14:18] LABS: PLATELET ESTIMATE ADEQUATE; RBC MORPH NORMAL
[2022-08-24 14:19] LABS: CALCIUM 10.4 MG/DL (8.5-10.1)
[2022-08-24 14:20] LABS: TOTAL PROTEIN 6.9 GM/DL (6.4-8.2)
[2022-08-24 14:22] LABS: BILIRUBIN,TOTAL 0.4 MG/DL (0.1-1.0)
[2022-08-24 14:24] LABS: CREATININE SERUM 0.89 MG/DL (0.60-1.30)
--- NOTE | 2022-08-24 14:57 | Diagnostic Imaging Report ---
PATIENT HISTORY: SOB. TECHNIQUE: Two views of the chest. COMPARISON: CT from 08/30/2015. FINDINGS: The lung volumes are normal. No focal consolidation is seen. No large pleural effusion or pneumothorax is seen. The cardiomediastinal silhouette is normal in size and contour. No acute osseous abnormality is seen. IMPRESSION: No acute pulmonary abnormality seen. Dictated by: Dictated on workstation # [id number]
[2022-08-24] MEDS ORDERED: AZIT250T12 PO (15:00)
[2022-08-24] MEDS ORDERED: BENZ100C18 PO (15:00)
[2022-08-24 15:14] VITALS: BP 109/80
== END 2022-08-24 15:13 | disposition home or self-care (01) ==
LOC: EDUNIT# 13:22 → ER 13:25
DX: J45.909 Unspecified asthma, uncomplicated (principal); Z99.81 Dependence on supplemental oxygen; Z20.822 Contact with and (suspected) exposure to COVID-19; Z88.1 Allergy status to other antibiotic agents
CPT/HCPCS: 36415; 71046; 80053; 85007; 85027; 86141; 87636; 94640

== ENCOUNTER → 2022-10-17 | Outpatient (CLI) | payer MEDICARE, OTHER ==
[~2022-10-17] MED LIST changes: +AZIT250T12 PO; +BENZ100C18 PO
--- NOTE | 2022-10-17 11:05 | Diagnostic Imaging Report ---
PROCEDURE: CT chest without contrast. TECHNIQUE: Multiple contiguous axial images were obtained through the chest without the use of intravenous contrast. Auto Exposure Controls were utilized during the CT exam to meet ALARA standards for radiation dose reduction. INDICATION: Cough COMPARISON: Chest radiograph 08/24/2022, CT of the chest on 08/30/2015 FINDINGS: Normal heart size. Mild calcified coronary artery atherosclerosis. Normal caliber of the pulmonary artery and aorta. No pericardial effusion. No lymphadenopathy within the chest. Included views of the abdomen demonstrates post cholecystectomy change Scattered calcified granulomas. Scattered centrilobular emphysema. No suspicious pulmonary nodules. Scarring seen within the right middle lobe and lingula. No pulmonary mass or consolidation. No pleural mass, pleural effusion, or pneumothorax. The osseous structures demonstrate no lytic or sclerotic bone lesions. IMPRESSION: No acute findings in the chest. Emphysema. No mass or lymphadenopathy. Dictated by: Dictated on workstation # [id number]
== END ==
LOC: RAD FS 08:11
PROVIDERS: ATTEND Internal Medicine Pulmonary Disease
DX: J43.9 Emphysema, unspecified (principal)
CPT/HCPCS: 71250

== ENCOUNTER 2022-11-29 05:39 | Outpatient (CLI) | payer MEDICARE ==
[~2022-11-29] VITALS: Ht 157.5 cm; Wt 79.5 kg
[~2022-11-29 05:39] MED LIST changes: +BRIM5DRO3 OU; -BRIMON0.2 OU
[2022-12-04] MEDS ORDERED: FLUT12AE4 IH (15:23)
[2022-12-04] MEDS ORDERED: CETI10TA17 PO (15:24)
== END 2022-12-04 15:30 | disposition home or self-care (01) ==
LOC: PREOP 05:39
PROVIDERS: ATTEND Surgery
DX: Z01.818 Encounter for other preprocedural examination (principal)

== ENCOUNTER → 2022-12-12 | Outpatient (CLI) | payer MEDICARE ==
[~2022-12-12] MED LIST changes: +CETI10TA17 PO; +FLUT12AE4 IH
--- NOTE | 2022-12-12 15:33 | Diagnostic Imaging Report ---
INDICATION: Routine screening. Comparison is made with prior mammogram from 11/29/2021 and 11/11/2020. 2-D and 3-D bilateral screening mammography was performed with CAD. Both breasts are heterogeneously dense, limiting the sensitivity of mammography. A nodular density medial right breast appears stable. No spiculated mass or malignant-appearing microcalcifications are seen. There are benign parenchymal and vascular calcifications bilaterally. Axillae are unremarkable. IMPRESSION: No mammographic features suspicious for malignancy are identified. ACR BI-RADS Category 2: Benign findings. Result letter will be mailed to the patient. Note: At least 10% of breast cancer is not imaged by mammography. BI-RADS Category 2 Dictated by: Dictated on workstation # [id number]
== END ==
LOC: RAD 08:30
PROVIDERS: ATTEND Nurse Practitioner Family
DX: Z12.31 Encounter for screening mammogram for malignant neoplasm of breast (principal)
CPT/HCPCS: 77063; 77067